=== PATIENT | female | born 1950 | race Caucasian/White ===

== ENCOUNTER 2017-04-14 14:32 | Outpatient (POV) | payer MEDICARE, SELFPAY | END 2017-04-14 16:04 | disposition home or self-care (01) | PROVIDERS: Visit Provider Podiatrist | DX: M20.11 Hallux valgus (acquired), right foot; M77.41 Metatarsalgia, right foot; I00 Rheumatic fever without heart involvement; M20.42 Other hammer toe(s) (acquired), left foot; M20.41 Other hammer toe(s) (acquired), right foot | CPT/HCPCS: 99204; 73630 ==

== ENCOUNTER → 2017-08-07 13:04 | Outpatient (POV) | payer MEDICARE, SELFPAY | PROVIDERS: Visit Provider Dermatology | DX: Z00.00 Encounter for general adult medical examination without abnormal findings (principal) ==

== ENCOUNTER → 2017-10-09 10:07 | Outpatient (POV) | payer MEDICARE, SELFPAY | PROVIDERS: Visit Provider Dermatology | DX: Z00.00 Encounter for general adult medical examination without abnormal findings (principal) ==

== ENCOUNTER 2017-10-14 09:25 | Outpatient (CLI) | payer MEDICARE, SELFPAY ==
[2017-10-14 09:43] VITALS: BP 142/76; PULSE 75; RESP 18; TEMP 36.6; O2SAT 97
[2017-10-14 10:00] VITALS: BP 139/75; PULSE 79; RESP 18; O2SAT 97
== END 2017-10-14 10:00 | disposition home or self-care (01) ==
LOC: INF 09:36
PROVIDERS: Visit Provider Internal Medicine Adolescent Medicine
DX: M81.0 Age-related osteoporosis without current pathological fracture (principal)
CPT/HCPCS: 96372; J0897

== ENCOUNTER → 2018-02-09 12:18 | Outpatient (CLI) | payer MEDICARE, SELFPAY ==
[2018-02-09 15:35] LABS: Blood Urea Nitrogen 19 mg/dL (7-18); Creatinine,Serum 0.94 mg/dL (0.55-1.02); Estimated Glomerular Filt Rate 59 ml/min (>60); GFR (African American) 71 ML/MIN (>60)
== END ==
PROVIDERS: PCP Internal Medicine Adolescent Medicine; Visit Provider Internal Medicine Adolescent Medicine
DX: R10.9 Unspecified abdominal pain (principal)
CPT/HCPCS: 36415; 82565; 84520

== ENCOUNTER → 2018-02-10 10:55 | Outpatient (CLI) | payer MEDICARE, SELFPAY ==
--- NOTE | 2018-02-10 10:59 | CT_ITS ---
CT abdomen pelvis w con CLINICAL INDICATION: Lower abdominal pain, diverticulosis ITS.REASON: ABD PAIN ORDERING PHYSICIAN: Sebastian Wallace MD PATIENT AGE: 68 years COMPARISON: 12/11/2016 TECHNIQUE: Axial images obtained with sagittal and coronal reformats. All CT scans at the facility use one or more dose reduction, viz: automated exposure control, ma/kV adjustment per patient size (including targeted exams where dose is matched to indication, i.e. head), or iterative reconstruction technique. PROCEDURE: Oral Contrast: Redicat IV Contrast: 75 mL's of Isovue-370. FINDINGS: There are fibrotic changes in the left lung base. There has been a prior cholecystectomy without ductal dilatation. The liver has an unremarkable appearance. There is a 15 mm isodense lesion involving the inferior aspect of the spleen unchanged and may represent a splenic cyst. Right adrenal gland is enlarged at 19 mm similar to the previous exam. Previously unenhanced images showed a density of less than 0 consistent with an adenoma. The pancreas has an unremarkable appearance. No renal or ureteral calculi. No hydronephrosis. There is a 4.6 cm right renal cyst unchanged. No intestinal obstruction or free air. There is a tiny umbilical hernia containing fat. The appendix has an unremarkable appearance. There is moderate long segment thickening involving the mid aspect of the sigmoid colon and the rectosigmoid area with diffuse diverticulosis noted of the sigmoid colon. There is some mild stranding of the pericolic fat in the sigmoid region consistent with mild diverticulitis. No abscess or perforation apparent. There has been a prior hysterectomy. Degenerative changes are present in the lumbar spine IMPRESSION: 1. Extensive diverticulosis of the sigmoid colon with some thickening of the sigmoid and rectosigmoid region consistent with hypertrophic changes from chronic diverticulosis 2. Minimal stranding of the fat around the sigmoid region suggesting mild diverticulitis. No evidence of abscess or perforation. 3. Other stable and nonacute findings as described above including right adrenal adenoma, splenic cyst, and right renal cyst
== END ==
PROVIDERS: PCP Internal Medicine Adolescent Medicine; Visit Provider Internal Medicine Adolescent Medicine
DX: R10.9 Unspecified abdominal pain (principal)
CPT/HCPCS: 74177; Q9967

== ENCOUNTER → 2018-03-03 14:22 | Outpatient (POV) | payer MEDICARE, SELFPAY | PROVIDERS: Visit Provider Dermatology | DX: Z00.00 Encounter for general adult medical examination without abnormal findings (principal) ==

== ENCOUNTER 2018-04-24 09:45 | Outpatient (CLI) | payer MEDICARE, SELFPAY ==
[2018-04-24 09:45] VITALS: BP 125/65; PULSE 76; RESP 20; TEMP 36.9; O2SAT 95
[2018-04-24 10:00] VITALS: BP 112/74; PULSE 68; RESP 20; TEMP 36.9; O2SAT 95
== END 2018-04-24 09:50 | disposition home or self-care (01) ==
LOC: INF 09:45
PROVIDERS: Visit Provider Internal Medicine Adolescent Medicine
DX: M81.0 Age-related osteoporosis without current pathological fracture (principal)
CPT/HCPCS: 96372; J0897

== ENCOUNTER → 2018-05-25 13:16 | Outpatient (CLI) | payer MEDICARE, SELFPAY ==
--- NOTE | 2018-05-25 13:21 | XR_ITS ---
XR chest 2V HISTORY: No history provided ORDERING PHYSICIAN: Sebastian Wallace MD PATIENT AGE: 68 years COMPARISON: None FINDINGS: The cardiomediastinal silhouette and pulmonary vascularity are within normal limits. The lungs are clear without infiltrates, suspicious nodules, or pleural effusions. No acute bony abnormalities. The calcified left hilar node. IMPRESSION: Negative chest, no acute finding
== END ==
PROVIDERS: PCP Internal Medicine Adolescent Medicine; Visit Provider Internal Medicine Adolescent Medicine
DX: J18.0 Bronchopneumonia, unspecified organism (principal)
CPT/HCPCS: 71046

== ENCOUNTER → 2018-07-23 15:07 | Outpatient (CLI) | payer MEDICARE, SELFPAY ==
[2018-07-23 18:44] LABS: Blood Urea Nitrogen 15 mg/dL (7-18); Creatinine,Serum 1.35 mg/dL (0.55-1.02); Estimated Glomerular Filt Rate 39 ml/min (>60); GFR (African American) 47 ML/MIN (>60)
== END ==
PROVIDERS: Visit Provider Internal Medicine Adolescent Medicine
DX: Z01.818 Encounter for other preprocedural examination (principal)
CPT/HCPCS: 36415; 82565; 84520

== ENCOUNTER → 2018-07-24 10:29 | Outpatient (CLI) | payer MEDICARE, SELFPAY ==
--- NOTE | 2018-07-24 10:56 | CT_ITS ---
CT abdomen pelvis w con CLINICAL INDICATION: Low abdominal pain, possible diverticulitis ITS.REASON: DIVERTICULITIS ORDERING PHYSICIAN: Sebastian Wallace MD PATIENT AGE: 68 years COMPARISON: 02/10/2018 TECHNIQUE: Axial images obtained with sagittal and coronal reformats. All CT scans at the facility use one or more dose reduction, viz: automated exposure control, ma/kV adjustment per patient size (including targeted exams where dose is matched to indication, i.e. head), or iterative reconstruction technique. PROCEDURE: Oral Contrast: Redicat IV Contrast: 75 mL's Optiray 350. FINDINGS: No acute finding in the lung bases. Postcholecystectomy changes. The liver and pancreas have an unremarkable appearance. There is an isodensity in the spleen centrally at 15 mm unchanged. There is a 19 mm right adrenal nodule not significantly changed which may be due to an adenoma. There is a 4.5 cm right renal cyst. No hydronephrosis. No ureteral calculi. No renal calculi. No intestinal obstruction or free air. There is a small umbilical hernia containing fat. Unremarkable appendix. There is diverticulosis of the descending and sigmoid colon but no convincing evidence of diverticulitis. The sigmoid colon is mildly thickened without stranding of the pericolic fat and may be due to nondistention. No abscess. No free air. Prior hysterectomy. There is degenerative disc disease at L4-5 and L5-S1 with mild anterolisthesis of L5 on S1. IMPRESSION: 1. No evidence of acute diverticulitis. 2. Descending and sigmoid diverticulosis with mild thickening of the sigmoid colon which may be due to nondistention an underlying hypertrophic changes 3. No change in the splenic cystic lesion and right adrenal nodule
--- NOTE | 2018-08-21 11:51 | P.PCN_ITS ---
[facility] Procedure Note Procedure Note:: Colonoscopy Procedure Report: Colonoscopy with cold biopsies Endoscopist: Shad Mccain II, MD Referring physician: Micky Mcghee M.D. Date of Procedure: August 21, 2018 Equipment: Olympus 180 variable stiffness pediatric colonoscope Sedation: MAC sedation Indication: Mrs. Pandya is a 68-year-old female with a history of diverticulitis in December 2016 and more recently by CAT scan on July 24, 2018. She had a colonoscopy in February 2017 and had a single diminutive descending polyp (tubular adenoma) removed. The patient recently has had pain across the lower abdomen. She does have some gassiness. She does have a history of constipation but her bowel function has significantly improved since discontinuation of the fiber bowel regimen (MiraLAX plus Metamucil daily). She has had some nausea. She reports no rectal bleeding or weight loss. She reports no bloating. She has had no mucus with her bowel movements. She reports no family history of colon cancer. Procedure: Prior to the procedure, a history and physical exam was performed, and patient's medications and allergies were reviewed. The risks, benefits and alternatives of the sedation and procedure were discussed with the patient. All questions were answered and informed consent was obtained. The patient was brought to the procedure room. Patient identification and proposed procedure were verified by the physician and the nurse. The patient was placed in a left lateral decubitus position and the scope was passed under direct vision. Throughout the procedure, the patient's blood pressure, pulse, and oxygen saturations were monitored continuously. The colonoscopy was accomplished without difficulty. The patient tolerated the procedure well. Findings: On digital rectal examination there was normal rectal tone. There were no external hemorrhoids. The colonoscope was introduced through the anal canal to the rectum and advanced to the cecum. The ileocecal valve and appendiceal orifice were identified. The scope was advanced a short distance into the ileum which appeared grossly normal. There was a single ileal 5 mm nodule that was biopsied to rule out lymphoid hyperplasia or carcinoid. The scope was then withdrawn into the colon. The cecum, ascending and transverse colon and mucosa were grossly normal. There were 2 diminutive 2-3 mm polyps in the descending colon both of which were removed via cold biopsy. There were scattered diverticuli throughout the colon but more predominantly in the descending and sigmoid colon (LEFT colon). The rectum itself was normal. Upon retroflexion within the rectum there were grade 1 internal hemorrhoids. The preparation was excellent throughout with [place] Preparation Score of 9. The cecal time was 12 minutes. Impression: 1. Diminutive descending polyps x2 2. Pandiverticulosis 3. Grade 1 internal hemorrhoids 4. Small 5 mm ileal nodule Plan: I will follow up the biopsies. I would continue the fiber bowel regimen daily. We will discuss dietary measures. I would consider treatment for visceral sensitivity. I do feel that she has some spastic diverticular disease with a diverticulitis. She does not have complicated diverticulitis.
== END ==
PROVIDERS: PCP Internal Medicine Adolescent Medicine; Visit Provider Internal Medicine Adolescent Medicine
DX: K57.32 Diverticulitis of large intestine without perforation or abscess without bleeding (principal)
CPT/HCPCS: 74177; Q9967

== ENCOUNTER → 2018-08-04 09:57 | Outpatient (POV) | payer MEDICARE, SELFPAY | PROVIDERS: Visit Provider Dermatology | DX: Z00.00 Encounter for general adult medical examination without abnormal findings (principal) ==

== ENCOUNTER 2018-08-21 09:34 | Day surgery (SDC) | payer MEDICARE, SELFPAY ==
[2018-08-18 09:04] VITALS: BMI 24.7
[2018-08-21] VITALS (7 sets, daily range): BP systolic 86–139; BP diastolic 59–86; PULSE 70–91; RESP 18; TEMP 36.3–36.5; O2SAT 94–98
--- NOTE | 2018-08-21 11:32 | P.PN_ITS ---
[facility] Anesthesia Checklist - Patient Identification Patient Identification: Arm Band - Structural Data Admitted From: Home Planned Operative Procedure/s: colonoscopy Consent for Planned Operative Procedure(s) Verified: Yes Verified Documents: Surgical Consent, History and Physical - NPO Status Verified Time NPO: 00:00 - Additional verifications Anesthesia Reactions: No - Airway Assessment C-Spine Mobility Assessed: Yes (mp1) TMJ Mobility Assessed: Yes Dentition: Good Dentition - Neurological Assessment Level of Consciousness: Awake, Alert - Anesthesia Plan Anesthesia Risk discussed: Yes Anesthesia Plan: Verified ASA Class: III Anesthesia Type: MAC [facility] History I have reviewed the patient's past medical history: Yes Medical History: Reports:: Coronary Artery Disease, Gastroesophageal Reflux Disease(GERD), Hyperlipidemia, Hypertension Denies:: Cancer, Diabetes Mellitus Type 1, Diabetes Mellitus Type 2, Internal Pacemaker, Lung Disease, MRSA, Seizures Other Surgeries: Yes: Cholecystectomy, Hysterectomy-Total, Other (breast biopsy). No: Pacemaker Amputation: No - *Social History Smoking Status: Current every day smoker Tobacco Type: cigarettes Alcohol Intake: never Family Hx:: No significant family history
--- NOTE | 2018-08-21 11:47 | HMH.PROC ---
[facility] Procedure Note Procedure Note:: Colonoscopy Procedure Report: Colonoscopy with cold biopsies Endoscopist: Sahd Mccain II, MD Referring physician: Micky Mcghee M.D. Date of Procedure: August 21, 2018 Equipment: Olympus 180 variable stiffness pediatric colonoscope Sedation: MAC sedation Indication: Mrs. Pandya is a 68-year-old female with a history of diverticulitis in December 2016 and more recently by CAT scan on July 24, 2018. She had a colonoscopy in February 2017 and had a single diminutive descending polyp (tubular adenoma) removed. The patient recently has had pain across the lower abdomen. She does have some gassiness. She does have a history of constipation but her bowel function has significantly improved since discontinuation of the fiber bowel regimen (MiraLAX plus Metamucil daily). She has had some nausea. She reports no rectal bleeding or weight loss. She reports no bloating. She has had no mucus with her bowel movements. She reports no family history of colon cancer. Procedure: Prior to the procedure, a history and physical exam was performed, and patient's medications and allergies were reviewed. The risks, benefits and alternatives of the sedation and procedure were discussed with the patient. All questions were answered and informed consent was obtained. The patient was brought to the procedure room. Patient identification and proposed procedure were verified by the physician and the nurse. The patient was placed in a left lateral decubitus position and the scope was passed under direct vision. Throughout the procedure, the patient's blood pressure, pulse, and oxygen saturations were monitored continuously. The colonoscopy was accomplished without difficulty. The patient tolerated the procedure well. Findings: On digital rectal examination there was normal rectal tone. There were no external hemorrhoids. The colonoscope was introduced through the anal canal to the rectum and advanced to the cecum. The ileocecal valve and appendiceal orifice were identified. The scope was advanced a short distance into the ileum which appeared grossly normal. There was a single ileal 5 mm nodule that was biopsied to rule out lymphoid hyperplasia or carcinoid. The scope was then withdrawn into the colon. The cecum, ascending and transverse colon and mucosa were grossly normal. There were 2 diminutive 2-3 mm polyps in the descending colon both of which were removed via cold biopsy. There were scattered diverticuli throughout the colon but more predominantly in the descending and sigmoid colon (LEFT colon). The rectum itself was normal. Upon retroflexion within the rectum there were grade 1 internal hemorrhoids. The preparation was excellent throughout with [place] Preparation Score of 9. The cecal time was 12 minutes. Impression: 1. Diminutive descending polyps x2 2. Pandiverticulosis 3. Grade 1 internal hemorrhoids 4. Small 5 mm ileal nodule Plan: I will follow up the biopsies. I would continue the fiber bowel regimen daily. We will discuss dietary measures. I would consider treatment for visceral sensitivity. I do feel that she has some spastic diverticular disease with a diverticulitis. She does not have complicated diverticulitis.
== END 2018-08-21 12:39 | disposition home or self-care (01) ==
LOC: OUTP 09:35
PROVIDERS: PCP Internal Medicine Adolescent Medicine; Visit Provider Internal Medicine Gastroenterology
PROC: 0DJD8ZZ Inspection of Lower Intestinal Tract, Via Natural or Artificial Opening Endoscopic (ICD-10-PCS; CPT 45378; principal; 2018-08-21 11:00)
DX: K57.30 Diverticulosis of large intestine without perforation or abscess without bleeding (principal); K63.5 Polyp of colon; K63.89 Other specified diseases of intestine; Z86.010 Personal history of colon polyps; Z87.19 Personal history of other diseases of the digestive system
CPT/HCPCS: 45380; 88305

== ENCOUNTER 2018-11-03 10:11 | Outpatient (CLI) | payer MEDICARE, SELFPAY ==
[2018-11-03 10:24] VITALS: BP 116/67; PULSE 76; RESP 18; TEMP 36.8; O2SAT 95
[2018-11-03 10:25] VITALS: BP 116/67; PULSE 76; RESP 18; TEMP 36.8; O2SAT 95
[2018-11-03 10:32] VITALS: BP 116/67; PULSE 76; RESP 18; TEMP 36.8; O2SAT 95
== END 2018-11-03 10:32 | disposition home or self-care (01) ==
LOC: INF 10:11
PROVIDERS: Visit Provider Internal Medicine Adolescent Medicine
DX: M81.0 Age-related osteoporosis without current pathological fracture (principal)
CPT/HCPCS: 96372; J0897

== ENCOUNTER → 2018-11-23 10:00 | Outpatient (CLI) | payer MEDICARE, SELFPAY ==
[2018-11-26 08:06] LABS: Calcium, Ionized 5.1 mg/dL (4.5-5.6); Parathyroid Hormone Intact 92 pg/mL (15-65)
== END ==
PROVIDERS: PCP Internal Medicine Adolescent Medicine; Visit Provider Internal Medicine Rheumatology
DX: D89.9 Disorder involving the immune mechanism, unspecified (principal); E55.9 Vitamin D deficiency, unspecified; M06.9 Rheumatoid arthritis, unspecified; M85.80 Other specified disorders of bone density and structure, unspecified site
CPT/HCPCS: 36415; 82330; 83970

== ENCOUNTER → 2019-02-01 09:31 | Outpatient (CLI) | payer MEDICARE, SELFPAY ==
[2019-02-01 14:09] LABS: Basophils % 0.3 % (0.1-2.0); Eosinophils # 0.1 K/mm3 (0.0-0.4); Hematocrit 45.6 % (37.0-47.0); Hemoglobin 14.2 g/dL (12.2-16.2); Lymphocytes # 1.5 K/mm3 (0.7-4.5); Lymphocytes % 20.5 % (10-50); Mean Corpuscular HGB Conc 31.1 g/dL (31.8-35.4); Mean Corpuscular Volume 96.6 fl (81-99); Mean Platelet Volume 8.8 fl (7.4-10.4); Monocytes # 0.3 K/mm3 (0.1-1.0); Monocytes % 3.8 % (1.7-9.3); Neutrophils # 5.6 K/mm3 (1.8-7.8); Neutrophils % 74.4 % (37.0-80.0); Platelet Count 303 K/mm3 (142-424); Red Blood Count 4.72 M/mm3 (4.20-5.40); Red Cell Distribution Width 15.7 % (11.5-17.5); White Blood Count 7.5 K/mm3 (4.8-10.8)
[2019-02-01 14:47] LABS: Alanine Aminotransferase 27 U/L (12-78); Albumin Level 3.5 gm/dL (3.4-5.0); Albumin/Globulin Ratio 1.1 (1.1-1.8); Alkaline Phosphatase 77 U/L (46-116); Aspartate Amino Transferase 14 U/L (15-37); Bilirubin,Direct 0.1 mg/dL (0.0-0.2); Bilirubin,Total 0.5 mg/dL (0.2-1.0); Blood Urea Nitrogen 14 mg/dL (7-18); Calcium 9.2 mg/dL (8.5-10.1); Chloride 102 mmol/L (98-107); Creatinine,Serum 0.83 mg/dL (0.55-1.02); Estimated Glomerular Filt Rate 68 ml/min (>60); GFR (African American) 82 ML/MIN (>60); Globulin 3.2 gm/dl (1.3-3.2); Glucose 101 mg/dL (74-106); Potassium 3.4 mmoL/L (3.5-5.1); Sodium 140 mmol/L (136-145); Total Protein,Serum 6.7 gm/dL (6.4-8.2)
[2019-02-01 14:59] LABS: Anion Gap 15.4 mEq/L (5-15); Carbon Dioxide 26 mmol/L (21.0-32.0)
[2019-02-01 15:16] LABS: C-Reactive Protein < 0.2 mg/dL (0.0-0.9)
[2019-02-01 17:23] LABS: Erythrocyte Sedimentation Rate 20 mm/hr (0-30)
[2019-02-02 16:15] LABS: Calcium, Ionized 5.4 mg/dL (4.5-5.6)
[2019-02-04 06:10] LABS: Parathyroid Hormone Intact 63 pg/mL (15-65)
== END ==
PROVIDERS: PCP Internal Medicine Adolescent Medicine; Visit Provider Internal Medicine Rheumatology
DX: D89.9 Disorder involving the immune mechanism, unspecified (principal); E55.9 Vitamin D deficiency, unspecified; M06.9 Rheumatoid arthritis, unspecified; M85.80 Other specified disorders of bone density and structure, unspecified site; Z79.899 Other long term (current) drug therapy
CPT/HCPCS: 36415; 80053; 82248; 82330; 83970; 85025; 85651; 86140

== ENCOUNTER → 2019-03-12 10:29 | Outpatient (CLI) | payer MEDICARE, SELFPAY ==
[2019-03-13 18:18] LABS: Calcium, Ionized 5.3 mg/dL (4.5-5.6)
[2019-03-13 20:36] LABS: Parathyroid Hormone Intact 81 pg/mL (15-65)
== END ==
PROVIDERS: PCP Internal Medicine Adolescent Medicine; Visit Provider Internal Medicine Rheumatology
DX: D89.9 Disorder involving the immune mechanism, unspecified (principal); E55.9 Vitamin D deficiency, unspecified; M85.80 Other specified disorders of bone density and structure, unspecified site
CPT/HCPCS: 36415; 82330; 83970

== ENCOUNTER 2019-05-26 09:50 | Outpatient (CLI) | payer MEDICARE, SELFPAY ==
[2019-05-26 10:09] VITALS: BP 147/85; PULSE 94; RESP 18; O2SAT 100
== END 2019-05-26 10:09 | disposition home health service (06) ==
LOC: INF 09:50
PROVIDERS: Visit Provider Internal Medicine Adolescent Medicine
DX: M81.0 Age-related osteoporosis without current pathological fracture (principal)
CPT/HCPCS: 96372; J0897

== ENCOUNTER → 2019-08-17 12:43 | Outpatient (CLI) | payer MEDICARE, SELFPAY ==
--- NOTE | 2019-08-17 12:52 | CT_ITS ---
PROCEDURE: CT ABDOMEN PELVIS WO CON CLINICAL INDICATION: CYSTITIS WITH HEMATURIA, DYSURIA Recurring UTI COMPARISON: ABDPELW CT abdomen pelvis w con from 07/24/2018 TECHNIQUE: Axial images obtained with sagittal and coronal reformats. All CT scans at the facility use one or more dose reduction, viz: automated exposure control, ma/kV adjustment per patient size (including targeted exams where dose is matched to indication, i.e. head), or iterative reconstruction technique. FINDINGS: LOWER THORAX: Chronic changes in the left lung base. Coronary artery calcifications are present. ABDOMEN & PELVIS: Prior cholecystectomy. The liver, spleen, and pancreas have an unremarkable unenhanced appearance. There is a 2 cm right adrenal nodule with low-density consistent with an adenoma. There is a 4.6 cm right renal cyst. No renal or ureteral calculi. No evidence of appendicitis. There are scattered colonic diverticula most pronounced in the sigmoid colon. No evidence of diverticulitis. There are post hysterectomy changes There is degenerative disc disease at L4-5 and L5-S1 with 6 mm anterolisthesis of L5 on S1 IMPRESSION: 1. No acute finding. 2. 4.6 cm right renal cyst. No renal or ureteral calculi. 3. Colonic diverticulosis without diverticulitis 4. Right adrenal adenoma Dictated by: Zhen Biggs MD 08/17/2019 13:46 Electronically signed by Zhen Biggs MD in [place] 08/17/2019 13:46
== END ==
PROVIDERS: PCP Internal Medicine Adolescent Medicine; Visit Provider Internal Medicine Adolescent Medicine
DX: N30.91 Cystitis, unspecified with hematuria (principal); R30.0 Dysuria
CPT/HCPCS: 74176

== ENCOUNTER 2019-11-29 09:50 | Outpatient (CLI) | payer MEDICARE, SELFPAY ==
[2019-11-29 10:07] VITALS: BP 116/68; PULSE 85; RESP 18; TEMP 36.2; O2SAT 96
== END 2019-11-29 10:34 | disposition home or self-care (01) ==
LOC: INF 09:50
PROVIDERS: Visit Provider Internal Medicine Adolescent Medicine
DX: M81.0 Age-related osteoporosis without current pathological fracture (principal)
CPT/HCPCS: 96372; J0897

== ENCOUNTER → 2019-12-06 10:21 | Outpatient (CLI) | payer MEDICARE, SELFPAY ==
[2019-12-06 15:01] LABS: Alanine Aminotransferase 11 U/L (12-78); Albumin Level 3.9 g/dl (3.5-5.0); Albumin/Globulin Ratio 1.5 (1.1-1.8); Alkaline Phosphatase 91 U/L (38-126); Anion Gap 12.6 mEq/L (5-15); Aspartate Amino Transferase 18 U/L (14-36); Bilirubin,Total 0.6 mg/dl (0.2-1.3); Blood Urea Nitrogen 23 mg/dl (7-17); Calcium 9.5 mg/dl (8.4-10.2); Carbon Dioxide 26 mmol/L (22.0-30.0); Chloride 105 mmol/L (98-107); Estimated Glomerular Filt Rate 71 ml/min (>60); GFR (African American) 86 ML/MIN (>60); Globulin 2.6 g/dL (1.3-3.2); Glucose 148 mg/dl (74-100); Potassium 3.6 mmoL/L (3.5-5.1); Sodium 140 mmol/L (136-145); Total Protein,Serum 6.5 g/dl (6.3-8.2)
[2019-12-06 15:06] LABS: C-Reactive Protein 0.6 mg/L (0-4)
[2019-12-06 15:12] LABS: Basophils % 0.2 % (0.1-2.0); Eosinophils % 0.1 % (0.1-12.0); Hematocrit 46.1 % (37.0-47.0); Hemoglobin 15.3 g/dL (12.2-16.2); Lymphocytes # 0.8 K/mm3 (0.7-4.5); Lymphocytes % 7.8 % (10-50); Mean Corpuscular HGB Conc 33.2 g/dL (31.8-35.4); Mean Corpuscular Hemoglobin 30.7 pg (27.0-31.2); Mean Corpuscular Volume 92.4 fl (81-99); Mean Platelet Volume 9.7 fl (7.4-10.4); Monocytes # 0.2 K/mm3 (0.1-1.0); Neutrophils # 9.8 K/mm3 (1.8-7.8); Platelet Count 324 K/mm3 (142-424); Red Blood Count 4.99 M/mm3 (4.20-5.40); Red Cell Distribution Width 15.3 % (11.5-17.5); White Blood Count 10.9 K/mm3 (4.8-10.8)
[2019-12-06 15:15] LABS: MANUAL DIFFERENTIAL MANUAL DIFFERENTIAL (MANUAL DIFF)
[2019-12-06 15:48] LABS: 25-OH Vitamin D, Total 33.1 ng/mL (30-100)
[2019-12-06 16:14] LABS: Lymphocytes % 11 % (10-50); Monocytes % 2 % (2-9); Neutrophils % 87 % (42-76); RBC Morphology Normal; Total Cells Counted 100
[2019-12-06 16:15] LABS: Platelet Estimate Normal
[2019-12-06 16:22] LABS: Erythrocyte Sedimentation Rate 8 mm/hr (0-30)
== END ==
PROVIDERS: PCP Internal Medicine Adolescent Medicine; Visit Provider Nurse Practitioner Women's Health
DX: D89.9 Disorder involving the immune mechanism, unspecified (principal); M06.9 Rheumatoid arthritis, unspecified; E55.9 Vitamin D deficiency, unspecified; M85.80 Other specified disorders of bone density and structure, unspecified site; Z79.899 Other long term (current) drug therapy
CPT/HCPCS: 36415; 80053; 82306; 85007; 85025; 85651; 86140

== ENCOUNTER 2020-06-07 10:27 | Outpatient (CLI) | payer MEDICARE, SELFPAY ==
[2020-06-07 10:34] VITALS: BP 150/85; PULSE 84; RESP 18; TEMP 36.6; O2SAT 98
== END 2020-06-07 10:50 | disposition home or self-care (01) ==
LOC: INF 10:27
PROVIDERS: Visit Provider Internal Medicine Adolescent Medicine
DX: M81.0 Age-related osteoporosis without current pathological fracture (principal)
CPT/HCPCS: 96372; J0897

== ENCOUNTER → 2020-08-01 09:28 | Outpatient (POV) | payer MEDICARE, SELFPAY | PROVIDERS: Visit Provider Dermatology | DX: Z00.00 Encounter for general adult medical examination without abnormal findings (principal) ==

== ENCOUNTER → 2020-09-05 08:29 | Outpatient (POV) | payer MEDICARE, SELFPAY | PROVIDERS: Visit Provider Dermatology | DX: Z00.00 Encounter for general adult medical examination without abnormal findings (principal) ==

== ENCOUNTER → 2021-01-23 08:16 | Outpatient (CLI) | payer MEDICARE, SELFPAY | PROVIDERS: Visit Provider Internal Medicine Adolescent Medicine | DX: R30.0 Dysuria (principal) | CPT/HCPCS: 87086; 87088; 87186 ==

== ENCOUNTER → 2021-02-08 08:18 | Outpatient (CLI) | payer MEDICARE, SELFPAY ==
[2021-02-08 08:46] LABS: Blood Urea Nitrogen 13 mg/dl (7-17); Estimated Glomerular Filt Rate 82 ml/min (>60); GFR (African American) 99 ML/MIN (>60)
--- NOTE | 2021-02-08 10:18 | CT_ITS ---
PROCEDURE INFORMATION: Exam: CT Abdomen And Pelvis Without And With Contrast Exam date and time: 02/08/2021 10:18 AM Age: 71 years old Clinical indication: Other: Diverticulitis; Prior surgery; Surgery date: 6+ months; Surgery type: Gb, hysterectomy; TECHNIQUE: Imaging protocol: Computed tomography of the abdomen and pelvis without and with contrast. Radiation optimization: All CT scans at this facility use at least one of these dose optimization techniques: automated exposure control; mA and/or kV adjustment per patient size (includes targeted exams where dose is matched to clinical indication); or iterative reconstruction. Contrast material: ISOVUE; Contrast volume: 75 ml; Contrast route: INTRAVENOUS (IV); COMPARISON: CT ABDOMEN PELVIS WO CON 08/17/2019 1:07 PM FINDINGS: Lungs: Bibasilar atelectasis Liver: Normal. No mass. Gallbladder and bile ducts: Cholecystectomy Pancreas: Normal. No ductal dilation. Spleen: 16 mm simple cyst in the spleen . No follow-up imaging recommended . Adrenal glands: Right adrenal adenoma measures 2 cm and -12 Hounsfield units. . No follow-up imaging recommended . Kidneys and ureters: 4.5 cm simple cyst right kidney. . No follow-up imaging recommended . Stomach and bowel: Diverticulosis and Bowel wall thickening along the rectosigmoid colon. Mild pericolonic inflammatory changes. No evidence of perforation or abscess formation or bleeding. Findings consistent with acute diverticulitis. Appendix: Normal appendix Intraperitoneal space: Unremarkable. No free air. No significant fluid collection. Vasculature: Unremarkable. No abdominal aortic aneurysm. Lymph nodes: Unremarkable. No enlarged lymph nodes. Urinary bladder: Unremarkable as visualized. Reproductive: Surgical resection of the uterus Bones/joints: Anterolisthesis of L5 with respect S1 No acute fracture. Soft tissues: Unremarkable. IMPRESSION: 1. Diverticulosis and Bowel wall thickening along the rectosigmoid colon. Mild pericolonic inflammatory changes. No evidence of perforation or abscess formation or bleeding. Findings consistent with acute diverticulitis. 2. Right adrenal adenoma measures 2 cm and -12 Hounsfield units. . No follow-up imaging recommended . COMMENTS: 1. Consistent with the [employer]'s Incidental Findings Committee white paper (J Am Wil Radiol 2017): For any incidental adrenal lesion greater than 1 cm but less than 4 cm classified in this report as benign, likely benign, or containing fat (including classification as an adenoma or myelolipoma), no follow-up imaging is recommended per consensus recommendations based on imaging criteria. Further lab evaluation could be pursued if warranted based on clinical findings. 2. Consistent with the [employer]'s Incidental Findings Committee white paper (J Am Wil Radiol 2018): Any incidental renal lesion less than 1 cm or classified as too small to characterize, or any incidental cystic renal lesion characterized as simple-appearing, is likely benign. No follow-up imaging is recommended for these lesions per consensus recommendations based on imaging criteria.
== END ==
PROVIDERS: Visit Provider Internal Medicine Adolescent Medicine
DX: R10.9 Unspecified abdominal pain (principal); K57.92 Diverticulitis of intestine, part unspecified, without perforation or abscess without bleeding
CPT/HCPCS: 36415; 74178; 82565; 84520; Q9967

== ENCOUNTER → 2021-04-17 18:55 | Outpatient (CLI) | payer MEDICARE, SELFPAY | PROVIDERS: Visit Provider Internal Medicine Adolescent Medicine | DX: R30.0 Dysuria (principal); B96.1 Klebsiella pneumoniae [K. pneumoniae] as the cause of diseases classified elsewhere | CPT/HCPCS: 87086; 87088; 87186 ==

== ENCOUNTER → 2021-04-26 14:48 | Outpatient (CLI) | payer MEDICARE, SELFPAY | PROVIDERS: Visit Provider Nurse Practitioner | DX: Z20.822 Contact with and (suspected) exposure to COVID-19 (principal) | CPT/HCPCS: C9803; U0003; U0005 ==

== ENCOUNTER → 2021-05-07 11:57 | Outpatient (CLI) | payer MEDICARE, SELFPAY | PROVIDERS: Visit Provider Internal Medicine Adolescent Medicine | DX: R30.0 Dysuria (principal); B96.20 Unspecified Escherichia coli [E. coli] as the cause of diseases classified elsewhere | CPT/HCPCS: 87086; 87088; 87186 ==

== ENCOUNTER → 2021-06-05 10:09 | Outpatient (CLI) | payer MEDICARE, SELFPAY ==
[2021-06-05 14:02] LABS: Basophils % 0.6 % (0.1-2.0); Eosinophils # 0.1 K/mm3 (0.0-0.4); Eosinophils % 1.1 % (0.1-12.0); Hematocrit 48.5 % (37.0-47.0); Lymphocytes # 1.5 K/mm3 (0.7-4.5); Lymphocytes % 24.6 % (10-50); Mean Corpuscular Hemoglobin 31.8 pg (27.0-31.2); Mean Corpuscular Volume 96.6 fl (81-99); Mean Platelet Volume 8.9 fl (7.4-10.4); Monocytes # 0.4 K/mm3 (0.1-1.0); Monocytes % 5.7 % (1.7-9.3); Neutrophils # 4.2 K/mm3 (1.8-7.8); Platelet Count 285 K/mm3 (142-424); Red Blood Count 5.02 M/mm3 (4.20-5.40); Red Cell Distribution Width 14.9 % (11.5-17.5); White Blood Count 6.2 K/mm3 (4.8-10.8)
[2021-06-05 14:03] LABS: Alanine Aminotransferase 10 U/L (12-78); Albumin Level 4.2 g/dl (3.5-5.0); Alkaline Phosphatase 78 U/L (38-126); Aspartate Amino Transferase 21 U/L (14-36); Bilirubin,Direct 0.3 mg/dl (0.0-0.4); Bilirubin,Indirect 0.5 mg/dL (0.0-0.9); Bilirubin,Total 0.8 mg/dl (0.2-1.3); Bilirubin,Unconjugated 0.5 mg/dL (0.0-1.1); Estimated Glomerular Filt Rate 61 ml/min (>60); GFR (African American) 74 ML/MIN (>60); Total Protein,Serum 6.7 g/dl (6.3-8.2)
[2021-06-05 14:10] LABS: C-Reactive Protein 1.6 mg/L (0-4)
[2021-06-05 18:36] LABS: Erythrocyte Sedimentation Rate 21 mm/hr (0-30)
== END ==
PROVIDERS: Visit Provider Internal Medicine Rheumatology
DX: D89.9 Disorder involving the immune mechanism, unspecified (principal); M06.9 Rheumatoid arthritis, unspecified
CPT/HCPCS: 36415; 80076; 82565; 85025; 85651; 86140

== ENCOUNTER → 2021-06-16 12:26 | Outpatient (CLI) | payer MEDICARE, SELFPAY | PROVIDERS: PCP Nurse Practitioner Family; Visit Provider Nurse Practitioner Family | DX: R30.0 Dysuria (principal); B95.2 Enterococcus as the cause of diseases classified elsewhere | CPT/HCPCS: 87086; 87088; 87186 ==

== ENCOUNTER 2021-08-01 08:43 | Outpatient (CLI) | payer MEDICARE, SELFPAY ==
[2021-08-01 09:01] VITALS: BP 152/77; PULSE 82; RESP 20; TEMP 36.2; O2SAT 97
== END 2021-08-01 09:05 | disposition home or self-care (01) ==
LOC: INF 08:44
PROVIDERS: PCP Internal Medicine Adolescent Medicine; Visit Provider Internal Medicine Adolescent Medicine
DX: M81.0 Age-related osteoporosis without current pathological fracture (principal)
CPT/HCPCS: 96372; J0897

== ENCOUNTER → 2021-11-30 06:16 | Outpatient (CLI) | payer MEDICARE, SELFPAY | PROVIDERS: PCP Internal Medicine Adolescent Medicine; Visit Provider Internal Medicine Adolescent Medicine | DX: N39.0 Urinary tract infection, site not specified (principal) | CPT/HCPCS: 87086 ==

== ENCOUNTER → 2022-01-25 06:23 | Outpatient (CLI) | payer MEDICARE, SELFPAY | PROVIDERS: PCP Family Medicine; Visit Provider Family Medicine | DX: R30.0 Dysuria (principal) | CPT/HCPCS: 87086 ==

== ENCOUNTER → 2022-05-03 09:20 | Outpatient (CLI) | payer MEDICARE, SELFPAY | PROVIDERS: PCP Nurse Practitioner Family; Visit Provider Nurse Practitioner Family | DX: R30.0 Dysuria (principal); B96.89 Other specified bacterial agents as the cause of diseases classified elsewhere | CPT/HCPCS: 87086; 87088; 87186 ==

== ENCOUNTER → 2022-05-13 06:38 | Outpatient (CLI) | payer MEDICARE, SELFPAY | PROVIDERS: PCP Family Medicine; Visit Provider Family Medicine | DX: R30.0 Dysuria (principal) | CPT/HCPCS: 87086 ==

== ENCOUNTER 2022-11-24 10:54 | Observation (INO) | payer MEDICARE, SELFPAY ==
[2022-11-24] VITALS (7 sets, daily range): BP systolic 114–158; BP diastolic 56–75; PULSE 61–86; RESP 14–20; TEMP 36.6–36.8; O2SAT 91–98; BMI 24.0
[2022-11-24 11:07] LABS: Appearance,Urine CLEAR (Clear); Bilirubin,Urine Negative (Negative); Blood, Urine 1+ (Negative); Color,Urine YELLOW (Yellow); Glucose,Urine (UA) Negative (Negative); Ketones,Urine Negative (Negative); Leukocyte Esterase,Urine Negative (Negative); Microscopic, Urine URINE MICROSCOPIC (MICROSCOPIC); Nitrate,Urine Negative (Negative); Protein,Urine Negative (Negative); Urobilinogen,Urine 0.2 EU/dl (0.2)
[2022-11-24 11:29] LABS: Bacteria,Urine Trace /lpf; RBC,Urine Occasional #/hpf (0-3); Squamous Epithelial Cell,Urine Occasional #/hpf (0-5)
[2022-11-24 11:30] LABS: Basophils % 0.2 % (0.1-2.0); Eosinophils # 0.1 K/mm3 (0.0-0.4); Eosinophils % 1.2 % (0.1-12.0); Hemoglobin 14.2 g/dL (12.2-16.2); Lymphocytes # 1.2 K/mm3 (0.7-4.5); Lymphocytes % 12.9 % (10-50); Mean Corpuscular HGB Conc 32.2 g/dL (31.8-35.4); Mean Corpuscular Hemoglobin 29.4 pg (27.0-31.2); Mean Corpuscular Volume 91.2 fl (81-99); Mean Platelet Volume 8.3 fl (7.4-10.4); Monocytes # 0.4 K/mm3 (0.1-1.0); Monocytes % 4.2 % (1.7-9.3); Neutrophils # 7.3 K/mm3 (1.8-7.8); Neutrophils % 81.4 % (37.0-80.0); Platelet Count 253 K/mm3 (142-424); Red Blood Count 4.82 M/mm3 (4.20-5.40); Red Cell Distribution Width 15.2 % (11.5-17.5)
--- NOTE | 2022-11-24 11:32 | CT_ITS ---
PROCEDURE INFORMATION: Exam: CT Abdomen And Pelvis With Contrast Exam date and time: 11/24/2022 12:03 PM Age: 72 years old Clinical indication: Abdominal pain; Generalized; Additional info: Diverticulosis HX, guarding abdomen TECHNIQUE: Imaging protocol: Computed tomography of the abdomen and pelvis with contrast. Radiation optimization: All CT scans at this facility use at least one of these dose optimization techniques: automated exposure control; mA and/or kV adjustment per patient size (includes targeted exams where dose is matched to clinical indication); or iterative reconstruction. Contrast material: ISOVUE; Contrast volume: 75 ml; Contrast route: IV; REPORTING DATA: Count of CT and Cardiac NM exams in prior 12 months: This patient has received 0 known CTs and 0 known cardiac nuclear medicine studies in the 12 months prior to the current study. COMPARISON: CT ABDOMEN PELVIS WO/W CON 02/08/2021 11:03 AM FINDINGS: Lungs: Bibasilar subsegmental atelectasis noted. Liver: No focal hepatic lesions. Gallbladder and bile ducts: There has been a cholecystectomy. Pancreas: No peripancreatic fluid stranding. No main pancreatic ductal dilation. Spleen: No splenomegaly. 1.3 cm splenic cyst. Adrenal glands: Unchanged right 1.8 cm adrenal adenoma. Kidneys and ureters: There are variably-sized right renal cysts. Nephrograms are symmetric. No nephrolithiasis or hydroureteronephrosis on either side. No solid lesions Stomach and bowel: There is wall thickening and mesenteric inflammatory changes involving a short segment of sigmoid colon. Background of diffuse diverticulosis. There is a peripherally enhancing fluid filled structure along the anti mesenteric wall of the sigmoid colon measuring 1.7 x 1.2 cm. Findings can be either a very inflamed diverticulum versus an intramural abscess. Appendix: A normal appendix is identified. Intraperitoneal space: There is no evidence of free intraperitoneal or pelvic fluid. Vasculature: The aorta demonstrates moderate atherosclerotic calcification. Lymph nodes: No evidence of retroperitoneal or mesenteric lymphadenopathy. Urinary bladder: Urinary bladder is unremarkable. Reproductive: Status post hysterectomy. Bones/joints: Anterolisthesis of L5 over S1 attributed to a chronic bilateral pars defects. No acute osseous abnormality. Multilevel degenerative changes of the included spine. Soft tissues: Unremarkable. IMPRESSION: Acute sigmoid diverticulitis. There is a peripherally enhancing fluid filled structure along the anti mesenteric wall of the sigmoid colon measuring 1.7 x 1.2 cm. Findings can be either a very inflamed diverticulum versus an intramural abscess. No extraluminal air COMMENTS: Consistent with the [employer]'s Incidental Findings Committee white paper (J Am Wil Radiol 2018): Any incidental renal lesion less than 1 cm or classified as too small to characterize, or any incidental cystic renal lesion characterized as simple-appearing, is likely benign. No follow-up imaging is recommended for these lesions per consensus recommendations based on imaging criteria.
[2022-11-24 11:35] LABS: Chloride 99 mmol/L (98-107)
[2022-11-24 11:36] LABS: Potassium 3.5 mmoL/L (3.5-5.1); Sodium 139 mmol/L (136-145)
[2022-11-24 11:38] LABS: Alanine Aminotransferase 14 U/L (12-78); Albumin/Globulin Ratio 1.2 (1.1-1.8); Alkaline Phosphatase 111 U/L (38-126); Anion Gap 14.5 mEq/L (5-15); Aspartate Amino Transferase 18 U/L (14-36); Bilirubin,Total 0.8 mg/dl (0.2-1.3); Blood Urea Nitrogen 15 mg/dl (7-17); Calcium 11.4 mg/dl (8.4-10.2); Carbon Dioxide 29 mmol/L (22.0-30.0); Creatinine Clearance Estimated 48 mL/min (50-200); Estimated Glomerular Filt Rate 54 ml/min (>60); GFR (African American) 66 ML/MIN (>60); Globulin 3.3 g/dL (1.3-3.2); Glucose 118 mg/dl (74-100); Lipase 75 U/L (23-300); Total Protein,Serum 7.3 g/dl (6.3-8.2)
[2022-11-24 11:39] LABS: Lactic Acid 0.8 mmol/L (0.7-2.1)
--- NOTE | 2022-11-24 12:07 | HMH.EDGENADL ---
Discharge Plan Disposition Patient Disposition: Admitted Condition: Fair Prescriptions Prescriptions: No Action psyllium husk [Metamucil] 0.4 gram capsule 0.4 gm PO DAILY estradiol 10 mcg tablet 10 mcg vaginal DAILY Azo Cranberry 250 mg tablet,chewable 500 mg PO DAILY amoxicillin-pot clavulanate 875-125 mg tablet 1 tab PO BID 10 Days Qty: 20 0RF ondansetron 4 mg tablet,disintegrating 4 mg PO Q8H PRN (Reason: nausea and vomiting) Qty: 20 0RF methenamine hippurate 1 gram tablet 1 g PO BID alprazolam [Xanax] 0.25 mg tablet See Rx Instructions PO .COMPLEX PRN (Reason: anxiety and sleep) Qty: 150 1RF Rx Instructions: one tab every 8 hours as needed for anxiety and 2 tabs at bedtime as needed for sleep. losartan-hydrochlorothiazide 100-25 mg tablet See Rx Instructions .ROUTE .COMPLEX Qty: 90 0RF Dose Instruction: TAKE 1 TABLET ORALLY DAILY FOR HYPERTENSION FOR 90 DAYS Rx Instructions: TAKE 1 TABLET ORALLY DAILY FOR HYPERTENSION FOR 90 DAYS rosuvastatin 20 mg tablet 20 mg PO DAILY 30 Days Qty: 30 2RF esomeprazole magnesium 40 mg capsule,delayed release(DR/EC) 40 mg PO BID 30 Days Qty: 60 2RF methotrexate sodium 2.5 MG tablet 7.5 mg PO WEEKLY etanercept 50 MG/ML pen injector 50 mg SQ WEEKLY fluticasone propionate 120 SPR/BOT bottle 2 spr NS DAILY calcium carbonate 600 MG tablet 600 mg PO DAILY aspirin 81 MG tablet,delayed release (DR/EC) 81 mg PO DAILY folic acid 1 MG tablet 1 mg PO DAILY montelukast 10 MG tablet 10 mg PO PM cholecalciferol (vitamin D3) 1,000 UNIT tablet,chewable 50,000 unit PO WEEKLY cetirizine 10 MG tablet 10 mg PO DAILY PRN (Reason: allergies) Referrals Follow up/Referrals: Teo Goldman MD [Primary Care Provider] - See instructions Clinical Impressions Clinical Impression: Acute abdomen Diverticulitis of intestine with abscess Qualifiers: Diverticulitis site: large intestine Diverticulitis bleeding: without bleeding Qualified Code(s): K57.20 - Diverticulitis of large intestine with perforation and abscess without bleeding Discharge ED Provider: Damien Hutn General Adult HPI General Chief complaint: PAIN Stated complaint: Phys ref, Rectum pain, abd pain Time Seen by Provider: 11/24/22 11:00 Mode of Arrival: Ambulatory Source of Information: Patient Limitations: No Limitations Description of Symptoms (Recalled from ER Triage Doc. by RN): 72 yo F presents to ED with c/o rectal pain. pt reports that she went to her PCP on friday and was diagnosed with diverticulitis. pt does have hx of diverticulosis. pt prescribed amox and zofran. pt reports taking medication as prescribed. pt states i feel like i am having spasms in my rectum. pain intermittent and nothing makes pain worse or better. no BM since . History of Present Illness HPI narrative: This is a 72-year-old female with history of diverticulosis, rheumatoid arthritis presenting with abdominal and rectal pain. Patient states that on she started having rectal pain and abdominal pain. It was initially a dull cramp, has progressed to an intermittent, stabbing, lower abdominal/pelvic pain. Associated with constipation. Patient has been passing flatus. Went to her family doctor who diagnosed her with probable diverticulitis, sent her home with amoxicillin and Zofran. Since that time, patient has had progressively worsening intermittent stabbing pains. They do not radiate. No fevers, chills, nausea, vomiting, but has had associated abdominal pain that is made worse with changes in position, walking, so she has been largely resting. Related Data Home Medications Medication Instructions Recorded Confirmed aspirin 81 mg tablet,delayed 81 mg PO DAILY Blood thinner 10/14/17 11/22/22 release calcium carbonate 600 mg calcium 600 mg PO DAILY Diet supplement 10/14/17 11/22/22 (1,500 mg)
--- NOTE | 2022-11-24 13:03 | PC.NURSE ---
Dr Hunt speaking to surgeon telecommunications linesworker
--- NOTE | 2022-11-24 13:15 | PC.NURSE ---
Dr Hunt speaking with hospitalist
--- NOTE | 2022-11-24 13:18 | PC.NURSE ---
called house for bed assignment
--- NOTE | 2022-11-24 14:01 | PC.NURSE ---
arrived to floor from ED by w/c
[2022-11-24 14:30] LABS: C-Reactive Protein 112.3 mg/L (0-4)
[2022-11-24 14:43] LABS: Erythrocyte Sedimentation Rate 3 mm/hr (0-30)
--- NOTE | 2022-11-24 16:16 | EXP.HP ---
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 Per patient she was at her primary care's office for abdominal pain on 11/22 and was diagnosed with possible acute diverticulitis given her prior history of diverticulitis and was treated with Augmentin and sent home. Since then patient says she has had worsening lower quadrant abdominal pain especially in the left and some rectal pain and spasm. No nausea or vomiting. No diarrhea. No fevers. Because of her worsening symptoms patient decided to come to the ER Work-up in the ER revealed abdominal tenderness in the lower quadrants, she remains afebrile and vitals are stable. Her blood counts are normal Her C-reactive protein is elevated 212.[address] abdomen pelvis on 11/24: Acute sigmoid diverticulitis, peripherally enhancing fluid-filled structure along the mesenteric wall of the sigmoid colon measuring 1.7 x 1.2 cm. Given complicated diverticulitis, ER physician discussed with surgeon surgeon on-call suggested nonoperative management for now with IV antibiotics. Admitted for serial abdominal exams and IV antibiotics Review of system: All other systems reviewed and negative except for those mentioned above Past medical history: Reviewed Medication: Reviewed and reconciled Past surgical history: Reviewed Social history: Active 1.5 pack a day smoker for the last 20 years. Social use of alcohol. Denies any illicit drug use Family history: Reviewed [facility] Disclaimer: The information contained in this section may have been updated after the patient was seen, as this information can be updated by other users. Medical History (Updated 11/24/22 @ 16:24 by Marcell Sher MD) Allergies History of gastroesophageal reflux (GERD) Hyperlipidemia Hypertension Rheumatoid arthritis Urinary tract infection Surgical History History of colonoscopy Social History (Updated 11/24/22 @ 14:35 by Nicki Lizarraga RN) Smoking Status: Current every day smoker tobacco type: cigarettes packs per day: 1 alcohol intake: current substance use type: denies use current occupational status: retired Travel in the last 8 weeks: None household members: spouse housing: house caffeine: Yes Review of Systems Review of Systems Review of systems:: pertinent systems reviewed and negative unless documented below Meds Home Medications and Allergies Home Medications Medication Instructions Recorded Confirmed Type aspirin 81 mg tablet,delayed 81 mg PO DAILY Blood thinner 10/14/17 11/24/22 History release calcium carbonate 600 mg calcium 600 mg PO DAILY Diet supplement 10/14/17 11/24/22 History (1,500 mg) tablet cholecalciferol (vitamin D3) 25 50,000 unit PO WEEKLY Diet 10/14/17 11/24/22 History mcg (1,000 unit) chewable tablet supplement etanercept 50 mg/mL (1 mL) 50 mg SQ WEEKLY Arthritis 10/14/17 11/24/22 History subcutaneous pen injector fluticasone propionate 50 2 spr intranasal DAILY nasal 10/14/17 11/24/22 History mcg/actuation nasal allergies spray,suspension folic acid 1 mg tablet 1 mg PO DAILY Diet supplement 10/14/17 11/24/22 History montelukast 10 mg tablet 10 mg PO PM Breathing problems 10/14/17 11/24/22 History methotrexate sodium 2.5 mg tablet 7.5 mg PO WEEKLY Arthritis 11/29/19 11/24/22 History cetirizine 10 mg tablet 10 mg PO DAILY PRN allergies 08/01/21 11/24/22 History psyllium husk 0.4 gram capsule 0.4 gm PO DAILY . 11/29/21 11/24/22 History (Metamucil) cranberry fruit concentrate 250 mg 500 mg PO DAILY . 05/03/22 11/24/22 History chewable tablet (Azo Cranberry)
[2022-11-25 03:51] VITALS: BP 104/49; PULSE 64; RESP 16; TEMP 36.7; O2SAT 93; BMI 25.9
--- NOTE | 2022-11-25 04:13 | PC.NURSE ---
NO ACUTE CHANGES THIS SHIFT. PT HAS RESTED WELL. NO C/O ABDOMINAL PAIN. AMBULATING IN ROOM TOLERATED. VSS.
[2022-11-25 07:04] LABS: Basophils % 0.3 % (0.1-2.0); Eosinophils # 0.1 K/mm3 (0.0-0.4); Eosinophils % 1.8 % (0.1-12.0); Lymphocytes # 1.4 K/mm3 (0.7-4.5); Lymphocytes % 22.9 % (10-50); Mean Corpuscular HGB Conc 32.1 g/dL (31.8-35.4); Mean Corpuscular Hemoglobin 29.4 pg (27.0-31.2); Mean Corpuscular Volume 91.6 fl (81-99); Mean Platelet Volume 8.9 fl (7.4-10.4); Monocytes # 0.4 K/mm3 (0.1-1.0); Monocytes % 6.9 % (1.7-9.3); Neutrophils # 4.3 K/mm3 (1.8-7.8); Platelet Count 224 K/mm3 (142-424); Red Blood Count 4.15 M/mm3 (4.20-5.40); Red Cell Distribution Width 15.3 % (11.5-17.5); White Blood Count 6.3 K/mm3 (4.8-10.8)
[2022-11-25 07:13] LABS: Anion Gap 5.5 mEq/L (5-15); Blood Urea Nitrogen 12 mg/dl (7-17); Calcium 10.8 mg/dl (8.4-10.2); Carbon Dioxide 33 mmol/L (22.0-30.0); Chloride 105 mmol/L (98-107); Creatinine Clearance Estimated 52 mL/min (50-200); Estimated Glomerular Filt Rate 61 ml/min (>60); GFR (African American) 74 ML/MIN (>60); Glucose 99 mg/dl (74-100); Potassium 3.5 mmoL/L (3.5-5.1); Sodium 140 mmol/L (136-145)
[2022-11-25 07:17] LABS: Hemoglobin 12.2 g/dL (12.2-16.2)
--- NOTE | 2022-11-25 07:42 | HMH.PHAINT1 ---
Pharmacy Intervention Comments: Patient's home medications reviewed and verified with external pharmacy and patient. -Chalino Arauz, Pharm Student
[2022-11-25 08:00] VITALS: BP 121/68; PULSE 69; RESP 18; TEMP 36.6; O2SAT 94
--- NOTE | 2022-11-25 08:41 | PC.NURSE ---
COURTESY TECH NOTE; ROUNDED ON PT 0740, PT DENIED NEED FOR DRINK, ASSISTANCE WITH RESTROOM, AND NEED TO REPOSITION IN BED. CALL LIGHT WITHIN REACH, NO FURTHER REQUESTS AT THIS TIME DANIELLA THORNTON
--- NOTE | 2022-11-25 08:50 | EXP.SURG.CON ---
History of Present Illness *Admission Date: 11/24/22 *Reason for visit:: Diverticulitis *History of present illness: This is a 72-year-old female with history of intermittent/recurrent diverticulitis who presented to the emergency department with increasing abdominal pain after beginning outpatient antibiotics for suspected early diverticulitis on November 22. Currently, she states that she feels much better after IV antibiotics administered. Forwarded from admission H&P: 72-year-old female with history of rheumatoid arthritis on Enbrel and methotrexate, immunocompromise due to use of TNF inhibitors, active smoker, presented to ER on 11/24/2022 with complaints of worsening abdominal pain and rectal pain. Per patient she was at her primary care's office for abdominal pain on 11/22 and was diagnosed with possible acute diverticulitis given her prior history of diverticulitis and was treated with Augmentin and sent home. Since then patient says she has had worsening lower quadrant abdominal pain especially in the left and some rectal pain and spasm. No nausea or vomiting. No diarrhea. No fevers. Because of her worsening symptoms patient decided to come to the ER Work-up in the ER revealed abdominal tenderness in the lower quadrants, she remains afebrile and vitals are stable. Her blood counts are normal Her C-reactive protein is elevated 212.[address] abdomen pelvis on 11/24: Acute sigmoid diverticulitis, peripherally enhancing fluid-filled structure along the mesenteric wall of the sigmoid colon measuring 1.7 x 1.2 cm. PFSH PFSH Disclaimer: The information contained in this section may have been updated after the patient was seen, as this information can be updated by other users. Medical History (Updated 11/24/22 @ 16:24 by Marcell Sher MD) Allergies History of gastroesophageal reflux (GERD) Hyperlipidemia Hypertension Rheumatoid arthritis Urinary tract infection Surgical History History of colonoscopy Social History (Updated 11/24/22 @ 14:35 by Nicki Lizarraga RN) Smoking Status: Current every day smoker tobacco type: cigarettes packs per day: 1 alcohol intake: current substance use type: denies use current occupational status: retired Travel in the last 8 weeks: None household members: spouse housing: house caffeine: Yes Meds Home Medications and Allergies Home Medications Medication Instructions Recorded Confirmed Type aspirin 81 mg tablet,delayed 81 mg PO DAILY Heart Health 10/14/17 11/24/22 History release calcium carbonate 600 mg calcium 600 mg PO DAILY Diet supplement 10/14/17 11/24/22 History (1,500 mg) tablet cholecalciferol (vitamin D3) 25 50,000 unit PO WEEKLY Diet 10/14/17 11/24/22 History mcg (1,000 unit) chewable tablet supplement etanercept 50 mg/mL (1 mL) 50 mg SQ WEEKLY Arthritis 10/14/17 11/24/22 History subcutaneous pen injector fluticasone propionate 50 2 spr intranasal DAILY Allergies 10/14/17 11/24/22 History mcg/actuation nasal spray,suspension folic acid 1 mg tablet 1 mg PO DAILY Diet supplement 10/14/17 11/24/22 History montelukast 10 mg tablet 10 mg PO HS Breathing problems 10/14/17 11/25/22 History methotrexate sodium 2.5 mg tablet 7.5 mg PO WEEKLY Arthritis 11/29/19 11/24/22 History cetirizine 10 mg tablet 10 mg PO DAILY PRN allergies 08/01/21 11/24/22 History psyllium husk 0.4 gram capsule 0.4 gm PO DAILY Fiber 11/29/21 11/24/22 History (Metamucil) cranberry fruit concentrate 250 mg 500 mg PO DAILY Supplement 05/03/22 11/24/22 History chewable tablet (Azo Cranberry) estradiol 10 mcg vaginal tablet 10 mcg vaginal DAILY Hormones 05/03/22 11/24/22 History methenamine hippurate 1 gram tablet 1 g PO BID UTI 07/23/22 11/24/22 History esomeprazole magnesium 40 mg 40 m
[2022-11-25 15:37] VITALS: BP 127/69; PULSE 68; RESP 18; TEMP 37; O2SAT 99
--- NOTE | 2022-11-25 16:19 | PC.NURSE ---
A&OX4. TOLERATING RA WELL. PT IS UP INDEPENDENTLY IN ROOM. IS IN GOOD SPIRITS TODAY. DAUGHTER HAS BEEN VISITING AT BEDSIDE. PT HAS HAD NO C/O PAIN, NA/VO. PT HAS BEEN IN BED RESTING MAJORITY OF SHIFT. PT HAS HAD 2 LIQUID BM. WILL GET SAMPLE OF NEXT BM. NO OTHER NEEDS OR C/O NOTED AT THIS TIME. TOLERATING FULL LIQUID DIET WELL. VSS.
--- NOTE | 2022-11-25 16:40 | PC.NURSE ---
PT USING I.S VERY WELL T/O SHIFT.
--- NOTE | 2022-11-25 16:42 | EXP.ACUTE.PN ---
Subjective *Date: 11/25/22 *Time: 16:42 Interval history: Patient's pain is feeling better today. Surgery saw her this morning. Okay to advance diet. No nausea or vomiting. Has had a bowel movement today. Stable on room air. Afebrile. Medical Exam Vital signs and Labs for Last 24 Hours: Vital Signs Temp Pulse Resp BP Pulse Ox O2 Del Method 11/25/22 16:32 Room Air 11/25/22 15:37 98.6 F 68 18 127/69 99 Room Air 11/25/22 15:00 Room Air 11/25/22 12:32 Room Air 11/25/22 11:00 Room Air 11/25/22 09:00 Room Air 11/25/22 08:00 Room Air 11/25/22 08:00 97.9 F 69 18 121/68 94 L 11/25/22 06:39 Room Air 11/25/22 05:00 Room Air 11/25/22 03:51 98.1 F 64 16 104/49 L 93 L Room Air 11/25/22 03:00 Room Air 11/25/22 01:00 Room Air 11/24/22 23:09 Room Air 11/24/22 21:00 Room Air 11/24/22 20:00 Room Air 11/24/22 19:47 98.2 F 66 16 114/56 L 91 L 11/24/22 18:57 Room Air 11/24/22 17:01 Room Air Intake and Output 11/25/22 11/25/22 11/25/22 07:59 15:59 23:59 Intake Total 1987 Output Total 0 / 0 Balance 1987 Intake: Intake, Oral Amount 1440 / 1440 Intake, Total IV Amount 548 / 548 Lactated Ringers 1000ML 1,000 548 / 548 ml @ 50 mls/hr IV .Q20H [facility] Rx# :[id number] Output: Output, Urine Amount 0 / 0 Other: Number of Unmeasured Voids 1 Weight 66.361 kg Patient Weight 11/25/22 23:59 Weight 66.361 kg Laboratory Results - last 24 hr 11/25/22 06:30: WBC 6.3 D, RBC 4.15 L, Hgb 12.2 D, Hct 38.0, MCV 91.6, MCH 29.4, MCHC 32.1, RDW 15.3, Plt Count 224, MPV 8.9, Neut % (Auto) 68.0, Lymph % (Auto) 22.9, [place] % (Auto) 6.9, Eos % (Auto) 1.8, Baso % (Auto) 0.3, Neut # (Auto) 4.3, Lymph # (Auto) 1.4, [place] # (Auto) 0.4, Eos # (Auto) 0.1, Baso # (Auto) 0.0, Sodium 140, Potassium 3.5, Chloride 105, Carbon Dioxide 33 H, Anion Gap 5.5, BUN 12, Creatinine 0.90, Estimated Creat Clear 52, Estimated GFR 61, Est GFR ( Amer) 74, Glucose 99, Calcium 10.8 H I & O for Labs for Last 24 Hours: Intake & Output 11/22/22 11/23/22 11/24/22 11/25/22 23:59 23:59 23:59 23:59 Intake Total 240 / 240 1987 Output Total 900 / 900 0 / 0 Balance -660 / -660 1987 Weight 63.701 kg 66.361 kg Constitutional: Present no acute distress Head: Present atraumatic and normocephalic Neck: Present normal inspection Respiratory: Present normal respiratory effort; Absent rhonchi, wheezes or crackles Cardiac: Present Reg Rate and Rhythm GI: Present soft, tenderness (focal left lower quadrant) and normal bowel sounds; Absent distention Extremities: Present normal inspection and full ROM Skin: Present intact; Absent erythema Neuro: Present Grossly Intact, alert, awake, oriented x 3 and moves all extremities Assessment and Plan *Assessment and plan (1) Diverticulitis of intestine with abscess: Status: Acute Qualifiers: Diverticulitis bleeding: without bleeding Diverticulitis site: large intestine Qualified Code(s): K57.20 - Diverticulitis of large intestine with perforation and abscess without bleeding Category: Medical Code(s): K57.80 - Diverticulitis of intestine, part unspecified, with perforation and abscess without bleeding (2) Rheumatoid arthritis: Status: Acute Qualifiers: Rheumatoid arthritis location: multiple sites Rheumatoid factor presence: with rheumatoid factor Qualified Code(s): M05.79 - Rheumatoid arthritis with rheumatoid factor of multiple sites without organ or systems involvement Category: Medical Code(s): M06.9 - Rheumatoid arthritis, unspecified (3) Immunocompromised state due to drug therapy: Status: Acute Category: Medical Code(s): D84.821 - Immunodeficiency due to drugs; Z79.899 - Other longterm (current) drug therapy (4) Hypertension:
[2022-11-25 20:00] VITALS: BP 128/87; PULSE 62; RESP 18; TEMP 36.6; O2SAT 96
[2022-11-26 04:00] VITALS: BP 131/59; PULSE 64; RESP 18; TEMP 36.5; O2SAT 91; BMI 25.6
[2022-11-26 06:52] LABS: Basophils % 0.3 % (0.1-2.0); Eosinophils # 0.1 K/mm3 (0.0-0.4); Hematocrit 37.4 % (37.0-47.0); Hemoglobin 11.9 g/dL (12.2-16.2); Lymphocytes # 1.3 K/mm3 (0.7-4.5); Lymphocytes % 27.4 % (10-50); Mean Corpuscular HGB Conc 31.8 g/dL (31.8-35.4); Mean Corpuscular Hemoglobin 28.8 pg (27.0-31.2); Mean Corpuscular Volume 90.6 fl (81-99); Mean Platelet Volume 8.9 fl (7.4-10.4); Monocytes # 0.3 K/mm3 (0.1-1.0); Neutrophils % 63.4 % (37.0-80.0); Platelet Count 229 K/mm3 (142-424); Red Blood Count 4.13 M/mm3 (4.20-5.40); White Blood Count 4.7 K/mm3 (4.8-10.8)
[2022-11-26 07:04] LABS: Alanine Aminotransferase 10 U/L (12-78); Albumin Level 3.1 g/dl (3.5-5.0); Albumin/Globulin Ratio 1.1 (1.1-1.8); Alkaline Phosphatase 82 U/L (38-126); Anion Gap 5.1 mEq/L (5-15); Aspartate Amino Transferase 17 U/L (14-36); Bilirubin,Total 0.4 mg/dl (0.2-1.3); Blood Urea Nitrogen 9 mg/dl (7-17); Calcium 10.3 mg/dl (8.4-10.2); Carbon Dioxide 31 mmol/L (22.0-30.0); Chloride 107 mmol/L (98-107); Creatinine Clearance Estimated 51 mL/min (50-200); Estimated Glomerular Filt Rate 70 ml/min (>60); GFR (African American) 85 ML/MIN (>60); Globulin 2.7 g/dL (1.3-3.2); Glucose 106 mg/dl (74-100); Magnesium 1.4 mg/dl (1.6-2.3); Potassium 3.1 mmoL/L (3.5-5.1); Sodium 140 mmol/L (136-145); Total Protein,Serum 5.8 g/dl (6.3-8.2)
--- NOTE | 2022-11-26 07:08 | P.PN_ITS ---
Subjective Patient reports: no new complaints and feels better Narrative: The patient is hopeful that she will be discharged today. Exam Data for Last 24 hours Vital signs and Labs for Last 24 Hours: Temp Pulse Resp BP Pulse Ox O2 Del Method 97.7 F 64 18 131/59 L 91 L Room Air 11/26/22 04:00 11/26/22 04:00 11/26/22 04:00 11/26/22 04:00 11/26/22 04:00 11/26/22 06:56 Laboratory Results - last 24 hr 11/25/22 06:30: WBC 6.3 D, RBC 4.15 L, Hgb 12.2 D, Hct 38.0, MCV 91.6, MCH 29.4, MCHC 32.1, RDW 15.3, Plt Count 224, MPV 8.9, Neut % (Auto) 68.0, Lymph % (Auto) 22.9, [place] % (Auto) 6.9, Eos % (Auto) 1.8, Baso % (Auto) 0.3, Neut # (Auto) 4.3, Lymph # (Auto) 1.4, [place] # (Auto) 0.4, Eos # (Auto) 0.1, Baso # (Auto) 0.0, Sodium 140, Potassium 3.5, Chloride 105, Carbon Dioxide 33 H, Anion Gap 5.5, BUN 12, Creatinine 0.90, Estimated Creat Clear 52, Estimated GFR 61, Est GFR ( Amer) 74, Glucose 99, Calcium 10.8 H 11/26/22 06:15: WBC 4.7 L D, RBC 4.13 L, Hgb 11.9 L, Hct 37.4, MCV 90.6, MCH 28.8, MCHC 31.8, RDW 15.0, Plt Count 229, MPV 8.9, Neut % (Auto) 63.4, Lymph % (Auto) 27.4, [place] % (Auto) 7.0, Eos % (Auto) 2.0, Baso % (Auto) 0.3, Neut # (Auto) 3.0, Lymph # (Auto) 1.3, [place] # (Auto) 0.3, Eos # (Auto) 0.1, Baso # (Auto) 0.0 I & O for Last 24 hours: Intake & Output 11/23/22 11/24/22 11/25/22 11/26/22 11:59 11:59 11:59 11:59 Intake Total 1508 / 1508 960 / 960 Output Total 900 / 900 0 / 0 Balance 608 / 608 960 / 960 Weight 136 lb 146 lb 4.8 oz 144 lb 8 oz Constitutional Constitutional: no acute distress *Routine Respiratory Exam Respiratory: Absent respiratory distress *Routine Cardiovascular Exam Cardiovascular: Absent tachycardia *Routine Abdominal Exam Comments: Improvement with regard to tenderness Progress Note: A&P Assessment and plan (1) Diverticulitis of intestine with abscess: Status: Acute Assessment and plan: Continue antibiotics. Continuing IV antibiotics versus conversion to PO remains poorly-defined in terms of consistent evidence. As there is no true advantage of IV Flagyl versus PO Flagyl it may be most beneficial to convert to Augmentin in lieu of Unasyn. Discharge timing as determined by primary service with close outpatient follow- up
[2022-11-26 07:10] LABS: C-Reactive Protein 26.9 mg/L (0-4)
[2022-11-26 07:30] VITALS: BP 156/56; PULSE 73; RESP 17; TEMP 36.8; O2SAT 94
[2022-11-26 08:00] VITALS: O2SAT 98
--- NOTE | 2022-11-26 12:48 | EXP.DC.SUM ---
General Admission date:: 11/24/22 Discharge date: 11/26/22 HPI HPI HPI: 72-year-old female with history of rheumatoid arthritis on Enbrel and methotrexate, immunocompromise due to use of TNF inhibitors, active smoker, presented to ER on 11/24/2022 with complaints of worsening abdominal pain and rectal pain. Per patient she was at her primary care's office for abdominal pain on 11/22 and was diagnosed with possible acute diverticulitis given her prior history of diverticulitis and was treated with Augmentin and sent home. Since then patient says she has had worsening lower quadrant abdominal pain especially in the left and some rectal pain and spasm. No nausea or vomiting. No diarrhea. No fevers. Because of her worsening symptoms patient decided to come to the ER Work-up in the ER revealed abdominal tenderness in the lower quadrants, she remains afebrile and vitals are stable. Her blood counts are normal Her C-reactive protein is elevated 212.[address] abdomen pelvis on 11/24: Acute sigmoid diverticulitis, peripherally enhancing fluid-filled structure along the mesenteric wall of the sigmoid colon measuring 1.7 x 1.2 cm. Hospital Course Hospital Course Hospital Course: 72-year-old female with history of rheumatoid arthritis on biologic treatment with Enbrel and methotrexate, history of acute diverticulitis, active smoker presenting with complicated acute sigmoid diverticulitis with abscess admitted for further management. Pain has improved. Tolerating advancement to regular diet. Having bowel movements. Overall doing well. Transition to oral antibiotics to complete course. Stable for discharge home. Problems addressed as follows: CT abdomen pelvis on 11/24: Acute sigmoid diverticulitis, peripherally enhancing fluid-filled structure along the mesenteric wall of the sigmoid colon measuring 1.7 x 1.2 cm. Patient was initially started on IV antibiotics and surgery consult was placed. Serial exams showed improvement in pain. Clinically improved with decrease in CRP from 1 12-26 on day of discharge. Transition to oral antibiotics with Flagyl and Augmentin to complete a 10-day course. Plan for follow-up with surgery in the outpatient setting and her PCP in 1 week. Condition likely complicated by her immunocompromise state. Recommend she hold Enbrel and methotrexate until she finishes her antibiotics. Resume all other home medications at discharge. Spent 30 minutes in discharge counseling and direct care with patient. Exam Data for Last 24 hours Vital signs and Labs for Last 24 Hours: Temp Pulse Resp BP Pulse Ox O2 Del Method 98.2 F 73 17 156/56 H 98 Room Air 11/26/22 07:30 11/26/22 07:30 11/26/22 07:30 11/26/22 07:30 11/26/22 08:00 11/26/22 12:45 Laboratory Results - last 24 hr 11/26/22 06:15: WBC 4.7 L D, RBC 4.13 L, Hgb 11.9 L, Hct 37.4, MCV 90.6, MCH 28.8, MCHC 31.8, RDW 15.0, Plt Count 229, MPV 8.9, Neut % (Auto) 63.4, Lymph % (Auto) 27.4, [place] % (Auto) 7.0, Eos % (Auto) 2.0, Baso % (Auto) 0.3, Neut # (Auto) 3.0, Lymph # (Auto) 1.3, [place] # (Auto) 0.3, Eos # (Auto) 0.1, Baso # (Auto) 0.0, Sodium 140, Potassium 3.1 L, Chloride 107, Carbon Dioxide 31 H, Anion Gap 5.1, BUN 9, Creatinine 0.80, Estimated Creat Clear 51, Estimated GFR 70, Est GFR ( Amer) 85, Glucose 106 H, Calcium 10.3 H, Magnesium 1.4 L, Total Bilirubin 0.4, AST 17, ALT 10 L D, Alkaline Phosphatase 82, C-Reactive Protein 26.9 H D, Total Protein 5.8 L, Albumin 3.1 L, Globulin 2.7, Albumin/Globulin Ratio 1.1 I & O for Last 24 hours: Intake & Output 11/23/22 11/24/22 11/25/22 11/26/22 23:59 23:59 23:59 23:59 Intake Total 240 / 240 2228 / 2228 600 / 600 Output Total 900 / 900 0 / 0 0 / 0 Balance -660 / -660 8 / 2228 600 / 600 Weight 63.701 kg 66.361 kg 65.544 kg Constitutional Constitutional: no acute distress *Routine HEENT Exam Head: Present normocephalic Eye: Present EOMI and PERRL ENT: Present mucous membranes moist *Routine
--- NOTE | 2022-11-26 13:20 | HMH.PHAINT1 ---
Pharmacy Intervention Comments: Discharge medications were reviewed with patient -Amox/clav (told to watch for N/D) -metronidazole (told to not ingest any alcohol) -Potassium Tab (told to watch for nausea) -D/C Etanercept Isreal Braden, PharmD student
--- NOTE | 2022-11-28 14:53 | CARE MANAGER ---
Contacted patient related to hospital discharge. She states she is doing better, but is having some nausea. She is going to try to take her Zofran and see if it helps. He is aware of follow up appointments and medication changes. Denies questions or concerns. MARIAM Stephenson
== END 2022-11-26 13:39 | disposition home or self-care (01) ==
LOC: ER 13:17 → 2ND 13:52
PROVIDERS: Internal Medicine Adolescent Medicine; Admitting Provider Internal Medicine; Emergency Provider Emergency Medicine; PCP Family Medicine; Visit Provider Internal Medicine
DX: K57.20 Diverticulitis of large intestine with perforation and abscess without bleeding (principal); M06.9 Rheumatoid arthritis, unspecified; D84.821 Immunodeficiency due to drugs; Z79.899 Other long term (current) drug therapy; I10 Essential (primary) hypertension; M05.79 Rheumatoid arthritis with rheumatoid factor of multiple sites without organ or systems involvement
CPT/HCPCS: G0378; 36415; 74177; 80048; 80053; 81001; 83605; 83690; 83735; 85025; 85651; 86140; 87040; 99285; J3475; Q9967

== ENCOUNTER → 2022-12-11 23:17 | Outpatient (CLI) | payer MEDICARE, SELFPAY ==
[2022-12-11 17:05] LABS: Basophils % 0.3 % (0.1-2.0); Eosinophils # 0.1 K/mm3 (0.0-0.4); Eosinophils % 1.3 % (0.1-12.0); Hematocrit 46.7 % (37.0-47.0); Hemoglobin 14.7 g/dL (12.2-16.2); Lymphocytes # 1.7 K/mm3 (0.7-4.5); Lymphocytes % 21.5 % (10-50); Mean Corpuscular HGB Conc 31.6 g/dL (31.8-35.4); Mean Corpuscular Hemoglobin 29.3 pg (27.0-31.2); Mean Corpuscular Volume 92.8 fl (81-99); Mean Platelet Volume 10.3 fl (7.4-10.4); Monocytes # 0.4 K/mm3 (0.1-1.0); Monocytes % 5.4 % (1.7-9.3); Neutrophils # 5.8 K/mm3 (1.8-7.8); Neutrophils % 71.4 % (37.0-80.0); Platelet Count 345 K/mm3 (142-424); Red Blood Count 5.03 M/mm3 (4.20-5.40); Reticulocyte % (Auto) 1.2 % (0.9-3.2); White Blood Count 8.1 K/mm3 (4.8-10.8)
[2022-12-11 17:43] LABS: Anion Gap 13.8 mEq/L (5-15); Blood Urea Nitrogen 21 mg/dl (7-17); Calcium 10.9 mg/dl (8.4-10.2); Carbon Dioxide 29 mmol/L (22.0-30.0); Chloride 102 mmol/L (98-107); Estimated Glomerular Filt Rate 61 ml/min (>60); GFR (African American) 74 ML/MIN (>60); Glucose 121 mg/dl (74-100); Iron 131 ug/dL (37-170); Potassium 3.8 mmoL/L (3.5-5.1); Sodium 141 mmol/L (136-145)
[2022-12-11 17:59] LABS: Total Iron Binding Capacity 279 ug/dL (265-497)
[2022-12-11 18:01] LABS: 25-OH Vitamin D, Total 21.1 ng/mL (30-100)
[2022-12-11 18:14] LABS: Thyroid Stimulating Hormone 0.87 uIU/mL (0.465-4.68)
[2022-12-11 18:33] LABS: Vitamin B12 279 pg/mL (239-931)
[2022-12-12 16:21] LABS: Hemoglobin A1C 6.4 % (4.0-6.0)
== END ==
PROVIDERS: PCP Family Medicine; Visit Provider Family Medicine
DX: R53.83 Other fatigue (principal); K57.80 Diverticulitis of intestine, part unspecified, with perforation and abscess without bleeding; E55.9 Vitamin D deficiency, unspecified; I10 Essential (primary) hypertension; E53.8 Deficiency of other specified B group vitamins; R73.09 Other abnormal glucose; D84.821 Immunodeficiency due to drugs
CPT/HCPCS: 80048; 82306; 82607; 83036; 83540; 83550; 84443; 85025; 85044

== ENCOUNTER 2022-12-20 22:06 | Emergency (ER) | payer MEDICARE, SELFPAY ==
[2022-12-20 22:07] VITALS: BP 137/72; PULSE 100; RESP 18; TEMP 36.8; O2SAT 95; BMI 24.3
--- NOTE | 2022-12-20 22:26 | CT_ITS ---
PROCEDURE INFORMATION: Exam: CT Abdomen And Pelvis With Contrast Exam date and time: 12/20/2022 11:32 PM Age: 72 years old Clinical indication: Abdominal pain TECHNIQUE: Imaging protocol: Computed tomography of the abdomen and pelvis with contrast. Radiation optimization: All CT scans at this facility use at least one of these dose optimization techniques: automated exposure control; mA and/or kV adjustment per patient size (includes targeted exams where dose is matched to clinical indication); or iterative reconstruction. Contrast material: ISOVUE; Contrast volume: 75 ml; Contrast route: IV; REPORTING DATA: Count of CT and Cardiac NM exams in prior 12 months: This patient has received [address] and 0 known cardiac nuclear medicine studies in the 12 months prior to the current study. COMPARISON: CT ABDOMEN PELVIS W CON 11/24/2022 12:03 PM FINDINGS: Lungs: Lung bases are clear. Liver: Normal. No mass. Gallbladder and bile ducts: Gallbladder has been removed. No evident bile duct dilatation allowing for prior cholecystectomy. Pancreas: Mild dilatation of the main pancreatic duct in the pancreatic head measuring 5 mm stable compared to 11/24/2022 but has developed in the interval since prior CT of 02/08/2021. Pancreas otherwise unremarkable. Spleen: Stable 16 mm splenic cyst. Spleen otherwise unremarkable. Adrenal glands: Stable 2.2 cm right adrenal nodule and stable 8 mm left adrenal nodule compatible with adenomas. Kidneys and ureters: Stable benign-appearing right renal cysts largest measuring 4.6 cm. No follow-up of these lesions advised. Scarring of the anterior superior left kidney redemonstrated. Kidneys and ureters otherwise unremarkable with no obstructing stones or uropathy. Stomach and bowel: Multiple diverticula noted throughout the colon most pronounced in the sigmoid colon. Interval development of mild Khadra sigmoidal inflammatory change adjacent to the right side of the distal sigmoid associated with a diverticulum suggesting mild diverticulitis. This is centered on axial image 71 of series 3. The prior noted inflamed diverticulum versus intramural abscess has improved and is now filled with air compatible with a non inflamed diverticulum. GI tract structures otherwise unremarkable with no evident wall thickening allowing for incomplete distention. Appendix: Appendix is normal. No evidence of appendicitis. Intraperitoneal space: Unremarkable. No free air. No significant fluid collection. Vasculature: Atherosclerotic changes of the aorta and iliacs noted. No evidence of aneurysm. Lymph nodes: Unremarkable. No enlarged lymph nodes. Urinary bladder: Unremarkable as visualized. Reproductive: Status post hysterectomy. Bones/joints: Unremarkable. No acute fracture. Soft tissues: Small fat containing umbilical hernia redemonstrated. IMPRESSION: 1. Evidence for new area of mild diverticulitis involving the distal right side of the sigmoid. No evident abscess. 2. Interval improvement in the previously noted more proximal potential sigmoid diverticulitis versus abscess. 3. Mild dilatation of the distal pancreatic duct in the pancreatic head similar to most recent CT but is a new finding compared to 02/08/2021. This is of uncertain significance and may be a slowly progressing age-related dilatation of the duct although developing pathologic pancreatic duct dilatation of uncertain cause can not be totally excluded. Finding can be correlated clinically. Consider follow-up imaging with CT or MR of the pancreas in 3-6 months.. 4. Additional nonemergent findings as above.
[2022-12-20 22:36] LABS: Microscopic, Urine URINE MICROSCOPIC (MICROSCOPIC)
--- NOTE | 2022-12-20 22:44 | HMH.EDGENADL ---
Discharge Plan Disposition Chief Complaint: Abdominal Pain Prescriptions Prescriptions: No Action psyllium husk [Metamucil] 0.4 gram capsule 0.4 gm PO DAILY estradiol 10 mcg tablet 10 mcg vaginal DAILY Azo Cranberry 250 mg tablet,chewable 500 mg PO DAILY methenamine hippurate 1 gram tablet 1 g PO BID ondansetron 4 mg tablet,disintegrating 4 mg PO Q8H PRN (Reason: nausea and vomiting) Qty: 20 2RF rosuvastatin 20 mg tablet 20 mg PO DAILY 30 Days Qty: 30 2RF esomeprazole magnesium 40 mg capsule,delayed release(DR/EC) 40 mg PO BID 30 Days Qty: 60 2RF metformin 500 mg tablet extended release 24 hr 500 mg PO DAILY Qty: 30 3RF methotrexate sodium 2.5 MG tablet 7.5 mg PO WEEKLY Hold Instructions: Pending completion of antibiotics for diverticulitis losartan-hydrochlorothiazide 100-25 mg tablet 1 tab PO DAILY alprazolam 0.5 mg Tablet 0.5 mg PO HS PRN (Reason: Sleep) alprazolam [Xanax] 0.25 mg tablet 0.25 mg PO Q8H PRN (Reason: Anxiety) potassium chloride 20 mEq Tablet,Er Particles/Crystals 20 meq PO DAILY 10 Days Qty: 10 0RF etanercept 50 MG/ML pen injector 50 mg SQ WEEKLY Hold Instructions: until completes antibiotics for diverticulitis fluticasone propionate 120 SPR/BOT bottle 2 spr NS DAILY calcium carbonate 600 MG tablet 600 mg PO DAILY aspirin 81 MG tablet,delayed release (DR/EC) 81 mg PO DAILY folic acid 1 MG tablet 1 mg PO DAILY Rx Instructions: Take folic acid every day that methotrexate is not taken montelukast 10 MG tablet 10 mg PO HS cholecalciferol (vitamin D3) 1,000 UNIT tablet,chewable 50,000 unit PO WEEKLY cetirizine 10 MG tablet 10 mg PO DAILY PRN (Reason: allergies) Referrals Follow up/Referrals: Teo Goldman MD [Primary Care Provider] - See instructions Instructions Patient Instructions: DI for Acute Abdominal Pain Discharge ED Provider: Dov Jimenez General Adult HPI General Chief complaint: Abdominal Pain Stated complaint: abd pain Time Seen by Provider: 12/20/22 22:24 Mode of Arrival: Ambulatory Source of Information: Patient Limitations: No Limitations Description of Symptoms (Recalled from ER Triage Doc. by RN): Pt stated that she went to see GI from of divertic admission about 3 weeks agao. About 3 days ago she started with abdominal pelvic pain. She stated that it has gotten worse. She stated that its a constant ache, and has random sharp pain that radiates from pelvic to umbilicus. Rate pain a 7/10. History of Present Illness HPI narrative: Patient is a 72-year-old female with past medical history of recent diverticulitis with abscess formation status post antibiotics without surgical intervention who presents emergency department for evaluation of abdominal pain. Patient states she has had lower abdominal pain since her diagnosis of diverticulitis that largely resolved with her antibiotics and she has tolerated p.o. intake and continues to have normal stooling and urine output. However today she had an acute worsening of her low abdominal pain that is in the bilateral lower quadrants and suprapubic region. Moderate to severe in intensity and refractory to Tylenol. There is associated nausea without vomiting. No dysuria. No other acute complaints at this time. In terms of abdominal surgeries she has had previous cholecystectomy and total hysterectomy. Pain is not worsened with p.o. intake Related Data Home Medications Medication Instructions Recorded Confirmed aspirin 81 mg tablet,delayed [address] [facility] 10/14/17 12/19/22 release calcium carbonate 600 mg calcium 600 mg PO DAILY Diet supplement 10/14/17 12/19/22 (1,500 mg) tablet cholecalciferol (vitamin D3) 25 50,000 unit PO WEEKLY vitamin D 10/14/17 12/19/22 mcg (1,000 unit) chewable tablet supplement etanercept 50 mg/mL (1 mL) 50 mg SQ WEEKLY Arthritis 0
[2022-12-20 22:48] LABS: Appearance,Urine CLEAR (Clear); Bilirubin,Urine Negative (Negative); Blood, Urine TRACE-I (Negative); Color,Urine YELLOW (Yellow); Glucose,Urine (UA) Negative (Negative); Ketones,Urine Negative (Negative); Leukocyte Esterase,Urine Negative (Negative); Nitrate,Urine Negative (Negative); PH,Urine 6.5 (5.0-8.5); Protein,Urine Negative (Negative); Urobilinogen,Urine 0.2 EU/dl (0.2)
[2022-12-20 22:50] LABS: Chloride 101 mmol/L (98-107)
[2022-12-20 22:51] LABS: Basophils % 0.2 % (0.1-2.0); Eosinophils # 0.1 K/mm3 (0.0-0.4); Hematocrit 42.4 % (37.0-47.0); Hemoglobin 14.1 g/dL (12.2-16.2); Lymphocytes # 1.5 K/mm3 (0.7-4.5); Lymphocytes % 13.3 % (10-50); Mean Corpuscular HGB Conc 33.1 g/dL (31.8-35.4); Mean Corpuscular Hemoglobin 30.1 pg (27.0-31.2); Mean Corpuscular Volume 90.9 fl (81-99); Mean Platelet Volume 8.1 fl (7.4-10.4); Monocytes # 0.7 K/mm3 (0.1-1.0); Neutrophils # 9.2 K/mm3 (1.8-7.8); Neutrophils % 79.5 % (37.0-80.0); Platelet Count 257 K/mm3 (142-424); Potassium 3.8 mmoL/L (3.5-5.1); Red Blood Count 4.67 M/mm3 (4.20-5.40); Red Cell Distribution Width 14.9 % (11.5-17.5); Sodium 137 mmol/L (136-145); White Blood Count 11.6 K/mm3 (4.8-10.8)
[2022-12-20 22:53] LABS: Alanine Aminotransferase 14 U/L (12-78); Alkaline Phosphatase 139 U/L (38-126); Anion Gap 11.8 mEq/L (5-15); Aspartate Amino Transferase 19 U/L (14-36); Bilirubin,Total 0.7 mg/dl (0.2-1.3); Blood Urea Nitrogen 25 mg/dl (7-17); Calcium 11.6 mg/dl (8.4-10.2); Carbon Dioxide 28 mmol/L (22.0-30.0); Creatinine Clearance Estimated 48 mL/min (50-200); Estimated Glomerular Filt Rate 54 ml/min (>60); GFR (African American) 66 ML/MIN (>60); Glucose 111 mg/dl (74-100); Lipase 119 U/L (23-300)
[2022-12-20 22:54] LABS: Albumin Level 3.8 g/dl (3.5-5.0); Albumin/Globulin Ratio 1.1 (1.1-1.8); Globulin 3.4 g/dL (1.3-3.2); Total Protein,Serum 7.2 g/dl (6.3-8.2)
[2022-12-20 23:00] VITALS: BP 128/62; PULSE 79; O2SAT 93
[2022-12-20 23:04] LABS: Bacteria,Urine Trace /lpf
--- NOTE | 2022-12-20 23:08 | PC.NURSE ---
Rounded on pt. No needs voiced at this time. Call light within reach.
[2022-12-20 23:15] LABS: C-Reactive Protein 22.5 mg/L (0-4)
--- NOTE | 2022-12-20 23:26 | PC.NURSE ---
Pt gone to RAD via wheelchair
[2022-12-21] VITALS: BP 117/51; PULSE 77; O2SAT 96
[2022-12-21 01:57] VITALS: BP 121/73; PULSE 79; RESP 18; TEMP 36.8; O2SAT 96
== END 2022-12-21 01:57 | disposition home or self-care (01) ==
PROVIDERS: Emergency Medicine; Emergency Provider Emergency Medicine; PCP Family Medicine
DX: R10.33 Periumbilical pain (principal); R10.2 Pelvic and perineal pain; I10 Essential (primary) hypertension; E78.5 Hyperlipidemia, unspecified; M06.9 Rheumatoid arthritis, unspecified; F17.210 Nicotine dependence, cigarettes, uncomplicated
CPT/HCPCS: 74177; 80053; 81001; 83690; 85025; 86140; 96374; 96375; 99285; J0131; Q9967

== ENCOUNTER 2023-01-05 12:02 | Emergency (ER) | payer MEDICARE, SELFPAY ==
[2023-01-05] VITALS (7 sets, daily range): BP systolic 128–151; BP diastolic 62–74; PULSE 63–81; RESP 16–19; TEMP 36.7–36.8; O2SAT 90–97; BMI 24.4
--- NOTE | 2023-01-05 12:51 | CT_ITS ---
PROCEDURE INFORMATION: Exam: CT Abdomen And Pelvis With Contrast Exam date and time: 01/05/2023 1:38 PM Age: 72 years old Clinical indication: Abdominal pain; Additional info: Abd pain, recent diverticulitis TECHNIQUE: Imaging protocol: Computed tomography of the abdomen and pelvis with contrast. Radiation optimization: All CT scans at this facility use at least one of these dose optimization techniques: automated exposure control; mA and/or kV adjustment per patient size (includes targeted exams where dose is matched to clinical indication); or iterative reconstruction. Contrast material: ISOVUE; Contrast volume: 75 ml; Contrast route: IV; REPORTING DATA: Count of CT and Cardiac NM exams in prior 12 months: This patient has received 2 known CTs and 0 known cardiac nuclear medicine studies in the 12 months prior to the current study. COMPARISON: CT ABDOMEN PELVIS W CON 12/20/2022 11:32 PM FINDINGS: Liver: Normal. No mass. Gallbladder and bile ducts: Previous cholecystectomy. Pancreas: Stable mild dilatation of the pancreatic duct measuring 4 mm. Spleen: Stable cystic lesion in the inferior spleen. Adrenal glands: Stable right adrenal nodule measures 2.2 x 2.1 cm. Stable left adrenal nodule measuring 0.8 cm. Kidneys and ureters: Stable cortical renal cysts right kidney. No hydronephrosis. Stomach and bowel: Colonic diverticulosis without CT evidence of diverticulitis. Resolution of previous inflammatory changes along the distal sigmoid. Appendix: No evidence of appendicitis. Intraperitoneal space: Unremarkable. No free air. No significant fluid collection. Vasculature: Unremarkable. No abdominal aortic aneurysm. Lymph nodes: Unremarkable. No enlarged lymph nodes. Urinary bladder: Unremarkable as visualized. Reproductive: Unremarkable as visualized. Bones/joints: Unremarkable. No acute fracture. Soft tissues: Small fat containing umbilical hernia. IMPRESSION: Colonic diverticulosis without CT evidence of diverticulitis. Resolution of previous inflammatory changes along the distal sigmoid.
--- NOTE | 2023-01-05 12:52 | HMH.EDGENADL ---
Discharge Plan Disposition Patient Disposition: Home, Self-Care Condition: Good Prescriptions Prescriptions: No Action psyllium husk [Metamucil] 0.4 gram capsule 0.4 gm PO DAILY estradiol 10 mcg tablet 10 mcg vaginal DAILY Azo Cranberry 250 mg tablet,chewable 500 mg PO DAILY ondansetron 4 mg tablet,disintegrating 4 mg PO Q8H PRN (Reason: nausea and vomiting) Qty: 20 2RF cholecalciferol (vitamin D3) [Vitamin D3] 125 mcg (5,000 unit) tablet 125 mcg PO DAILY methenamine hippurate 1 gram tablet 1 g PO BID Qty: 60 3RF rosuvastatin 20 mg tablet 20 mg PO DAILY 30 Days Qty: 30 2RF esomeprazole magnesium 40 mg capsule,delayed release(DR/EC) 40 mg PO BID 30 Days Qty: 60 2RF metformin 500 mg tablet extended release 24 hr 500 mg PO DAILY Qty: 30 3RF methotrexate sodium 2.5 MG tablet 7.5 mg PO WEEKLY Hold Instructions: Pending completion of antibiotics for diverticulitis losartan-hydrochlorothiazide 100-25 mg tablet 1 tab PO DAILY alprazolam 0.5 mg Tablet 0.5 mg PO HS PRN (Reason: Sleep) alprazolam [Xanax] 0.25 mg tablet 0.25 mg PO Q8H PRN (Reason: Anxiety) amoxicillin-pot clavulanate 875-125 mg tablet 1 tab PO BID Qty: 28 0RF etanercept 50 MG/ML pen injector 50 mg SQ WEEKLY Hold Instructions: until completes antibiotics for diverticulitis fluticasone propionate 120 SPR/BOT bottle 2 spr NS DAILY calcium carbonate 600 MG tablet 600 mg PO DAILY aspirin 81 MG tablet,delayed release (DR/EC) 81 mg PO DAILY folic acid 1 MG tablet 1 mg PO DAILY Rx Instructions: Take folic acid every day that methotrexate is not taken montelukast 10 MG tablet 10 mg PO HS cetirizine 10 MG tablet 10 mg PO DAILY PRN (Reason: allergies) Referrals Follow up/Referrals: Teo Goldman MD [Primary Care Provider] - See instructions Activity Restrictions/Add. Instructions Additional Instructions/Restrictions: You were evaluated in the emergency department today for abdominal pain. We did not identify any findings of diverticulitis or other abnormalities in the abdomen. Continue taking all home medications as prescribed. Make an appointment with your primary care physician for 2 days from now for reevaluation. Return to the emergency department with new or worsening symptoms. Clinical Impressions Clinical Impression: Abdominal pain Qualifiers: Abdominal location: lower abdomen, unspecified Qualified Code(s): R10.30 - Lower abdominal pain, unspecified Instructions Patient Instructions: DI for Acute Abdominal Pain Discharge ED Provider: Clint Gardner Adult HPI General Chief complaint: Abdominal Pain Stated complaint: upset stomach, abd pain Time Seen by Provider: 01/05/23 12:38 Mode of Arrival: Ambulatory Source of Information: Patient Limitations: No Limitations Description of Symptoms (Recalled from ER Triage Doc. by RN): 72 yo F presents to ED with c/o lower abdominal pain, nausea, back pain. pt reports that hse does have hx of diverticulitis and pts feels that it is acting up again. pt reports symptoms began last night. pain has been intermittent since november. History of Present Illness HPI narrative: This 72-year-old female presents to the emergency department with lower abdominal pain, nausea, back pain. She does states she recently had diverticulitis and just completed Augmentin yesterday. She states she has had intermittent diverticulitis flares since November when she was admitted with diverticulitis and abscess. Patient states she is not having any diarrhea, no bloody bowel movements, no black bowel movements. She is nauseous but has not had any vomiting. She has not had any true fevers at home. No other associated symptoms Related Data Home Medications Medication Instructions Recorded Confirmed aspirin 81 mg tablet,delayed 81 mg PO DAILY [facility] 10/14/17 12/24/22 release ca
[2023-01-05 13:09] LABS: Basophils % 0.3 % (0.1-2.0); Eosinophils # 0.1 K/mm3 (0.0-0.4); Eosinophils % 0.9 % (0.1-12.0); Hematocrit 41.3 % (37.0-47.0); Hemoglobin 13.6 g/dL (12.2-16.2); Lymphocytes # 1.4 K/mm3 (0.7-4.5); Lymphocytes % 18.9 % (10-50); Mean Corpuscular HGB Conc 32.8 g/dL (31.8-35.4); Mean Corpuscular Hemoglobin 30.1 pg (27.0-31.2); Mean Corpuscular Volume 91.7 fl (81-99); Mean Platelet Volume 8.4 fl (7.4-10.4); Monocytes # 0.3 K/mm3 (0.1-1.0); Monocytes % 4.2 % (1.7-9.3); Neutrophils # 5.5 K/mm3 (1.8-7.8); Neutrophils % 75.6 % (37.0-80.0); Platelet Count 330 K/mm3 (142-424); Red Cell Distribution Width 14.1 % (11.5-17.5); White Blood Count 7.2 K/mm3 (4.8-10.8)
[2023-01-05 13:23] LABS: Alanine Aminotransferase 13 U/L (12-78); Albumin/Globulin Ratio 1.2 (1.1-1.8); Alkaline Phosphatase 129 U/L (38-126); Anion Gap 13.5 mEq/L (5-15); Aspartate Amino Transferase 21 U/L (14-36); Bilirubin,Total 0.3 mg/dl (0.2-1.3); Blood Urea Nitrogen 21 mg/dl (7-17); Calcium 10.8 mg/dl (8.4-10.2); Carbon Dioxide 29 mmol/L (22.0-30.0); Chloride 102 mmol/L (98-107); Creatinine Clearance Estimated 49 mL/min (50-200); Estimated Glomerular Filt Rate 54 ml/min (>60); GFR (African American) 66 ML/MIN (>60); Globulin 3.3 g/dL (1.3-3.2); Glucose 109 mg/dl (74-100); Lipase 138 U/L (23-300); Potassium 3.5 mmoL/L (3.5-5.1); Sodium 141 mmol/L (136-145); Total Protein,Serum 7.3 g/dl (6.3-8.2)
[2023-01-05 13:53] LABS: Appearance,Urine Clear (Clear); Color,Urine Yellow (Yellow); Microscopic, Urine URINE MICROSCOPIC (MICROSCOPIC); Protein,Urine Negative (Negative)
[2023-01-05 13:54] LABS: Bilirubin,Urine Negative (Negative); Blood, Urine Trace (Negative); Glucose,Urine (UA) Negative (Negative); Ketones,Urine Negative (Negative); Leukocyte Esterase,Urine Negative (Negative); Nitrate,Urine Negative (Negative); Urobilinogen,Urine 0.2 EU/dl (0.2)
--- NOTE | 2023-01-05 14:06 | PC.NURSE ---
rounded on pt she was given a few ice chips, visitor at bs
[2023-01-05 14:29] LABS: RBC,Urine Occasional #/hpf (0-3)
[2023-01-05 14:30] LABS: Bacteria,Urine Trace /lpf
[2023-01-05 15:02] LABS: Lactic Acid 1.3 mmol/L (0.7-2.1)
--- NOTE | 2023-01-05 15:46 | PC.NURSE ---
rounded on pt no needs,call light at bs
== END 2023-01-05 15:57 | disposition home or self-care (01) ==
PROVIDERS: Emergency Provider Emergency Medicine; PCP Family Medicine
DX: R10.30 Lower abdominal pain, unspecified (principal); R11.0 Nausea; M06.9 Rheumatoid arthritis, unspecified; E78.5 Hyperlipidemia, unspecified; I10 Essential (primary) hypertension; F17.210 Nicotine dependence, cigarettes, uncomplicated
CPT/HCPCS: 36415; 74177; 80053; 81001; 83605; 83690; 85025; 96374; 96375; 99285; J2405; Q9967

== ENCOUNTER → 2023-02-28 11:04 | Outpatient (CLI) | payer MEDICARE, SELFPAY ==
[2023-03-03 20:09] LABS: Calprotectin, Fecal 211 ug/g (0-120)
[2023-03-05 13:09] LABS: Pancreatic Elastase, Fecal 259 (>200)
== END ==
PROVIDERS: PCP Family Medicine; Visit Provider Nurse Practitioner
DX: R10.10 Upper abdominal pain, unspecified (principal); R10.9 Unspecified abdominal pain; R19.5 Other fecal abnormalities
CPT/HCPCS: 82656; 83993; 87205

== ENCOUNTER 2023-05-22 08:37 | Day surgery (SDC) | payer MEDICARE, SELFPAY ==
[2023-05-22] VITALS (9 sets, daily range): BP systolic 78–122; BP diastolic 48–71; PULSE 71–97; RESP 15–17; TEMP 36.4–36.8; O2SAT 94–99
[2023-05-22 09:18] LABS: POC Glucose,Bedside 120 (70-110)
--- NOTE | 2023-05-22 09:22 | EXP.ANES.CKL ---
[facility] Disclaimer: The information contained in this section may have been updated after the patient was seen, as this information can be updated by other users. Medical History Allergies History of gastroesophageal reflux (GERD) Hyperlipidemia Hypertension Rheumatoid arthritis Urinary tract infection Surgical History History of colonoscopy Social History Smoking Status: Current every day smoker tobacco type: cigarettes packs per day: 1 alcohol intake: current substance use type: denies use current occupational status: retired Travel in the last 8 weeks: None household members: spouse housing: house caffeine: Yes [facility] Anesthesia Checklist Patient Identification Patient Identification: Arm Band, Family (Daughter) and Verbal (Name & ) Structural Data Admitted From: Home Planned Operative Procedure/s: EGD/Colonoscopy Consent for Planned Operative Procedure(s) Verified: Yes Verified Documents: Surgical Consent and History and Physical NPO Status Verified Time NPO: 04:00 Chart Verification Results Verified: CBC, BMP and Chest Xray Additional verifications Fingerstick Blood Glucose: 120 Patient : No Anesthesia Reactions: No Cardiovascular Assessment Heart Sounds: S1 & S2 Pulse Rhythm: Irregular Peripheral Edema: No Airway Assessment Mallampati Score:: Class II C-Spine Mobility Assessed: Yes (FROM) TMJ Mobility Assessed: Yes Dentition: Good Dentition (Nothing loose per pt.) Neurological Assessment Level of Consciousness: Awake, Alert, Appropriate and Follows Commands Anesthesia Plan Anesthesia Risk discussed: Yes Anesthesia Plan: Verified ASA Class: III Anesthesia Type: MAC
--- NOTE | 2023-05-22 09:55 | HMH.SCOPE ---
Procedure: Date: 05/22/23 Patient Date of :: 1950 Procedure Performed:: EGD & biopseis and dilation Indications:: Nausea, pain, dysphagia Performing Provider:: Claribel Alanis MD Referring Provider:: Ora Alanis APRN Sedation:: Propofol Procedure:: The gastroscope was gently passed through the incisoral orifice into the oral cavity and under direct visualization the esophagus was intubated. The endoscope was passed down the esophagus, through the stomach, and into the duodenum. Color, texture, mucosa, and anatomy of the esophagus, stomach, and duodenum were carefully examined with the scope. Findings:: Oropharynx: normal Esophagus: normal, dilated with 56F bougie dilator EG Junction: intact at 40 cm Cardia: normal Fundus: normal Body: normal Antrum: patchy gastritis, biopsied Duodenal bulb: normal Duodenum (second and third portion): normal Impression: Patchy antral gastritis, random biopsies obtained Dysphagia treated with bougie dilation Specimens:: Gastric Recommendations:: Avoid NSAIDs and ASA products Repeat EGD and dilation in about THREE years or so, sooner if clinically indicated Complications:: None Estimated blood obtained (mL): 0 Colonoscopy Component Colonoscopy Component Was a colonoscopy performed during today's procedure?: No
--- NOTE | 2023-05-22 10:00 | HMH.SCOPE ---
Procedure: Date: 05/22/23 Patient Date of :: 1950 Procedure Performed:: Screening colonoscopy Indications:: History of polyps, abdominal pain Performing Provider:: Claribel Alanis MD Referring Provider:: Ora Alanis APRN Sedation:: Propofol Procedure:: After placing the patient in the left lateral decubitus position, the colonoscopy was gently inserted into the rectum and under direct visualization advanced to the cecum which was identified by transillumination in the right lower quadrant, identification of the ileocecal valve, appendiceal orifice, and cecal strap. Color, texture, mucosa, and anatomy of the colon were carefully examined with the scope. 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
--- NOTE | 2023-05-22 10:08 | P.PNANES_ITS ---
[facility] Anesthesia Record Part I Anesthesia Record I Intake, IV Amount: 300 Hydration: Adequate Estimated blood loss (mL): 1 Urine output (mL): 0 Blood Products used (#): none Blood Pressure: 94/58 SaO2: 94 Pulse Rate: 81 Airway Patency: Patent Respiratory Rate: 16 Temperature: 97.6 F Patient is:: Drowsy, Nasal O2 (4L/min NC) and Stable Stable to PACU at:: 10:01
== END 2023-05-22 11:00 | disposition home or self-care (01) ==
PROVIDERS: PCP Family Medicine; Visit Provider Internal Medicine Gastroenterology
PROC: 0DJ08ZZ Inspection of Upper Intestinal Tract, Via Natural or Artificial Opening Endoscopic (ICD-10-PCS; CPT 43235; principal; 2023-05-22 10:00)
DX: R13.10 Dysphagia, unspecified (principal); R11.0 Nausea; R10.9 Unspecified abdominal pain; Z86.010 Personal history of colon polyps; K57.30 Diverticulosis of large intestine without perforation or abscess without bleeding; K29.70 Gastritis, unspecified, without bleeding; K31.89 Other diseases of stomach and duodenum
CPT/HCPCS: 43239; 43248; 45378; 82962; 88305

== ENCOUNTER 2023-05-29 10:09 | Outpatient (CLI) | payer MEDICARE, SELFPAY ==
--- NOTE | 2023-05-29 10:16 | XR_ITS ---
FINAL REPORT TECHNIQUE: Mandible 4 views CLINICAL HISTORY: pain at left angle of mandible COMPARISON: None FINDINGS: MANDIBLE: Multiple views of the mandible failed to reveal any evidence of acute fracture or dislocation. No bony erosions or lytic areas are visualized. IMPRESSION: No acute bony abnormality identified. Reviewed, Interpreted and Dictated by Taz Patrick MD Transcribed by Zuleika De La Torre Authenticated and [facility]
--- NOTE | 2023-05-29 10:16 | XR_ITS ---
FINAL REPORT CLINICAL HISTORY: low back pain COMPARISON: None FINDINGS: AP and frog leg views of the left hip were obtained. There is no prior exam for comparison. There is no acute fracture or dislocation. Joint space is preserved. Soft tissues are within normal limits. IMPRESSION: No acute osseous abnormality of the left hip. Reviewed, Interpreted and Dictated by Taz Patrick MD Transcribed by Zuleika De La Torre Authenticated and [facility]
--- NOTE | 2023-05-29 10:16 | XR_ITS ---
FINAL REPORT TECHNIQUE: Clavicle 2 views CLINICAL HISTORY: pain and swelling at left sternoclavicular joint COMPARISON: None FINDINGS: LEFT CLAVICLE: 2 views of the left clavicle failed to reveal any evidence of fracture or dislocation. The acromioclavicular and sternoclavicular joints appear unremarkable. IMPRESSION: Unremarkable left clavicle. Reviewed, Interpreted and Dictated by Taz Patrick MD Transcribed by Zuleika De La Torre Authenticated and [facility]
== END 2023-05-29 23:59 ==
LOC: RAD 10:10
PROVIDERS: PCP Family Medicine; Visit Provider Family Medicine
DX: M89.8X1 Other specified disorders of bone, shoulder; R68.84 Jaw pain; M25.552 Pain in left hip
CPT/HCPCS: 70110; 73000; 73502

== ENCOUNTER 2023-09-21 12:37 | Emergency (ER) | payer MEDICARE, SELFPAY ==
[2023-09-21 13:05] VITALS: BP 130/68; PULSE 82; RESP 20; TEMP 36.7; O2SAT 97; BMI 24.4
--- NOTE | 2023-09-21 13:12 | EXP.UTC ---
Discharge Plan Disposition Patient Disposition: Home, Self-Care Condition: Good Prescriptions Prescriptions: New azithromycin [Zithromax] 250 mg tablet 250 mg PO UD DOSE PK Qty: 6 0RF Rx Instructions: Take two (2) tablets today, then one (1) tablet days #2 thru #5 benzonatate 100 mg capsule 100 mg PO TIDP PRN (Reason: Cough) Qty: 30 0RF methylprednisolone 4 mg Tablets,Dose Pack 4 mg PO DIRECTED 6 Days Qty: 21 0RF Rx Instructions: Take 1 pack as directed for 6 days No Action cholecalciferol (vitamin D3) [Vitamin D3] 125 mcg (5,000 unit) tablet 125 mcg PO DAILY Prolia 60 mg/mL syringe 60 mg SQ [id number] esomeprazole magnesium 40 mg capsule,delayed release(DR/EC) 40 mg PO BID 30 Days Qty: 60 2RF fluticasone propionate 50 mcg/actuation spray,suspension 2 spray NS DAILY 30 Days Qty: 16 2RF etanercept 50 MG/ML pen injector 50 mg SQ WEEKLY Hold Instructions: until completes antibiotics for diverticulitis calcium carbonate 600 MG tablet 600 mg PO DAILY aspirin 81 MG tablet,delayed release (DR/EC) 81 mg PO DAILY folic acid 1 MG tablet 1 mg PO DAILY Rx Instructions: Take folic acid every day that methotrexate is not taken cetirizine 10 MG tablet 10 mg PO DAILY PRN (Reason: allergies) losartan-hydrochlorothiazide 100-25 mg tablet 1 tab PO DAILY methenamine hippurate 1 gram tablet 1 g PO DAILY methotrexate sodium 2.5 mg tablet 2.5 mg PO DAILY esomeprazole magnesium 40 mg capsule,delayed release(DR/EC) 40 mg PO DAILY metformin 500 mg tablet extended release 24 hr 500 mg PO DAILY rosuvastatin 20 mg tablet 20 mg PO DAILY Enbrel SureClick 50 mg/mL (1 mL) pen injector 50 mg SQ . Referrals Follow up/Referrals: Teo Goldman MD [Primary Care Provider] - See instructions Activity Restrictions/Add. Instructions Additional Instructions/Restrictions: Drink plenty of fluids. Take tylenol or ibuprofen for pain or fever. Take the medications as directed. Follow up with your regular doctor. GO TO THE ER FOR ANY WORSENING SYMPTOMS Clinical Impressions Clinical Impression: Sinusitis, Bronchitis Instructions Patient Instructions: DI for Sinusitis, Sinusitis Discharge ED Provider: Sebastian Fatima [facility] [place] General Stated complaint: soa cough nausea headache congestion Time Seen by Provider: 09/21/23 13:12 History of Present Illness Provider Complaint: She states that for the past 4 days she has had sinus congestion and chest congestion. Related Data Home Medications Medication Instructions Recorded Confirmed aspirin 81 mg tablet,delayed 81 mg PO DAILY Heart Health 10/14/17 05/28/23 release calcium carbonate 600 mg PO DAILY Diet supplement 10/14/17 05/28/23 etanercept 50 mg/mL (1 mL) 50 mg SQ WEEKLY Arthritis 10/14/17 05/28/23 subcutaneous pen injector folic acid 1 mg tablet 1 mg PO DAILY Supplement 10/14/17 05/28/23 cetirizine 10 mg tablet 10 mg PO DAILY PRN allergies 08/01/21 05/28/23 cholecalciferol (vitamin D3) 125 125 mcg PO DAILY 12/24/22 05/28/23 mcg (5,000 unit) tablet (Vitamin D3) denosumab 60 mg/mL subcutaneous 60 mg SQ [id number] osteoporosis 05/28/23 05/28/23 syringe (Prolia) esomeprazole magnesium 40 mg 40 mg PO DAILY 09/21/23 09/21/23 capsule,delayed release etanercept 50 mg/mL (1 mL) 50 mg SQ . 09/21/23 09/21/23 subcutaneous pen injector (Enbrel SureClick) losartan 100 1 tab PO DAILY 09/21/23 09/21/23 mg-hydrochlorothiazide 25 mg tablet metformin 500 mg tablet,extended 500 mg PO DAILY 09/21/23 09/21/23 release 24 hr methenamine hippurate 1 gram tablet 1 g PO DAILY 09/21/23 09/21/23 methotrexate sodium 2.5 mg tablet 2.5 mg PO DAILY 09/21/23 09/21/23 rosuvastatin 20 mg tablet 20 mg PO DAILY 09/21/23 09/21/23 Previous Rx's Medication Instructions Recorded esomeprazole magnesium 40 mg 40 mg PO BID acid reflux 30 days 04/30/23 capsule,delayed release #60 caps fluticasone propionate 50 2 spray intranasal DAILY Allergies 05/26/23 mcg/actuation nasal 30 days #16 grams spray,suspension azithromycin 250 mg tablet 250 mg PO UD DOSE PK #6 tabs 09/21/23 (Zithromax) benzonatate 100 mg capsule 100 mg PO TIDP PRN Cough #30 caps 09/21/23 methylprednisolone 4 mg tablets in 4 mg PO DIRECTED 6 days #21 tabs 09/21/23 a dose pack Allergies Allergy/AdvReac Type Severity Reaction Status Date / Time lisinopril [LISINOPRIL] Allergy Severe S-ANAPHYLAX Verified 05/28/23 14:39 IS ciprofloxacin [From Cipro] AdvReac Intermediate Joint Verified 05/28/23 14:39 Pain/muscle aches PFSH COUNTS INCLUDE 234 BEDS AT THE [facility] Disclaimer: The information contained in this section may have been updated after the patient was seen, as this information can be updated by other users. Medical History (Updated 09/21/23 @ 13:38 by Sebastian Fatima APRN) Anxiety Kidney stone Hyperlipidemia Allergies Urinary tract infection History of gastroesophageal reflux (GERD) Rheumatoid arthritis Hypertension Surgical History (Updated 09/21/23 @ 13:25 by Deepti Slater RN) History of hysterectomy History of cholecystectomy History of colonoscopy Social History Smoking Status: Current every day smoker tobacco type: cigarettes packs per day: 1 alcohol intake: current alcohol intake frequency: holidays/special occasions only substance use type: denies use current occupational status: retired Travel in the last 8 weeks: None household members: spouse housing: house caffeine: Yes ROS Obtained: Yes All systems reviewed & no additional complaints except as documented Constitutional Constitutional: Reports poor appetite Eyes Eyes: Reports system reviewed and no additional complaints, except as documented ENT Ears, Nose, Mouth, and Throat: Reports as per HPI Cardiovascular Cardiovascular: Reports system reviewed and no additional complaints, except as documented and Denies chest pain Respiratory Respiratory: Denies shortness of breath, Reports chest congestion, Reports cough, Denies stridor and Denies wheezing Gastrointestinal Gastrointestingal: Reports system reviewed and no additional complaints, except as documented; Denies abdominal pain, diarrhea or vomiting Musculoskeletal Musculoskeletal: Reports system reviewed and no additional complaints, except as documented and Denies arthralgias Integumentary/Breasts Skin/Breast: Reports system reviewed and no additional complaints, except as documented and Denies rash Neurologic Neurologic: Denies paresthesias Allergic/Immunologic Allergic/Immunologic: Denies wheezing Physical Exam General General appearance: alert and in no apparent distress Eye Eye exam: Present normal appearance, PERRL and EOMI ENT ENT exam: Present mucous membranes moist and normal external ear exam Expanded ENT Exam External ear exam: Present normal external inspection TM/Canal exam: Bilateral TM: erythema and bulging Nose exam: Absent sinus tenderness Nasal speculum exam: Bilateral: normal Mouth exam: Present normal external inspection; Absent drooling Teeth exam: Present normal inspection Throat exam: Present tonsillar erythema and tonsillomegaly Neck Neck exam: Present normal inspection, full ROM and trachea midline; Absent tenderness, lymphadenopathy or thyromegaly Chest Chest inspection: Present normal inspection and symmetric chest wall rise; Absent tenderness or rash Respiratory Respiratory exam: Present normal lung sounds bilaterally; Absent respiratory distress, wheezes, stridor or accessory muscle use Cardiovascular Cardiovascular exam: Present regular rate, normal rhythm and normal heart sounds Abdominal Exam Abdominal exam: Present soft; Absent distention, tenderness, guarding, rebound or rigidity Extremities Exam Extremities exam: Present normal inspection, full ROM and normal capillary refill; Absent tenderness or calf tenderness Back Exam Back exam: Present normal inspection and full ROM; Absent tenderness Neurological Exam Neurological exam: Present alert and oriented X3 Psychiatric Psychiatric exam: Present normal affect and normal mood Skin Skin exam: Present warm, dry, intact and normal color Lymphatic Lymphatic Findings: no adenopathy Medical Decision Making Medical Records Medical records reviewed: No I reviewed the patient's medical records. Guevara Inquiry Pt receiving controlled substance: No Lab Data Lab results reviewed: Yes I reviewed the patient's lab results.
[2023-09-21 13:44] VITALS: BP 130/68; PULSE 82; RESP 20; TEMP 36.7; O2SAT 97
== END 2023-09-21 13:47 | disposition home or self-care (01) ==
PROVIDERS: Emergency Provider Nurse Practitioner Family; PCP Family Medicine
DX: J20.9 Acute bronchitis, unspecified (principal); J01.90 Acute sinusitis, unspecified; R09.81 Nasal congestion
CPT/HCPCS: 99204; 99212; G0463

== ENCOUNTER 2023-10-17 18:00 | Outpatient (CLI) | payer MEDICARE, SELFPAY ==
[2023-10-17 16:49] LABS: Basophils % 0.5 % (0.1-2.0); Eosinophils # 0.1 K/mm3 (0.0-0.4); Eosinophils % 0.8 % (0.1-12.0); Hematocrit 47.5 % (37.0-47.0); Hemoglobin 15.3 g/dL (12.2-16.2); Lymphocytes # 1.1 K/mm3 (0.7-4.5); Lymphocytes % 16.4 % (10-50); Mean Corpuscular HGB Conc 32.2 g/dL (31.8-35.4); Mean Corpuscular Hemoglobin 30.8 pg (27.0-31.2); Mean Corpuscular Volume 95.5 fl (81-99); Mean Platelet Volume 9.5 fl (7.4-10.4); Monocytes # 0.3 K/mm3 (0.1-1.0); Monocytes % 3.7 % (1.7-9.3); Neutrophils # 5.3 K/mm3 (1.8-7.8); Neutrophils % 78.6 % (37.0-80.0); Platelet Count 247 K/mm3 (142-424); Red Blood Count 4.98 M/mm3 (4.20-5.40); Red Cell Distribution Width 15.9 % (11.5-17.5); White Blood Count 6.8 K/mm3 (4.8-10.8)
[2023-10-17 16:51] LABS: Chloride 104 mmol/L (98-107); Potassium 3.9 mmoL/L (3.5-5.1); Sodium 139 mmol/L (136-145)
[2023-10-17 16:54] LABS: Alanine Aminotransferase 14 U/L (12-78); Albumin/Globulin Ratio 1.4 (1.1-1.8); Alkaline Phosphatase 102 U/L (38-126); Anion Gap 10.9 mEq/L (5-15); Aspartate Amino Transferase 21 U/L (14-36); Bilirubin,Total 0.6 mg/dl (0.2-1.3); Blood Urea Nitrogen 18 mg/dl (7-17); Calcium 10.6 mg/dl (8.4-10.2); Carbon Dioxide 28 mmol/L (22.0-30.0); Cholesterol 241 mg/dl (140-200); Estimated Glomerular Filt Rate 61 ml/min (>60); GFR (African American) 74 ML/MIN (>60); Globulin 2.9 g/dL (1.3-3.2); Glucose 117 mg/dl (74-100); Iron 71 ug/dL (37-170); Total Protein,Serum 6.9 g/dl (6.3-8.2); Triglycerides 222 mg/dl (30-150); VLDL Cholesterol 44 mg/dL (0-40)
[2023-10-17 16:55] LABS: Chol/HDL Ratio 4.2 (1-3.5); HDL Cholesterol 57 mg/dl (40-60)
[2023-10-17 17:05] LABS: Direct LDL Cholesterol 136.17 mg/dL (100-129); Total Iron Binding Capacity 284 ug/dL (265-497)
[2023-10-17 17:12] LABS: 25-OH Vitamin D, Total 30.4 ng/mL (30-100)
[2023-10-17 17:25] LABS: Thyroid Stimulating Hormone 0.63 uIU/mL (0.465-4.68)
[2023-10-17 17:41] LABS: Hemoglobin A1C 6.5 % (4.0-6.0)
== END 2023-10-17 23:59 | disposition home or self-care (01) ==
LOC: LAB.DROPOF 10-18 08:32
PROVIDERS: PCP Nurse Practitioner Family; Visit Provider Nurse Practitioner Family
DX: R73.03 Prediabetes (principal); I10 Essential (primary) hypertension; E78.5 Hyperlipidemia, unspecified; E55.9 Vitamin D deficiency, unspecified; M06.9 Rheumatoid arthritis, unspecified; D50.9 Iron deficiency anemia, unspecified; D53.9 Nutritional anemia, unspecified; Z68.24 Body mass index [BMI] 24.0-24.9, adult; Z79.84 Long term (current) use of oral hypoglycemic drugs; F17.210 Nicotine dependence, cigarettes, uncomplicated
CPT/HCPCS: 80050; 80053; 80061; 82306; 83036; 83540; 83550; 84443; 85025

== ENCOUNTER 2023-11-14 16:33 | Emergency (ER) | payer MEDICARE, SELFPAY ==
[2023-11-14 17:05] VITALS: BP 131/49; PULSE 76; RESP 20; TEMP 36.7; O2SAT 97; BMI 24.7
--- NOTE | 2023-11-14 17:16 | EXP.UTC ---
Discharge Plan Disposition Patient Disposition: Home, Self-Care Condition: Good Prescriptions Prescriptions: New phenazopyridine [Pyridium] 200 mg tablet 200 mg PO Q8H 2 Days Qty: 6 0RF ondansetron 4 mg Tablet,Disintegrating 4 mg PO Q8H PRN (Reason: Nausea) Qty: 10 0RF nitrofurantoin monohyd/m-cryst [Macrobid] 100 mg Capsule 100 mg PO BID Qty: 10 0RF Rx Instructions: must administer with a meal/food No Action cholecalciferol (vitamin D3) [Vitamin D3] 125 mcg (5,000 unit) tablet 125 mcg PO DAILY albuterol sulfate 90 mcg/actuation HFA aerosol inhaler 1 inh inhalation Q4-6H Qty: 6.7 2RF amoxicillin-pot clavulanate 875-125 mg tablet 1 tab PO BID 10 Days Qty: 20 0RF Prolia 60 mg/mL syringe 60 mg SQ [id number] Qty: 1 1RF ondansetron 4 mg tablet,disintegrating 4 mg PO Q8H PRN (Reason: nausea and vomiting) Qty: 20 0RF fluticasone propionate 50 mcg/actuation spray,suspension 2 spray NS DAILY 30 Days Qty: 16 2RF rosuvastatin 40 mg tablet 40 mg PO DAILY Qty: 90 2RF folic acid 1 mg tablet 1 mg PO DAILY 90 Days Qty: 90 0RF Rx Instructions: Take folic acid every day that methotrexate is not taken methenamine hippurate 1 gram tablet 1 g PO DAILY Qty: 90 0RF calcium carbonate 600 MG tablet 600 mg PO DAILY aspirin 81 MG tablet,delayed release (DR/EC) 81 mg PO DAILY cetirizine 10 MG tablet 10 mg PO DAILY PRN (Reason: allergies) losartan-hydrochlorothiazide 100-25 mg tablet 1 tab PO DAILY methotrexate sodium 2.5 mg tablet 2.5 mg PO DAILY esomeprazole magnesium 40 mg capsule,delayed release(DR/EC) 40 mg PO DAILY Enbrel SureClick 50 mg/mL (1 mL) pen injector 50 mg SQ . Referrals Follow up/Referrals: Teo Goldman MD [Primary Care Provider] - See instructions Activity Restrictions/Add. Instructions Additional Instructions/Restrictions: Drink plenty of fluids. Take tylenol or ibuprofen for pain or fever. Take the medications as directed. Follow up with your regular doctor. GO TO THE ER FOR ANY WORSENING SYMPTOMS The pyridium will make your urine turn orange, this is an expected side effect. It will stain your clothes if it comes into contact with them. We will culture the urine. That will tell what bacteria is causing your infection and which antibiotics will treat it best. Sometimes the first antibiotic we prescribe turns out to not work against different bacteria. So, make sure you follow up within 3 days if you are not getting better. Clinical Impressions Clinical Impression: UTI (urinary tract infection) Instructions Patient Instructions: Urinary Tract Infection, Urine Culture, DI for Urinary Tract Infection (UTI), Phenazopyridine Discharge ED Provider: Sebastian Fatima [facility] General Stated complaint: poss UTI Mode of Arrival: Ambulatory Source of Information: Patient Limitations: No Limitations Time Seen by Provider: 11/14/23 17:16 Description of Symptoms (Recalled from Triage Doc. by RN): PATIENT C/O NAUSEA, PELVIC PAIN AND IRRITATION TO GENITAL AREA SINCE YESTERDAY HEENT Symptoms (Recalled from RN notes): No Resp Symptoms (Recalled from RN notes): No Skin Symptoms (Recalled from RN notes): No MS Symptoms (Recalled from RN notes): No Functional Status (Recalled from RN notes): WNL History of Present Illness Provider Complaint: She c/o dysuria and urinary frequency for the past 2 days. Related Data Home Medications Medication Instructions Recorded Confirmed aspirin 81 mg tablet,delayed 81 mg PO DAILY Heart Health 10/14/17 10/28/23 release calcium carbonate 600 mg PO DAILY Diet supplement 10/14/17 10/28/23 cetirizine 10 mg tablet 10 mg PO DAILY PRN allergies 08/01/21 10/28/23 cholecalciferol (vitamin D3) 125 125 mcg PO DAILY 12/24/22 10/28/23 mcg (5,000 unit) tablet (Vitamin D3) esomeprazole magnesium 40 mg 40 mg PO DAILY 09/21/23 10/28/23 capsule,delayed release etanercept 50 mg/mL (1 mL) 50 mg SQ . 09/21/23 10/28/23 subcutaneous pen injector (Enbrel SureClick) losartan 100 1 tab PO DAILY 09/21/23 10/28/23 mg-hydrochlorothiazide 25 mg tablet methotrexate sodium 2.5 mg tablet 2.5 mg PO DAILY 09/21/23 10/28/23 Previous Rx's Medication Instructions Recorded fluticasone propionate 50 2 spray intranasal DAILY Allergies 05/26/23 mcg/actuation nasal 30 days #16 grams spray,suspension albuterol sulfate 90 mcg/actuation 1 inh inhalation Q4-6H #6.7 grams 09/30/23 aerosol inhaler amoxicillin 875 mg-potassium 1 tab PO BID 10 days #20 tabs 10/17/23 clavulanate 125 mg tablet denosumab 60 mg/mL subcutaneous 60 mg SQ [id number] osteoporosis #1 10/17/23 syringe (Prolia) mL ondansetron 4 mg disintegrating 4 mg PO Q8H PRN nausea and 10/17/23 tablet vomiting #20 tabs rosuvastatin 40 mg tablet 40 mg PO DAILY #90 tabs 10/21/23 folic acid 1 mg tablet 1 mg PO DAILY Supplement 90 days 11/12/23 #90 tabs methenamine hippurate 1 gram tablet 1 g PO DAILY #90 tabs 11/13/23 nitrofurantoin 100 mg PO BID #10 caps 11/14/23 monohydrate/macrocrystals 100 mg capsule (Macrobid) ondansetron 4 mg disintegrating 4 mg PO Q8H PRN Nausea #10 tabs 11/14/23 tablet phenazopyridine 200 mg tablet 200 mg PO Q8H 2 days #6 tabs 11/14/23 (Pyridium) Allergies Allergy/AdvReac Type Severity Reaction Status Date / Time lisinopril [LISINOPRIL] Allergy Severe S-ANAPHYLAX Verified 10/28/23 09:52 IS ciprofloxacin [From Cipro] AdvReac Intermediate Joint Verified 10/28/23 09:52 Pain/muscle aches Worker's Comp Is this a Worker's Comp case?: No [facility] Disclaimer: The information contained in this section may have been updated after the patient was seen, as this information can be updated by other users. Medical History (Updated 11/14/23 @ 17:42 by Sebastian Fatima APRN) Anxiety Kidney stone Hyperlipidemia Allergies Urinary tract infection History of gastroesophageal reflux (GERD) Rheumatoid arthritis Hypertension Surgical History History of hysterectomy History of cholecystectomy History of colonoscopy Social History Smoking Status: Current every day smoker tobacco type: cigarettes packs per day: 1 alcohol intake: current alcohol intake frequency: holidays/special occasions only substance use type: denies use current occupational status: retired Travel in the last 8 weeks: None household members: spouse housing: house caffeine: Yes ROS Obtained: Yes All systems reviewed & no additional complaints except as documented Constitutional Constitutional: Reports system reviewed and no additional complaints, except as documented, Denies chills and Denies fever(s) Eyes Eyes: Denies eye discharge ENT Ears, Nose, Mouth, and Throat: Denies dysphagia, Denies sore throat and Denies throat swelling Cardiovascular Cardiovascular: Denies chest pain and Denies dyspnea Respiratory Respiratory: Denies chest congestion, Denies cough and Denies dyspnea Gastrointestinal Gastrointestingal: Denies abdominal pain, constipation, diarrhea, dysphagia, nausea or vomiting Genitourinary Female Genitourinary: Reports as per HPI, Reports dysuria, Reports urinary frequency, Denies urinary incontinence, Reports urinary hesitancy and Reports urinary urgency Musculoskeletal Musculoskeletal: Denies arthralgias and Reports back pain Integumentary/Breasts Skin/Breast: Denies rash Neurologic Neurologic: Denies paresthesias Allergic/Immunologic Allergic/Immunologic: Denies throat swelling Physical Exam General General appearance: alert and in no apparent distress Head Head exam: atraumatic and normocephalic Eye Eye exam: Present normal appearance, PERRL and EOMI ENT ENT exam: Present normal exam, mucous membranes moist, TM's normal bilaterally and normal external ear exam Neck Neck exam: Present normal inspection, full ROM and trachea midline; Absent tenderness, meningismus or lymphadenopathy Chest Chest inspection: Present normal inspection and symmetric chest wall rise; Absent tenderness Respiratory Respiratory exam: Present normal lung sounds bilaterally; Absent respiratory distress, wheezes or stridor Cardiovascular Cardiovascular exam: Present regular rate, normal rhythm and normal heart sounds Abdominal Exam Abdominal exam: Present soft and normal bowel sounds; Absent distention, tenderness, guarding, rebound, rigidity, incision, psoas sign, obturator sign, heel tap sign, Byrd's sign, Rovsing's sign or tenderness at McBurney's Point Extremities Exam Extremities exam: Present normal inspection, full ROM and normal capillary refill; Absent tenderness, edema, joint swelling, calf tenderness or cyanosis Back Exam Back exam: Present normal inspection and full ROM; Absent tenderness, CVA tenderness (R) or CVA tenderness (L) Neurological Exam Neurological exam: Present alert, oriented X3 and normal gait Psychiatric Psychiatric exam: Present normal affect and normal mood Skin Skin exam: Present warm, dry, intact and normal color Lymphatic Lymphatic Findings: no adenopathy Medical Decision Making Medical Records Medical records reviewed: No I reviewed the patient's medical records. Guevara Inquiry Pt receiving controlled substance: No Vital Signs: 11/14/23 17:05 Temperature 98.1 F Temperature Source Oral Pulse Rate [Left Brachial] 76 Respiratory Rate 20 Blood Pressure [Left Arm] 131/49 L Blood Pressure Mean [Left Arm] 76 Blood Pressure Source [Left Arm] Automatic Cuff Blood Pressure Position [Left Arm] Sitting 02 Sat by Pulse Oximetry 97 Oxygen Delivery Method Room Air Lab Data Lab results reviewed: Yes I reviewed the patient's lab results.
[2023-11-14 17:18] LABS: Apearance,Urine Cloudy (Clear); Color,Urine Yellow (Yellow); PH,Urine 5.5 (5.0-8.5)
[2023-11-14 17:19] LABS: Bilirubin,Urine Negative (Negative); Blood, Urine 1+ (Negative); Glucose,Urine (UA) Negative (Negative); Ketones,Urine Negative (Negative); Protein,Urine Negative (Negative); UTC Leukocyte Esterase,Urine 1+ (Negative); UTC Nitrate,Urine Positive (Negative); Urobilinogen,Urine 0.2 EU/dl (0.2)
[2023-11-14 17:44] VITALS: BP 131/65; PULSE 76; RESP 20; TEMP 36.7; O2SAT 97
== END 2023-11-14 17:48 | disposition home or self-care (01) ==
PROVIDERS: Emergency Provider Nurse Practitioner Family; PCP Family Medicine
DX: N39.0 Urinary tract infection, site not specified (principal); B96.29 Other Escherichia coli [E. coli] as the cause of diseases classified elsewhere; R10.2 Pelvic and perineal pain; R35.0 Frequency of micturition; R30.0 Dysuria; R11.0 Nausea
CPT/HCPCS: 81003; 87086; 87088; 87186; 99212; 99214; G0463

== ENCOUNTER 2023-11-23 13:28 | Emergency (ER) | payer MEDICARE, SELFPAY ==
[2023-11-23 13:29] VITALS: BP 176/91; PULSE 90; RESP 16; TEMP 36.7; O2SAT 96; BMI 24.7
--- NOTE | 2023-11-23 13:46 | CT_ITS ---
PROCEDURE INFORMATION: Exam: CT Abdomen And Pelvis With Contrast Exam date and time: 11/23/2023 2:29 PM Age: 73 years old Clinical indication: Abdominal pain; Localized; Lower; Additional info: Lower abdominal pain, tenesmus TECHNIQUE: Imaging protocol: Computed tomography of the abdomen and pelvis with contrast. Radiation optimization: All CT scans at this facility use at least one of these dose optimization techniques: automated exposure control; mA and/or kV adjustment per patient size (includes targeted exams where dose is matched to clinical indication); or iterative reconstruction. Contrast material: ISOVUE; Contrast volume: 75 ml; Contrast route: IV; COMPARISON: CT ABDOMEN PELVIS W CON 01/05/2023 1:38 PM FINDINGS: Lungs: Basilar lung sequela of granulomatous disease. Small focus of emphysematous change within the right lower lobe. Scattered parenchymal scarring/atelectasis of the lung bases. Heart: Base of heart is unremarkable as visualized. Coronary arteries: Heavy coronary calcified atherosclerotic disease. Liver: Normal. No mass. Gallbladder and biliary ducts: Status post cholecystectomy. Pancreas: Normal. No ductal dilation. Spleen: Stable hypodensity within the spleen. Splenic granulomas. Adrenal glands: Stable right adrenal gland nodule. 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 Stomach and bowel: Severe diverticulosis without evidence of diverticulitis. Distal descending colon and sigmoid colon as well as the rectum are collapsed. Appendix: No evidence of appendicitis. Intraperitoneal space: Unremarkable. No free air. No significant fluid collection. Vasculature: Severe scattered calcified atherosclerotic disease. 50-75% narrowing of the proximal superior mesenteric artery (series 3, image 36). Lymph nodes: Unremarkable. No enlarged lymph nodes. Urinary bladder: Unremarkable as visualized. Reproductive: Status post hysterectomy. Bones/joints: Scattered degenerative change of the visualized osseous structures. Diffuse demineralization of the bones. Grade 1 anterolisthesis of L5 on S1. Soft tissues: Unremarkable. Other findings: Good distal reconstitution is noted. IMPRESSION: 1. No acute findings. 2. Additional nonacute findings as above. COMMENTS: Consistent with the [employer]'s Incidental Findings Committee white paper (J Am Wil Radiol 2018): Any incidental renal lesion less than 1 cm or classified as too small to characterize, or any incidental cystic renal lesion characterized as simple-appearing, is likely benign. No follow-up imaging is recommended for these lesions per consensus recommendations based on imaging criteria.
--- NOTE | 2023-11-23 13:49 | ED_ITS ---
Discharge Plan Disposition Patient Disposition: Home, Self-Care Prescriptions Prescriptions: New cefdinir 300 mg capsule 300 mg PO BID 5 Days Qty: 10 0RF ondansetron 4 mg tablet,disintegrating 4 mg PO Q8H PRN (Reason: nausea and vomiting) 4 Days Qty: 12 0RF No Action cholecalciferol (vitamin D3) [Vitamin D3] 125 mcg (5,000 unit) tablet 125 mcg PO DAILY albuterol sulfate 90 mcg/actuation HFA aerosol inhaler 1 inh inhalation Q4-6H Qty: 6.7 2RF amoxicillin-pot clavulanate 875-125 mg tablet 1 tab PO BID 10 Days Qty: 20 0RF Prolia 60 mg/mL syringe 60 mg SQ [id number] Qty: 1 1RF ondansetron 4 mg tablet,disintegrating 4 mg PO Q8H PRN (Reason: nausea and vomiting) Qty: 20 0RF fluticasone propionate 50 mcg/actuation spray,suspension 2 spray NS DAILY 30 Days Qty: 16 2RF rosuvastatin 40 mg tablet 40 mg PO DAILY Qty: 90 2RF folic acid 1 mg tablet 1 mg PO DAILY 90 Days Qty: 90 0RF Rx Instructions: Take folic acid every day that methotrexate is not taken methenamine hippurate 1 gram tablet 1 g PO DAILY Qty: 90 0RF phenazopyridine [Pyridium] 200 mg tablet 200 mg PO Q8H 2 Days Qty: 6 0RF ondansetron 4 mg Tablet,Disintegrating 4 mg PO Q8H PRN (Reason: Nausea) Qty: 10 0RF nitrofurantoin monohyd/m-cryst [Macrobid] 100 mg Capsule 100 mg PO BID Qty: 10 0RF Rx Instructions: must administer with a meal/food calcium carbonate 600 MG tablet 600 mg PO DAILY aspirin 81 MG tablet,delayed release (DR/EC) 81 mg PO DAILY cetirizine 10 MG tablet 10 mg PO DAILY PRN (Reason: allergies) losartan-hydrochlorothiazide 100-25 mg tablet 1 tab PO DAILY methotrexate sodium 2.5 mg tablet 2.5 mg PO DAILY esomeprazole magnesium 40 mg capsule,delayed release(DR/EC) 40 mg PO DAILY Enbrel SureClick 50 mg/mL (1 mL) pen injector 50 mg SQ . Referrals Follow up/Referrals: Teo Goldman MD [Primary Care Provider] - See instructions Activity Restrictions/Add. Instructions Additional Instructions/Restrictions: At this time it was felt you are safe to be discharged home. If new or worsening symptoms please do not hesitate to return the emergency department. Please take 1000 mg of Tylenol and 600 mg of ibuprofen every 6 hours as needed for pain. Please take antibiotics as prescribed. Clinical Impressions Clinical Impression: Abdominal pain, lower, Cyst of right kidney, Acute UTI Instructions Patient Instructions: DI for Acute Abdominal Pain Discharge ED Provider: Alissa Leone General Adult HPI <Alissa Leone DO - Last Filed: 11/23/23 15:23> General Chief complaint: Abdominal Pain Stated complaint: nauesa Time Seen by Provider: 11/23/23 13:42 History of Present Illness HPI narrative: This patient is a 73-year-old female with a history of diverticulitis, hypertension, hyperlipidemia, and rheumatoid arthritis presenting to the emergency department for evaluation with concern for lower abdominal pain and tenesmus. She thinks that it feels like her diverticulitis is recurring. Patient reports that Friday, she had a twinge of abdominal pain, however she was on treatment for UTI at that time and thought maybe it was related to that. She was evaluated here 11/14/2023 on medical record and was diagnosed with UTI. She was prescribed Macrobid, which she has since completed. She has been doing okay up until last night, with significant lower abdominal pain that is throbbing in nature woke her up from sleep. She notes this continued today. She had 2 bowel movements earlier today with no improvement in her pain. She states she is having spasms and pressure in her rectum like she needs to go to the bathroom, but bowel movements do not alleviate the symptoms. She denies any looser stools, bloody stools, or melena. She notes nausea but denies any vomiting. She also notes headache on review of systems. No fever or urinary symptoms noted. Related Data Home Medications Medication Instructions Recorded Confirmed aspirin 81 mg tablet,delayed 81 mg PO DAILY Heart Health 10/14/17 10/28/23 release calcium carbonate 600 mg PO DAILY Diet supplement 10/14/17 10/28/23 cetirizine 10 mg tablet 10 mg PO DAILY PRN allergies 08/01/21 10/28/23 cholecalciferol (vitamin D3) 125 125 mcg PO DAILY 12/24/22 10/28/23 mcg (5,000 unit) tablet (Vitamin D3) esomeprazole magnesium 40 mg 40 mg PO DAILY 09/21/23 10/28/23 capsule,delayed release etanercept 50 mg/mL (1 mL) 50 mg SQ . 09/21/23 10/28/23 subcutaneous pen injector (Enbrel SureClick) losartan 100 1 tab PO DAILY 09/21/23 10/28/23 mg-hydrochlorothiazide 25 mg tablet methotrexate sodium 2.5 mg tablet 2.5 mg PO DAILY 09/21/23 10/28/23 Previous Rx's Medication Instructions Recorded fluticasone propionate 50 2 spray intranasal DAILY Allergies 05/26/23 mcg/actuation nasal 30 days #16 grams spray,suspension albuterol sulfate 90 mcg/actuation 1 inh inhalation Q4-6H #6.7 grams 09/30/23 aerosol inhaler amoxicillin 875 mg-potassium 1 tab PO BID 10 days #20 tabs 10/17/23 clavulanate 125 mg tablet denosumab 60 mg/mL subcutaneous 60 mg SQ [id number] osteoporosis #1 10/17/23 syringe (Prolia) mL ondansetron 4 mg disintegrating 4 mg PO Q8H PRN nausea and 10/17/23 tablet vomiting #20 tabs rosuvastatin 40 mg tablet 40 mg PO DAILY #90 tabs 10/21/23 folic acid 1 mg tablet 1 mg PO DAILY Supplement 90 days 11/12/23 #90 tabs methenamine hippurate 1 gram tablet 1 g PO DAILY #90 tabs 11/13/23 nitrofurantoin 100 mg PO BID #10 caps 11/14/23 monohydrate/macrocrystals 100 mg capsule (Macrobid) ondansetron 4 mg disintegrating 4 mg PO Q8H PRN Nausea #10 tabs 11/14/23 tablet phenazopyridine 200 mg tablet 200 mg PO Q8H 2 days #6 tabs 11/14/23 (Pyridium) cefdinir 300 mg capsule 300 mg PO BID 5 days #10 caps 11/23/23 ondansetron 4 mg disintegrating 4 mg PO Q8H PRN nausea and 11/23/23 tablet vomiting 4 days #12 tabs Allergies Allergy/AdvReac Type Severity Reaction Status Date / Time lisinopril [LISINOPRIL] Allergy Severe S-ANAPHYLAX Verified 10/28/23 09:52 IS ciprofloxacin [From Cipro] AdvReac Intermediate Joint Verified 10/28/23 09:52 Pain/muscle aches PFSH <Alissa Leone DO - Last Filed: 11/23/23 15:23> [facility] Disclaimer: The information contained in this section may have been updated after the patient was seen, as this information can be updated by other users. Medical History Anxiety Kidney stone Hyperlipidemia Allergies Urinary tract infection History of gastroesophageal reflux (GERD) Rheumatoid arthritis Hypertension Surgical History History of hysterectomy History of cholecystectomy History of colonoscopy Social History Smoking Status: Current every day smoker tobacco type: cigarettes packs per day: 1 alcohol intake: current alcohol intake frequency: holidays/special occasions only substance use type: denies use current occupational status: retired Travel in the last 8 weeks: None household members: spouse housing: house caffeine: Yes <Alissa Leone DO - Last Filed: 11/23/23 15:23> ROS Obtained: Yes All systems reviewed & no additional complaints except as documented Physical Exam <Alissa Leone DO - Last Filed: 11/23/23 15:23> General General appearance: alert and in no apparent distress Head Head exam: atraumatic and normocephalic Eye Eye exam: Present normal appearance, PERRL and EOMI ENT ENT exam: Present normal exam, normal oropharynx, mucous membranes moist and normal external ear exam Neck Neck exam: Present normal inspection, full ROM and trachea midline; Absent tenderness Chest Chest inspection: Present normal inspection and symmetric chest wall rise; Absent tenderness Respiratory Respiratory exam: Present normal lung sounds bilaterally; Absent respiratory distress, wheezes, stridor or accessory muscle use Cardiovascular Cardiovascular exam: Present regular rate and normal rhythm Abdominal Exam Abdominal exam: Present soft and tenderness (Lower abdomen); Absent distention, guarding, rebound or rigidity Extremities Exam Extremities exam: Present normal inspection, full ROM and normal capillary refill; Absent tenderness or edema Back Exam Back exam: Present normal inspection and full ROM; Absent tenderness Neurological Exam Neurological exam: Present alert, oriented X3, CN II-XII intact and normal gait; Absent motor sensory deficit Psychiatric Psychiatric exam: Present normal affect and normal mood Skin Skin exam: Present warm and dry Medical Decision Making <Alissa Leone DO - Last Filed: 11/23/23 15:23> Medical Records Medical records reviewed: Yes I reviewed the patient's medical records. Guevara Inquiry Pt receiving controlled substance: No Vital Signs: 11/23/23 13:29 11/23/23 13:52 11/23/23 14:00 Temperature 98.1 F Temperature Source Oral Pulse Rate 80 86 Pulse Rate [Left Radial] 90 Respiratory Rate 16 Blood Pressure 132/71 142/68 H Blood Pressure [Right Arm] 176/91 H Blood Pressure Mean [Right Arm] 119 02 Sat by Pulse Oximetry 96 97 97 Oxygen Delivery Method Room Air Room Air Room Air 11/23/23 15:00 Temperature Temperature Source Pulse Rate 67 Pulse Rate [Left Radial] Respiratory Rate Blood Pressure 139/76 Blood Pressure [Right Arm] Blood Pressure Mean [Right Arm] 02 Sat by Pulse Oximetry 96 Oxygen Delivery Method Room Air Lab Data Lab results reviewed: Yes I reviewed the patient's lab results. Lab Results 11/23/23 13:40: C-Reactive Protein 2.3, Lipase 137 11/23/23 13:43: WBC 9.2, RBC 5.19, Hgb 15.8, Hct 48.0 H, MCV 92.4, MCH 30.5, MCHC 33.0, RDW 15.4, Plt Count 215, MPV 8.2, Neut % (Auto) 76.7, Lymph % (Auto) 17.2, [place] % (Auto) 4.3, Eos % (Auto) 1.3, Baso % (Auto) 0.5, Neut # (Auto) 7.0, Lymph # (Auto) 1.6, [place] # (Auto) 0.4, Eos # (Auto) 0.1, Baso # (Auto) 0.1, Sodium 142, Potassium 3.5, Chloride 107, Carbon Dioxide 27, Anion Gap 11.5, BUN 21 H, Creatinine 1.00, Estimated Creat Clear 49, Estimated GFR 54 L, Est GFR ( Amer) 65, Glucose 111 H, Lactate 1.2, Calcium 10.0, Total Bilirubin 1.0, AST 25, ALT 17, Alkaline Phosphatase 112, Total Protein 7.4, Albumin 4.2, Globulin 3.2, Albumin/Globulin Ratio 1.3, Urine Color Yellow, Urine Appearance Clear, Urine pH 7.0, Ur Specific [place] 1.010, Urine Protein Negative, Urine Glucose (UA) Negative, Urine Ketones Negative, Urine Blood Trace-i, Urine Nitrate Positive, Urine Bilirubin Negative, Urine Urobilinogen 0.2, Ur Leukocyte Esterase Trace, Urine RBC Occasional, Urine WBC Occasional, Ur Squamous Epith Cells Occasional 11/23/23 13:43 11/23/23 13:43 Orders (Tests/Meds): ED MEDICATIONS Discontinued Medications Generic Name Dose Route Start Last Admin Trade Name Freq PRN Reason Stop Dose Admin Acetaminophen 1,000 mg 11/23/23 13:46 11/23/23 14:04 Acetaminophen 1,000mg/100ml Vial IV 11/23/23 13:47 1,000 mg ONCE ONE Administration Lactated Ringer's 1,000 mls @ 999 mls/hr 11/23/23 13:46 11/23/23 14:04 Lactated Ringer's 1000 Ml Bag IV 11/23/23 14:46 999 mls/hr .Q1H1M ONE Administration Iopamidol 75 ml 11/23/23 14:30 11/23/23 14:31 Iopamidol-370 (76%);100ml Bottle IV 11/23/23 14:31 75 ml ONCE ONE Administration Ketorolac Tromethamine 15 mg 11/23/23 13:46 11/23/23 14:04 Ketorolac 30mg/Ml Vial IV 11/23/23 13:47 15 mg ONCE ONE Administration Ondansetron HCl 4 mg 11/23/23 13:46 11/23/23 14:04 Ondansetron 4mg/2ml Vial IV 11/23/23 13:47 4 mg ONCE ONE Administration Sodium Chloride 10 ml 11/23/23 14:30 11/23/23 14:31 Sodium Chloride 0.9% 10ml Syr (Rad Only) IV 11/23/23 14:31 10 ml ONCE ONE Administration ORDERS Category Date Time Status CT abdomen pelvis w con Stat Cat Scan 11/23/23 13:46 Completed CRP [C-Reactive Protein] Stat Lab 11/23/23 13:40 Completed Complete Blood Count Auto Diff Stat Lab 11/23/23 13:43 Completed Comprehensive Metabolic Panel Stat Lab 11/23/23 13:43 Completed Lactic Acid Stat Lab 11/23/23 13:43 Completed Lipase Stat Lab 11/23/23 13:40 Completed UA [Urinalysis and Microscopic] Stat Lab 11/23/23 13:43 Completed Medical Decision Narrative: In summary, this patient is a 73-year-old female presenting to the Emergency Department for evaluation of lower abdominal pain and tenesmus. Differential diagnoses considered include but are not limited to diverticulitis, colitis, bowel obstruction, constipation, hemorrhoids, cystitis, pyelonephritis. Ruling out the most morbid conditions drove assessment. It should be noted patient's history includes hypertension, hyperlipidemia, and rheumatoid arthritis which may or may not be at goal therapy. This complicates all aspects of care by increasing patient's risk for morbidity. I reviewed patient's past medical records and noted previous admission for diverticulitis approximately a year ago as well as diagnosis of UTI 11/13. On exam, the patient is sitting upright in no acute distress. She has lower abdominal tenderness but no rebound or guarding. Vitals are reassuring cardiac telemetry. Workup included DVT, CMP, lactic acid, urinalysis, and CT abdomen and pelvis with IV contrast. She was given a bolus of IV fluids as well as IV Toradol, acetaminophen, and Zofran for symptomatic improvement. On lab evaluation, patient has no significant leukocytosis. Urine demonstrates positive nitrates and trace leukocyte esterase. Could be urinary tract infection. Urine culture ordered and is pending. Patient care signed out to the oncoming provider, Dr. Jimenez, pending CT scan. <Dov Jimenez MD - Last Filed: 11/23/23 16:46> Vital Signs: 11/23/23 13:29 11/23/23 13:52 11/23/23 14:00 Temperature 98.1 F Temperature Source Oral Pulse Rate 80 86 Pulse Rate [Left Radial] 90 Respiratory Rate 16 Blood Pressure 132/71 142/68 H Blood Pressure [Right Arm] 176/91 H Blood Pressure Mean [Right Arm] 119 02 Sat by Pulse Oximetry 96 97 97 Oxygen Delivery Method Room Air Room Air Room Air 11/23/23 15:00 Temperature Temperature Source Pulse Rate 67 Pulse Rate [Left Radial] Respiratory Rate Blood Pressure 139/76 Blood Pressure [Right Arm] Blood Pressure Mean [Right Arm] 02 Sat by Pulse Oximetry 96 Oxygen Delivery Method Room Air Lab Data Lab Results 11/23/23 13:40: C-Reactive Protein 2.3, Lipase 137 11/23/23 13:43: WBC 9.2, RBC 5.19, Hgb 15.8, Hct 48.0 H, MCV 92.4, MCH 30.5, MCHC 33.0, RDW 15.4, Plt Count 215, MPV 8.2, Neut % (Auto) 76.7, Lymph % (Auto) 17.2, [place] % (Auto) 4.3, Eos % (Auto) 1.3, Baso % (Auto) 0.5, Neut # (Auto) 7.0, Lymph # (Auto) 1.6, [place] # (Auto) 0.4, Eos # (Auto) 0.1, Baso # (Auto) 0.1, Sodium 142, Potassium 3.5, Chloride 107, Carbon Dioxide 27, Anion Gap 11.5, BUN 21 H, Creatinine 1.00, Estimated Creat Clear 49, Estimated GFR 54 L, Est GFR ( Amer) 65, Glucose 111 H, Lactate 1.2, Calcium 10.0, Total Bilirubin 1.0, AST 25, ALT 17, Alkaline Phosphatase 112, Total Protein 7.4, Albumin 4.2, Globulin 3.2, Albumin/Globulin Ratio 1.3, Urine Color Yellow, Urine Appearance Clear, Urine pH 7.0, Ur Specific [place] 1.010, Urine Protein Negative, Urine Glucose (UA) Negative, Urine Ketones Negative, Urine Blood Trace-i, Urine Nitrate Positive, Urine Bilirubin Negative, Urine Urobilinogen 0.2, Ur Leukocyte Esterase Trace, Urine RBC Occasional, Urine WBC Occasional, Ur Squamous Epith Cells Occasional Orders (Tests/Meds): ED MEDICATIONS Discontinued Medications Generic Name Dose Route Start Last Admin Trade Name Freq PRN Reason Stop Dose Admin Acetaminophen 1,000 mg 11/23/23 13:46 11/23/23 14:04 Acetaminophen 1,000mg/100ml Vial IV 11/23/23 13:47 1,000 mg ONCE ONE Administration Lactated Ringer's 1,000 mls @ 999 mls/hr 11/23/23 13:46 11/23/23 14:04 Lactated Ringer's 1000 Ml Bag IV 11/23/23 14:46 999 mls/hr .Q1H1M ONE Administration Iopamidol 75 ml 11/23/23 14:30 11/23/23 14:31 Iopamidol-370 (76%);100ml Bottle IV 11/23/23 14:31 75 ml ONCE ONE Administration Ketorolac Tromethamine 15 mg 11/23/23 13:46 11/23/23 14:04 Ketorolac 30mg/Ml Vial IV 11/23/23 13:47 15 mg ONCE ONE Administration Ondansetron HCl 4 mg 11/23/23 13:46 11/23/23 14:04 Ondansetron 4mg/2ml Vial IV 11/23/23 13:47 4 mg ONCE ONE Administration Sodium Chloride 10 ml 11/23/23 14:30 11/23/23 14:31 Sodium Chloride 0.9% 10ml Syr (Rad Only) IV 11/23/23 14:31 10 ml ONCE ONE Administration ORDERS Category Date Time Status CT abdomen pelvis w con Stat Cat Scan 11/23/23 13:46 Completed CRP [C-Reactive Protein] Stat Lab 11/23/23 13:40 Completed Complete Blood Count Auto Diff Stat Lab 11/23/23 13:43 Completed Comprehensive Metabolic Panel Stat Lab 11/23/23 13:43 Completed Lactic Acid Stat Lab 11/23/23 13:43 Completed Lipase Stat Lab 11/23/23 13:40 Completed UA [Urinalysis and Microscopic] Stat Lab 11/23/23 13:43 Completed Medical Decision Narrative: In summary, this patient is a 73-year-old female presenting to the Emergency Department for evaluation of lower abdominal pain and tenesmus. Differential diagnoses considered include but are not limited to diverticulitis, colitis, bowel obstruction, constipation, hemorrhoids, cystitis, pyelonephritis. Ruling out the most morbid conditions drove assessment. It should be noted patient's history includes hypertension, hyperlipidemia, and rheumatoid arthritis which may or may not be at goal therapy. This complicates all aspects of care by increasing patient's risk for morbidity. I reviewed patient's past medical records and noted previous admission for diverticulitis approximately a year ago as well as diagnosis of UTI 11/13. On exam, the patient is sitting upright in no acute distress. She has lower abdominal tenderness but no rebound or guarding. Vitals are reassuring cardiac telemetry. Workup included DVT, CMP, lactic acid, urinalysis, and CT abdomen and pelvis with IV contrast. She was given a bolus of IV fluids as well as IV Toradol, acetaminophen, and Zofran for symptomatic improvement. On lab evaluation, patient has no significant leukocytosis. Urine demonstrates positive nitrates and trace leukocyte esterase. Could be urinary tract infection. Urine culture ordered and is pending. Patient care signed out to the oncoming provider, Dr. Jimenez, pending CT scan. Dov Jimenez: Upon assumption of care patient was hemodynamically stable. Hematologic labs reviewed by me and are nonactionable. This is, no PAMELA or critical electrolyte abnormality, no elevated anion gap. Urinalysis has positive nitrates with occasional WBCs. CT abdomen pelvis shows no acute findings, atherosclerotic disease along the proximal SMA, severe diverticulosis without evidence of diverticulitis. Urinalysis has nitrate positive, no reports of taking Azo although she was discharged with phenazopyridine last week, there is trace leuk esterase and occasional WBCs. Given this constellation of findings with symptomatic dysuria I will give the patient another course of antibiotics as I suspect that she has persistent UTI with bladder spasm. Patient tolerated p.o. at bedside was well-appearing upon subsequent evaluation is appropriate for discharge at this time. Critical Care <Alissa Leone, DO - Last Filed: 11/23/23 15:23> Critical Care Time Critical Care Time: No
[2023-11-23 13:51] LABS: Microscopic, Urine URINE MICROSCOPIC (MICROSCOPIC)
[2023-11-23 13:52] VITALS: BP 132/71; PULSE 80; O2SAT 97
[2023-11-23 13:57] LABS: Chloride 107 mmol/L (98-107); Potassium 3.5 mmoL/L (3.5-5.1); Sodium 142 mmol/L (136-145)
[2023-11-23 13:58] LABS: Appearance,Urine CLEAR (Clear); Bilirubin,Urine Negative (Negative); Blood, Urine TRACE-I (Negative); Color,Urine YELLOW (Yellow); Glucose,Urine (UA) Negative (Negative); Ketones,Urine Negative (Negative); Leukocyte Esterase,Urine TRACE (Negative); Nitrate,Urine POSITIVE (Negative); Protein,Urine Negative (Negative); Urobilinogen,Urine 0.2 EU/dl (0.2)
[2023-11-23 14:00] VITALS: BP 142/68; PULSE 86; O2SAT 97
[2023-11-23 14:00] LABS: Alanine Aminotransferase 17 U/L (12-78); Albumin Level 4.2 g/dl (3.5-5.0); Albumin/Globulin Ratio 1.3 (1.1-1.8); Alkaline Phosphatase 112 U/L (38-126); Anion Gap 11.5 mEq/L (5-15); Aspartate Amino Transferase 25 U/L (14-36); Basophils # 0.1 K/mm3 (0-0.2); Basophils % 0.5 % (0.1-2.0); Blood Urea Nitrogen 21 mg/dl (7-17); Carbon Dioxide 27 mmol/L (22.0-30.0); Creatinine Clearance Estimated 49 mL/min (50-200); Eosinophils # 0.1 K/mm3 (0.0-0.4); Eosinophils % 1.3 % (0.1-12.0); Estimated Glomerular Filt Rate 54 ml/min (>60); GFR (African American) 65 ML/MIN (>60); Globulin 3.2 g/dL (1.3-3.2); Glucose 111 mg/dl (74-100); Hemoglobin 15.8 g/dL (12.2-16.2); Lactic Acid 1.2 mmol/L (0.7-2.1); Lymphocytes # 1.6 K/mm3 (0.7-4.5); Lymphocytes % 17.2 % (10-50); Mean Corpuscular Hemoglobin 30.5 pg (27.0-31.2); Mean Corpuscular Volume 92.4 fl (81-99); Mean Platelet Volume 8.2 fl (7.4-10.4); Monocytes # 0.4 K/mm3 (0.1-1.0); Monocytes % 4.3 % (1.7-9.3); Neutrophils % 76.7 % (37.0-80.0); Platelet Count 215 K/mm3 (142-424); Red Blood Count 5.19 M/mm3 (4.20-5.40); Red Cell Distribution Width 15.4 % (11.5-17.5); Total Protein,Serum 7.4 g/dl (6.3-8.2); White Blood Count 9.2 K/mm3 (4.8-10.8)
[2023-11-23] MEDS: LACTATED RINGERS 1000ML 1,000 ML 999 ML IV (14:04)
[2023-11-23] MEDS: ACETAMINOPHEN 1,000MG/100ML VIAL 1000 MG IV (14:04)
[2023-11-23] MEDS: KETOROLAC 30MG/ML VIAL 15 MG IV (14:04)
[2023-11-23] MEDS: ONDANSETRON 4MG/2ML VIAL 4 MG IV (14:04)
[2023-11-23 14:19] LABS: RBC,Urine Occasional #/hpf (0-3); WBC,Urine Occasional #/hpf (0-3)
[2023-11-23 14:20] LABS: Squamous Epithelial Cell,Urine Occasional #/hpf (0-5)
[2023-11-23] MEDS: SODIUM CHLORIDE 0.9% 10ML SYR (RAD ONLY) 10 ML IV (14:31)
[2023-11-23] MEDS: IOPAMIDOL-370 (76%);100ML BOTTLE 75 ML IV (14:31)
[2023-11-23 14:55] LABS: C-Reactive Protein 2.3 mg/L (0-4)
[2023-11-23 15:00] VITALS: BP 139/76; PULSE 67; O2SAT 96
[2023-11-23 15:32] LABS: Lipase 137 U/L (23-300)
--- NOTE | 2023-11-23 16:20 | PC.NURSE ---
rounded on pt no needs at this time,let them know we were waiting for ct scan to be read
--- NOTE | 2023-11-23 16:34 | PC.NURSE ---
updated pt scan were back and soon as dr em had a minuted to look at them he would be in to talk with them
--- NOTE | 2023-11-23 16:38 | PC.NURSE ---
at bs speaking with pt
[2023-11-23 16:51] VITALS: BP 140/82; PULSE 78; RESP 16; TEMP 36.7; O2SAT 94
== END 2023-11-23 16:53 | disposition home or self-care (01) ==
PROVIDERS: Emergency Medicine; Emergency Provider Emergency Medicine; PCP Family Medicine
DX: R10.30 Lower abdominal pain, unspecified (principal); R25.2 Cramp and spasm; N39.0 Urinary tract infection, site not specified; N28.1 Cyst of kidney, acquired; K57.90 Diverticulosis of intestine, part unspecified, without perforation or abscess without bleeding; K55.9 Vascular disorder of intestine, unspecified; M06.9 Rheumatoid arthritis, unspecified; I10 Essential (primary) hypertension; E78.5 Hyperlipidemia, unspecified; F17.210 Nicotine dependence, cigarettes, uncomplicated; K21.9 Gastro-esophageal reflux disease without esophagitis
CPT/HCPCS: 74177; 80053; 81001; 83605; 83690; 85025; 86140; 96361; 96374; 96375; 99284; J0131; J1885; J2405; J7120; Q9967

== ENCOUNTER 2024-01-13 10:18 | Outpatient (POV) | payer MEDICARE, SELFPAY | END 2024-01-13 23:59 | disposition home or self-care (01) | LOC: SC 10:19 | PROVIDERS: PCP Family Medicine; Visit Provider Dermatology | DX: Z00.00 Encounter for general adult medical examination without abnormal findings (principal) ==

== ENCOUNTER 2024-01-27 11:48 | Outpatient (CLI) | payer MEDICARE, SELFPAY ==
[2024-01-29 13:26] LABS: Pancreatic Elastase, Fecal >800 (>200)
== END 2024-01-27 23:59 | disposition home or self-care (01) ==
LOC: LAB 11:50
PROVIDERS: PCP Family Medicine; Visit Provider Internal Medicine Gastroenterology
DX: K86.81 Exocrine pancreatic insufficiency (principal); R14.0 Abdominal distension (gaseous)
CPT/HCPCS: 82656

== ENCOUNTER 2024-02-12 07:18 | Day surgery (SDC) | payer MEDICARE, SELFPAY ==
[2024-02-09 13:53] VITALS: BMI 24.7
[2024-02-12] MEDS: LACTATED RINGERS 1000ML 1,000 ML 25 ML IV (07:29)
[2024-02-12 07:31] VITALS: BP 129/70; PULSE 86; RESP 18; TEMP 36.6; O2SAT 97
--- NOTE | 2024-02-12 07:44 | P.PNANES_ITS ---
[facility] Disclaimer: The information contained in this section may have been updated after the patient was seen, as this information can be updated by other users. Medical History Functional dyspepsia Bloating Anxiety Kidney stone Hyperlipidemia Allergies Urinary tract infection History of gastroesophageal reflux (GERD) Rheumatoid arthritis Hypertension Surgical History History of ERCP History of hysterectomy History of cholecystectomy History of colonoscopy Family History Other Family history of diabetes mellitus Social History Smoking Status: Current every day smoker tobacco type: cigarettes packs per day: 1 alcohol intake: never substance use type: denies use current occupational status: retired Travel in the last 8 weeks: None household members: spouse housing: house caffeine: Yes [facility] Anesthesia Checklist Patient Identification Patient Identification: Arm Band and Verbal (Name & ) Structural Data Admitted From: Home Planned Operative Procedure/s: EGD Consent for Planned Operative Procedure(s) Verified: Yes Verified Documents: Surgical Consent and History and Physical NPO Status Verified Time NPO: 00:00 Additional verifications Anesthesia Reactions: No Airway Assessment Mallampati Score:: Class II C-Spine Mobility Assessed: Yes TMJ Mobility Assessed: Yes Dentition: Good Dentition Neurological Assessment Level of Consciousness: Awake Hx Seizures: No Numbness or tingling in extremities: No Anesthesia Plan Anesthesia Risk discussed: Yes Anesthesia Plan: Verified ASA Class: II Anesthesia Type: MAC
[2024-02-12 08:22] VITALS: O2SAT 95
--- NOTE | 2024-02-12 08:27 | HMH.PROCNOTE ---
[facility] Procedure Note Date: 02/12/24 Time: 08:27 Procedure Note:: Upper Endoscopy Procedure Report: Esophagogastroduodenoscopy with cold biopsies and TTS balloon dilation Endoscopost: Shad Mccain II, MD Referring Physician: Teo Goldman MD Date of Procedure: February 12, 2024 Equipment: Olympus GIF 190 standard upper endoscope Sedation: MAC sedation Indications: Mrs. Pandya is a 74-year-old female with dyspepsia and epigastric abdominal pain. This was occurring daily as a dull ache but would become more intense. She did have pancreatitis 15 to 20 years ago and had an ERCP with az. More recently in May 2023 she had an upper endoscopy (Dr. Claribel Alanis MD) showing some antral gastritis and biopsies were negative for H. pylori. She has had some dysphagia and had esophageal dilation with Dr. Claribel Alanis MD. She had a colonoscopy in May 2023 which was normal except for diverticulosis. Her imaging/abdominal and pelvic CAT scan in November 2023 showed normal-appearing pancreas and liver with no acute findings. She is postcholecystectomy. 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 She has had some nausea, early satiety and bloating. She also had some loose stools. The patient has improved since starting buspirone and Iberogast. Procedure: Prior to the procedure, a history and physical exam was performed, and patient's medications and allergies were reviewed. The risks, benefits and alternatives of the sedation and procedure were discussed with the patient. All questions were answered and informed consent was obtained. The patient was brought to the procedure room. Patient identification and proposed procedure were verified by the physician and the nurse. The patient was placed in a left lateral decubitus position and the scope was passed under direct vision. Throughout the procedure, the patient's blood pressure, pulse, and oxygen saturations were monitored continuously. The upper GI endoscopy was accomplished without difficulty. The patient tolerated the procedure well. Findings: The scope was passed directly into the upper esophagus and advanced to the third portion of the duodenum. The post bulbar duodenum and duodenal bulb were normal with normal mucosa and conniventes. The scope was withdrawn through a normal duodenal bulb and pylorus into the stomach. There was moderate linear erythema of the antrum with evidence of moderate reactive gastropathy of the antrum. The remainder of the antrum, body and fundus of the stomach were grossly normal. Upon retroflexion there was a very small sliding 1 to 2 cm hiatal hernia. 2 biopsies were taken in the antrum and along the lesser curvature for histology to rule out gastritis and/or H pylori. The scope was then withdrawn into the esophagus. There was no evidence of reflux esophagitis or García's. There were strong tertiary contractions and evidence of moderate esophageal dysmotility. The entire esophagus was dilated to 60 Salvadorean/20 mm with a TTS hydrostatic balloon. There was some resistance at the cricopharyngeus/cricopharyngeal spasm. The remainder of the esophageal mucosa was normal. Impression: 1. Cricopharyngeal spasm status post dilation to 20 mm 2. Nonerosive GERD with moderate esophageal dysmotility and very small sliding hiatal hernia 3. Moderate linear reactive gastropathy of antrum Plan: I will discuss the findings with the patient and family. She has significantly improved with the Iberogast and buspirone. I would like for her to continue the fiber bowel regimen (MiraLAX plus Metamucil) and reduce Nexium to once daily. I will complete testing for enzyme deficiency. Her recent pancreatic elastase was greater than 800 and it formerly had been 259. She also had a former fecal calprotectin 211. I will follow-up the biopsies.
[2024-02-12 08:37] VITALS: BP 112/66; PULSE 72; RESP 18; TEMP 36.6; O2SAT 98
[2024-02-12 08:47] VITALS: BP 112/64; PULSE 76; RESP 18; O2SAT 96
[2024-02-12 08:57] VITALS: BP 137/75; PULSE 64; RESP 18; O2SAT 96
[2024-02-12 09:07] VITALS: BP 127/71; PULSE 64; RESP 18; O2SAT 98
== END 2024-02-12 09:07 | disposition home or self-care (01) ==
PROVIDERS: PCP Family Medicine; Visit Provider Internal Medicine Gastroenterology
PROC: 0DJ08ZZ Inspection of Upper Intestinal Tract, Via Natural or Artificial Opening Endoscopic (ICD-10-PCS; CPT 43235; principal; 2024-02-12 08:30)
DX: K21.9 Gastro-esophageal reflux disease without esophagitis (principal); K44.9 Diaphragmatic hernia without obstruction or gangrene; K31.9 Disease of stomach and duodenum, unspecified
CPT/HCPCS: 43239; 43249; 88305; C1726; J7120

== ENCOUNTER 2024-03-02 09:18 | Outpatient (CLI) | payer MEDICARE, SELFPAY ==
[2024-03-02 12:46] LABS: Intact Parathyroid Hormone 71.8 pg/mL (7.5-53.5)
[2024-03-04 13:38] LABS: Calcium, Ionized 5.2 mg/dL (4.5-5.6)
== END 2024-03-02 23:59 | disposition home or self-care (01) ==
LOC: LAB 09:19
PROVIDERS: PCP Family Medicine; Visit Provider Family Medicine
DX: E83.52 Hypercalcemia (principal)
CPT/HCPCS: 36415; 82330; 83970

== ENCOUNTER 2024-03-23 07:58 | Outpatient (CLI) | payer MEDICARE, SELFPAY ==
--- NOTE | 2024-03-23 07:59 | NM_ITS ---
FINAL REPORT CLINICAL HISTORY: elevated PTH level; r/o parathyroid adenoma 8:10AM 21.6 MCI TC SESTAMIBI FINDINGS: PARATHYROID SCAN The patient received a dose of 21.6 millicuries of technetium 99m sestamibi. Images over the neck were obtained initially and after a two-hour delay. There is retained contrast in the thyroid and submandibular glands. There is no evidence of adenoma on delayed imaging. IMPRESSION: No evidence of a parathyroid adenoma. Reviewed, Interpreted and Dictated by Taz Patrick MD Transcribed by Dixie Murray Authenticated and [facility]
[2024-03-23] MEDS: SODIUM CHLORIDE 0.9% 10ML SYR (RAD ONLY) 10 ML IV (09:06)
[2024-03-23] MEDS: ISO TC99M (SESTAMIBI);1 DOSE VIAL IV (09:06)
== END 2024-03-23 23:59 | disposition home or self-care (01) ==
LOC: RAD 07:59
PROVIDERS: PCP Family Medicine; Visit Provider Nurse Practitioner
DX: R79.89 Other specified abnormal findings of blood chemistry (principal); R53.83 Other fatigue
CPT/HCPCS: 78071; A9500

== ENCOUNTER 2024-06-17 10:10 | Emergency (ER) | payer MEDICARE, SELFPAY ==
[2024-06-17] VITALS (8 sets, daily range): BP systolic 136–159; BP diastolic 71–79; PULSE 65–79; RESP 13–23; TEMP 36.8–36.9; O2SAT 93–98; BMI 24.7
--- NOTE | 2024-06-17 10:31 | ECG_ITS ---
APPROVED REPORT Exam: Resting ECG HR:70 bpm ECG Measurements Heart Rate 70 AXES WY 145 P 47 QRSd 94 QRS 37 QT 379 T 51 QTc 400 Conclusion SINUS RHYTHM NORMAL ECG Electronically signed by : JONG WATKINS, 06/18/2024 05:59:05
[2024-06-17 10:41] LABS: Basophils % 0.3 % (0.1-2.0); Eosinophils % 0.3 % (0.1-12.0); Hematocrit 47.1 % (37.0-47.0); Hemoglobin 15.9 g/dL (12.2-16.2); Lymphocytes # 1.3 K/mm3 (0.7-4.5); Lymphocytes % 17.4 % (10-50); Mean Corpuscular HGB Conc 33.8 g/dL (31.8-35.4); Mean Corpuscular Hemoglobin 30.6 pg (27.0-31.2); Mean Corpuscular Volume 90.8 fl (81-99); Monocytes # 0.3 K/mm3 (0.1-1.0); Monocytes % 4.3 % (1.7-9.3); Neutrophils % 77.3 % (37.0-80.0); Platelet Count 253 K/mm3 (142-424); Red Blood Count 5.19 M/mm3 (4.20-5.40); Red Cell Distribution Width 14.3 % (11.5-17.5); White Blood Count 7.7 K/mm3 (4.8-10.8)
[2024-06-17] MEDS: ASPIRIN 81MG CHEWABLE TABLET 324 MG PO (10:43)
[2024-06-17] MEDS: BELLADONNA ALKALOIDS 60 ML ML PO (10:48)
[2024-06-17] MEDS: ONDANSETRON 4MG/2ML VIAL 4 MG IV (10:48)
[2024-06-17 10:50] LABS: Albumin Level 4.6 g/dl (3.5-5.0); Chloride 103 mmol/L (98-107); Potassium 3.6 mmoL/L (3.5-5.1); Sodium 141 mmol/L (136-145)
[2024-06-17 10:53] LABS: Alanine Aminotransferase 21 U/L (12-78); Albumin/Globulin Ratio 1.5 (1.1-1.8); Alkaline Phosphatase 74 U/L (38-126); Anion Gap 12.6 mEq/L (5-15); Aspartate Amino Transferase 27 U/L (14-36); Bilirubin,Total 0.9 mg/dl (0.2-1.3); Blood Urea Nitrogen 19 mg/dl (7-17); Calcium 10.5 mg/dl (8.4-10.2); Carbon Dioxide 29 mmol/L (22.0-30.0); Creatinine Clearance Estimated 48 mL/min (50-200); Estimated Glomerular Filt Rate 61 ml/min (>60); GFR (African American) 74 ML/MIN (>60); Glucose 123 mg/dl (74-100); Total Protein,Serum 7.6 g/dl (6.3-8.2)
--- NOTE | 2024-06-17 11:03 | PC.NURSE ---
DR WILL AT BEDSIDE
--- NOTE | 2024-06-17 11:06 | CT_ITS ---
FINAL REPORT TECHNIQUE: Thin section axial CT with contrast with multiplanar reconstruction This study was performed with techniques to keep radiation doses as low as reasonably achievable, (ALARA). Individualized dose reduction techniques using automated exposure control or adjustment of mA and/or kV according to the patient''s size were employed. CLINICAL HISTORY: severe epigastric chest/abd pain, h/o mes ischemia COMPARISON: None FINDINGS: CTA CHEST: Pulmonary vessels enhance in normal fashion without evidence of embolism. Thoracic aorta shows no dissection or aneurysm. No pulmonary mass or infiltrate is present. Mild scarring or atelectasis is present in the lower lung avila. There is no significant pleural effusion. There is no significant pericardial effusion. No mediastinal or hilar adenopathy is present. IMPRESSION: No evidence of pulmonary emboli, aortic dissection, or thoracic aortic aneurysm. Mild scarring or atelectasis in the lower lobes. Reviewed, Interpreted and Dictated by Humble Dee MD Transcribed by Zuleika De La Torre Authenticated and [facility]
--- NOTE | 2024-06-17 11:06 | CT_ITS ---
FINAL REPORT TECHNIQUE: Pre-and postcontrast images of the abdomen and pelvis were performed by computed tomography. Extensive 3-D reconstruction images were performed. A CTA was performed. This study was performed with techniques to keep radiation doses as low as reasonably achievable (ALARA). Individualized dose reduction techniques using automated exposure control or adjustment of mA and/or kV according to the patient's size were employed. 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 There is a cyst in the inferior aspect of the spleen, also stable. The liver, pancreas, and kidneys are unremarkable. The gallbladder has been surgically resected. No CT findings of acute mesenteric ischemia. There is no bowel obstruction or bowel wall thickening. In the pelvis, there is moderate sigmoid diverticulosis without acute inflammatory change. The uterus has been surgically resected. The appendix is normal in appearance. CTA: The abdominal aorta is proper caliber. There is moderate calcified plaque in the infrarenal aorta. There are mild proximal stenoses in the celiac and superior mesenteric arteries. There is a stenosis in the mid superior mesenteric artery measuring up to 50% stenosis. The MATT is widely patent. There is mild approximately 40% renal artery stenosis bilaterally. The iliac vessels failed to reveal any evidence of significant stenosis. 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 Reviewed, Interpreted and Dictated by Humble Dee MD Transcribed by Zuleika De La Torre Authenticated and [facility]
--- NOTE | 2024-06-17 11:07 | PC.NURSE ---
ROUNDED ON THE PT. THE PT VOICES THAT SHE DOES NOT NEED ANYTHING AT THIS TIME. CALL LIGHT IS WITHIN REACH OF THE PT.
[2024-06-17 11:12] LABS: Troponin I < 0.01 ng/ml (0.00-0.034)
[2024-06-17 11:42] LABS: Lipase 114 U/L (23-300)
--- NOTE | 2024-06-17 11:51 | PC.NURSE ---
Lactic collected on patient and sent to lab
--- NOTE | 2024-06-17 12:04 | PC.NURSE ---
Contacted [employer] for flight to , they checked weather conditions and declined due to weather. They are checking [employer] and will be returning our phone call.
[2024-06-17 12:05] LABS: Lactic Acid 1.1 mmol/L (0.7-2.1)
[2024-06-17 12:24] LABS: HIV Combo NEGATIVE (Negative)
[2024-06-17 12:25] LABS: Microscopic, Urine URINE MICROSCOPIC (MICROSCOPIC)
[2024-06-17 12:26] LABS: Hepatitis C Ab Qual. W/ RFX NEGATIVE (Negative)
[2024-06-17 12:28] LABS: Appearance,Urine SL CLOUDY (Clear); Blood, Urine 1+ (Negative); Color,Urine YELLOW (Yellow); Glucose,Urine (UA) Negative (Negative); Ketones,Urine TRACE (Negative); Leukocyte Esterase,Urine 1+ (Negative); Nitrate,Urine Negative (Negative); Protein,Urine Negative (Negative); Specific Gravity, Urine 1.025 (1.005-1.030); Urobilinogen,Urine 0.2 EU/dl (0.2)
[2024-06-17 12:35] LABS: Bilirubin,Urine 1+ (Negative)
[2024-06-17] MEDS: 0.9 % SODIUM CHLORIDE 50 ML VIAL IV (12:36)
[2024-06-17] MEDS: IOPAMIDOL-370 (76%);100ML BOTTLE 80 ML IV (12:36)
[2024-06-17] MEDS: SODIUM CHLORIDE 0.9% 10ML SYR (RAD ONLY) 10 ML IV (12:36)
[2024-06-17 12:42] LABS: Bacteria,Urine 3+ /lpf; RBC,Urine Occasional #/hpf (0-3); WBC,Urine Occasional #/hpf (0-3)
--- NOTE | 2024-06-17 13:14 | PC.NURSE ---
ROUNDED ON THE PT. THE PT VOICES THAT SHE DOES NOT NEED ANYTHING AT THIS TIME. CALL LIGHT IS WITHIN REACH OF THE PT.
--- NOTE | 2024-06-17 13:24 | ED_ITS ---
Discharge Plan Disposition Patient Disposition: Home, Self-Care Condition: Good Prescriptions Prescriptions: No Action fluticasone propionate 50 mcg/actuation spray,suspension 2 spray NS DAILY 30 Days Qty: 16 2RF cyclosporine [Restasis] 0.05 % dropperette 1 drp Eye-Both BID Prolia 60 mg/mL syringe 60 mg SQ [id number] Qty: 1 1RF buspirone 10 mg tablet 10 mg PO BID Qty: 60 6RF Rx Instructions: Initially take 1/2 tablet p.o. nightly x 5 to 7 days and then 1 tablet p.o. nightly x 5 to 7 days and then 1 tablet p.o. twice daily thereafter methotrexate sodium 2.5 mg tablet 7.5 mg PO QWEEK 84 Days Qty: 36 0RF esomeprazole magnesium 40 mg capsule,delayed release(DR/EC) 40 mg PO BID 90 Days Qty: 180 0RF methenamine hippurate 1 gram tablet See Rx Instructions .ROUTE .COMPLEX Qty: 90 1RF Dose Instruction: TAKE 1 TABLET 1 TIME EACH DAY Rx Instructions: TAKE 1 TABLET 1 TIME EACH DAY losartan-hydrochlorothiazide 100-25 mg tablet 1 tab PO DAILY 30 Days Qty: 30 2RF folic acid 1 mg tablet 1 mg PO DAILY 90 Days Qty: 90 0RF Rx Instructions: Take folic acid every day that methotrexate is not taken rosuvastatin 40 mg tablet 40 mg PO DAILY Qty: 90 2RF aspirin 81 MG tablet,delayed release (DR/EC) 81 mg PO DAILY cetirizine 10 MG tablet 10 mg PO DAILY PRN (Reason: allergies) Enbrel SureClick 50 mg/mL (1 mL) pen injector 50 mg SQ . Referrals Follow up/Referrals: Shad Mccain II, MD [Staff Physician] - See instructions Teo Goldman MD [Primary Care Provider] - See instructions Vini Cedillo MD [Staff Physician] - See instructions Activity Restrictions/Add. Instructions Additional Instructions/Restrictions: You were evaluated in the emergency department today. At this time, we offered admission given your continued symptoms, however since you are electing to go home, it is very important that you follow-up with GI as well as with cardiology for further workup. Continue taking your medications at home as prescribed. Return to the emergency department right away for new or worsening symptoms. Clinical Impressions Clinical Impression: Acute epigastric pain Instructions Patient Instructions: DI for Acute Abdominal Pain, DI for Epigastric Pain Print Language Print Language: Citizen Of [place] Discharge ED Provider: Alissa Leone General Adult HPI General Chief complaint: Abdominal Pain Stated complaint: abd/side pain Time Seen by Provider: 06/17/24 11:03 Mode of Arrival: Ambulatory Source of Information: Patient Limitations: No Limitations Description of Symptoms (Recalled from ER Triage Doc. by RN): Nausea and abdominal pain, no active vomiting. History of Present Illness HPI narrative: This patient is a 74-year-old female with a history of hypertension, hyperlipidemia, rheumatoid arthritis presenting to the emergency department with concern for nausea and epigastric abdominal pain. Symptoms have been intermittent for a couple of days, but worsened early this morning. She has nausea but no vomiting. She received a GI cocktail per nursing protocol prior to my evaluation and states that this resolved her symptoms that she was feeling a lot better on my assessment. She denies any significant chest pain, back pain, shortness of breath, changes in bowel movements, urinary symptoms, or other concerns. She does note that she has a history of mesenteric ischemia and was wondering if this could be the cause. She states that she has narrowing of the blood vessels going to her intestines. Related Data Home Medications ?Medication ?Instructions ?Recorded ?Confirmed aspirin 81 mg tablet,delayed 81 mg PO DAILY Heart Health 10/14/17 06/17/24 release cetirizine 10 mg tablet 10 mg PO DAILY PRN allergies 08/01/21 06/17/24 etanercept 50 mg/mL (1 mL) 50 mg SQ . 09/21/23 06/17/24 subcutaneous pen injector (Enbrel SureClick) cyclosporine 0.05 % eye drops in a 1 drp Eye-Both BID 04/05/24 06/17/24 dropperette (Restasis) Previous Rx's ?Medication ?Instructions ?Recorded denosumab 60 mg/mL subcutaneous 60 mg SQ [id number] osteoporosis #1 10/17/23 syringe (Prolia) mL fluticasone propionate 50 2 spray intranasal DAILY Allergies 11/26/23 mcg/actuation nasal 30 days #16 grams spray,suspension esomeprazole magnesium 40 mg 40 mg PO BID 90 days #180 caps 12/31/23 capsule,delayed release methotrexate sodium 2.5 mg tablet 7.5 mg (3 x 2.5 mg) PO QWEEK 12 12/31/23 weeks #36 tabs buspirone 10 mg tablet 10 mg PO BID #60 tabs 01/27/24 methenamine hippurate 1 gram tablet See Rx Instructions .Route 02/18/24 .COMPLEX #90 tabs losartan 100 1 tab PO DAILY 30 days #30 tabs 03/17/24 mg-hydrochlorothiazide 25 mg tablet folic acid 1 mg tablet 1 mg PO DAILY Supplement 90 days 04/26/24 #90 tabs rosuvastatin 40 mg tablet 40 mg PO DAILY #90 tabs 04/30/24 Allergies Allergy/AdvReac Type Severity Reaction Status Date / Time lisinopril (LISINOPRIL) Allergy Severe S-ANAPHYLAX Verified 06/17/24 10:39 IS ciprofloxacin (From Cipro) AdvReac Intermediate Joint Verified 06/17/24 10:39 Pain/muscle aches PFS PFS Disclaimer: The information contained in this section may have been updated after the patient was seen, as this information can be updated by other users. Medical History Parathyroid abnormality Left ear pain Sore throat Fatigue Elevated parathyroid hormone Functional dyspepsia Bloating Anxiety Kidney stone Hyperlipidemia Allergies Urinary tract infection History of gastroesophageal reflux (GERD) Rheumatoid arthritis Hypertension Surgical History History of ERCP History of hysterectomy History of cholecystectomy History of colonoscopy Family History Other Family history of diabetes mellitus Social History Smoking Status: Current every day smoker tobacco type: cigarettes packs per day: 1 alcohol intake: never substance use type: denies use current occupational status: retired Travel in the last 8 weeks: None household members: spouse housing: house caffeine: Yes Have you lived/traveled outside [place] in past 30 days?: No Contact w/someone who lives/traveled outside US past 30 days?: No Exposure to someone with infectious disease in past 14 days?: No Do you have a fever (greater than 100.4 F or 38 C)?: No Have you tested positive for COVID-19: No Exposed to someone with COVID-19 in past 14 days?: No Do you have a sore throat?: No Do you have a cough?: No Do you have any weakness?: No Do you have any diarrhea?: No Are you experiencing any unusual bleeding?: No Do you have any muscle aches/pain?: No Do you have any abdominal pain?: Yes Are you experiencing loss of taste or smell?: No Other Medical History Have you received the Flu Vaccine for this season: No Have you received the Pneumonia Vaccine: Yes ROS Obtained: Yes All systems reviewed & no additional complaints except as documented Physical Exam General General appearance: alert and in no apparent distress Head Head exam: atraumatic and normocephalic Eye Eye exam: Present normal appearance, PERRL and EOMI ENT ENT exam: Present normal exam, normal oropharynx, mucous membranes moist and normal external ear exam Neck Neck exam: Present normal inspection, full ROM and trachea midline; Absent tenderness Chest Chest inspection: Present normal inspection and symmetric chest wall rise; Absent tenderness Respiratory Respiratory exam: Present normal lung sounds bilaterally; Absent respiratory distress, wheezes, stridor or accessory muscle use Cardiovascular Cardiovascular exam: Present regular rate and normal rhythm Abdominal Exam Abdominal exam: Present soft; Absent distention, tenderness or guarding Extremities Exam Extremities exam: Present normal inspection, full ROM and normal capillary refill; Absent tenderness or edema Back Exam Back exam: Present normal inspection and full ROM; Absent tenderness Neurological Exam Neurological exam: Present alert, oriented X3, CN II-XII intact and normal gait; Absent motor sensory deficit Psychiatric Psychiatric exam: Present normal affect and normal mood Skin Skin exam: Present warm and dry Medical Decision Making Medical Records Medical records reviewed: Yes I reviewed the patient's medical records. Screening: Per USPSTF and CDC recommendations, given the prevalence of disease in our region, it is our hospital?s policy to screen for HIV and viral Hepatitis for all patients aged 18 and over and those with ongoing risk factors. [place] Inquiry Pt receiving controlled substance: No Vital Signs: 06/17/24 10:17 06/17/24 11:03 06/17/24 11:30 Temperature 98.4 F Temperature Source Tympanic Pulse Rate 73 66 Pulse Rate [Left Radial] 79 Respiratory Rate 22 13 15 Blood Pressure 156/79 H 141/76 H Blood Pressure [Right Arm] 158/72 H Blood Pressure Mean 95 Blood Pressure Mean [Right Arm] 100 Blood Pressure Source [Right Arm] Automatic Cuff Blood Pressure Position [Right Arm] Sitting 02 Sat by Pulse Oximetry 98 95 93 L Oxygen Delivery Method Room Air Room Air 06/17/24 12:00 06/17/24 13:00 06/17/24 13:30 Temperature Temperature Source Pulse Rate 74 73 72 Pulse Rate [Left Radial] Respiratory Rate 17 16 23 Blood Pressure 144/79 H 152/78 H 159/75 H Blood Pressure [Right Arm] Blood Pressure Mean 102 114 103 Blood Pressure Mean [Right Arm] Blood Pressure Source [Right Arm] Blood Pressure Position [Right Arm] 02 Sat by Pulse Oximetry 96 95 94 L Oxygen Delivery Method 06/17/24 14:00 06/17/24 14:43 Temperature 98.2 F Temperature Source Pulse Rate 65 65 Pulse Rate [Left Radial] Respiratory Rate 15 20 Blood Pressure 136/71 136/71 Blood Pressure [Right Arm] Blood Pressure Mean 96 Blood Pressure Mean [Right Arm] Blood Pressure Source [Right Arm] Blood Pressure Position [Right Arm] 02 Sat by Pulse Oximetry 95 Oxygen Delivery Method Room Air Lab Data Lab results reviewed: Yes I reviewed the patient's lab results. Lab Results 06/17/24 10:32: WBC 7.7, RBC 5.19, Hgb 15.9, Hct 47.1 H, MCV 90.8, MCH 30.6, MCHC 33.8, RDW 14.3, Plt Count 253, MPV 10.0, Neut % (Auto) 77.3, Lymph % (Auto) 17.4, [place] % (Auto) 4.3, Eos % (Auto) 0.3, Baso % (Auto) 0.3, Neut # (Auto) 6.0, Lymph # (Auto) 1.3, [place] # (Auto) 0.3, Eos # (Auto) 0.0, Baso # (Auto) 0.0, Sodium 141, Potassium 3.6, Chloride 103, Carbon Dioxide 29, Anion Gap 12.6, BUN 19 H, Creatinine 0.90, Estimated Creat Clear 48, Estimated GFR 61, Est GFR ( Amer) 74, Glucose 123 H, Calcium 10.5 H, Total Bilirubin 0.9, AST 27, ALT 21, Alkaline Phosphatase 74, Troponin I < 0.01, Total Protein 7.6, Albumin 4.6, Globulin 3.0, Albumin/Globulin Ratio 1.5, HCV Ab DARRON w/Rflx PCR Qn Negative, HIV Ag/Ab Combo Qual Negative 06/17/24 11:49: Lactate 1.1 06/17/24 12:20: Urine Color Yellow, Urine Appearance Sl cloudy, Urine pH 6.0, Ur Specific [place] 1.025, Urine Protein Negative, Urine Glucose (UA) Negative, Urine Ketones Trace, Urine Blood 1+ A, Urine Nitrate Negative, Urine Bilirubin 1+ A, Urine Urobilinogen 0.2, Ur Leukocyte Esterase 1+ A, Urine RBC Occasional, Urine WBC Occasional, Ur Squamous Epith Cells 10-20, Urine Bacteria 3+ 06/17/24 13:30: Troponin I < 0.01 06/17/24 : Lipase 114 06/17/24 10:32 06/17/24 10:32 Orders (Tests/Meds): ED MEDICATIONS Discontinued Medications Generic Name Dose Route Start Last Admin Trade Name Freq PRN Reason Stop Dose Admin Aspirin 324 mg 06/17/24 10:23 06/17/24 10:43 Aspirin 81mg Chewable Tablet PO 06/17/24 10:24 324 mg ONCE ONE Administration Belladonna Alkaloids 60 ml 06/17/24 10:46 06/17/24 10:48 Belladonna Alkaloids 60 Ml Ml PO 06/17/24 10:47 60 ml ONCE ONE Administration Iopamidol 80 ml 06/17/24 12:35 06/17/24 12:36 Iopamidol-370 (76%);100ml Bottle IV 06/17/24 12:36 80 ml ONCE ONE Administration Nitroglycerin 0.4 mg 06/17/24 10:23 Nitroglycerin 0.4mg Sl Tablet SL 06/18/24 10:23 Q5MINP PRN Chest Pain Ondansetron HCl 4 mg 06/17/24 10:46 06/17/24 10:48 Ondansetron 4mg/2ml Vial IV 06/17/24 10:47 4 mg ONCE ONE Administration Sodium Chloride 50 ml 06/17/24 12:35 06/17/24 12:36 0.9 % Sodium Chloride 50 Ml Vial IV 06/17/24 12:36 50 ml ONCE ONE Administration Sodium Chloride 10 ml 06/17/24 12:35 06/17/24 12:36 Sodium Chloride 0.9% 10ml Syr (Rad Only) IV 06/17/24 12:36 10 ml ONCE ONE Administration ORDERS Category Date Time Status CT angio abdomen pelvis Stat Cat Scan 06/17/24 11:[address] angio chest - dissection Stat Cat Scan 06/17/24 11:06 Completed Complete Blood Count Auto Diff Stat Lab 06/17/24 10:32 Completed Comprehensive Metabolic Panel Stat Lab 06/17/24 10:32 Completed HIV Combo Routine Lab 06/17/24 10:32 Completed Hepatitis C Ab Qual. W/ RFX Routine Lab 06/17/24 10:32 Completed Lactic Acid Stat Lab 06/17/24 11:49 Completed Lipase Stat Lab 06/17/24 Completed Troponin I Q3H Lab 06/17/24 13:30 Completed Troponin I Stat Lab 06/17/24 10:32 Completed UA [Urinalysis and Microscopic] Stat Lab 06/17/24 12:20 Completed Urine Culture Stat Micro 06/17/24 12:20 Received ECG Data Tracing #1: I reviewed this ECG and interpreted as documented below: Normal sinus rhythm with a ventricular of [address] changes concerning for ischemia. Normal intervals. ECG initial impression date: 06/17/24 ECG initial impression time: 10:34 HEART Score History (anamnesis): Slightly suspicious ECG: Normal Age: >65 years Risk factors: Atherosclerosis history Troponin: </= normal limit HEART Score: 4 Medical Decision Narrative: In summary, this patient is a 74-year-old female presenting to the Emergency Department for evaluation of epigastric abdominal pain. Differential diagnoses considered include but are not limited to ACS, mesenteric ischemia, gastroenteritis, colitis, pancreatitis. Ruling out the most morbid conditions drove assessment. It should be noted patient's history includes cardiovascular history, tobacco dependence which are not at goal therapy. This complicates all aspects of care by increasing patient's risk for morbidity. I reviewed patient's past medical records and noted previous PCP evaluations in the past. On exam, the patient is lying in bed in no acute distress with no symptoms at this time. Abdominal exam and cardiopulmonary exams are benign. Vitals reassuring on cardiac telemetry. workup included C, CMP, lipase, lactic acid, troponin, CTA chest, abdomen, pelvis.. Patient was given GI cocktail, aspirin, Zofran for symptomatic improvement. I independently interpreted CT scans prior to the radiologist read and noted no obvious pneumatosis, no sequelae of pancreatitis, no aortic pathology. Please see their read for final interpretation. Labs were obtained that demonstrated reassuring CBC with no significant leukocytosis, reassuring chemistry with negative troponins x 2, negative lactic acid. Urinalysis is contaminated with squamous cells but is not overtly concerning for infection. CT scans do not demonstrate any acute pathology, showing her chronic mesenteric arterial narrowing.. On reassessment, patient had continued improvement after administration of dimensions above and is asymptomatic. She states she feels fine and is ready to go home. It is possible this is just gastritis. She is already on a PPI at home. I advised that she is technically high risk for epigastric/chest pain and would benefit from admission for continued monitoring and possible cardiac consult with concern for her mesenteric ischemia related issues. She states that she would rather try going home. I did advise that she follow-up very closely with cardiology as well as primary care in that case. Strict return precautions were given and patient was discharged after all questions were answered.. Critical Care Critical Care Time Critical Care Time: No
--- NOTE | 2024-06-17 14:14 | PC.NURSE ---
2nd troponin was sent to lab.
[2024-06-17 14:33] LABS: Troponin I < 0.01 ng/ml (0.00-0.034)
== END 2024-06-17 14:50 | disposition home or self-care (01) ==
PROVIDERS: Emergency Provider Emergency Medicine; PCP Family Medicine
DX: R10.13 Epigastric pain (principal); R11.0 Nausea; F17.210 Nicotine dependence, cigarettes, uncomplicated
CPT/HCPCS: 71275; 74174; 80053; 81001; 83605; 83690; 84484; 85025; 86803; 87086; 87389; 93005; 96374; 99285; J2405; Q9967

== ENCOUNTER 2024-07-08 06:58 | Outpatient (CLI) | payer MEDICARE, SELFPAY ==
--- NOTE | 2024-07-08 | CA_ITS ---
APPROVED REPORT Exam: Pharmacologic Technologist: Carmen Shepherd Ht: 5 ft 3 in Wt: 138 lbs BSA: 1.65 m2 HR: 63 bpm BP: 157/65 mmHg Medical History Medical History: HTN, Hyperlipidemia, Smoking Medications: asa,buspirone,cetrizine,cyclosporine,omeprazole, magnesium,methotrexate,rosuvastatin,flonase, Allergies: lisinopril,cipro Cardiac Risk Factors: HTN, Hyperlipidemia, Smoking Stress Test Details HR Resting HR: 63 bpm Max Heart Rate (APMHR): 144.464183 bpm Max HR Achieved: 107 bpm Target HR (85% APMHR): 122.470187 bpm % of APMHR: 74.31 Recovery HR: 92 bpm BP Resting BP: 157.0/65.0 mmHg Max BP: 142.0/59.0 mmHg Recovery BP: 111.0/63.0 mmHg ECG Stress ECG Conclusion No chest pain. Abdominal pain and soa with lexiscan insuion. PVC's noted after infusion and recovery. Unremarkable due to lexiscan Electronically signed by : Berta Cedillo MD 07/08/2024 14:12:54
--- NOTE | 2024-07-08 06:59 | NM_ITS ---
APPROVED REPORT Exam: Nuclear Stress Test Indication: htn, hyperlipidemia, tob use, fm hx, c.p., sob, fatigue Patient Location: Outpatient Stress Tech: Carmen Shepherd [place] Tech:TYE Sevilla RT(R)(N) Ht: 5 ft 3 in Wt: 140 lbs Bra Size: 38c HR: 71 bpm BP: 157/65 mmHg BSA: 1.66 m2 TID: 1.59 BMI: 24.7 History: htn, hyperlipidemia, tob use, fm hx, c.p., sob, fatigue Procedure: Patient received 0.4 mg of intravenous Lexiscan, resting heart rate 71 bpm, resting blood pressure 157/65 mmHg, with Lexiscan maximum heart rate achieved was 108 bpm which is % of the maximum predicted heart rate and blood pressure was 124/63 mmHg. With Lexiscan, patient denied any complaint of chest pain. Cardiac Stress and Resting SPECT Images: Cardiac Stress and Resting SPECT images were obtained using technetium 99m Myoview 32.7 mCi stress and 10.98 mCi at rest. Raw images demonstrate significant soft tissue overlap with the cardiac borders. This may affect the diagnostic interpretation of the study findings. Resting and stress imaging in supine positions demonstrate a medium sized, mild, tapered fixed perfusion defect in the basal inferior LV wall. This is no longer visualized with prone stress imaging. Findings are suggestive of diaphragmatic attenuation. There is increase in transient ischemic dilatation ratio (TID 1.59), suggestive of possible multivessel disease or balanced ischemia. Gated imaging demonstrates normal global and regional LV systolic function. LVEF is calculated at 63%. Conclusion: Diaphragmatic attenuation is present. No focal fixed or reversible perfusion defects. There is increase in transient ischemic dilatation ratio (TID 1.59), suggestive of possible multivessel disease or balanced ischemia. Gated imaging demonstrates normal global and regional LV systolic function. LVEF is calculated at 63%. In the setting of TID on nuclear stress imaging with otherwise normal LV systolic function, further evaluation noninvasively with CCTA is suggested prior to proceeding with invasive coronary angiography, if clinically feasible and indicated. Electronically signed by : Berta Cedillo MD 07/12/2024 23:18:14
--- NOTE | 2024-07-08 06:59 | CA_ITS ---
APPROVED REPORT EXAM: Comprehensive 2D, Doppler, and color-flow Echocardiogram Sewer Line Repairer: Funmi Stone CRT Ht: 5 ft 3 in Wt: 138lbs BSA: 1.65 BP: 141/86 mmHg Indications: Abnormal ECG, Chest Pain, Shortness of Breath, Hyperlipidemia, Hypertension/HDD, Smoker, PAD 2D Dimensions LA Volume 23.00 mL LA Volume Index 13.94 mL/m2 (M/F) 16-34 M-Mode Dimensions RVDd 1.75 cm (0.9-2.6) LA Diam 2.96 cm (1.9-4.0) LVDd 4.07 cm (3.5-5.7) LVDs 2.22 cm (3.5-5.7) IVSd 1.35 cm (0.6-1.1) PWd 0.91 cm (0.6-1.1) EF (Teich) 77.20% FS 45.50% EDV (Teich) 72.90 mL TAPSE 1.73 (<1.7) ESV (Teich) 16.60 mL LV Diastology E Decel Time 280 (160-240 msec) E/A Ratio 0.72 MED A' 12.20 cm/s LAT A' 14.40 cm/s Aortic Valve AO Peak GR. 5.40 mmHg Mitral Valve MV A Velocity 74.0 (40-130 cm/s) E/A Ratio 0.72 Tricuspid Valve TR P. Velocity 295.00 cm/s RAP Estimate 10.00 mmHg RVSP 44.80 mmHg Left Ventricle The left ventricle is normal size. The left ventricular systolic function is normal. The left ventricular ejection fraction is within the normal range. There is increased LV wall thickness. There is normal LV segmental wall motion. Transmitral Doppler flow pattern suggests impaired LV relaxation. LVEF is 55%. Right Ventricle The right ventricle is normal size. The right ventricular systolic function is normal. Atria Left atrium is mildly dilated. Right atrium is mildly dilated. There is no Doppler evidence of interatrial shunt. Aortic Valve The aortic valve is mildly thickened. There is no aortic valvular stenosis. No aortic regurgitation is present. Mitral Valve The mitral valve is normal in structure. No evidence of mitral valve stenosis. Trace mitral regurgitation. Tricuspid Valve Tricuspid valve is grossly normal in structure and function. Trace tricuspid regurgitation. RVSP is 25-30 mmHg. Pulmonic Valve The pulmonary valve is normal in structure. Trace pulmonic regurgitation. Great Vessels The aortic root is normal in size. IVC is normal in size and collapses >50% with inspiration. Pericardium There is no pericardial effusion. Other Information Study Quality: Fair Conclusion Normal biventricular systolic function. Mild biatrial dilation. No significant valvular stenosis or regurgitation. Electronically signed by : Berta Cedillo MD 07/13/2024 00:51:42
[2024-07-08] MEDS: SODIUM CHLORIDE 0.9% 10ML SYR (RAD ONLY) 10 ML IV ×2 (09:41)
[2024-07-08] MEDS: ISOTOPE MYOVIEW (PER STUDY) 1 DOSE IV (09:41)
[2024-07-08] MEDS: REGADENOSON 0.4MG/5ML SYRINGE 0.4 MG IV (09:41)
== END 2024-07-08 23:59 | disposition home or self-care (01) ==
PROVIDERS: PCP Family Medicine; Visit Provider Nurse Practitioner Family
DX: I20.89 Other forms of angina pectoris (principal); R94.31 Abnormal electrocardiogram [ECG] [EKG]; I10 Essential (primary) hypertension; E78.5 Hyperlipidemia, unspecified
CPT/HCPCS: 78452; 93017; 93018; 93306; A9502; J2785

== ENCOUNTER 2024-07-15 11:51 | Outpatient (CLI) | payer MEDICARE, SELFPAY ==
--- NOTE | 2024-07-15 11:51 | CT_ITS ---
APPROVED REPORT Antique Finisher: CLINICAL INDICATION Chest Pain, TID on nuclear stress testing TECHNIQUE Image Acquisition: A 128 slice MDCT scanner ([employer] View) was used for data acquisition. A noncontrast coronary calcium scan was performed. A CT attenuation threshold of 130 Hounsfield units (HU) was used for the detection of calcium in contiguous voxels of 1 sq mm in area to be counted as individual lesions. Bolus tracking in the ascending aorta with a threshold of 180 HU was performed. Immediately afterwards, ECG synchronized cardiac CT was then performed from the cardiac base to apex using retrospective gating with ECG tube current modulation. A total of 85 mL of Isovue 370 mg/mL contrast medium was administered at 5 mL/sec followed by a saline flush using a biphasic injection protocol. A tube voltage of 120 KVp was used. The patient received the following medications prior to the cardiac CT. 75 mg of oral metoprolol 15 mg of oral ivabradine 0.8 mg of sublingual nitroglycerin The average heart rate at the time of acquisition was 51 bpm and regular. Image Reconstruction Transaxial images were reconstructed at 0.67 mm slide thickness. Data was reviewed interactively on an advanced workstation capable of 2 and 3-dimensional displays in all conventional reconstruction formats, including multiplanar reformations, maximum intensity projections, curved multiplanar reformations, and volume rendered reconstructions. When applicable, selected routine images describing the relevant coronary anatomy and pathology were saved and sent to PACS. Complications None Technical Quality Overall image quality was good. Coronary artery opacification was adequate. Total DLP (Dose-Length Product) is 1479.1 mGy-cm. The reported value represents the total of one or more individual components during the CT acquisition of this date and at this time, and as such, the same value may appear in more than one CT report depending on the interpreting/reporting physicians. COMPARISON None FINDINGS CT Coronary Calcium Scoring LMA (Left Main Artery) = 32 LAD (Left Anterior Descending) = 166 LCX (Left Coronary Circumflex) = 384 RCA (Right Coronary Artery) = 352 Total Calcium Score = 934 using the AJ-130 method. The observed calcium score of 934 is at 92nd percentile for subjects of the same age, sex, and race/ethnicity. The interpretation of the calcium heart score is based on the following continuum*: 0 = no calcified plaque detected (risk of coronary artery disease is very low ??? less than 5%) 1-10 = calcium detected in extremely minimal levels (risk of coronary diseases is still low ??? less than 10%) 11-100 = mild levels of plaque detected with certainty (mild or minimal narrowing of heart arteries is likely) 101-400 = definite,at least moderate levels of plaque detected (relatively high risk of a heart attack within 3-5 years) >401-999 = extensive levels of plaque detected (high risk of heart attack, high levels of vascular disease are present, high likelihood of at least one significant coronary narrowing) *The calcium heart score quantifies the burden of coronary calcification/plaque in the coronary arteries. The calcium heart score is not able to evaluate the presence or burden of non-calcified (i.e. soft) plaque. There is also calcification in the aortic valve, as well as the ascending, transverse, and descending thoracic aorta. Coronary CT Angiography The coronary arterial system is right dominant. Quantitative Stenosis Grading: Left Main (LM): The left main originates normally from the left sinus of Valsalva. The LM bifurcates into the left anterior descending artery and left circumflex artery. There is mixed calcified/noncalcified plaque in the proximal LAD segment with < 25% luminal stenosis. Left Anterior Descending (LAD) and Diagonal Branches: The LAD gives off 2 diagonal branch(es). There is mixed calcified/noncalcified plaque in the proximal and mid LAD segments, with up to 25-49% luminal stenosis. There is no evidence of LAD-myocardial bridge. Left Circumflex (LCX) and Obtuse Marginals (OM): The LCX gives off 2 Obtuse Marginal (OM) branch(es). There is mixed calcified/noncalcified plaque in the proximal and mid LCx segments with up to 50-70% luminal stenosis. Right Coronary Artery (RCA): The RCA originates normally from the right sinus of Valsalva. The RCA gives off a posterior descending artery (PDA) and posterolateral (PL) branches. There is mixed calcified/noncalcified plaque in the proximal and mid RCA segments with up to 50 to 70% luminal stenosis. Non-Coronary Cardiac Findings: Analysis of the left ventricular (LV) structure and function was performed after 3-D reconstruction of the LV from axial images, with user-corrected automatic contouring for assessment of LV volumes and user-defined reconstruction from oblique planes for measurement of 3-D cardiac structure and function. -The left ventricle systolic function is normal. -There is no left atrial appendage filling defect. Two right pulmonary veins and two left pulmonary veins drain normally into the left atrium. -No pericardial thickening or calcification. -Central and branch pulmonary arteries in the [id number] are unremarkable. -Thoracic aorta within the visualized thoracic aortic-branches in the [id number] is unremarkable. Extracardiac Structures No significant extra-cardiac findings. Note, however, that this study is focused on the cardiac findings. IMPRESSION -Presence of coronary calcification with an Agatston score = 934 using the AJ-130 method. -The observed calcium score of 934 is at 92nd percentile for subjects of the same age, sex, and race/ethnicity. -Multivessel atherosclerotic coronary disease with possible evidence of significant flow-limiting atherosclerosis of the LCx and RCA. -CAD-RADS 3. Management recommendations per ACC/AHA guidelines*, as clinically appropriate. -Calcification of the aortic valve, as well as the ascending, transverse, and descending thoracic aorta. *Recommendations: CAD RADS 0: Reassurance. Consider non-atherosclerotic causes of chest pain. CAD RADS 1: Consider non-atherosclerotic causes of chest pain. Consider preventive therapy and risk factor modification. CAD RADS 2: Consider non-atherosclerotic causes of chest pain. Consider preventive therapy and risk factor modification, particularly for patients with nonobstructive plaque in multiple segments. CAD RADS 3: Consider further functional testing. Consider symptom-guided anti-ischemic and preventive pharmacotherapy as well as risk factor modification per published guideline statements. CAD RADS 4A: Consider further functional testing or invasive coronary angiography with revascularization per published guideline statements. Consider symptom-guided anti-ischemic and preventive pharmacotherapy as well as risk factor modification per published guideline statements. CAD RADS 4B: Invasive coronary angiography recommended with revascularization per published guideline statements. Consider symptom-guided anti-ischemic and preventive pharmacotherapy as well as risk factor modification per published guideline statements. CAD RADS 5: Consider invasive angiography and/or viability assessment with revascularization per published guideline statements. Consider symptom-guided anti-ischemic and preventive pharmacotherapy as well as risk factor modification per published guideline statements. CRITICAL RESULT None COMMUNICATION Per this written report The coronary and cardiac findings of this CCTA were reviewed, reported, and signed by Vini Cedillo MD (Trust Mail Clerk) Conclusion Electronically signed by : Berta Cedillo MD 07/19/2024 14:06:58
[2024-07-15 11:58] VITALS: BMI 24.0
[2024-07-15 12:04] VITALS: BP 129/66; PULSE 79; RESP 16; TEMP 36.6; O2SAT 97
[2024-07-15] MEDS: METOPROLOL TARTRATE 50MG TABLET PO (12:12)
[2024-07-15] MEDS: IVABRADINE HCL 7.5MG TABLET PO (12:12)
[2024-07-15 12:15] LABS: Chloride 104 mmol/L (98-107); Potassium 3.5 mmoL/L (3.5-5.1); Sodium 139 mmol/L (136-145)
[2024-07-15 12:18] LABS: Blood Urea Nitrogen 21 mg/dl (7-17); Creatinine Clearance Estimated 47 mL/min (50-200); Estimated Glomerular Filt Rate 54 ml/min (>60); GFR (African American) 65 ML/MIN (>60)
[2024-07-15 12:19] LABS: Anion Gap 8.5 mEq/L (5-15); Calcium 10.4 mg/dl (8.4-10.2); Carbon Dioxide 30 mmol/L (22.0-30.0); Glucose 106 mg/dl (74-100)
[2024-07-15 12:55] VITALS: BP 147/71; PULSE 53; RESP 16; O2SAT 97
[2024-07-15] MEDS: NITROGLYCERIN 0.4MG SL TABLET SL (12:55)
[2024-07-15 12:58] VITALS: BP 133/72; PULSE 51; RESP 16; O2SAT 97
[2024-07-15 13:01] VITALS: BP 90/40; PULSE 55; RESP 16; O2SAT 98
[2024-07-15] MEDS: IOPAMIDOL-370 (76%);100ML BOTTLE 85 ML IV (13:10)
[2024-07-15] MEDS: 0.9 % SODIUM CHLORIDE 50 ML VIAL IV (13:10)
[2024-07-15] MEDS: SODIUM CHLORIDE 0.9% 10ML SYR (RAD ONLY) 10 ML IV (13:10)
[2024-07-15 13:11] VITALS: BP 101/68; PULSE 58; RESP 16; O2SAT 96
== END 2024-07-15 13:12 | disposition home or self-care (01) ==
PROVIDERS: PCP Family Medicine; Visit Provider Nurse Practitioner Family
DX: I20.89 Other forms of angina pectoris (principal); R94.39 Abnormal result of other cardiovascular function study; E78.2 Mixed hyperlipidemia; I10 Essential (primary) hypertension
CPT/HCPCS: 75574; 80048; Q9967

== ENCOUNTER 2024-08-02 09:27 | Day surgery (SDC) | payer MEDICARE, SELFPAY ==
[2024-08-02] VITALS (10 sets, daily range): BP systolic 96–143; BP diastolic 54–86; PULSE 55–71; RESP 16–20; O2SAT 90–96; BMI 24.3
--- NOTE | 2024-08-02 07:12 | IR_ITS ---
APPROVED REPORT Patient Location: Outpatient PROCEDURES Left heart catheterization Left ventriculogram Selective coronary angiogram INDICATION Angina pectoris, Abnormal CCTA Informed consent was obtained prior to the procedure. COMPLICATIONS NONE Estimated Blood Loss: LESS THAN 10 ML TECHNIQUE One percent lidocaine used to anesthetize the right anterior aspect of the wrist. The right radial artery was accessed via the Seldinger technique. A 6 [place] sheath was placed in the right radial artery. 2.5 mg of Verapamil, 800 mcg of nitroglycerin, 1mg Lidocaine and 5000 U Heparin were given through the arterial sheath. The papa catheter was also used to perform left heart catheterization, left ventriculogram and selective coronary angiogram. At the end of the procedure the sheath was removed good hemostasis was achieved using Traclet band, patient was transferred to the postop holding area in stable condition. ANGIOGRAPHIC RESULTS The left main artery Normal The left anterior descending artery Proximally normal with mid vessel hazy 30 to 40% smooth stenosis. The LAD is notably tortuous in the mid to distal segment The circumflex artery Is a nondominant yet still large vessel which has proximal 20% stenosis with 20 and 30% calcified stenoses in the large first obtuse marginal artery The right coronary artery Is dominant and has a proximal concentric calcified 50 to 60% stenosis in mid vessel smooth 50 to 60% stenosis and additional distal 40% stenosis with a 60% eccentric calcified stenosis in a 2.25 mm posterior descending artery. The entire right coronary artery is tortuous as is the PDA The [place] ventriculogram reveals Hyperdynamic 70 to 75% The left ventricular end-diastolic pressure Elevated at 20 to 25 mmHg IMPRESSION Patient has diffuse moderate calcific disease as described above which I believe is best managed medically Hyperdynamic ventricle with elevated LVEDP PLAN 1. Patient is on 1 antianginal medication and has a hyperdynamic ventricle with elevated LVEDP which is likely etiology for patient's angina 2. I strongly favor medical management at this time. If patient has recalcitrant angina on 2 antianginal medications and after her hyperdynamic ventricle and elevated LVEDP of been treated, we can then consider revascularizing the proximal mid and distal right coronary artery with stenting of the posterior descending artery. These can be performed I believe her symptoms stem mostly from elevated LVEDP 3. Risk factor modification Electronically signed by : Ziyad Loera MD 08/02/2024 12:04:03
[2024-08-02 10:05] LABS: Chloride 106 mmol/L (98-107); Potassium 3.3 mmoL/L (3.5-5.1); Sodium 141 mmol/L (136-145)
[2024-08-02 10:08] LABS: Anion Gap 12.3 mEq/L (5-15); Basophils % 0.5 % (0.1-2.0); Blood Urea Nitrogen 17 mg/dl (7-17); Carbon Dioxide 26 mmol/L (22.0-30.0); Creatinine Clearance Estimated 47 mL/min (50-200); Eosinophils # 0.1 K/mm3 (0.0-0.4); Eosinophils % 0.7 % (0.1-12.0); Estimated Glomerular Filt Rate 70 ml/min (>60); GFR (African American) 84 ML/MIN (>60); Hematocrit 45.3 % (37.0-47.0); Hemoglobin 15.1 g/dL (12.2-16.2); Lymphocytes # 1.3 K/mm3 (0.7-4.5); Lymphocytes % 16.6 % (10-50); Mean Corpuscular HGB Conc 33.3 g/dL (31.8-35.4); Mean Corpuscular Hemoglobin 30.6 pg (27.0-31.2); Mean Corpuscular Volume 91.7 fl (81-99); Mean Platelet Volume 10.1 fl (7.4-10.4); Monocytes # 0.5 K/mm3 (0.1-1.0); Monocytes % 6.1 % (1.7-9.3); Neutrophils # 5.8 K/mm3 (1.8-7.8); Neutrophils % 75.8 % (37.0-80.0); Platelet Count 256 K/mm3 (142-424); Red Blood Count 4.94 M/mm3 (4.20-5.40); Red Cell Distribution Width 14.4 % (11.5-17.5); White Blood Count 7.7 K/mm3 (4.8-10.8)
[2024-08-02 10:09] LABS: Calcium 10.4 mg/dl (8.4-10.2); Glucose 117 mg/dl (74-100)
[2024-08-02] MEDS: HEPARIN 1,000 UNITS/ML 10ML VIAL (CATH LAB) 10000 UNIT IV (11:29)
[2024-08-02] MEDS: HEPARIN 1,000 UNITS/500ML NS (CATH LAB) 3000 UNIT IV (11:29)
[2024-08-02] MEDS: diphenhydrAMINE 50MG/ML VIAL 50 MG IV (11:29)
[2024-08-02] MEDS: 0.9 % SODIUM CHLORIDE 500 ML 25 ML IV (11:29)
[2024-08-02] MEDS: LIDOCAINE 1% 10ML MDV 20 ML IJ (11:30)
[2024-08-02] MEDS: VERAPAMIL 2.5MG/ML 2ML VIAL 2.5 MG IV (11:30)
[2024-08-02] MEDS: MIDAZOLAM HCL 1MG/ML 5ML VIAL 1 MG IV (11:33)
[2024-08-02] MEDS: FENTANYL 100MCG/2ML VIAL 50 MCG IV (11:33)
[2024-08-02] MEDS: NITROGLYCERIN 800MCG/8ML SYR (CATH LAB) 800 MCG IA (11:34)
[2024-08-02] MEDS: IOPAMIDOL-370 (76%);100ML BOTTLE 75 ML IV (13:43)
--- NOTE | 2024-08-02 14:15 | SUR.PHASEII ---
Family remains at bedside
== END 2024-08-02 14:33 | disposition home or self-care (01) ==
PROVIDERS: PCP Family Medicine; Visit Provider Internal Medicine
DX: I20.89 Other forms of angina pectoris (principal); R93.1 Abnormal findings on diagnostic imaging of heart and coronary circulation; R94.39 Abnormal result of other cardiovascular function study; R94.31 Abnormal electrocardiogram [ECG] [EKG]; K55.1 Chronic vascular disorders of intestine; I70.1 Atherosclerosis of renal artery; E78.2 Mixed hyperlipidemia; M06.9 Rheumatoid arthritis, unspecified; I10 Essential (primary) hypertension; F17.210 Nicotine dependence, cigarettes, uncomplicated; I73.9 Peripheral vascular disease, unspecified; Z88.2 Allergy status to sulfonamides; Z88.8 Allergy status to other drugs, medicaments and biological substances; Z71.6 Tobacco abuse counseling; Z83.3 Family history of diabetes mellitus; Z79.82 Long term (current) use of aspirin; Z79.51 Long term (current) use of inhaled steroids; Z79.620 Long term (current) use of immunosuppressive biologic; Z90.49 Acquired absence of other specified parts of digestive tract
CPT/HCPCS: 80048; 85025; 93458; 99152; C1725; C1769; J1200; J1644; J3010; Q9967

== ENCOUNTER 2024-08-09 12:00 | Emergency (ER) | payer MEDICARE, SELFPAY ==
--- NOTE | 2024-08-09 11:58 | ECG_ITS ---
APPROVED REPORT Exam: Resting ECG HR:67 bpm ECG Measurements Heart Rate 67 AXES MI 139 P 63 QRSd 94 QRS 60 QT 382 T 75 QTc 398 Conclusion SINUS RHYTHM LOW QRS VOLTAGE IN PRECORDIAL LEADS [QRS DEFLECTION < 1.0 mV IN CHEST LEADS] No STEMI Electronically signed by : JONG WATKINS, 08/10/2024 06:53:26
[2024-08-09 12:02] VITALS: BP 145/88; PULSE 72; RESP 17; TEMP 36.8; O2SAT 97; BMI 24.3
--- NOTE | 2024-08-09 12:08 | XR_ITS ---
FINAL REPORT CLINICAL HISTORY: chest pain/ dizziness COMPARISON: 05/25/2018 FINDINGS: A single view of the chest was obtained. The heart is normal in size. The mediastinum is unremarkable. The lungs are clear. There is no pleural effusion. There is no pneumothorax. There is no acute osseous abnormality. IMPRESSION: No acute cardiopulmonary process. Reviewed, Interpreted and Dictated by Taz Patrick MD Transcribed by Dorita Danielle [facility]
[2024-08-09 12:11] LABS: Basophils % 0.2 % (0.1-2.0); Eosinophils % 0.2 % (0.1-12.0); Hematocrit 44.5 % (37.0-47.0); Lymphocytes # 1.6 K/mm3 (0.7-4.5); Lymphocytes % 18.3 % (10-50); Mean Corpuscular HGB Conc 33.7 g/dL (31.8-35.4); Mean Corpuscular Hemoglobin 30.9 pg (27.0-31.2); Mean Corpuscular Volume 91.8 fl (81-99); Mean Platelet Volume 10.6 fl (7.4-10.4); Monocytes # 0.4 K/mm3 (0.1-1.0); Monocytes % 4.7 % (1.7-9.3); Neutrophils # 6.5 K/mm3 (1.8-7.8); Neutrophils % 76.4 % (37.0-80.0); Platelet Count 240 K/mm3 (142-424); Red Blood Count 4.85 M/mm3 (4.20-5.40); Red Cell Distribution Width 14.3 % (11.5-17.5); White Blood Count 8.5 K/mm3 (4.8-10.8)
[2024-08-09 12:22] LABS: Alanine Aminotransferase 15 U/L (12-78); Albumin Level 4.3 g/dl (3.5-5.0); Albumin/Globulin Ratio 1.3 (1.1-1.8); Alkaline Phosphatase 93 U/L (38-126); Anion Gap 12.6 mEq/L (5-15); Aspartate Amino Transferase 27 U/L (14-36); Bilirubin,Total 1.3 mg/dl (0.2-1.3); Blood Urea Nitrogen 20 mg/dl (7-17); Calcium 10.6 mg/dl (8.4-10.2); Carbon Dioxide 24 mmol/L (22.0-30.0); Chloride 104 mmol/L (98-107); Creatinine Clearance Estimated 47 mL/min (50-200); Estimated Glomerular Filt Rate 54 ml/min (>60); GFR (African American) 65 ML/MIN (>60); Globulin 3.2 g/dL (1.3-3.2); Glucose 134 mg/dl (74-100); Magnesium 1.6 mg/dl (1.6-2.3); Potassium 3.6 mmoL/L (3.5-5.1); Sodium 137 mmol/L (136-145); Total Protein,Serum 7.5 g/dl (6.3-8.2)
[2024-08-09 12:34] LABS: Troponin I < 0.01 ng/ml (0.00-0.034)
[2024-08-09 12:38] LABS: T4 (Thyroxine) 10.8 ug/dl (5.53-11.0)
[2024-08-09 12:52] LABS: Thyroid Stimulating Hormone 0.99 uIU/mL (0.465-4.68)
[2024-08-09 13:04] LABS: D-Dimer 0.58 ug/mL (0.0-0.5)
--- NOTE | 2024-08-09 13:27 | PC.NURSE ---
cardiology notified of consult order
--- NOTE | 2024-08-09 13:36 | PC.NURSE ---
michelle with cardiology at bedside
--- NOTE | 2024-08-09 13:49 | EXP.CARD.CON ---
History of Present Illness History of Present Illness Consult date: 08/09/24 Requesting physician: Alissa Leone Consult reason: chest pain Chief complaint: Chest pain History of present illness: This is a 74-year-old white female with past medical history of coronary artery disease, hyperlipidemia, tobacco use, PAD, ISMAEL and mild mesenteric artery disease who presented to emergency department with complaints of epigastric/chest pain associated with nausea and headache since this morning. Of note patient underwent a left heart catheterization 08/02 which showed diffuse moderate calcific disease which is best managed medically and a hyperdynamic ventricle with an elevated LVEDP. Upon presentation to emergency department EKG is negative for STEMI. Labs are as follow: WBC 8.5, hemoglobin 15, D-dimer positive at 0.58, sodium 137, potassium 3.6, creatinine 1, troponin negative and TSH normal. Chest x-ray is negative for acute ischemic changes. Patient denies chest pain on exam reports is still mildly nauseated. [facility] Disclaimer: The information contained in this section may have been updated after the patient was seen, as this information can be updated by other users. Medical History Tobacco user Dyspnea Arteriosclerosis, mesenteric artery Abnormal electrocardiogram [ECG] [EKG] ISMAEL (renal artery stenosis) PAD (peripheral artery disease) Atypical angina Parathyroid abnormality Left ear pain Sore throat Fatigue Elevated parathyroid hormone Functional dyspepsia Bloating Anxiety Kidney stone Hyperlipidemia Allergies Urinary tract infection History of gastroesophageal reflux (GERD) Rheumatoid arthritis Hypertension Surgical History History of ERCP History of hysterectomy History of cholecystectomy History of colonoscopy Family History Other Family history of diabetes mellitus Social History Smoking Status: Current every day smoker tobacco type: cigarettes packs per day: 1 alcohol intake: never substance use type: denies use current occupational status: retired Travel in the last 8 weeks: None household members: spouse housing: house caffeine: Yes Review of Systems Review of Systems Review of systems:: pertinent systems reviewed and negative unless documented below Constitutional Constitutional: Reports system reviewed and no additional complaints, except as documented *Cardiovascular Cardiovascular: Reports system reviewed and no additional complaints, except as documented and Reports chest pain *Respiratory Respiratory: Reports system reviewed and no additional complaints, except as documented *Gastrointestinal Gastrointestinal: Reports system reviewed and no additional complaints, except as documented *Neurologic Neurologic: Reports system reviewed and no additional complaints, except as documented and Denies confusion Psychiatric Psychiatric: Reports system reviewed and no additional complaints, except as documented and Denies confusion Exam Data for Last 24 hours Vital signs and Labs for Last 24 Hours: Temp Pulse Resp BP Pulse Ox O2 Del Method 98.2 F 72 17 145/88 H 97 Room Air 08/09/24 12:02 08/09/24 12:02 08/09/24 12:02 08/09/24 12:08/09/24 12:08/09/24 12:02 Laboratory Results - last 24 hr 08/09/24 12:02: WBC 8.5, RBC 4.85, Hgb 15.0, Hct 44.5, MCV 91.8, MCH 30.9, MCHC 33.7, RDW 14.3, Plt Count 240, MPV 10.6 H, Neut % (Auto) 76.4, Lymph % (Auto) 18.3, [place] % (Auto) 4.7, Eos % (Auto) 0.2, Baso % (Auto) 0.2, Neut # (Auto) 6.5, Lymph # (Auto) 1.6, [place] # (Auto) 0.4, Eos # (Auto) 0.0, Baso # (Auto) 0.0, D-Dimer 0.58 H, Sodium 137, Potassium 3.6, Chloride 104, Carbon Dioxide 24, Anion Gap 12.6, BUN 20 H, Creatinine 1.00, Estimated Creat Clear 47, Estimated GFR 54 L, Est GFR ( Amer) 65, Glucose 134 H, Calcium 10.6 H, Magnesium 1.6, Total Bilirubin 1.3, AST 27, ALT 15, Alkaline Phosphatase 93, Troponin I < 0.01, Total Protein 7.5, Albumin 4.3, Globulin 3.2, Albumin/Globulin Ratio 1.3, TSH 0.99, Thyroxine (T4) 10.8 I & O for Last 24 hours: Intake & Output 08/06/24 08/07/24 08/08/24 08/09/24 23:59 23:59 23:59 23:59 Weight 137 lb Constitutional Constitutional: no acute distress *Routine Respiratory Exam Respiratory: Present CTA bilaterally and symmetric chest movement *Routine Cardiovascular Exam Cardiovascular: Present RRR, Normal S1 and Normal S2 *Routine Abdominal Exam Abdominal: Present soft and normoactive bowel sounds; Absent tenderness *Routine Extremities Exam Extremities: Present full ROM and normal capillary refill; Absent edema *Routine Skin Exam Skin: Present intact, dry and warm Detailed Neck Exam: Thyroids Thyroid: Absent bruit Meds Home Medications and Allergies Home Medications ?Medication ?Instructions ?Recorded ?Confirmed ?Type aspirin 81 mg tablet,delayed 81 mg PO DAILY Heart Health 10/14/17 07/27/24 History release cetirizine 10 mg tablet 10 mg PO DAILY PRN allergies 08/01/21 07/27/24 History etanercept 50 mg/mL (1 mL) 50 mg SQ . 09/21/23 07/27/24 History subcutaneous pen injector (Enbrel SureClick) denosumab 60 mg/mL subcutaneous 60 mg SQ [id number] osteoporosis #1 10/17/23 07/27/24 Rx syringe (Prolia) mL fluticasone propionate 50 2 spray intranasal DAILY Allergies 11/26/23 07/27/24 Rx mcg/actuation nasal 30 days #16 grams spray,suspension methotrexate sodium 2.5 mg tablet 7.5 mg (3 x 2.5 mg) PO QWEEK 12 12/31/23 07/27/24 Rx weeks #36 tabs methenamine hippurate 1 gram tablet See Rx Instructions .Route 02/18/24 07/27/24 Rx .COMPLEX #90 tabs cyclosporine 0.05 % eye drops in a 1 drp Eye-Both BID 04/05/24 07/27/24 History dropperette (Restasis) folic acid 1 mg tablet 1 mg PO DAILY Supplement 90 days 04/26/24 07/27/24 Rx #90 tabs rosuvastatin 40 mg tablet 40 mg PO DAILY #90 tabs 04/30/24 07/27/24 Rx losartan 100 1 tab PO DAILY 90 days #90 tabs 07/01/24 07/27/24 Rx mg-hydrochlorothiazide 25 mg tablet melatonin 5 mg capsule 5 mg PO HS PRN Sleep 07/13/24 07/27/24 History buspirone 10 mg tablet 10 mg PO DAILY #90 tabs 07/22/24 07/27/24 Rx polyethylene glycol 3350 17 17 g PO DAILY 07/22/24 07/27/24 History gram/dose oral powder (Miralax) psyllium husk 3.4 gram/5.4 gram 1 tbsp PO DAILY 07/22/24 07/27/24 History oral powder (Metamucil) metoprolol succinate 25 mg 25 mg PO DAILY #30 tabs 07/27/24 07/27/24 Rx tablet,extended release 24 hr (Toprol XL) pantoprazole 40 mg tablet,delayed 40 mg PO DAILY #30 tabs 08/09/24 Rx release (Protonix) ranolazine 500 mg tablet,extended 500 mg PO BID #60 tabs 08/09/24 Rx release,12 hr spironolactone 25 mg tablet 25 mg PO DAILY #30 tabs 08/09/24 Rx (Aldactone) New Prescriptions to Start Prescriptions: Allergies Allergy/AdvReac Type Severity Reaction Status Date / Time lisinopril (LISINOPRIL) Allergy Severe S-ANAPHYLAX Verified 07/27/24 09:40 IS ciprofloxacin (From Cipro) AdvReac Intermediate Joint Verified 07/27/24 09:40 Pain/muscle aches Assessment and Plan *Assessment and plan (1) CAD (coronary artery disease): Status: Acute Category: Medical Code(s): I25.10 - Atherosclerotic heart disease of [place] coronary artery without angina pectoris (2) Chest pain: Status: Acute Category: Medical Code(s): R07.9 - Chest pain, unspecified (3) Elevated left ventricular end-diastolic pressure (LVEDP): Status: Acute Category: Medical Code(s): R94.30 - Abnormal result of cardiovascular function study, unspecified (4) Elevated d-dimer: Status: Acute Category: Medical Code(s): R79.89 - Other specified abnormal findings of blood chemistry Plan History of coronary artery disease Chest pain Elevated LVEDP Hyperdynamic ventricle EKG negative for STEMI Troponin negative Left heart catheterization 08/02/2024: Diffuse moderate calcific disease which is best managed medically. Hyperdynamic ventricle with elevated LVEDP. Recommend treating the hyperdynamic ventricle and elevated LVEDP, as well as adding a second antianginal medications prior to consideration for revascularization. Continue aspirin and statin Continue beta-dana Add Aldactone 25 mg p.o. daily Add Ranexa 500 mg p.o. twice daily Of note D-dimer is elevated. Cannot rule out PE. Recommend CTA chest prior to discharge. Echo 07/2024 shows normal biventricular systolic function, mild biatrial dilation with no significant valvular stenosis or regurg CV summary 08/09/2024: Patient is CV stable for discharge home if CTA is negative. Please have patient start Aldactone 25 mg p.o. daily and Ranexa 500 mg p.o. twice daily in addition to her home medications. We will see her in our cardiology clinic on Friday at 10 AM for reevaluation. CV meds: Aspirin 81 mg p.o. daily Aldactone 25 mg p.o. daily Ranexa 500 mg p.o. twice daily Toprol 25 mg p.o. daily Losartan/hydrochlorothiazide 100-25 mg p.o. daily Crestor 40 mg p.o. daily
--- NOTE | 2024-08-09 13:53 | [facility].EDCP ---
Discharge Plan Disposition Patient Disposition: Home, Self-Care Condition: Good Prescriptions Prescriptions: No Action fluticasone propionate 50 mcg/actuation spray,suspension 2 spray NS DAILY 30 Days Qty: 16 2RF cyclosporine [Restasis] 0.05 % dropperette 1 drp Eye-Both BID Metamucil 3.4 gram/5.4 gram powder 1 tbsp PO DAILY Rx Instructions: mix into at least 8 oz of water or juice before administering polyethylene glycol 3350 [Miralax] 17 gram/dose powder 17 g PO DAILY buspirone 10 mg tablet 10 mg PO DAILY Qty: 90 3RF melatonin 5 mg capsule 5 mg PO HS PRN (Reason: Sleep) Prolia 60 mg/mL syringe 60 mg SQ [id number] Qty: 1 1RF methotrexate sodium 2.5 mg tablet 7.5 mg PO QWEEK 84 Days Qty: 36 0RF metoprolol succinate [Toprol XL] 25 mg tablet extended release 24 hr 25 mg PO DAILY Qty: 30 5RF methenamine hippurate 1 gram tablet See Rx Instructions .ROUTE .COMPLEX Qty: 90 1RF Dose Instruction: TAKE 1 TABLET 1 TIME EACH DAY Rx Instructions: TAKE 1 TABLET 1 TIME EACH DAY folic acid 1 mg tablet 1 mg PO DAILY 90 Days Qty: 90 0RF Rx Instructions: Take folic acid every day that methotrexate is not taken rosuvastatin 40 mg tablet 40 mg PO DAILY Qty: 90 2RF losartan-hydrochlorothiazide 100-25 mg tablet 1 tab PO DAILY 90 Days Qty: 90 0RF esomeprazole magnesium 40 mg capsule,delayed release(DR/EC) 40 mg PO BID 90 Days Qty: 180 0RF aspirin 81 MG tablet,delayed release (DR/EC) 81 mg PO DAILY cetirizine 10 MG tablet 10 mg PO DAILY PRN (Reason: allergies) Enbrel SureClick 50 mg/mL (1 mL) pen injector 50 mg SQ . Referrals Follow up/Referrals: Teo Goldman MD [Primary Care Provider] - See instructions Activity Restrictions/Add. Instructions Additional Instructions/Restrictions: You were evaluated in the emergency department today. Cardiology is making changes to your medications. Please follow-up with them closely as discussed. Return to the emergency department for new or worsening symptoms Clinical Impressions Clinical Impression: Chest pain, CAD (coronary artery disease) Instructions Patient Instructions: DI for Atypical Chest Pain, DI for Chest Pain Print Language Print Language: Maltese Discharge ED Provider: Alissa Leone HPI General Chief Complaint: Chest Pain Stated Complaint: CP Time Seen by Provider: 08/09/24 12:10 Mode of Arrival: Wheelchair Source of Information: Patient Description of Symptoms (Recalled from ER Triage Doc. by RN): pt to the ED with daughter complaining of nausea, dizziness and chest pain that started about 0600 when she woke up this morning. pt stated she has chronic angina and just had a heart cath last week without stenting. History of Present Illness HPI narrative: This patient is a 74-year-old female with a history of CAD, PAD, ISMAEL, tobacco dependence, hypertension, hyperlipidemia, rheumatoid arthritis presenting to the Emergency Department for evaluation concern for chest pains. Patient is been following with cardiology for intermittent chest pains, but this morning she notes that things got acutely worse. She was post have a cardiology appointment this afternoon but advises that she came to the ED given the worsening symptoms this morning. She states that she felt nauseated, lightheaded, and was having midsternal chest pain that radiated to her back. Related Data Home Medications ?Medication ?Instructions ?Recorded ?Confirmed aspirin 81 mg tablet,delayed 81 mg PO DAILY Heart Health 10/14/17 07/27/24 release cetirizine 10 mg tablet 10 mg PO DAILY PRN allergies 08/01/21 07/27/24 etanercept 50 mg/mL (1 mL) 50 mg SQ . 09/21/23 07/27/24 subcutaneous pen injector (Enbrel SureClick) cyclosporine 0.05 % eye drops in a 1 drp Eye-Both BID 04/05/24 07/27/24 dropperette (Restasis) melatonin 5 mg capsule 5 mg PO HS PRN Sleep 07/13/24 07/27/24 polyethylene glycol 3350 17 17 g PO DAILY 07/22/24 07/27/24 gram/dose oral powder (Miralax) psyllium husk 3.4 gram/5.4 gram 1 tbsp PO DAILY 07/22/24 07/27/24 oral powder (Metamucil) Previous Rx's ?Medication ?Instructions ?Recorded denosumab 60 mg/mL subcutaneous 60 mg SQ [id number] osteoporosis #1 10/17/23 syringe (Prolia) mL fluticasone propionate 50 2 spray intranasal DAILY Allergies 11/26/23 mcg/actuation nasal 30 days #16 grams spray,suspension methotrexate sodium 2.5 mg tablet 7.5 mg (3 x 2.5 mg) PO QWEEK 12 12/31/23 weeks #36 tabs methenamine hippurate 1 gram tablet See Rx Instructions .Route 02/18/24 .COMPLEX #90 tabs folic acid 1 mg tablet 1 mg PO DAILY Supplement 90 days 04/26/24 #90 tabs rosuvastatin 40 mg tablet 40 mg PO DAILY #90 tabs 04/30/24 losartan 100 1 tab PO DAILY 90 days #90 tabs 07/01/24 mg-hydrochlorothiazide 25 mg tablet buspirone 10 mg tablet 10 mg PO DAILY #90 tabs 07/22/24 metoprolol succinate 25 mg 25 mg PO DAILY #30 tabs 07/27/24 tablet,extended release 24 hr (Toprol XL) pantoprazole 40 mg tablet,delayed 40 mg PO DAILY #30 tabs 08/09/24 release (Protonix) ranolazine 500 mg tablet,extended 500 mg PO BID #60 tabs 08/09/24 release,12 hr spironolactone 25 mg tablet 25 mg PO DAILY #30 tabs 08/09/24 (Aldactone) Allergies Allergy/AdvReac Type Severity Reaction Status Date / Time lisinopril (LISINOPRIL) Allergy Severe S-ANAPHYLAX Verified 07/27/24 09:40 IS ciprofloxacin (From Cipro) AdvReac Intermediate Joint Verified 07/27/24 09:40 Pain/muscle aches PFSH PFS Disclaimer: The information contained in this section may have been updated after the patient was seen, as this information can be updated by other users. Medical History Tobacco user Dyspnea Arteriosclerosis, mesenteric artery Abnormal electrocardiogram [ECG] [EKG] ISMAEL (renal artery stenosis) PAD (peripheral artery disease) Atypical angina Parathyroid abnormality Left ear pain Sore throat Fatigue Elevated parathyroid hormone Functional dyspepsia Bloating Anxiety Kidney stone Hyperlipidemia Allergies Urinary tract infection History of gastroesophageal reflux (GERD) Rheumatoid arthritis Hypertension Surgical History History of ERCP History of hysterectomy History of cholecystectomy History of colonoscopy Family History Other Family history of diabetes mellitus Social History Smoking Status: Current every day smoker tobacco type: cigarettes packs per day: 1 alcohol intake: never substance use type: denies use current occupational status: retired Travel in the last 8 weeks: None household members: spouse housing: house caffeine: Yes Other Medical History Have you received the Flu Vaccine for this season: No Have you received the Pneumonia Vaccine: Yes ROS Obtained: Yes All systems reviewed & no additional complaints except as documented Physical Exam General General appearance: alert and in no apparent distress Head Head exam: atraumatic and normocephalic Eye Eye exam: Present normal appearance, PERRL and EOMI ENT ENT exam: Present normal exam, normal oropharynx, mucous membranes moist and normal external ear exam Neck Neck exam: Present normal inspection, full ROM and trachea midline; Absent tenderness Chest Chest inspection: Present normal inspection and symmetric chest wall rise; Absent tenderness Respiratory Respiratory exam: Present normal lung sounds bilaterally; Absent respiratory distress, wheezes, stridor or accessory muscle use Cardiovascular Cardiovascular exam: Present regular rate and normal rhythm Abdominal Exam Abdominal exam: Present soft; Absent distention, tenderness or guarding Extremities Exam Extremities exam: Present normal inspection, full ROM and normal capillary refill; Absent tenderness or edema Back Exam Back exam: Present normal inspection and full ROM; Absent tenderness Neurological Exam Neurological exam: Present alert, oriented X3, CN II-XII intact and normal gait; Absent motor sensory deficit Psychiatric Psychiatric exam: Present normal affect and normal mood Skin Skin exam: Present warm and dry HEART Score HEART Score HEART Score assessment performed?: Yes History (anamnesis): Moderately suspicious ECG: Normal Age: >65 years Risk factors: Atherosclerosis history Troponin: </= normal limit HEART Score: 5 Critical Care Critical Care Time Critical Care Time: No Medical Decision Making Guevara Inquiry Pt receiving controlled substance: No Vital Signs Vital Signs: 08/09/24 12:02 Temperature 98.2 F Temperature Source Oral Pulse Rate [Left Radial] 72 Respiratory Rate 17 Blood Pressure [Right Arm] 145/88 H Blood Pressure Mean [Right Arm] 107 Blood Pressure Source [Right Arm] Automatic Cuff Blood Pressure Position [Right Arm] Sitting 02 Sat by Pulse Oximetry 97 Oxygen Delivery Method Room Air Lab Data Labs: Lab Results 08/09/24 12:02: WBC 8.5, RBC 4.85, Hgb 15.0, Hct 44.5, MCV 91.8, MCH 30.9, MCHC 33.7, RDW 14.3, Plt Count 240, MPV 10.6 H, Neut % (Auto) 76.4, Lymph % (Auto) 18.3, [place] % (Auto) 4.7, Eos % (Auto) 0.2, Baso % (Auto) 0.2, Neut # (Auto) 6.5, Lymph # (Auto) 1.6, [place] # (Auto) 0.4, Eos # (Auto) 0.0, Baso # (Auto) 0.0, D-Dimer 0.58 H, Sodium 137, Potassium 3.6, Chloride 104, Carbon Dioxide 24, Anion Gap 12.6, BUN 20 H, Creatinine 1.00, Estimated Creat Clear 47, Estimated GFR 54 L, Est GFR ( Amer) 65, Glucose 134 H, Calcium 10.6 H, Magnesium 1.6, Total Bilirubin 1.3, AST 27, ALT 15, Alkaline Phosphatase 93, Troponin I < 0.01, Total Protein 7.5, Albumin 4.3, Globulin 3.2, Albumin/Globulin Ratio 1.3, TSH 0.99, Thyroxine (T4) 10.8 08/09/24 12:02 08/09/24 12:02 Response Orders (Tests/Meds): ED MEDICATIONS Discontinued Medications Generic Name Dose Route Start Last Admin Trade Name Freq PRN Reason Stop Dose Admin Ranolazine 500 mg 08/09/24 13:48 Ranolazine 500mg Er Tablet PO 08/09/24 13:49 ONCE ONE ORDERS Category Date Time Status Cardiology Consult [Consult to Cardiology] [CONS] Cons 08/09/24 13:17 Active Routine XR chest portable Stat Exams 08/09/24 12:08 Completed Complete Blood Count Auto Diff Stat Lab 08/09/24 12:02 Completed Comprehensive Metabolic Panel Stat Lab 08/09/24 12:02 Completed D-Dimer Stat Lab 08/09/24 12:02 Completed Magnesium Stat Lab 08/09/24 12:02 Completed T4 (Thyroxine) Stat Lab 08/09/24 12:02 Completed Thyroid Stimulating Hormone Stat Lab 08/09/24 12:02 Completed Troponin I Q3H Lab 08/09/24 15:15 Ordered Troponin I Q3H Lab 08/09/24 18:15 Ordered Troponin I Stat Lab 08/09/24 12:02 Completed ECG Data Tracing #1: Attestation: I reviewed this ECG and interpreted as documented below: ECG Narrative: Normal sinus rhythm ventricular rate of [address] changes concerning for STEMI. Normal axis and intervals. ECG initial impression date: 08/09/24 ECG initial impression time: 12:00 [facility] Narrative Medical Decision Narrative: In summary, this patient is a 74-year-old female presenting to the Emergency Department for evaluation of chest pain, lightheadedness, nausea. Differential diagnoses considered include but are not limited to ACS, dysrhythmia, PE, aortic dissection, GERD, costochondritis, unstable angina. Ruling out the most morbid conditions drove assessment. It should be noted patient's history includes nonocclusive CAD, PAD, ISMAEL, hypertension, hyperlipidemia, tobacco dependence which likely are not at goal therapy. This complicates all aspects of care by increasing patient's risk for morbidity. I reviewed patient's past medical records and noted recent cardiac catheterization with nonocclusive CAD not requiring any stenting, medical management recommended. On exam, the patient is lying in bed in no acute distress. Vitals are reassuring on cardiac telemetry. EKG obtained is reassuring. She is not hypertensive, nontachycardic, pulses are symmetric and she has no adventitious heart or lung sounds noted. Cannot use PERC criteria to exclude PE given age. Workup included CBC, CMP, troponin, D-dimer, chest x-ray, EKG. I independently interpreted chest x-ray prior to the radiologist read and noted no large focal consolidation concerning for pneumonia, no pneumothorax. Please see their read for final interpretation. Labs were obtained that demonstrated reassuring CBC with no significant leukocytosis or anemia, reassuring chemistry with negative troponin, D-dimer that is negative per years criteria. Doubt aortic pathology given reassuring exam, x-ray, history, vitals, and negative D-dimer Given patient had recent heart cath and follows closely with cardiology, I did call cardiology for consultation. Cardiology recommends Ranexa and they are adjusting her home medications. They arrange follow-up for her on Friday. They feel patient is appropriate for discharge at this time, so strict return precautions were given as well as instruction for supportive management and outpatient follow-up. Patient was discharged after all questions were answered.
[2024-08-09] MEDS: RANOLAZINE 500MG ER TABLET 500 MG PO (13:54)
[2024-08-09 13:58] VITALS: BP 120/57; PULSE 58; RESP 16; TEMP 36.7; O2SAT 95
--- OUTSIDE RECORDS SUMMARY | 2024-08-12 20:25 | XMS_ITS | Data Portability ---
Author Organization [facility] SHOBHA Nichole [place] CLOSED Address [address] [place] [address] Care Team Providers Care Forensic Document Examiner Name Role Phone CASS BACA Cancer Registry Coordinator SAMANTHA SEWELL Cancer Registry Coordinator MOHINDER AGEE Primary Care Provider Assessment Encounter Date Assessment Date Assessment LastModified by Organization Details LastModified Time 06/28/2021 06/28/2021 We reviewed the diagnosis of recurrent urinary infections and preventative options including adequate hydration, timed and double voids, constipation prevention, treatment of atrophic vaginitis. We discussed suppressive medications including cranberry tablets, d-mannose, methenamine, daily suppressive antibiotic, etc. We discussed anatomic evaluation including cystoscopy and radiographic imaging. For now she would like to increase hydration with timed and double voids and continue topical vaginal estrogen cream use for treatment of atrophic vaginitis. [email or web address] Not available 07/01/2021 14:13:28 08/30/2021 08/30/2021 Urine for culture and sensitivity. Methenamine for medical management of UTI prevention. We discussed need for adequate hydration. She will be changed to vaginal suppository instead of topical cream to see if benefit can be achieved without bothersome side effects. [email or web address] Not available 09/02/2021 21:26:44 Plan of Treatment Reminders Order Date Submit Date Provider Last Modified By Organization Details Last Modified Time Details Appointments None recorded. Lab urinalysis panel, auto 2021 022 [email or web address] 14 [facility] [place] [facility] With [facility], [address] [place] [address] [address], [place], [address], 07:54:32 culture, urine 2021 [facility], [address] [place], [address], 10:48:54 Referral None recorded. Procedures None recorded. Surgeries None recorded. Imaging None recorded. Medication Orders Vagifem 10 mcg vaginal tablet 2021 [facility], [address] [place], [address], 08:14:12 methenamine hippurate 1 gram tablet 2021 [facility], [address] [place], [address], 08:14:14 Patient TargetsNo targets recorded. Patient Instructions Encounter Date Encounter Id Patient Instructions Last Modified By Organization Details Last Modified Time 08/25/2017 [id number] eustachian tube problems: care instructions [email or web address] Not available 08/25/2017 10:14:52 hearing loss: care instructions [email or web address] Not available 08/25/2017 10:14:52 06/28/2021 [id number] learning about healthy weight [email or web address] Not available 07/01/2021 14:13:29 08/30/2021 [id number] learning about healthy weight [email or web address] Not available 08/31/2021 08:13:29 Reason for Referral None Reported. Results Created Date Observation Date Name Description Value Unit Range Abnormal Flag Note LastModifiedBy Organization Detail LastModifiedTime 08/05/19 18 08/04/2017 CMP, serum or plasm a glucose 96 mg/dL 74-100 normal Not Available [facility] [address] [place], [address], 08/04/2017 21:20:48 08/05/19 18 08/04/2017 CMP, serum or plasm a blood urea nitrogen 10 mg/dL 6-20 normal Not Available [facility] [address] [place] [address], [address], 08/04/2017 21:20:48 08/05/19 18 08/04/2017 CMP, serum or plasm a creatinine 0.82 mg/dL 0.50-0 .95 normal Not Available [facility] [address] [place] [address], [address], 08/04/2017 21:20:48 08/05/19 18 08/04/2017 CMP, serum or plasm a BUN/creatini ne ratio 12 (calc ) 10-20 normal Not Available [facility] [address] [place] [address], [address], 08/04/2017 21:20:48 08/05/19 18 08/04/2017 CMP, serum or plasm a sodium 141 mmol/ L 136-14 5 normal Not Available [facility] [address] [place] [address], [address], 08/04/2017 21:20:48 08/05/19 18 08/04/2017 CMP, serum or plasm a potassium 4.5 mmol/ L 3.4-5. 0 normal Not Available [facility] [address] [place] [address], [address], 08/04/2017 21:20:48 08/05/19 18 08/04/2017 CMP, serum or plasm a chloride 100 mmol/ L 98-107 normal Not Available [facility] [address] [place] [address], [address], 08/04/2017 21:20:48 08/05/19 18 08/04/2017 CMP, serum or plasm a carbon dioxide 27 mmol/ L 20-32 normal Not Available [facility] [address] [place] [address], [address], 08/04/2017 21:20:48 08/05/19 18 08/04/2017 CMP, serum or plasm a anion gap 14 (calc ) 7-25 normal Not Available [facility] [address] [place] [address], [address], 08/04/2017 21:20:48 08/05/19 18 08/04/2017 CMP, serum or plasm a calcium 9.6 mg/dL 8.6-10 .2 normal Not Available [facility] [address] [place] [address], [address], 08/04/2017 21:20:48 08/05/19 18 08/04/2017 CMP, serum or plasm a total protein 7.4 g/dL 6.4-8. 3 normal Not Available [facility] [address] [place] [address], [address], 08/04/2017 21:20:48 08/05/19 18 08/04/2017 CMP, serum or plasm a albumin 4.2 g/dL 3.5-5. 2 normal Not Available [facility] [address] [place] [address], [address], 08/04/2017 21:20:48 08/05/19 18 08/04/2017 CMP, serum or plasm a globulin 3.2 g/dL_ (calc ) 1.5-4. 5 normal Not Available [facility] [address] [place] [address], [address], 08/04/2017 21:20:48 08/05/19 18 08/04/2017 CMP, serum or plasm a albumin/glob ulin ratio 1.3 (calc ) 1.1-2. 5 normal Not Available [facility] [address] [place] [address], [address], 08/04/2017 21:20:48 08/05/19 18 08/04/2017 CMP, serum or plasm a bilirubin, total 0.5 mg/dL 0.1-1. 2 normal Not Available [facility] [address] [place] [address], [address], 08/04/2017 21:20:48 08/05/19 18 08/04/2017 CMP, serum or plasm a alkaline phosphatase 80 U/L 35-105 normal Not Available [facility] [address] [place], [address], 08/04/2017 21:20:48 08/05/19 18 08/04/2017 CMP, serum or plasm a AST 13 U/L 0-32 normal Not Available [facility] [address] [place] [address], [address], 08/04/2017 21:20:48 08/05/19 18 08/04/2017 CMP, serum or plasm a ALT 6 U/L 0-33 normal Not Available [facility] [address] [place] [address], [address], 08/04/2017 21:20:48 08/05/19 18 08/04/2017 CMP, serum or plasm a GFR 84 >= 60 normal Not Available [facility] [address] [place] [address], [phone], 08/04/2017 21:20:48 08/05/19 18 08/04/2017 CMP, serum or plasm a GFR non- 73 >= 60 normal NOT E Calcu latio n for GFR is based on the Natio nal Kidne y Found ation CKD-E PI equat ion and allow s for repor ting GFR value s great er than 60 mL/mi n/1.7 3 m2. This calcu latio n has not been valid ated for patie nts less than 18 yrs., pregn ant women and Hispa nics. Chron ic kidne y disea se is defin ed as kidne y damag e or GFR less than 60 mL/mi n/1.7 3 m2 for 3 month s or longe r. . Not Available [facility] [address] [place], [address], 08/04/2017 21:20:48 08/05/19 18 08/04/2017 ESR (eryt hrocy te sedim entat ion rate) , blood ESR, automated 49 mm/HR 0-29 high Not Available [facility] [address] [place], [address], 08/04/2017 21:46:14 08/05/19 18 08/05/2017 RPR (rapi d plasm a reagi n), serum RPR NON-RE ACTIVE nonrea ctive normal Not Available [facility] [address] [place], [address], 08/05/2017 11:33:40 08/05/19 18 08/06/2017 lyme disea se igg+i gm, serum , refle x weste rn blot lyme Ab screen <0.90 index normal Index Inter preta tion ----- ----- ----- ---- < 0.90 Negat kelsi 0.90- 1.09 Equiv ocal > 1.09 Posit kelsi As recom adrianna d by the Food and Drug Admin istra tion (FDA) , all sampl es with posit kelsi or equiv ocal resul ts in a Borre иван burgd orfer i antib jaden scree n will be teste d using a blot metho d. Posit kelsi or equiv ocal scree tejas test resul ts shoul d not be inter prete d as truly posit kelsi until verif ied as such using a suppl ement al assay (e.g. , B. burgd orfer i blot) . The scree tejas test and/o r blot for B. burgd orfer i antib odies may be false ly negat kelsi in early stage s of Lyme disea se, inclu ding the perio d when eryth amandeep migra ns is appar ent. TEST PERFO RMED AT: [facility] DARIN OLIVAREZ [address] [place] [address] TWIN Godfrey MD Not Available [facility] [address] [place], [address], 08/06/2017 13:40:54 08/05/19 18 08/06/2017 CHELO (anti nucle ar antib odies ) scree n, serum CHELO screen NEGATI VE negati ve normal CHELO IFA is a first line scree n for detec ting the prese nce of up to appro ximat maninder 150 autoa ntibo dies in vario us autoi mmune disea ses. A negat kelsi CHELO IFA resul t sugge sts CHELO-a ssoci ated autoi mmune disea ses are not prese nt at this time. Visit Physi carmine FAQs for inter preta tion of all antib odies in the [place], preva lence , and assoc iatio n with disea ses at http: //[facility] cat[facility] n.Que stDia gnost ics.c om/ faq/F AQ177 TEST PERFO RMED AT: [facility] [place] [address] [place] [address] TWIN Godfrey MD Not Available [facility] [address] [place], [address], 08/06/2017 16:41:09 08/31/19 22 08/30/2021 URINE CULTU RE results Sourc e: CCUR Colle cted: 08/30 14:33 Site: Recei sugar : 08/30 19:21 URINE CULTU RE FINAL 09/01 09:34 09/01 COLON Y COUNT : > 100,0 00 CFU/M L Three or more isola clyde; mixed skin reji . Not Available [facility] [address] [place] [address], [address], 09/01/2021 09:34:24 08/31/19 22 08/30/2021 urina lysis panel , auto Unknown Analyte Clean Catch Not Available Count includes the [facility] [place] [facility] With [address], [place], [address], 08/30/2021 14:31:08 08/31/19 22 08/30/2021 urina lysis panel , auto Unknown Analyte Yellow Not Available [facility] [place] [facility] With [address], [place], [address], 08/30/2021 14:31:08 08/31/19 22 08/30/2021 urina lysis panel , auto Unknown Analyte Clear Not Available [facility] Extended Services With [address], [place], [address], 08/30/2021 14:31:08 08/31/19 22 08/30/2021 urina lysis panel , auto Unknown Analyte 1.010 Not Available [facility] Extended Services With [address], [place], [address], 08/30/2021 14:31:08 08/31/19 22 08/30/2021 urina lysis panel , auto Unknown Analyte 1.003- 1.035 Not Available [facility] Extended Services With [address], [address], 08/30/2021 14:31:08 08/31/19 22 08/30/2021 urina lysis panel , auto Unknown Analyte 6.0 Not Available [facility] Extended Services With [address], [place], [address], 08/30/2021 14:31:08 08/31/19 22 08/30/2021 urina lysis panel , auto Unknown Analyte 5.0-8. 0 Not Available [facility] Extended Services With [address], [place], [address], 08/30/2021 14:31:08 08/31/19 22 08/30/2021 urina lysis panel , auto Unknown Analyte 75 Randall/ul (+) Not Available [facility] Extended Services With [address] [place], [address], 08/30/2021 14:31:08 08/31/19 22 08/30/2021 urina lysis panel , auto Unknown Analyte Negati ve Not Available [facility] [place] [facility] [address] [place], [address], 08/30/2021 14:31:08 08/31/19 22 08/30/2021 urina lysis panel , auto Unknown Analyte POSITI VE (Abnor mal) Not Available [facility] Extended Services With [address] [place], [address], 08/30/2021 14:31:08 08/31/19 22 08/30/2021 urina lysis panel , auto Unknown Analyte Negati ve Not Available [facility] Extended Services With [address] [place], [address], 08/30/2021 14:31:08 08/31/19 22 08/30/2021 urina lysis panel , auto Unknown Analyte Negati ve Not Available [facility] Extended Services With [address] [place], [address], 08/30/2021 14:31:08 08/31/19 22 08/30/2021 urina lysis panel , auto Unknown Analyte Negati ve Not Available [facility] Extended Services With [address] [place], [address], 08/30/2021 14:31:08 08/31/19 22 08/30/2021 urina lysis panel , auto Unknown Analyte Normal Not Available [facility] Extended Services With [address] [place], [address], 08/30/2021 14:31:08 08/31/19 22 08/30/2021 urina lysis panel , auto Unknown Analyte Normal Not Available [facility] Extended Services With [address] [place], [address], 08/30/2021 14:31:08 08/31/19 22 08/30/2021 urina lysis panel , auto Unknown Analyte Negati ve Not Available Count includes the [facility] [place] [facility] With [address], [place], [address], 08/30/2021 14:31:08 08/31/19 22 08/30/2021 urina lysis panel , auto Unknown Analyte Negati ve Not Available Count includes the [facility] [place] [facility] With [address] [place], [address], 08/30/2021 14:31:08 08/31/19 22 08/30/2021 urina lysis panel , auto Unknown Analyte 1 mg/dl Not Available [facility] Extended Services With [address] [place], [address], 08/30/2021 14:31:08 08/31/19 22 08/30/2021 urina lysis panel , auto Unknown Analyte Normal 1 mg/dl Not Available [facility] Extended Services With [address] [place], [address], 08/30/2021 14:31:08 08/31/19 22 08/30/2021 urina lysis panel , auto Unknown Analyte Negati ve Not Available [facility] Extended Services With [address] [place], [address], 08/30/2021 14:31:08 08/31/19 22 08/30/2021 urina lysis panel , auto Unknown Analyte Negati ve Not Available Count [facility] [address] [place], [address], 08/30/2021 14:31:08 08/31/19 22 08/30/2021 urina lysis panel , auto Unknown Analyte Negati ve Not Available Count includes the [facility] [place] [facility] With [address], [place], [address], 08/30/2021 14:31:08 08/31/19 22 08/30/2021 urina lysis panel , auto Unknown Analyte Negati ve Not Available Count includes the [facility] [place] [facility] With [address], [place], [address], 08/30/2021 14:31:08 08/06/19 18 02/11/2017 US, duple x, carot id arter y No observ ation record ed. BARCODE Not Available 2017 10:15:14 08/06/19 18 01/21/2017 MRI, brain , w/wo contr ast No observ ation record ed. [email or web address] Not Available 2017 12:47:37 Result Notes None recorded. Problems No Known Problems Procedures Surgical History Date Name Laterality Status Provider Name and Address Organization Details Recorded Time 08/26/19 18 Tympanogram completed NICHELLE STACY AUD [address] [place], [address], [facility] 08/25/2017 10:14:03 08/26/19 18 Audiogram completed NICHELLE STACY AUD [address] [place], [address], [facility] 08/25/2017 10:14:02 07/22/19 18 Tympanogram completed ERIC BAUTISTA AUD [address] [place], [address], [facility] 07/21/2017 11:37:12 07/22/19 18 Audiogram completed ERIC BAUTISTA AUD [address] [place], [address], [facility] 07/21/2017 11:37:11 07/22/19 18 Audiogram completed Aarti Hein [facility] 07/21/2017 11:43:47 [facility] 11:12:44 Hyste[facility]revise vagina [facility] 11:12:52 Imaging Results Imaging Date Name Status LastModified by Organiz ation Details LastModified Time 02/11/2017 US, duplex, carotid artery completed BAR[facility] Information not available 08/05/2017 10:15:14 01/21/2017 MRI, brain, w/wo contrast completed [email or web address] Information not available 08/05/2017 12:47:37 Procedure Notes None recorded. Medical Equipment None Reported. Allergies Allergen ID Allergen Name Allergen Category Reaction Reaction Severity Criticality Documentation Date Start Date Code Code System Note Provider Name and Address Organization Details Recorded Time 079924 lisinopri l medicatio n anaphylax is severe Not available 07/21/2017 73622 RxNorm Shaina Curiel [facility] 8 11:06:04 Medications Name Sig Start Date Stop Date Status Note LastModified by Organization Details LastModified Time nystatin 100,000 unit/mL oral suspension 07/21 completed Not Available Not Available Not Available cefuroxime axetil 250 mg tablet TAKE 1 TABLET BY MOUTH EVERY 12 HOURS FOR 10 DAYS 06/29 completed Not Available Not Available Not Available nicotine 14 mg/24 hr daily transdermal patch apply 1 PATCH topically EVERY DAY 06/29 completed Not Available Not Available Not Available sucralfate 1 gram tablet 07/21 completed Not Available Not Available Not Available prednisone 20 mg tablet TAKE 1 TABLET BY MOUTH ONCE DAILY 06/29 completed Not Available Not Available Not Available fluorouraci l 5 % topical cream 06/29 completed Not Available Not Available Not Available prednisone 5 mg tablet 06/29 completed Not Available Not Available Not Available acetazolami de 250 mg tablet 07/21 completed Not Available Not Available Not Available Nexium 40 mg capsule,del ayed release Take 1 capsule every day by oral route. active Not Available Not Available No t Available metronidazo le 500 mg tablet TAKE 1 TABLET BY MOUTH THREE TIMES DAILY 06/29 completed Not Available Not Available Not Available ciprofloxac in 500 mg tablet 07/21 completed Not Available Not Available Not Available sulfamethox azole 800 mg-trimetho prim 160 mg tablet TAKE 1 TABLET BY MOUTH EVERY 12 HOURS FOR 7 DAYS active Not Available Not Available No t Available losartan 100 mg-hydrochl orothiazide 25 mg tablet TAKE 1 TABLET BY MOUTH ONCE DAILY active Not Available Not Available No t Available methenamine hippurate 1 gram tablet Take 1 tablet twice a day by oral route for 90 days. 2021 active Not Available Not Available Not Avai lable amoxicillin 875 mg tablet 07/21 completed Not Available Not Available Not Available methotrexat e sodium 2.5 mg tablet active Not Available Not Available Not Available diazepam 2 mg tablet 07/21 completed Not Available Not Available Not Available ranitidine 150 mg tablet 07/21 completed Not Available Not Available Not Available folic acid 1 mg tablet active Not Available Not Available Not Available montelukast 10 mg tablet TAKE 1 TABLET BY MOUTH EVERY EVENING active Not Available Not Available No t Available hydrochloro thiazide 25 mg tablet active Not Available Not Available No t Available levofloxaci n 500 mg tablet 07/21 completed Not Available Not Available Not Available estradiol 0.01% (0.1 mg/gram) vaginal cream USE DIRECTED 3 TIMES PER WEEK active Not Available Not Available No t Available levofloxaci n 750 mg tablet TAKE 1 TABLET BY MOUTH ONCE DAILY 06/29 completed Not Available Not Available Not Available ondansetron 4 mg disintegrat ing tablet 07/21 completed Not Available Not Available Not Available cefdinir 300 mg capsule TAKE ONE CAPSULE BY MOUTH EVERY TWELVE HOURS FOR 10 DAYS -- FINISH ALL MEDICINE -- 06/29 completed Not Available Not Available Not Available losartan 100 mg tablet active Not Available Not Available Not Available fluticasone propionate 50 mcg/actuati on nasal spray,suspe nsion active Not Available Not Available Not Available doxycycline hyclate 100 mg tablet 06/29 completed Not Available Not Available Not Available amoxicillin 875 mg-potassiu m clavulanate 125 mg tablet TAKE 1 TABLET BY MOUTH EVERY 12 HOURS FOR 10 DAYS 06/29 completed Not Available Not Available Not Available Crestor 20 mg tablet Take 1 tablet every day by oral route. active Not Available Not Available No t Available nitrofurant oin monohydrate /macrocryst als 100 mg capsule TAKE ONE CAPSULE BY MOUTH TWICE DAILY FOR 10 DAYS -- FINISH ALL MEDICINE -- 06/29 completed Not Available Not Available Not Available aspirin active Not Available Not Avail able Not Available Calcium 600 active Not Available Not A vailable Not Available Metamucil active Not Available Not Adri ilable Not Available domperidone 06/29 completed Not Available Not Available Not Available Enbrel SureClick 50 mg/mL (1 mL) subcutaneou s pen injector active Not Available Not Available Not Available diclofenac 1 % topical gel APPLY 2 GRAMS TOPICALLY TO THE AFFECTED AREA(S) FOUR TIMES DAILY 06/29 completed Not Available Not Available Not Available Align (B.infantis ) active Not Available Not Available Not Available Vitamin D 2,000 unit capsule Take by oral route. active Not Available Not Available No t Available Vagifem 10 mcg vaginal tablet Insert 1 tablet every day by vaginal route for 30 days. 2021 active Not Available Not Available Not Avai lable Prolia 60 mg/mL subcutaneou s syringe active Not Available Not Available No t Available Suprep Bowel Prep Kit 17.5 gram-3.13 gram-1.6 gram oral solution 07/21 completed Not Available Not Available Not Available Vitals Date Recorded Body height Body mass index (BMI) Body weight Body temperature Heart rate Systolic blood pressure Diastolic blood pressure Provider Name and Address Organization Details Last Updated DateTime 8 160.02 cm 25 kg/m2 06234.9 2 g 99.2 [degF] 77 /min 127 mm[Hg] 73 mm[Hg] Shaina Curiel [facility] 8 09:38:01 Date Recorded Body height Body mass index (BMI) Body weight Provider Name and Address Organization Details Last Updated DateTime 06/28/2021 160.02 cm 24.1 kg/m2 15431.56 g Holly Man [facility] 06/29/2021 08:00:48 Date Recorded Body height Body mass index (BMI) Body weight Provider Name and Address Organization Details Last Updated DateTime 08/30/2021 160.02 cm 24.1 kg/m2 69820.56 g Holly Man [facility] 08/30/2021 14:30:12 Social History Question Answer Notes LastModified by Organizat ion Details LastModified Time Tobacco Smoking Status Current Every Day Smoker Shaina Curiel [facility] 07/21/2017 11:11:32 What Is Your Level Of Alcohol Consumption? None Information not available 07/21/2017 What Was The Date Of Your Most Recent Tobacco Screening? 08/30/2021 Information not available 08/30/2021 What Is Your Relationship Status? Information not available 06/29/2021 How Much Tobacco Do You Smoke? 0.5 PPD [email or web address] Information not available 07/21/2017 How Many Years Have You Smoked Tobacco? 8 [email or web address] Information not available 07/21/2017 Sex: Unknown Functional Status None recorded. Mental Status None recorded. Family History Relationship Description Onset Age of this Age Resolved Age Notes LastModified by Organization Details LastModified Time Mother Family history of malignant neoplasm skin [email or web address] Not available 07/21 11:10:57 Mother History of hypertension [email or web address] Not available 11:11:11 Father Family history of stroke [email or web address] Not available 07/21 11:11:23 Father Kidney stone Not availab le 06/29/2021 08:06:51 Medical History Condition Response Allergies/Hayfever Y Diabetes N Bleeding Disorder N Arthritis Y Kidney Stones Y High Cholesterol Y Anesthesia Complications N Acid Reflux (GERD) Y Cancer Y Hypertension Y Gynecological HistoryNo gynecological history recorded. Obstetrics History GPAL:G 0 P 0 0 0 0 Past Encounters Encounter ID Performer Location Encounter Start Date Encounter Closed Date Diagnosis/Indication Diagnosis SNOMED-CT Code Diagnosis ICD10 Code Diagnosis Note [id number] JANIYA DEVRIES MD [place] [facility] [address] [place] [address] 07/21/2017 10:47:11 07/21/2017 13:41:32 Bilateral tinnitus 6859520942 102 H93.13 L>R secondary to bilateral asymmetric sensorineu ral hearing loss most pronounced in the left ear Dysfunctio n of eustachian tube 52289145 H69.93 Asymmetric al sensorineural hearing loss 683361493 H90.5 Left ear =85 dB profound sensorineu ral hearing loss with poor discrimina tion of 24% Right ear = 40 dB sensorineu ral hearing loss with excellent discrimina tion 96% Sudden hearing loss 7947 1008 H91.22 -onset 2016 - Given round of oral steroids by Dr. Sewell 2 to 3 weeks after the initial onset of the hearing loss -MRI brain, lab tests 2017 Dr. Jacey Baca - ?? results Hypertroph y of nasal turbinates 87835863 J34.3 [id number] MÓNICA DE SANTIAGO [place] [facility] [employer] [place] [address] 07/21/2017 11:36:34 07/23/2017 10:18:14 Bilateral tinnitus 5101621638 102 H93.13 Sensorineu ral hearing loss of bilateral ears 329593893 H90.3 R: moderate SNHL; L: severe to profound SNHL Dysfunctio n of eustachian tube 15162884 H69.93 [id number] JANIYA DEVRIES MD [facility] [address] [place] [address] 08/04/2017 13:12:49 08/04/2017 14:17:35 Bilateral tinnitus 5289156797 102 H93.13 L>R secondary to bilateral asymmetric sensorineu ral hearing loss most pronounced in the left ear Asymmetric al sensorineural hearing loss 048463640 H90.5 Left ear = 85 dB profound sensorineu ral hearing loss with poor discrimina tion of 24% Right ear = 40 dB sensorineu ral hearing loss with excellent discrimina tion 96% Sudden hearing loss 7947 1008 H91.22 -onset 2016 - Given round of oral steroids by Dr. Sewell 2 to 3 weeks after the initial onset of the hearing loss -MRI brain, lab tests 2016 Dr. Jacey Baca - normal results Dysfunctio n of eustachian tube 40167030 H69.93 Hypertroph y of nasal turbinates 14053354 J34.3 [id number] JANIYA DEVRIES MD [facility] [address] [place] [address] 08/25/2017 09:07:50 08/25/2017 11:24:01 Asymmetrical sensorineural hearing loss 744791707 H90.5 Left ear = 85 dB profound sensorineu ral hearing loss with poor discrimina tion of 24% Right ear = 40 dB sensorineu ral hearing loss with excellent discrimina tion 96% -lyme, RPR, and CMP labs 08/04/17= normal -ESR labs 08/04/17= high (49) Sudden hearing loss 7947 1008 H91.22 -onset 2016 - Given round of oral steroids by Dr. Sewell 2 to 3 weeks after the initial onset of the hearing loss -MRI brain, lab tests 2017 Dr. Jacey Baca - normal results -lyme, RPR, and CMP labs 08/04/17= normal -ESR labs 08/04/17= high (49) Bilateral tinnitus 63200 08767 102 H93.13 L>R secondary to bilateral asymmetric sensorineu ral hearing loss most pronounced in the left ear Dysfunctio n of eustachian tube 10046469 H69.93 Hypertroph y of nasal turbinates 30614737 J34.3 Sensorineu ral hearing loss of bilateral ears 066118274 H90.3 [id number] MÓNICA CASTELLANO E[facility] [address] [place] [address] 08/25/2017 09:45:27 08/25/2017 17:15:33 Asymmetrical sensorineural hearing loss 696044253 H90.5 Dysfunctio n of eustachian tube 14489296 H69.93 Bilateral tinnitus 36174 62860 102 H93.13 [id number] MÓNICA CASTELLANO [facility] [address] [place] [address] 08/25/2017 10:54:48 08/25/2017 17:20:11 [id number] MÓNICA CASTELLANO [facility]NT [address] [place] [address] 09/02/2017 13:13:21 09/02/2017 16:24:45 [id number] MÓNICA CASTELLANO [facility] [address] [place] [address] 10/20/2017 10:48:11 10/20/2017 11:42:15 [id number] GREG ANN MD [facility] [address] [place] [address] ,[place] [address] 06/28/2021 15:59:18 06/28/2021 16:59:28 Recurrent urinary tract infection 134312445 N39.0 Urinary tr act infectious disease 79533609 N39.0 Atrophic vaginitis 55040 000 N95.2 [id number] GREG ANN MD [facility] [address] [address] 08/30/2021 14:22:42 09/04/2021 14:19:36 Urinary tract infectious disease 61019639 N39.0 Atrophic vaginitis 95519 000 N95.2 Recurrent urinary tract infection 463552556 N39.0 Health Concerns Section Related Observation LastModified by Organization Detai ls LastModified Time None Recorded Concern Status LastModified by Organization Details LastModified Time None Recorded Advance Directives Directive None Recorded Payers Encounter Date Sequence Insurance Name Policy Number Policy Villegas Covered Member ID Villegas Member ID Guarantor Name 08/25/2017 1 [employer] (MEDICARE REPLACEMENT/ ADVANTAGE - PPO) Danuta Pandya [id number] Danuta Pandya 09/02/2017 1 [employer] (MEDICARE REPLACEMENT/ ADVANTAGE - PPO) Danuta Pandya [id number] Danuta Pandya 10/20/2017 1 [employer] (MEDICARE REPLACEMENT/ ADVANTAGE - PPO) Danuta Pandya [id number] Danuta Pandya 06/28/2021 1 [employer] (MEDICARE REPLACEMENT/ ADVANTAGE - PPO) Danuta Pandya [id number] Danuta Pandya 08/30/2021 1 [employer] (MEDICARE REPLACEMENT/ ADVANTAGE - PPO) Danuta Pandya [id number] Danuta Pandya Notes Date Note Type Note Provider Name and Address Organization Details Recorded Time 08/25/2017 text/html Danuta returns for re-evaluation of progressive asymmetric hearing loss and sudden left hearing loss that occurred 10/2015. She had a VNG and an MRI of the brain that Dr. Baca ordered 01/2017 that were both normal. She had lyme, RPR, and CMP labs drawn 08/04/17 that were normal. He ESR labs drawn 08/04/17 that were high (49). She continues to complain of bilateral tinnitus L>R and does not feel her hearing has decreased since the last visit. She has difficulty hearing and understanding people when in a crowd. JANIYA DEVRIES MD [address] [place] [address], [phone], [facility] 08/25/2017 10:57:36 06/28/2021 text/html 71-year-old ame lepe in the office for my initial evaluation and for discussion of recurrent urinary infections. She reports recurrent UTIs for several years. She is a previous patient of Dr. Squires. She has rheumatoid arthritis treated with immunosuppression injections and methotrexate. She does take cranberry tablets for UTI suppression. She has recently initiated topical vaginal estrogen creams. She voids hourly. She denies daytime frequency. She denies hematuria or dysuria. She takes Pyridium as needed. Urine culture from June 16, 2021 showed Enterobacter, June 01, 2021 showed E. coli and Klebsiella, May 09, 2021 showed E. coli, April 2021 showed Klebsiella pneumoniae. GREG ANN MD [facility] [place], [address], [facility] 07/01/2021 14:13:55 08/30/2021 text/html 71-year-old ame lepe in the office for follow-up evaluation of recurrent urinary infections. No current hematuria or dysuria. She has suprapubic cramping though. She is immunosuppressed due to methotrexate. She follows with rheumatology. She has intolerance to topical vaginal estrogen cream with estradiol. GREG ANN MD [facility] [place], [address], [facility] 09/02/2021 21:27:10 OBGyn Episode No OBEpisode recorded.
== END 2024-08-09 13:58 | disposition home or self-care (01) ==
PROVIDERS: Emergency Provider Emergency Medicine; PCP Family Medicine
DX: I25.10 Atherosclerotic heart disease of native coronary artery without angina pectoris (principal); R79.89 Other specified abnormal findings of blood chemistry; R94.30 Abnormal result of cardiovascular function study, unspecified; R07.9 Chest pain, unspecified; R11.0 Nausea; R42 Dizziness and giddiness; F17.210 Nicotine dependence, cigarettes, uncomplicated; I73.9 Peripheral vascular disease, unspecified; I70.1 Atherosclerosis of renal artery; I10 Essential (primary) hypertension; E78.5 Hyperlipidemia, unspecified; M06.9 Rheumatoid arthritis, unspecified
CPT/HCPCS: 71045; 80053; 83735; 84436; 84443; 84484; 85025; 85378; 93005; 99285

== ENCOUNTER 2024-08-11 12:54 | Outpatient (CLI) | payer MEDICARE, SELFPAY ==
[2024-08-11] MEDS: SODIUM CHLORIDE 0.9% 10ML SYR (RAD ONLY) 10 ML IV (13:31)
[2024-08-11] MEDS: 0.9 % SODIUM CHLORIDE 50 ML VIAL IV (13:31)
[2024-08-11] MEDS: IOPAMIDOL-370 (76%);100ML BOTTLE 85 ML IV (13:32)
--- NOTE | 2024-08-11 15:00 | CT_ITS ---
FINAL REPORT TECHNIQUE: Thin section axial CT with contrast with multiplanar reconstruction This study was performed with techniques to keep radiation doses as low as reasonably achievable, (ALARA). Individualized dose reduction techniques using automated exposure control or adjustment of mA and/or kV according to the patient''s size were employed. CLINICAL HISTORY: elevated D-dimer, chest pain COMPARISON: 06/17/2024 FINDINGS: Pulmonary vessels enhance in normal fashion without evidence of embolism. Thoracic aorta shows no dissection or aneurysm. No pulmonary mass or infiltrate is present. There is mild left lower lobe scarring. There is no significant pleural effusion. There is no significant pericardial effusion. No mediastinal or hilar adenopathy is present. IMPRESSION: No acute findings. Reviewed, Interpreted and Dictated by Humble Dee MD Transcribed by Janett Cook Authenticated and [facility]
== END 2024-08-11 23:59 | disposition home or self-care (01) ==
LOC: RAD 12:55
PROVIDERS: PCP Family Medicine; Visit Provider Nurse Practitioner Family
DX: R79.89 Other specified abnormal findings of blood chemistry (principal); R94.30 Abnormal result of cardiovascular function study, unspecified; I25.10 Atherosclerotic heart disease of native coronary artery without angina pectoris
CPT/HCPCS: 71275; Q9967

== ENCOUNTER 2024-08-29 16:03 | Emergency (ER) | payer MEDICARE, SELFPAY ==
[2024-08-29] VITALS (10 sets, daily range): BP systolic 104–158; BP diastolic 63–89; PULSE 61–88; RESP 14–24; TEMP 36.6–37.2; O2SAT 91–97; BMI 23.8
--- NOTE | 2024-08-29 16:10 | ECG_ITS ---
APPROVED REPORT Exam: Resting ECG HR:78 bpm ECG Measurements Heart Rate 78 AXES OH 139 P 59 QRSd 92 QRS 44 QT 358 T 61 QTc 392 Conclusion SINUS RHYTHM NORMAL ECG Electronically signed by : JACKIE WORTHY, 08/29/2024 23:13:32
--- OUTSIDE RECORDS SUMMARY | 2024-08-29 16:11 | XMS_ITS ---
Laboratory report Created on: August 27, 2024 PHONG SMITH : 1950 Sex: Female Author Name KARINE CADENA Organization Unknown PROBLEMS Problems List Code Description I25.708 I25.10 RESULTS Laboratory Orders Date Order Code Test 2024-08-23 [id number] LIPOPROTEIN (A) Laboratory Results Date LOINC Test Value Unit Reference Range [facility] tation 2024-08-23 16288-5 LIPOPROTEIN (A) 359.4 NMOL/L <75.0 H
--- OUTSIDE RECORDS SUMMARY | 2024-08-29 16:11 | XMS_ITS | Data Portability ---
Author Organization [facility] SHOBHA Nichole ARLINGTON CLOSED Address [address] [place] [address] Care Team Providers Care Cda Teacher Name Role Phone CASS BACA Manager Sterile Processing SAMANTHA SEWELL Manager Sterile Processing [phone] MOHINDER AGEE Primary Care Provider Assessment Encounter [...] cream use for treatment of atrophic vaginitis. [email or web address] Not available 07/01/2021 14:13:28 08/30/2021 08/30/2021 Urine for culture and sensitivity. Methenamine for medical management of UTI prevention. We discussed need for adequate hydration. She will be changed to vaginal suppository instead of topical cream to see if benefit can be achieved without bothersome side effects. Not available 09/02/2021 21:26:44 Plan of Treatment Reminders Order Date Submit Date Provider Last Modified By Organization Details Last Modified Time Details Appointments None recorded. Lab urinalysis panel, auto 2021 022 [email or web address] [facility] [place] [facility], [address] [place] [address] [address] Tom, [place], [address], 07:54:32 culture, urine 2021 [facility], [address] [place], [address], 10:48:54 Referral None recorded. Procedures None recorded. Surgeries None recorded. Imaging None recorded. Medication Orders Vagifem 10 mcg vaginal tablet 2021 [facility], [address] [place], [address], 08:14:12 methenamine hippurate 1 gram tablet 2021 [facility], [address] [place], [address], 08:14:14 Patient TargetsNo targets recorded. Patient Instructions Encounter Date Encounter Id Patient Instructions Last Modified By Organization Details Last Modified Time 08/25/2017 [id number] eustachian tube problems: care instructions Not available 08/25/2017 10:14:52 hearing loss: care instructions [email or web address] Not available 08/25/2017 10:14:52 06/28/2021 [id number] learning about healthy weight [email or web address] Not available 07/01/2021 14:13:29 08/30/2021 [id number] learning about healthy weight [email or web address] Not available 08/31/2021 08:13:29 Reason for Referral None Reported. Results Created Date Observation Date Name Description Value Unit Range Abnormal Flag Note LastModifiedBy Organization Detail LastModifiedTime 08/05/19 18 08/04/2017 CMP, serum or plasm a glucose 96 mg/dL 74-100 normal Not Available [facility] [address] [place], [address], 08/04/2017 21:20:48 08/05/19 18 08/04/2017 CMP, serum or plasm a blood urea nitrogen 10 mg/dL 6-20 normal Not Available [facility] [address] [place] [address], [address], 08/04/2017 21:20:48 08/05/19 18 08/04/2017 CMP, serum or plasm a creatinine 0.82 mg/dL 0.50-0 .95 normal Not Available [facility] [address] [place] [address], [address], 08/04/2017 21:20:48 08/05/19 18 08/04/2017 CMP, serum or plasm a BUN/creatini ne ratio 12 (calc ) 10-20 normal Not Available [facility] [address] [place] [address], [address], 08/04/2017 21:20:48 08/05/19 18 08/04/2017 CMP, serum or plasm a sodium 141 mmol/ L 136-14 5 normal Not Available [facility] [address] [place] [address], [address], 08/04/2017 21:20:48 08/05/19 18 08/04/2017 CMP, serum or plasm a potassium 4.5 mmol/ L 3.4-5. 0 normal Not Available [facility] [address] [place] [address], [address], 08/04/2017 21:20:48 08/05/19 18 08/04/2017 CMP, serum or plasm a chloride 100 mmol/ L 98-107 normal Not Available [facility] [address] [place] [address], [address], 08/04/2017 21:20:48 08/05/19 18 08/04/2017 CMP, serum or plasm a carbon dioxide 27 mmol/ L 20-32 normal Not Available [facility] [address] [place] [address], [address], 08/04/2017 21:20:48 08/05/19 18 08/04/2017 CMP, serum or plasm a anion gap 14 (calc ) 7-25 normal Not Available [facility] [address] [place] [address], [address], 08/04/2017 21:20:48 08/05/19 18 08/04/2017 CMP, serum or plasm a calcium 9.6 mg/dL 8.6-10 .2 normal Not Available [facility] [address] [place] [address], [address], 08/04/2017 21:20:48 08/05/19 18 08/04/2017 CMP, serum or plasm a total protein 7.4 g/dL 6.4-8. 3 normal Not Available [facility] [address] [place] [address], [address], 08/04/2017 21:20:48 08/05/19 18 08/04/2017 CMP, serum or plasm a albumin 4.2 g/dL 3.5-5. 2 normal Not Available [facility] [address] [place] [address], [address], 08/04/2017 21:20:48 08/05/19 18 08/04/2017 CMP, serum or plasm a globulin 3.2 g/dL_ (calc ) 1.5-4. 5 normal Not Available [facility] [address] [place] [address], [address], 08/04/2017 21:20:48 08/05/19 18 08/04/2017 CMP, serum or plasm a albumin/glob ulin ratio 1.3 (calc ) 1.1-2. 5 normal Not Available [facility] [address] [place] [address], [address], 08/04/2017 21:20:48 08/05/19 18 08/04/2017 CMP, serum or plasm a bilirubin, total 0.5 mg/dL 0.1-1. 2 normal Not Available [facility] [address] [place] [address], [address], 08/04/2017 21:20:48 08/05/19 18 08/04/2017 CMP, serum or plasm a alkaline phosphatase 80 U/L 35-105 normal Not Available [facility] [address] [place], [address], 08/04/2017 21:20:48 08/05/19 18 08/04/2017 CMP, serum or plasm a AST 13 U/L 0-32 normal Not Available [facility] [address] [place] [address], [address], 08/04/2017 21:20:48 08/05/19 18 08/04/2017 CMP, serum or plasm a ALT 6 U/L 0-33 normal Not Available [facility] [address] [place] [address], [address], 08/04/2017 21:20:48 08/05/19 18 08/04/2017 CMP, serum or plasm a GFR 84 >= 60 normal Not Available [facility] [address] [place] [address], [address], 08/04/2017 21:20:48 08/05/19 18 08/04/2017 CMP, serum [...] s or longe r. . Not Available [facility] [address] [place], [address], 08/04/2017 21:20:48 08/05/19 18 08/04/2017 ESR (eryt hrocy te sedim entat ion rate) , blood ESR, automated 49 mm/HR 0-29 high Not Available [facility] [address] [place], [address], 08/04/2017 21:46:14 08/05/19 18 08/05/2017 RPR (rapi d plasm a reagi n), serum RPR NON-RE ACTIVE nonrea ctive normal Not Available [facility] [address] [place], [address], 08/05/2017 11:33:40 08/05/19 18 08/06/2017 lyme disea [...] S DARIN OLIVAREZ [address] [place] [address] TWIN Godfrey MD Not Available [facility] [address] [place], [address], 08/06/2017 13:40:54 08/05/19 18 08/06/2017 CHELO (anti [...] iatio n with disea ses at http: //[facility] catio n.Que stDia gnost ics.c om/ faq/F AQ177 TEST PERFO RMED AT: [facility] [address] [place] [address] TWIN Godfrey MD Not Available [facility] [address] [place], [address], 08/06/2017 16:41:09 08/31/19 22 08/30/2021 URINE CULTU RE results Sourc e: CCUR Colle cted: 08/30 14:33 Site: Recei sugar : 08/30 19:21 URINE CULTU RE FINAL 09/01 09:34 09/01 COLON Y COUNT : > 100,0 00 CFU/M L Three or more isola clyde; mixed skin reji . Not Available [facility] [address] [place] [address], [address], 09/01/2021 09:34:24 08/31/19 22 08/30/2021 urina lysis panel , auto Unknown Analyte Clean Catch Not Available [facility] [place] [facility] With [address], [place], [address], 08/30/2021 14:31:08 08/31/19 22 08/30/2021 urina lysis panel , auto Unknown Analyte Yellow Not Available [facility] [place] [facility] With [address], [place], [address], 08/30/2021 14:31:08 08/31/19 22 08/30/2021 urina lysis panel , auto Unknown Analyte Clear Not Available [facility] Services With [address], [place], [address], 08/30/2021 14:31:08 08/31/19 22 08/30/2021 urina lysis panel , auto Unknown Analyte 1.010 Not Available [facility] With [address], [place], [address], 08/30/2021 14:31:08 08/31/19 22 08/30/2021 urina lysis panel , auto Unknown Analyte 1.003- 1.035 Not Available [facility] With [address] [place], [address], 08/30/2021 14:31:08 08/31/19 22 08/30/2021 urina lysis panel , auto Unknown Analyte 6.0 Not Available [facility] With [address], [place], [address], 08/30/2021 14:31:08 08/31/19 22 08/30/2021 urina lysis panel , auto Unknown Analyte 5.0-8. 0 Not Available [facility] With [address], [place], [address], 08/30/2021 14:31:08 08/31/19 22 08/30/2021 urina lysis panel , auto Unknown Analyte 75 Randall/ul (+) Not Available [facility] With [address] [place], [address], 08/30/2021 14:31:08 08/31/19 22 08/30/2021 urina lysis panel , auto Unknown Analyte Negati ve Not Available [facility] [place] [facility] With [address] [place], [address], 08/30/2021 14:31:08 08/31/19 22 08/30/2021 urina lysis panel , auto Unknown Analyte POSITI VE (Abnor mal) Not Available [facility] With [address] [place], [address], 08/30/2021 14:31:08 08/31/19 22 08/30/2021 urina lysis panel , auto Unknown Analyte Negati ve Not Available [facility] With [address] [place], [address], 08/30/2021 14:31:08 08/31/19 22 08/30/2021 urina lysis panel , auto Unknown Analyte Negati ve Not Available [facility] With [address] [place], [address], 08/30/2021 14:31:08 08/31/19 22 08/30/2021 urina lysis panel , auto Unknown Analyte Negati ve Not Available [facility] With [address] [place], [address], 08/30/2021 14:31:08 08/31/19 22 08/30/2021 urina lysis panel , auto Unknown Analyte Normal Not Available [facility] Services With [address] [place], [address], 08/30/2021 14:31:08 08/31/19 22 08/30/2021 urina lysis panel , auto Unknown Analyte Normal Not Available [facility] With [address] [place], [address], 08/30/2021 14:31:08 08/31/19 22 08/30/2021 urina lysis panel , auto Unknown Analyte Negati ve Not Available [facility] [place] [facility] With [address], [place], [address], 08/30/2021 14:31:08 08/31/19 22 08/30/2021 urina lysis panel , auto Unknown Analyte Negati ve Not Available [facility] [place] [facility] With [address] [place], [address], 08/30/2021 14:31:08 08/31/19 22 08/30/2021 urina lysis panel , auto Unknown Analyte 1 mg/dl Not Available [facility] With [address] [place], [address], 08/30/2021 14:31:08 08/31/19 22 08/30/2021 urina lysis panel , auto Unknown Analyte Normal 1 mg/dl Not Available [facility] With [address] [place], [address], 08/30/2021 14:31:08 08/31/19 22 08/30/2021 urina lysis panel , auto Unknown Analyte Negati ve Not Available [facility] With [address] [place], [address], 08/30/2021 14:31:08 08/31/19 22 08/30/2021 urina lysis panel , auto Unknown Analyte Negati ve Not Available [facility] [address] [place], [address], 08/30/2021 14:31:08 08/31/19 22 08/30/2021 urina lysis panel , auto Unknown Analyte Negati ve Not Available [facility] [place] [facility] With [address], [place], [address], 08/30/2021 14:31:08 08/31/19 22 08/30/2021 urina lysis panel , auto Unknown Analyte Negati ve Not Available [facility] [place] [facility] With [address], [place], [address], 08/30/2021 14:31:08 08/06/19 18 02/11/2017 US, duple x, carot id arter y No observ ation record ed. BARCODE Not Available 2017 10:15:14 08/06/19 18 01/21/2017 MRI, brain , w/wo contr ast No observ ation record ed. [email or web address] Not Available 2017 12:47:37 Result Notes None recorded. Problems No Known Problems Procedures Surgical History Date Name Laterality Status Provider Name and Address Organization Details Recorded Time 08/26/19 18 Tympanogram completed NICHELLE STACY AUD [address] [place], [address], [facility] 08/25/2017 10:14:03 08/26/19 18 Audiogram completed NICHELLE STACY AUD [address] [place], [address], [facility] 08/25/2017 10:14:02 07/22/19 18 Tympanogram completed ERIC BAUTISTA AUD [address] [place], [address], [facility] 07/21/2017 11:37:12 07/22/19 18 Audiogram completed ERIC BAUTISTA AUD [address] [place] [place], [address], [facility] 07/21/2017 11:37:11 07/22/19 18 Audiogram completed Aarti Hein [facility] 07/21/2017 11:43:47 [facility] 11:12:44 [facility]ste[facility]revise vagina [facility] 11:12:52 Imaging Results Imaging Date Name Status LastModified by Organiz ation Details LastModified Time 02/11/2017 US, duplex, carotid artery completed BARCODE Information not available 08/05/2017 10:15:14 01/21/2017 MRI, brain, w/wo contrast completed [email or web address] Information not available 08/05/2017 12:47:37 Procedure Notes None recorded. Medical Equipment None Reported. Allergies Allergen ID Allergen Name Allergen Category Reaction Reaction Severity Criticality Documentation Date Start Date Code Code System Note Provider Name and Address Organization Details Recorded Time 377173 lisinopri l medicatio n anaphylax is severe Not available 07/21/2017 65281 RxNorm Shaina Curiel [facility] 8 11:06:04 Medications Name Sig Start Date [...] Updated DateTime 8 160.02 cm 25 kg/m2 65800.9 2 g 99.2 [degF] 77 /min 127 mm[Hg] 73 mm[Hg] Shaina Curiel [facility] 8 09:38:01 Date Recorded Body height Body mass index (BMI) Body weight Provider Name and Address Organization Details Last Updated DateTime 06/28/2021 160.02 cm 24.1 kg/m2 04670.56 g Holly Man [facility] 06/29/2021 08:00:48 Date Recorded Body height Body mass index (BMI) Body weight Provider Name and Address Organization Details Last Updated DateTime 08/30/2021 160.02 cm 24.1 kg/m2 59241.56 g Holly Man [facility] 08/30/2021 14:30:12 Social History Question Answer Notes LastModified by Organizat ion Details LastModified Time Tobacco Smoking Status Current Every Day Smoker Shaina Curiel [facility] 07/21/2017 11:11:32 What Is Your Level Of Alcohol Consumption? None [email or web address] Information not available 07/21/2017 What Was The Date Of Your Most Recent Tobacco Screening? 08/30/2021 Information not available 08/30/2021 What Is Your Relationship Status? Information not available 06/29/2021 How Much Tobacco Do You Smoke? 0.5 PPD [email or web address] Information not available 07/21/2017 How Many Years Have You Smoked Tobacco? 8 [email or web address] Information not available 07/21/2017 Sex: Unknown Functional Status None recorded. Mental Status None recorded. Family History Relationship Description Onset Age of this Age Resolved Age Notes LastModified by Organization Details LastModified Time Mother Family history of malignant neoplasm skin [email or web address] Not available 07/21 11:10:57 Mother History of hypertension [email or web address] Not available 11:11:11 Father Family history of stroke [email or web address] Not available 07/21 11:11:23 Father Kidney stone Not availab le 06/29/2021 08:06:51 Medical History Condition Response Kidney Stones Y Arthritis Y Acid Reflux (GERD) Y Cancer Y Bleeding Disorder N Anesthesia Complications N High Cholesterol Y Allergies/Hayfever Y Diabetes N Hypertension Y Gynecological HistoryNo gynecological history recorded. Obstetrics History GPAL:G 0 P 0 0 0 0 Past Encounters Encounter ID Performer Location Encounter Start Date Encounter Closed Date Diagnosis/Indication Diagnosis SNOMED-CT Code Diagnosis ICD10 Code Diagnosis Note [id number] JANIYA DEVRIES MD [place] [facility] [address] [place] [address] 07/21/2017 10:47:11 07/21/2017 13:41:32 Bilateral tinnitus 9195568978 102 H93.13 L>R secondary to bilateral asymmetric sensorineu ral hearing loss most pronounced in the left ear Dysfunctio n of eustachian tube 67213051 H69.93 Asymmetric al sensorineural hearing loss 035801269 H90.5 Left ear =85 dB profound sensorineu [...] ?? results Hypertroph y of nasal turbinates 17440386 J34.3 [id number] MÓNICA DE SANTIAGO [place] [facility] [address] [place] [address] 07/21/2017 11:36:34 07/23/2017 10:18:14 Bilateral tinnitus 5308347600 102 H93.13 Sensorineu ral hearing loss of bilateral ears 287633833 H90.3 R: moderate SNHL; L: severe to profound SNHL Dysfunctio n of eustachian tube 11892132 H69.93 [id number] JANIYA DEVRIES MD [facility] [address] [place] [address] 08/04/2017 13:12:49 08/04/2017 14:17:35 Bilateral tinnitus 5385320575 102 H93.13 L>R secondary to bilateral asymmetric sensorineu ral hearing loss most pronounced in the left ear Asymmetric al sensorineural hearing loss 364337760 H90.5 Left ear = 85 dB profound [...] normal results Dysfunctio n of eustachian tube 64697659 H69.93 Hypertroph y of nasal turbinates 34431085 J34.3 [id number] JANIYA DEVRIES MD [facility] [address] [place] [address] 08/25/2017 09:07:50 08/25/2017 11:24:01 Asymmetrical sensorineural hearing loss 154067176 H90.5 Left ear = 85 dB profound [...] -ESR labs 08/04/17= high (49) Bilateral tinnitus 96597 77138 102 H93.13 L>R secondary to bilateral asymmetric sensorineu ral hearing loss most pronounced in the left ear Dysfunctio n of eustachian tube 15670973 H69.93 Hypertroph y of nasal turbinates 12149813 J34.3 Sensorineu ral hearing loss of bilateral ears 875163292 H90.3 [id number] MÓNICA CASTELLANO ENT [address] [place] [address] 08/25/2017 09:45:27 08/25/2017 17:15:33 Asymmetrical sensorineural hearing loss 115128650 H90.5 Dysfunctio n of eustachian tube 11596306 H69.93 Bilateral tinnitus 97967 02536 102 H93.13 [id number] MÓNICA CASTELLANO ENT [address] [place] [address] 08/25/2017 10:54:48 08/25/2017 17:20:11 [id number] MÓNICA CASTELLANO [address]NT [address] [place] [address] 09/02/2017 13:13:21 09/02/2017 16:24:45 [id number] MÓNICA CASTELLANO [address]NT [address] [place] [address] 10/20/2017 10:48:11 10/20/2017 11:42:15 [id number] GREG ANN MD [facility] [address] [place] [address] ,[place] [address] 06/28/2021 15:59:18 06/28/2021 16:59:28 Recurrent urinary tract infection 216383002 N39.0 Urinary tr act infectious disease 40355533 N39.0 Atrophic vaginitis 66934 000 N95.2 [id number] GREG ANN MD [facility] [address] [address] 08/30/2021 14:22:42 09/04/2021 14:19:36 Urinary tract infectious disease 26958108 N39.0 Atrophic vaginitis 71999 000 N95.2 Recurrent urinary tract infection 670865476 N39.0 Health Concerns Section Related Observation LastModified by Organization Detai ls LastModified Time None Recorded Concern Status LastModified by Organization Details LastModified Time None Recorded Advance Directives Directive None Recorded Payers Encounter Date Sequence Insurance Name Policy Number Policy Villegas Covered Member ID Villegas Member ID Guarantor Name 08/25/2017 1 [employer] (MEDICARE REPLACEMENT/ ADVANTAGE - PPO) Danuta Pandya [id number] Danuta Pandya 09/02/2017 1 [employer] (MEDICARE REPLACEMENT/ ADVANTAGE - PPO) Danuta Pandya [id number] Danuta Pandya 10/20/2017 1 [employer] (MEDICARE REPLACEMENT/ ADVANTAGE - PPO) Danuta Pandya [id number] Danuta Pandya 06/28/2021 1 [employer] (MEDICARE REPLACEMENT/ ADVANTAGE - PPO) Danuta Pandya [id number] Danuta Pandya 08/30/2021 1 [employer] (MEDICARE REPLACEMENT/ ADVANTAGE - PPO) Danuta Pandya [id number] Danuta Pandya Notes Date Note Type Note Provider Name and Address Organization Details Recorded Time 08/25/2017 text/html aDnuta returns for re-evaluation of progressive asymmetric hearing [...] when in a crowd. JANIYA DEVRIES MD [address] [place] [address], [address], [facility] 08/25/2017 10:57:36 06/28/2021 text/html 71-year-old ame [...] 2021 showed Klebsiella pneumoniae. GREG ANN MD [facility] [place], [address], [facility] 07/01/2021 14:13:55 08/30/2021 text/html 71-year-old ame lepe in the office for follow-up evaluation of recurrent urinary infections. No current hematuria or dysuria. She has suprapubic cramping though. She is immunosuppressed due to methotrexate. She follows with rheumatology. She has intolerance to topical vaginal estrogen cream with estradiol. GREG ANN MD [facility] [place], [address], [facility] 09/02/2021 21:27:10 OBGyn Episode No OBEpisode recorded.
--- NOTE | 2024-08-29 16:18 | HMH.EDGENADL ---
Discharge Plan Disposition Patient Disposition: Home, Self-Care Condition: Good Prescriptions Prescriptions: New metoprolol tartrate 25 mg tablet 12.5 mg PO BID 14 Days Qty: 14 0RF Discontinued metoprolol succinate [Toprol XL] 25 mg tablet extended release 24 hr 25 mg PO DAILY Qty: 30 5RF No Action fluticasone propionate 50 mcg/actuation spray,suspension 2 spray NS DAILY 30 Days Qty: 16 2RF cyclosporine [Restasis] 0.05 % dropperette 1 drp Eye-Both BID Metamucil 3.4 gram/5.4 gram powder 1 tbsp PO DAILY Rx Instructions: mix into at least 8 oz of water or juice before administering polyethylene glycol 3350 [Miralax] 17 gram/dose powder 17 g PO DAILY buspirone 10 mg tablet 10 mg PO DAILY Qty: 90 3RF melatonin 5 mg capsule 5 mg PO HS PRN (Reason: Sleep) alprazolam 0.25 mg tablet 0.25 mg PO HS PRN (Reason: sleep) Qty: 30 0RF folic acid 1 mg tablet 1 mg PO DAILY 90 Days Qty: 90 0RF Rx Instructions: Take folic acid every day that methotrexate is not taken Prolia 60 mg/mL syringe 60 mg SQ [id number] Qty: 1 1RF methotrexate sodium 2.5 mg tablet 7.5 mg PO QWEEK 84 Days Qty: 36 0RF Jardiance 10 mg tablet 10 mg PO DAILY Qty: 90 3RF ranolazine 1,000 mg tablet extended release 12 hr 1,000 mg PO BID Qty: 60 2RF ezetimibe 10 mg tablet 10 mg PO DAILY Patient Comments: TAKE 1 TABLET 1 TIME EACH DAY losartan-hydrochlorothiazide 50-12.5 mg tablet 1 tab PO DAILY Rx Instructions: Pt to take 1/2 tablet daily methenamine hippurate 1 gram tablet See Rx Instructions .ROUTE .COMPLEX Qty: 90 1RF Dose Instruction: TAKE 1 TABLET 1 TIME EACH DAY Rx Instructions: TAKE 1 TABLET 1 TIME EACH DAY rosuvastatin 40 mg tablet 40 mg PO DAILY Qty: 90 2RF spironolactone [Aldactone] 25 mg tablet 25 mg PO DAILY Qty: 30 2RF pantoprazole [Protonix] 40 mg tablet,delayed release (DR/EC) 40 mg PO DAILY Qty: 30 2RF aspirin 81 MG tablet,delayed release (DR/EC) 81 mg PO DAILY cetirizine 10 MG tablet 10 mg PO DAILY PRN (Reason: allergies) Enbrel SureClick 50 mg/mL (1 mL) pen injector 50 mg SQ . Referrals Follow up/Referrals: Teo Goldman MD [Primary Care Provider] - See instructions Activity Restrictions/Add. Instructions Additional Instructions/Restrictions: As we discussed, your labs including heart enzymes levels which indicate any ongoing damage to your heart, are within normal limits. Based off your history and physical exam, my concern is that your lower blood pressures at home may be causing some of your symptoms. My recommendation is to discontinue the long-acting metoprolol which you are previously prescribed. That medication is 25 mg and an extended release tablet that last 24 hours. I changed the prescription to 12.5 mg which is 1/2 tablet to be used twice daily. I would use this only if your blood pressure is greater than 130 systolic which is the top number. If it is not, I would not take the medication as your other blood pressure medications are likely effective for you. As we discussed, this is to help control your symptoms until you are able to follow-up with a primary care doctor or a night clerk auditor who can look over your medications more and determine next best steps. Please return with any new or worsening symptoms. Clinical Impressions Clinical Impression: Symptomatic hypotension, Acute chest pain Print Language Print Language: Nigerian Discharge ED Provider: Butch Tenorio Adult HPI General Chief complaint: Chest Pain Stated complaint: Pressure chest,SOA,VASQUES Time Seen by Provider: 08/29/24 16:18 History of Present Illness HPI narrative: Patient presents for evaluation of shortness of breath, gradual in onset, starting approximately 4 days ago. She also describes associated intermittent chest pressure that is substernal and nonradiating nonpleuritic. No previous therapies. She did have recent change in blood pressure medications and recent initiation of Zetia. No fevers or chills. She has been measuring her blood pressure at home which has been reading on average 100-1 20s systolic. She is unsure of what her blood pressure normally runs outside of the last 4 days of measurements. Please note that above description of symptoms, in this electronic medical record under categorization of recalled from ER triage doctor by RN are reflective of an initial nursing assessment, however, is not reflective of my full history and physical exam that was personally taken and clarified. Consequentially, this preceding description of symptoms, which may include the patient's categorized chief complaint in the EMR, do not reflect my personal clinical impression, and the ultimate description of history of present illness and patient stated complaints should be deferred to this section of the note. Unless stated otherwise or congruent with this section of the note, additional signs, symptoms, or incongruence should be interpreted as inaccurate with my clinical impression. Related Data Home Medications ?Medication ?Instructions ?Recorded ?Confirmed aspirin 81 mg tablet,delayed 81 mg PO DAILY Heart Health 10/14/17 08/31/24 release cetirizine 10 mg tablet 10 mg PO DAILY PRN allergies 08/01/21 08/31/24 etanercept 50 mg/mL (1 mL) 50 mg SQ . 09/21/23 08/31/24 subcutaneous pen injector (Enbrel SureClick) cyclosporine 0.05 % eye drops in a 1 drp Eye-Both BID 04/05/24 08/31/24 dropperette (Restasis) melatonin 5 mg capsule 5 mg PO HS PRN Sleep 07/13/24 08/31/24 polyethylene glycol 3350 17 17 g PO DAILY 07/22/24 08/31/24 gram/dose oral powder (Miralax) psyllium husk 3.4 gram/5.4 gram 1 tbsp PO DAILY 07/22/24 08/31/24 oral powder (Metamucil) ezetimibe 10 mg tablet 10 mg PO DAILY 08/31/24 08/31/24 losartan 50 mg-hydrochlorothiazide 1 tab PO DAILY 08/31/24 12.5 mg tablet Previous Rx's ?Medication ?Instructions ?Recorded denosumab 60 mg/mL subcutaneous 60 mg SQ [id number] osteoporosis #1 10/17/23 syringe (Prolia) mL fluticasone propionate 50 2 spray intranasal DAILY Allergies 11/26/23 mcg/actuation nasal 30 days #16 grams spray,suspension methotrexate sodium 2.5 mg tablet 7.5 mg (3 x 2.5 mg) PO QWEEK 12 12/31/23 weeks #36 tabs methenamine hippurate 1 gram tablet See Rx Instructions .Route 02/18/24 .COMPLEX #90 tabs rosuvastatin 40 mg tablet 40 mg PO DAILY #90 tabs 04/30/24 buspirone 10 mg tablet 10 mg PO DAILY #90 tabs 07/22/24 pantoprazole 40 mg tablet,delayed 40 mg PO DAILY #30 tabs 08/09/24 release (Protonix) spironolactone 25 mg tablet 25 mg PO DAILY #30 tabs 08/09/24 (Aldactone) empagliflozin 10 mg tablet 10 mg PO DAILY #90 tabs 08/11/24 (Jardiance) ranolazine 1,000 mg 1,000 mg PO BID #60 tabs 08/17/24 tablet,extended release,12 hr alprazolam 0.25 mg tablet 0.25 mg PO HS PRN sleep #30 tabs 08/18/24 metoprolol tartrate 25 mg tablet 12.5 mg (1/2 x 25 mg) PO BID 14 08/29/24 days #14 tabs folic acid 1 mg tablet 1 mg PO DAILY Supplement 90 days 08/30/24 #90 tabs Allergies Allergy/AdvReac Type Severity Reaction Status Date / Time lisinopril (LISINOPRIL) Allergy Severe S-ANAPHYLAX Verified 08/31/24 09:59 IS ciprofloxacin (From Cipro) AdvReac Intermediate Joint Verified 08/31/24 09:59 Pain/muscle aches PFSH PFSH Disclaimer: The information contained in this section may have been updated after the patient was seen, as this information can be updated by other users. Medical History Hypercalcemia SOB (shortness of breath) Dizziness Diabetes mellitus Elevated d-dimer Elevated left ventricular end-diastolic pressure (LVEDP) CAD (coronary artery disease) Tobacco user Dyspnea Arteriosclerosis, mesenteric artery Abnormal electrocardiogram [ECG] [EKG] ISMAEL (renal artery stenosis) PAD (peripheral artery disease) Atypical angina Parathyroid abnormality Left ear pain Sore throat Fatigue Elevated parathyroid hormone Functional dyspepsia Bloating Anxiety Kidney stone Hyperlipidemia Allergies Urinary tract infection History of gastroesophageal reflux (GERD) Rheumatoid arthritis Hypertension Surgical History History of ERCP History of hysterectomy History of cholecystectomy History of colonoscopy Family History Other Family history of diabetes mellitus Social History Smoking Status: Current every day smoker tobacco type: cigarettes packs per day: 1 alcohol intake: never substance use type: denies use current occupational status: retired Travel in the last 8 weeks?: None household members: spouse housing: house caffeine: Yes Have you lived/traveled outside [place] in past 30 days?: No Contact w/someone who lives/traveled outside [place] past 30 days?: No Exposure to someone with infectious disease in past 14 days?: No Do you have a fever (greater than 100.4 F or 38 C)?: No Have you tested positive for COVID-19?: No Exposed to someone with COVID-19 in past 14 days?: No Do you have a sore throat?: No Do you have a cough?: No Do you have shortness of breath?: No Do you have a headache?: No Do you have any weakness?: No Are you experiencing any nausea/vomitting?: No Do you have any diarrhea?: No Are you experiencing any unusual bleeding?: No Do you have any muscle aches/pain?: No Do you have any abdominal pain?: No Are you experiencing loss of taste or smell?: No Other Medical History Have you received the Flu Vaccine for this season: No Have you received the Pneumonia Vaccine: No ROS Obtained: Yes other As per HPI Physical Exam General General appearance: alert and in no apparent distress Head Head exam: atraumatic and normocephalic Eye Eye exam: Present normal appearance Neck Neck exam: Present normal inspection Chest Chest inspection: Present normal inspection and symmetric chest wall rise Respiratory Respiratory exam: Present normal lung sounds bilaterally; Absent respiratory distress Cardiovascular Cardiovascular exam: Present regular rate and normal rhythm Abdominal Exam Abdominal exam: Present soft Neurological Exam Neurological exam: Present alert and oriented X3 Psychiatric Psychiatric exam: Present normal affect and normal mood Skin Skin exam: Present warm and dry Medical Decision Making Medical Records Medical records reviewed: Yes I reviewed the patient's medical records. Screening: Per USPSTF and CDC recommendations, given the prevalence of disease in our region, it is our hospital?s policy to screen for HIV and viral Hepatitis for all patients aged 18 and over and those with ongoing risk factors. Guevara Inquiry Pt receiving controlled substance: No Vital Signs: 08/29/24 16:10 08/29/24 16:16 08/29/24 16:16 Temperature 97.8 F Temperature Source Oral Pulse Rate 78 63 Pulse Rate [Left Radial] 88 Respiratory Rate 23 22 24 Blood Pressure 158/89 H 150/77 H Blood Pressure [Right Arm] 158/89 H Blood Pressure Mean [Right Arm] 112 Blood Pressure Source Automatic Cuff Automatic Cuff Blood Pressure Source [Right Arm] Automatic Cuff Blood Pressure Position Blood Pressure Position [Right Arm] Supine 02 Sat by Pulse Oximetry 97 96 97 Oxygen Delivery Method Room Air Room Air Room Air 08/29/24 16:30 08/29/24 17:00 08/29/24 17:30 Temperature Temperature Source Pulse Rate 71 78 72 Pulse Rate [Left Radial] Respiratory Rate 21 14 23 Blood Pressure 152/80 H 125/68 146/72 H Blood Pressure [Right Arm] Blood Pressure Mean [Right Arm] Blood Pressure Source Blood Pressure Source [Right Arm] Blood Pressure Position Blood Pressure Position [Right Arm] 02 Sat by Pulse Oximetry 96 96 95 Oxygen Delivery Method Room Air Room Air Room Air 08/29/24 18:00 08/29/24 18:03 08/29/24 18:06 Temperature Temperature Source Pulse Rate 67 69 84 Pulse Rate [Left Radial] Respiratory Rate 19 15 22 Blood Pressure 135/78 145/75 H 104/63 L Blood Pressure [Right Arm] Blood Pressure Mean [Right Arm] Blood Pressure Source Blood Pressure Source [Right Arm] Blood Pressure Position Blood Pressure Position [Right Arm] 02 Sat by Pulse Oximetry 94 L 96 91 L Oxygen Delivery Method Room Air Room Air Room Air 08/29/24 18:30 08/29/24 20:17 Temperature 98.9 F Temperature Source Pulse Rate 69 61 Pulse Rate [Left Radial] Respiratory Rate 15 17 Blood Pressure 117/69 134/71 Blood Pressure [Right Arm] Blood Pressure Mean [Right Arm] Blood Pressure Source Blood Pressure Source [Right Arm] Blood Pressure Position Sitting Blood Pressure Position [Right Arm] 02 Sat by Pulse Oximetry 96 Oxygen Delivery Method Room Air Room Air Lab Data Lab Results 08/29/24 16:12: WBC 8.1, RBC 5.04, Hgb 15.7, Hct 45.5, MCV 90.3, MCH 31.2, MCHC 34.5, RDW 14.4, Plt Count 272, MPV 10.2, Neut % (Auto) 69.4, Lymph % (Auto) 23.6, Castro % (Auto) 6.0, Eos % (Auto) 0.5, Baso % (Auto) 0.4, Neut # (Auto) 5.6, Lymph # (Auto) 1.9, Castro # (Auto) 0.5, Eos # (Auto) 0.0, Baso # (Auto) 0.0, Sodium 140, Potassium 3.9, Chloride 107, Carbon Dioxide 26, Anion Gap 10.9, BUN 15, Creatinine 1.10 H, Estimated Creat Clear 41, Estimated GFR 48 L, Est GFR ( Amer) 58 L, Glucose 130 H, Calcium 10.5 H, Magnesium 1.7, Total Bilirubin 0.6, AST 22, ALT 14, Alkaline Phosphatase 108, Total Creatine Kinase 41, Troponin I < 0.01, NT-Pro-B Natriuret Pep 152, Total Protein 7.5, Albumin 4.6, Globulin 2.9, Albumin/Globulin Ratio 1.6, Lipase 155 08/29/24 19:08: Troponin I < 0.01 08/29/24 16:12 08/29/24 16:12 Orders (Tests/Meds): ED MEDICATIONS Discontinued Medications Generic Name Dose Route Start Last Admin Trade Name Freq PRN Reason Stop Dose Admin Nitroglycerin 0.4 mg 08/29/24 17:15 08/29/24 18:03 Nitroglycerin 0.4mg Sl Tablet SL 09/28/24 17:14 0.4 mg Q5MINP PRN Administration Chest Pain ORDERS Category Date Time Status XR chest 2V Stat Exams 08/29/24 16:34 Completed BNP [NT Pro Brain Natriuretic Pep.] Stat Lab 08/29/24 16:12 Completed CBC w/Auto Diff [Complete Blood Count Auto Diff] Stat Lab 08/29/24 16:12 Completed CK [Creatine Kinase] Stat Lab 08/29/24 16:12 Completed CMP [Comprehensive Metabolic Panel] Stat Lab 08/29/24 16:12 Completed Lipase Stat Lab 08/29/24 16:12 Completed MAG [Magnesium] Stat Lab 08/29/24 16:12 Completed Troponin I Q3H Lab 08/29/24 16:12 Completed Troponin I Q3H Lab 08/29/24 19:08 Completed HEART Score History (anamnesis): Slightly suspicious ECG: Non-specific disturbance Age: >65 years Risk factors: Atherosclerosis history Troponin: </= normal limit HEART Score: 5 Medical Decision Narrative: Patient with history and exam per above presenting for evaluation of multiple complaints including fatigue, chest pain Diagnoses considered include symptomatic hypotension, ACS, among others ED workup and treatment included: ED MEDICATIONS Discontinued Medications Generic Name Dose Route Start Last Admin Trade Name Freq PRN Reason Stop Dose Admin Nitroglycerin 0.4 mg 08/29/24 17:15 08/29/24 18:03 Nitroglycerin 0.4mg Sl Tablet SL 09/28/24 17:14 0.4 mg Q5MINP PRN Administration Chest Pain ORDERS Category Date Time Status XR chest 2V Stat Exams 08/29/24 16:34 Completed BNP [NT Pro Brain Natriuretic Pep.] Stat Lab 08/29/24 16:12 Completed CBC w/Auto Diff [Complete Blood Count Auto Diff] Stat Lab 08/29/24 16:12 Completed CK [Creatine Kinase] Stat Lab 08/29/24 16:12 Completed CMP [Comprehensive Metabolic Panel] Stat Lab 08/29/24 16:12 Completed Lipase Stat Lab 08/29/24 16:12 Completed MAG [Magnesium] Stat Lab 08/29/24 16:12 Completed Troponin I Q3H Lab 08/29/24 16:12 Completed Troponin I Q3H Lab 08/29/24 19:08 Completed Labs were independently interpreted by me, significant for no acute findings Imaging was independently visualized and interpreted by me, significant for no acute findings Please refer to radiology report for full details. My clinical impression at this time is most consistent with likely symptomatic hypotension, and low clinical index of suspicion for ACS or CHF exacerbation. Patient will follow-up with primary care physician. Metoprolol dosing was switched to short acting and as needed for systolic greater than 140 I discussed my clinical impression with patient and answered all questions. At this time, the evidence for any other entities in the differential is insufficient to warrant any further testing or ED observation. This was explained to the patient. The patient was advised that persistent or worsening symptoms require further evaluation. Critical Care Critical Care Time Critical Care Time: No
--- NOTE | 2024-08-29 16:34 | XR_ITS ---
PROCEDURE INFORMATION: Exam: XR Chest Exam date and time: 08/29/2024 4:30 PM Age: 74 years old Clinical indication: Shortness of breath; Additional info: SOA, crackles in lung bases TECHNIQUE: Imaging protocol: Radiologic exam of the chest. Views: 2 views. Total images: 2 COMPARISON: CT ANGIO CHEST PE PROTOCOL 08/11/2024 1:03 PM FINDINGS: Lungs: Bilateral hyperinflation is present. No focal pneumonia. Atelectatic changes noted within both lung bases. Pleural spaces: Unremarkable. No pleural effusion. No pneumothorax. Heart/Mediastinum: The heart is not enlarged. Vasculature: Mild atherosclerotic disease. Bones/joints: Rightward curvature of the thoracic spine with mild degenerative changes. IMPRESSION: 1. Bilateral hyperinflation is present. 2. No focal pneumonia. 3. Atelectatic changes noted within both lung bases.
[2024-08-29 16:45] LABS: Basophils % 0.4 % (0.1-2.0); Eosinophils % 0.5 % (0.1-12.0); Hematocrit 45.5 % (37.0-47.0); Hemoglobin 15.7 g/dL (12.2-16.2); Lymphocytes # 1.9 K/mm3 (0.7-4.5); Lymphocytes % 23.6 % (10-50); Mean Corpuscular HGB Conc 34.5 g/dL (31.8-35.4); Mean Corpuscular Hemoglobin 31.2 pg (27.0-31.2); Mean Corpuscular Volume 90.3 fl (81-99); Mean Platelet Volume 10.2 fl (7.4-10.4); Monocytes # 0.5 K/mm3 (0.1-1.0); Neutrophils # 5.6 K/mm3 (1.8-7.8); Neutrophils % 69.4 % (37.0-80.0); Nucleated Red Blood Cells # 0 10^3/uL; Nucleated Red Blood Cells % 0 %; Platelet Count 272 K/mm3 (142-424); Red Blood Count 5.04 M/mm3 (4.20-5.40); Red Cell Distribution Width 14.4 % (11.5-17.5); Red Cell Distribution Width-SD 47.3 fL; White Blood Count 8.1 K/mm3 (4.8-10.8)
[2024-08-29 16:48] LABS: Albumin Level 4.6 g/dl (3.5-5.0); Chloride 107 mmol/L (98-107); Potassium 3.9 mmoL/L (3.5-5.1); Sodium 140 mmol/L (136-145)
[2024-08-29 16:50] LABS: Alanine Aminotransferase 14 U/L (12-78); Aspartate Amino Transferase 22 U/L (14-36); Blood Urea Nitrogen 15 mg/dl (7-17); Creatinine Clearance Estimated 41 mL/min (50-200); Estimated Glomerular Filt Rate 48 ml/min (>60); GFR (African American) 58 ML/MIN (>60)
[2024-08-29 16:51] LABS: Albumin/Globulin Ratio 1.6 (1.1-1.8); Alkaline Phosphatase 108 U/L (38-126); Anion Gap 10.9 mEq/L (5-15); Bilirubin,Total 0.6 mg/dl (0.2-1.3); Calcium 10.5 mg/dl (8.4-10.2); Carbon Dioxide 26 mmol/L (22.0-30.0); Creatine Kinase 41 U/L (30-135); Globulin 2.9 g/dL (1.3-3.2); Glucose 130 mg/dl (74-100); Lipase 155 U/L (23-300); Magnesium 1.7 mg/dl (1.6-2.3); Total Protein,Serum 7.5 g/dl (6.3-8.2)
[2024-08-29 17:01] LABS: NT Pro Brain Natriuretic Pep. 152 pg/mL (0-450)
[2024-08-29 17:04] LABS: Troponin I < 0.01 ng/ml (0.00-0.034)
[2024-08-29] MEDS: NITROGLYCERIN 0.4MG SL TABLET 0.4 MG SL (18:03)
[2024-08-29 19:39] LABS: Troponin I < 0.01 ng/ml (0.00-0.034)
== END 2024-08-29 20:18 | disposition home or self-care (01) ==
PROVIDERS: Emergency Provider Emergency Medicine; PCP Family Medicine
DX: R07.89 Other chest pain (principal); I95.89 Other hypotension
CPT/HCPCS: 71046; 80053; 82550; 83690; 83735; 83880; 84484; 85025; 93005; 99285

== ENCOUNTER 2024-10-21 08:20 | Outpatient (CLI) | payer MEDICARE, SELFPAY ==
[2024-10-21 16:46] LABS: Basophils % 0.4 % (0.1-2.0); Eosinophils # 0.1 Kmm3 (0.0-0.4); Hematocrit 48.3 % (37.0-47.0); Hemoglobin 15.3 g/dL (12.2-16.2); Immature Granulocytes # 0.01 10^3uL; Immature Granulocytes % 0.1 %; Lymphocytes # 1.3 K/mm3 (0.7-4.5); Lymphocytes % 19.1 % (10-50); Mean Corpuscular HGB Conc 31.7 g/dL (31.8-35.4); Mean Corpuscular Volume 94.7 fl (81-99); Mean Platelet Volume 10.7 fl (7.4-10.4); Monocytes # 0.4 K/mm3 (0.1-1.0); Monocytes % 6.4 % (1.7-9.3); Nucleated Red Blood Cells # 0 10^3/uL; Nucleated Red Blood Cells % 0 %; Platelet Count 246 K/mm3 (142-424); Red Cell Distribution Width-SD 51.6 fL; White Blood Count 6.9 K/mm3 (4.8-10.8)
[2024-10-21 17:12] LABS: Anion Gap 10.6 mEq/L (5-15); Blood Urea Nitrogen 21 mg/dl (7-17); Carbon Dioxide 27 mmol/L (22.0-30.0); Chloride 106 mmol/L (98-107); Estimated Glomerular Filt Rate 48 ml/min (>60); Potassium 4.6 mmoL/L (3.5-5.1); Sodium 139 mmol/L (136-145)
[2024-10-21 17:13] LABS: Alanine Aminotransferase 10 U/L (12-78); Albumin Level 4.4 g/dl (3.5-5.0); Albumin/Globulin Ratio 1.6 (1.1-1.8); Alkaline Phosphatase 124 U/L (38-126); Aspartate Amino Transferase 22 U/L (14-36); Bilirubin,Total 1.2 mg/dl (0.2-1.3); Calcium 11.3 mg/dl (8.4-10.2); Chol/HDL Ratio 3.8 (1-3.5); Cholesterol 177 mg/dl (140-200); GFR (African American) 58 ML/MIN (>60); Globulin 2.7 g/dL (1.3-3.2); Glucose 98 mg/dl (74-100); HDL Cholesterol 47 mg/dl (40-60); Total Protein,Serum 7.1 g/dl (6.3-8.2); Triglycerides 207 mg/dl (30-150); VLDL Cholesterol 41 mg/dL (0-40)
[2024-10-21 17:24] LABS: Direct LDL Cholesterol 81.69 mg/dL (100-129)
[2024-10-21 17:38] LABS: Hemoglobin A1C 6.1 % (4.0-6.0)
--- OUTSIDE RECORDS SUMMARY | 2024-10-22 14:02 | XMS_ITS | Data Portability ---
Author Organization [facility] SHOBHA Nichole [place] Address [address] [place] [address] Care Team Providers Care Senior Lead Project Manager Name Role Phone CASS BACA Keycase Assembler SAMANTHA SEWELL Keycase Assembler MOHINDER AGEE Primary Care Provider Assessment Encounter [...] cream use for treatment of atrophic vaginitis. [email or web address] Not available 07/01/2021 14:13:28 08/30/2021 08/30/2021 Urine for culture and sensitivity. Methenamine for medical management of UTI prevention. We discussed need for adequate hydration. She will be changed to vaginal suppository instead of topical cream to see if benefit can be achieved without bothersome side effects. [email or web address] Not available 09/02/2021 21:26:44 Plan of Treatment Reminders Order Date Submit Date Provider Last Modified By Organization Details Last Modified Time Details Appointments None recorded. Lab urinalysis panel, auto 2021 022 [email or web address] [facility] [place] [facility] With [facility], [address] [place] [address] [address] Tom, [place], [address], 07:54:32 culture, urine 2021 [facility], [address] [place], [address], 10:48:54 Referral None recorded. Procedures None recorded. Surgeries None recorded. Imaging None recorded. Medication Orders Vagifem 10 mcg vaginal tablet 2021 [facility], [address] [place], [address], 08:14:12 methenamine hippurate 1 gram tablet 2021 [facility], [address] [place], [address], 08:14:14 Patient TargetsNo targets recorded. Patient Instructions Encounter Date Encounter Id Patient Instructions Last Modified By Organization Details Last Modified Time 08/25/2017 [id number] eustachian tube problems: care instructions [email or web address] Not available 08/25/2017 10:14:52 hearing loss: care instructions [email or web address] Not available 08/25/2017 10:14:52 06/28/2021 [id number] learning about healthy weight [email or web address] Not available 07/01/2021 14:13:29 08/30/2021 [id number] learning about healthy weight [email or web address] Not available 08/31/2021 08:13:29 Reason for Referral None Reported. Results Created Date Observation Date Name Description Value Unit Range Abnormal Flag Note LastModifiedBy Organization Detail LastModifiedTime 08/05/19 18 08/04/2017 CMP, serum or plasm a glucose 96 mg/dL 74-100 normal Not Available [facility] [address] [place], [address], 08/04/2017 21:20:48 08/05/19 18 08/04/2017 CMP, serum or plasm a blood urea nitrogen 10 mg/dL 6-20 normal Not Available [facility] [address] [place] [address], [address], 08/04/2017 21:20:48 08/05/19 18 08/04/2017 CMP, serum or plasm a creatinine 0.82 mg/dL 0.50-0 .95 normal Not Available [facility] [address] [place] [address], [address], 08/04/2017 21:20:48 08/05/19 18 08/04/2017 CMP, serum or plasm a BUN/creatini ne ratio 12 (calc ) 10-20 normal Not Available [facility] [address] [place] [address], [address], 08/04/2017 21:20:48 08/05/19 18 08/04/2017 CMP, serum or plasm a sodium 141 mmol/ L 136-14 5 normal Not Available [facility] [address] [place] [address], [address], 08/04/2017 21:20:48 08/05/19 18 08/04/2017 CMP, serum or plasm a potassium 4.5 mmol/ L 3.4-5. 0 normal Not Available [facility] [address] [place] [address], [address], 08/04/2017 21:20:48 08/05/19 18 08/04/2017 CMP, serum or plasm a chloride 100 mmol/ L 98-107 normal Not Available [facility] [address] [place] [address], [address], 08/04/2017 21:20:48 08/05/19 18 08/04/2017 CMP, serum or plasm a carbon dioxide 27 mmol/ L 20-32 normal Not Available [facility] [address] [place] [address], [address], 08/04/2017 21:20:48 08/05/19 18 08/04/2017 CMP, serum or plasm a anion gap 14 (calc ) 7-25 normal Not Available [facility] [address] [place] [address], [address], 08/04/2017 21:20:48 08/05/19 18 08/04/2017 CMP, serum or plasm a calcium 9.6 mg/dL 8.6-10 .2 normal Not Available [facility] [address] [place] [address], [address], 08/04/2017 21:20:48 08/05/19 18 08/04/2017 CMP, serum or plasm a total protein 7.4 g/dL 6.4-8. 3 normal Not Available [facility] [address] [place] [address], [address], 08/04/2017 21:20:48 08/05/19 18 08/04/2017 CMP, serum or plasm a albumin 4.2 g/dL 3.5-5. 2 normal Not Available [facility] [address] [place] [address], [address], 08/04/2017 21:20:48 08/05/19 18 08/04/2017 CMP, serum or plasm a globulin 3.2 g/dL_ (calc ) 1.5-4. 5 normal Not Available [facility] [address] [place] [address], [address], 08/04/2017 21:20:48 08/05/19 18 08/04/2017 CMP, serum or plasm a albumin/glob ulin ratio 1.3 (calc ) 1.1-2. 5 normal Not Available [facility] [address] [place] [address], [address], 08/04/2017 21:20:48 08/05/19 18 08/04/2017 CMP, serum or plasm a bilirubin, total 0.5 mg/dL 0.1-1. 2 normal Not Available [facility] [address] [place] [address], [address], 08/04/2017 21:20:48 08/05/19 18 08/04/2017 CMP, serum or plasm a alkaline phosphatase 80 U/L 35-105 normal Not Available [facility] [address] [place], [address], 08/04/2017 21:20:48 08/05/19 18 08/04/2017 CMP, serum or plasm a AST 13 U/L 0-32 normal Not Available [facility] [address] [place] [address], [address], 08/04/2017 21:20:48 08/05/19 18 08/04/2017 CMP, serum or plasm a ALT 6 U/L 0-33 normal Not Available [facility] [address] [place] [address], [address], 08/04/2017 21:20:48 08/05/19 18 08/04/2017 CMP, serum or plasm a GFR 84 >= 60 normal Not Available [facility] [address] [place] [address], [address], 08/04/2017 21:20:48 08/05/19 18 08/04/2017 CMP, serum [...] s or longe r. . Not Available [facility] [address] [place], [address], 08/04/2017 21:20:48 08/05/19 18 08/04/2017 ESR (eryt hrocy te sedim entat ion rate) , blood ESR, automated 49 mm/HR 0-29 high Not Available [facility] [address] [place], [address], 08/04/2017 21:46:14 08/05/19 18 08/05/2017 RPR (rapi d plasm a reagi n), serum RPR NON-RE ACTIVE nonrea ctive normal Not Available [facility] [address] [place], [address], 08/05/2017 11:33:40 08/05/19 18 08/06/2017 lyme disea [...] S DARIN OLIVAREZ [address] [place] [address] TWIN Godfrey MD Not Available [facility] [address] [place], [address], 08/06/2017 13:40:54 08/05/19 18 08/06/2017 CHELO (anti [...] iatio n with disea ses at http: //[facility] catio n.Que stDia gnost ics.c om/ faq/F AQ177 TEST PERFO RMED AT: [facility] [address] [place] [address] TWIN Godfrey MD Not Available [facility] [address] [place], [address], 08/06/2017 16:41:09 08/31/19 22 08/30/2021 URINE CULTU RE results Sourc e: CCUR Colle cted: 08/30 14:33 Site: Recei sugar : 08/30 19:21 URINE CULTU RE FINAL 09/01 09:34 09/01 COLON Y COUNT : > 100,0 00 CFU/M L Three or more isola clyde; mixed skin reji . Not Available [facility] [address] [place] [address], [address], 09/01/2021 09:34:24 08/31/19 22 08/30/2021 urina lysis panel , auto Unknown Analyte Clean Catch Not Available [facility] [place] [facility] With [address] Tom, [place], [address], 08/30/2021 14:31:08 08/31/19 22 08/30/2021 urina lysis panel , auto Unknown Analyte Yellow Not Available [facility] [place] [facility] With [address], [place], [address], 08/30/2021 14:31:08 08/31/19 22 08/30/2021 urina lysis panel , auto Unknown Analyte Clear Not Available [facility] Services With [address], [place], [address], 08/30/2021 14:31:08 08/31/19 22 08/30/2021 urina lysis panel , auto Unknown Analyte 1.010 Not Available [facility] Extended Services With [address], [place], [address], 08/30/2021 14:31:08 08/31/19 22 08/30/2021 urina lysis panel , auto Unknown Analyte 1.003- 1.035 Not Available [facility] Services With [address] [place], [address], 08/30/2021 14:31:08 08/31/19 22 08/30/2021 urina lysis panel , auto Unknown Analyte 6.0 Not Available [facility] Extended Services With [address], [place], [address], 08/30/2021 14:31:08 08/31/19 22 08/30/2021 urina lysis panel , auto Unknown Analyte 5.0-8. 0 Not Available [facility] Services With [address], [place], [address], 08/30/2021 14:31:08 08/31/19 22 08/30/2021 urina lysis panel , auto Unknown Analyte 75 [address]/ul (+) Not Available [facility] Extended Services With [address] [place], [address], 08/30/2021 14:31:08 08/31/19 22 08/30/2021 urina lysis panel , auto Unknown Analyte Negati ve Not Available [facility] [place] [facility] With [address] [place], [address], 08/30/2021 14:31:08 08/31/19 22 08/30/2021 urina lysis panel , auto Unknown Analyte POSITI VE (Abnor mal) Not Available [facility] Extended Services With [address] [place], [address], 08/30/2021 14:31:08 08/31/19 22 08/30/2021 urina lysis panel , auto Unknown Analyte Negati ve Not Available [facility] Services With [address] [place], [address], 08/30/2021 14:31:08 08/31/19 22 08/30/2021 urina lysis panel , auto Unknown Analyte Negati ve Not Available [facility] Extended Services With [address] [place], [address], 08/30/2021 14:31:08 08/31/19 22 08/30/2021 urina lysis panel , auto Unknown Analyte Negati ve Not Available [facility] Services With [address] [place], [address], 08/30/2021 14:31:08 08/31/19 22 08/30/2021 urina lysis panel , auto Unknown Analyte Normal Not Available [facility] Extended Services With [address] [place], [address], 08/30/2021 14:31:08 08/31/19 22 08/30/2021 urina lysis panel , auto Unknown Analyte Normal Not Available [facility] Extended Services With [address] [place], [address], 08/30/2021 14:31:08 08/31/19 22 08/30/2021 urina lysis panel , auto Unknown Analyte Negati ve Not Available [facility] [place] [facility] With [address], [place], [address], 08/30/2021 14:31:08 08/31/19 22 08/30/2021 urina lysis panel , auto Unknown Analyte Negati ve Not Available [facility] [place] [facility] With [address] [place], [address], 08/30/2021 14:31:08 08/31/19 22 08/30/2021 urina lysis panel , auto Unknown Analyte 1 mg/dl Not Available [facility] Extended Services With [address] [place], [address], 08/30/2021 14:31:08 08/31/19 22 08/30/2021 urina lysis panel , auto Unknown Analyte Normal 1 mg/dl Not Available [facility] Extended Services With [address] [place], [address], 08/30/2021 14:31:08 08/31/19 22 08/30/2021 urina lysis panel , auto Unknown Analyte Negati ve Not Available [facility] Extended Services With [address] [place], [address], 08/30/2021 14:31:08 08/31/19 22 08/30/2021 urina lysis panel , auto Unknown Analyte Negati ve Not Available [facility] With [address] [place], [address], 08/30/2021 14:31:08 08/31/19 22 08/30/2021 urina lysis panel , auto Unknown Analyte Negati ve Not Available [facility] [place] [facility] With [address], [place], [address], 08/30/2021 14:31:08 08/31/19 22 08/30/2021 urina lysis panel , auto Unknown Analyte Negati ve Not Available [facility] [place] [facility] With [address], [place], [address], 08/30/2021 14:31:08 08/06/19 18 02/11/2017 US, duple x, carot id arter y No observ ation record ed. BARCODE Not Available 2017 10:15:14 08/06/19 18 01/21/2017 MRI, brain , w/wo contr ast No observ ation record ed. [email or web address] Not Available 2017 12:47:37 Result Notes None recorded. Problems No Known Problems Procedures Surgical History Date Name Laterality Status Provider Name and Address Organization Details Recorded Time 08/26/19 18 Tympanogram completed NICHELLE STACY AUD [address] [place], [address], [facility] 08/25/2017 10:14:03 08/26/19 18 Audiogram completed NICHELLE STACY AUD [address] [place], [address], [facility] 08/25/2017 10:14:02 07/22/19 18 Tympanogram completed ERIC BAUTISTA AUD [address] [place], [address], [facility] 07/21/2017 11:37:12 07/22/19 18 Audiogram completed ERIC BAUTISTA AUD [address] [place], [address], [facility] 07/21/2017 11:37:11 07/22/19 18 Audiogram completed Aarti Hein [facility] 07/21/2017 11:43:47 [facility] 11:12:44 [facility]ste[facility]revise vagina [facility] 11:12:52 Imaging Results None recorded. Procedure Notes None recorded. Medical Equipment None Reported. Allergies Allergen ID Allergen Name Allergen Category Reaction Reaction Severity Criticality Documentation Date Start Date Code Code System Note Provider Name and Address Organization Details Recorded Time 720707 lisinopri l medicatio n anaphylax is severe Not available 07/21/2017 69867 RxNorm Shaina Curiel [facility] 8 11:06:04 Medications Name Sig Start [...] TO THE AFFECTED AREA(S) FOUR TIMES DAILY 02/25 /2022 completed Not Available Not Available Not Available [...] Updated DateTime 06/28/2021 160.02 cm 24.1 kg/m2 13442.56 g Holly Man [facility] 06/29/2021 08:00:48 Date Recorded Body height Body mass index (BMI) Body weight Body temperature Heart rate Systolic blood pressure Diastolic blood pressure Provider Name and Address Organization Details Last Updated DateTime 8 160.02 cm 25 kg/m2 43213.9 2 g 99.2 [degF] 77 /min 127 mm[Hg] 73 mm[Hg] Shaina Curiel [facility] 8 09:38:01 Date Recorded Body height Body mass index (BMI) Body weight Provider Name and Address Organization Details Last Updated DateTime 08/30/2021 160.02 cm 24.1 kg/m2 55479.56 g Holly Man [facility] 08/30/2021 14:30:12 Social History Question Answer Notes LastModified by Organizat ion Details LastModified Time Tobacco Smoking Status Current Every Day Smoker Shaina Curiel [facility] 07/21/2017 11:11:32 What Was The Date Of Your Most Recent Tobacco Screening? 08/30/2021 Information not available 08/30/2021 What Is Your Relationship Status? Information not available 06/29/2021 How Much Tobacco Do You Smoke? 0.5 PPD [email or web address] Information not available 07/21/2017 How Many Years Have You Smoked Tobacco? 8 [email or web address] Information not available 07/21/2017 Sex: Unknown Functional Status Question Answer Note LastModified by Organization D etails LastModified Time What is your level of alcohol consumption? None [email or web address] Information not available 07/21/2017 Mental Status None recorded. Family History Relationship Description Onset Age of this Age Resolved Age Notes LastModified by Organization Details LastModified Time Mother Family history of malignant neoplasm skin [email or web address] Not available 07/21 11:10:57 Mother History of hypertension [email or web address] Not available 11:11:11 Father Family history of stroke [email or web address] Not available 07/21 11:11:23 Father Kidney stone [...] SNOMED-CT Code Diagnosis ICD10 Code Diagnosis Note [id number] JANIYA DEVRIES MD [facility] [address] [place] [address] 07/21/2017 10:47:11 07/21/2017 13:41:32 Bilateral tinnitus 2261045954 102 H93.13 L>R secondary to bilateral asymmetric sensorineu ral hearing loss most pronounced in the left ear Dysfunctio n of eustachian tube 50112810 H69.93 Asymmetric al sensorineural hearing loss 253746880 H90.5 Left ear =85 dB profound sensorineu [...] ?? results Hypertroph y of nasal turbinates 74839333 J34.3 [id number] MÓNICA DE SANTIAGO [place] [facility] [address] [place] [address] 07/21/2017 11:36:34 07/23/2017 10:18:14 Bilateral tinnitus 7572450612 102 H93.13 Sensorineu ral hearing loss of bilateral ears 761819887 H90.3 R: moderate SNHL; L: severe to profound SNHL Dysfunctio n of eustachian tube 43923191 H69.93 [id number] JANIYA DEVRIES MD [facility] [address] [place] [address] 08/04/2017 13:12:49 08/04/2017 14:17:35 Bilateral tinnitus 4944852032 102 H93.13 L>R secondary to bilateral asymmetric sensorineu ral hearing loss most pronounced in the left ear Asymmetric al sensorineural hearing loss 694579983 H90.5 Left ear = 85 dB profound [...] normal results Dysfunctio n of eustachian tube 81513645 H69.93 Hypertroph y of nasal turbinates 34575762 J34.3 [id number] JANIYA DEVRIES MD [facility] [address] [place] [address] 08/25/2017 09:07:50 08/25/2017 11:24:01 Asymmetrical sensorineural hearing loss 871220984 H90.5 Left ear = 85 dB profound [...] -MRI brain, lab tests 2017 Dr. Jacey Cecilia - normal results -lyme, RPR, and CMP labs 08/04/17= normal -ESR labs 08/04/17= high (49) Bilateral tinnitus 21943 97236 102 H93.13 L>R secondary to bilateral asymmetric sensorineu ral hearing loss most pronounced in the left ear Dysfunctio n of eustachian tube 56303006 H69.93 Hypertroph y of nasal turbinates 36984944 J34.3 Sensorineu ral hearing loss of bilateral ears 455959310 H90.3 [id number] MÓNICA [address]STELLANO [address] [place] [address] 08/25/2017 09:45:27 08/25/2017 17:15:33 Asymmetrical sensorineural hearing loss 279349615 H90.5 Dysfunctio n of eustachian tube 23385212 H69.93 Bilateral tinnitus 54516 81999 102 H93.13 [id number] MÓNICA CASTELLANO [address]NT [address] [place] [address] 08/25/2017 10:54:48 08/25/2017 17:20:11 [id number] MÓNICA [address]STELLANO [address] [place] [address] 09/02/2017 13:13:21 09/02/2017 16:24:45 [id number] MÓNICA [address]STELLANO [address] [place] [address] 10/20/2017 10:48:11 10/20/2017 11:42:15 [id number] [facility] [address] [address] 06/28/2021 15:59:18 06/28/2021 16:59:28 Recurrent urinary tract infection 273908096 N39.0 Urinary tr act infectious disease 51871877 N39.0 Atrophic vaginitis 47868 000 N95.2 [id number] GREG ANN MD [facility] [address],[place] [address] 08/30/2021 14:22:42 09/04/2021 14:19:36 Urinary tract infectious disease 21910307 N39.0 Atrophic vaginitis 49230 000 N95.2 Recurrent urinary tract infection 139706632 N39.0 Health Concerns Section Related Observation LastModified by Organization Detai ls LastModified Time None Recorded Concern Status LastModified by Organization Details LastModified Time None Recorded Advance Directives Directive None Recorded Payers Insurance Date Sequence Insurance Name Policy Number Policy Villegas Covered Member ID Villegas Member ID Guarantor Name 09/04/2021 1 [employer] (MEDICARE REPLACEMENT/ ADVANTAGE - PPO) Danuta Pandya [id number] Danuta Pandya Notes Date Note Type Note [...] when in a crowd. JANIYA DEVRIES MD [address] [place] [address], [address], [facility] 08/25/2017 10:57:36 06/28/2021 text/html 71-year-old fema le in the office for my initial evaluation [...] 2021 showed Klebsiella pneumoniae. GREG ANN MD [address] [place] [address], [address], [facility] 07/01/2021 14:13:55 08/30/2021 text/html 71-year-old fema le in the office for follow-up evaluation of recurrent urinary infections. No current hematuria or dysuria. She has suprapubic cramping though. She is immunosuppressed due to methotrexate. She follows with rheumatology. She has intolerance to topical vaginal estrogen cream with estradiol. GREG ANN MD [address] [place] [address], [place], [address], [facility] 09/02/2021 21:27:10 OBGyn Episode No OBEpisode recorded.
== END 2024-10-21 23:59 | disposition home or self-care (01) ==
LOC: LAB.DROPOF 10-22 13:57
PROVIDERS: PCP Nurse Practitioner Family; Visit Provider Nurse Practitioner Family
DX: I25.10 Atherosclerotic heart disease of native coronary artery without angina pectoris (principal); E11.9 Type 2 diabetes mellitus without complications; E78.5 Hyperlipidemia, unspecified
CPT/HCPCS: 80053; 80061; 83036; 85025

== ENCOUNTER 2024-11-09 17:34 | Outpatient (CLI) | payer MEDICARE, SELFPAY ==
[2024-11-09 19:12] LABS: Anion Gap 18.7 mEq/L (5-15); Blood Urea Nitrogen 24 mg/dl (7-17); Calcium 10.8 mg/dl (8.4-10.2); Carbon Dioxide 28 mmol/L (22.0-30.0); Chloride 97 mmol/L (98-107); Creatinine,Serum 1.20 mg/dl (0.52-1.04); Estimated Glomerular Filt Rate 44 ml/min (>60); GFR (African American) 53 ML/MIN (>60); Glucose 128 mg/dl (74-100); Magnesium 1.8 mg/dl (1.6-2.3); Potassium 4.7 mmoL/L (3.5-5.1); Sodium 139 mmol/L (136-145)
== END 2024-11-09 23:59 | disposition home or self-care (01) ==
LOC: LAB.DROPOF 17:37
PROVIDERS: Visit Provider Nurse Practitioner Family
DX: I25.118 Atherosclerotic heart disease of native coronary artery with other forms of angina pectoris (principal); I10 Essential (primary) hypertension
CPT/HCPCS: 80048; 83735

== ENCOUNTER 2024-12-23 09:33 | Outpatient (CLI) | payer MEDICARE, SELFPAY ==
--- NOTE | 2024-12-23 09:41 | XR_ITS ---
FINAL REPORT CLINICAL HISTORY: Low back pain with left hip pain COMPARISON: None FINDINGS: LEFT HIP: Two views of the left hip demonstrate no acute fracture or dislocation. The joint spaces appear normal. The visualized bony structures are well aligned. No soft tissue abnormality is seen. IMPRESSION: No acute bony abnormality. Reviewed, Interpreted and Dictated by Taz Patrick MD Transcribed by Ginger Galvan Authenticated and [facility]
--- NOTE | 2024-12-23 09:41 | XR_ITS ---
FINAL REPORT CLINICAL HISTORY: right hip pain COMPARISON: None FINDINGS: RIGHT HIP Two views of the right hip demonstrate no acute fracture or dislocation. The joint spaces appear normal. The visualized bony structures are well aligned. Mild vascular calcifications are noted. No soft tissue abnormality is seen. IMPRESSION: No acute bony abnormality. Reviewed, Interpreted and Dictated by Taz Patrick MD Transcribed by Ginger Galvan Authenticated and . [facility]
--- NOTE | 2024-12-23 09:41 | XR_ITS ---
FINAL REPORT CLINICAL HISTORY: low back pain COMPARISON: None FINDINGS: 3 views of the lumbar spine were obtained. There is no evidence of fracture. The vertebrae are normal in height. There is minimal spondylolisthesis of L3 on L4 and moderate spondylolisthesis of L5 on S1. There is advanced disc space narrowing of L4-5 and moderate disc space narrowing of L5-S1. There is moderate facet sclerosis in the lower lumbar spine. No paraspinous soft tissue abnormalities identified. IMPRESSION: Degenerative changes without acute process. Reviewed, Interpreted and Dictated by Taz Patrick MD Transcribed by Ginger Galvan Authenticated and [facility]
--- OUTSIDE RECORDS SUMMARY | 2024-12-23 09:45 | XMS_ITS | Encounter Summary ---
[facility] Address [address] [place] [address] Care Team Providers Care Before And After School Daycare Worker Name Role Phone Teo Goldman MD Primary Care Provider +1- [phone] Encounter Details Date Type Department Care Team (Late st Contact Info) Description 12/14/2024 Telephone [facility] RHEUMATOLOGY [address] [address] Carmen Skaggs, Conservation Agent Social History Tobacco Use Types Packs/Day Years Used Date Smoking Tobacco: Every Day Cigarettes 0.5 20.6 Started: 2004 Smokeless Tobacco: Never Alcohol Use Standard Drinks/Week Comments Not Currently 0 (1 standard drink = 0.6 oz pur e alcohol) Comments Unknown Sex and Gender Information Value Date Recorded Sex Assigned at Not on file Legal Sex Female 11:48 AM EDT Gender Identity Not on file Sexual Orientation Not on file documented as of this encounter Miscellaneous Notes * Telephone Encounter - Carmen Skaggs Conservation Agent - 12/14/2024 10:23 AM EDT Spoke with patients son, he is going over to his moms later and is going to have her give us a call. Our number is showing scam likely on their end and he thinks that is why she wont answer, even though we have left voicemails. documented in this encounter Plan of Treatment Upcoming Encounters Date Type Department Care Team (Late st Contact Info) Description 02/09/2025 1:15 PM EDT Office Visit [facility] RHEUMATOLOGY [address] [place] [address] Mesfin Lniares APRN [address] [facility] [address] [place] [address] documented as of this encounter Goals Goal Patient Goal Type Associated Problems Recent Progress Patient-Stated? Author Specialty Pharmacy General Goal General On track( 025 3:41 PM EDT) No Steff Argueta, AngelesD Note: Reduce number of flares and pain score. 3.20.25: Patient reports medication works great, less pain and flares 8.12.25: No change from previous assessment. Adherence not correct due to several doses on hand from samples. documented as of this encounter Visit Diagnoses Not on filedocumented in this encounter Care Teams Before And After School Daycare Worker Relationship Specialty Start Date End Date Teo Goldman MD [address] [place] [address] PCP - General Family Medicine 02/16/24 documented as of this encounter
--- OUTSIDE RECORDS SUMMARY | 2024-12-23 09:45 | XMS_ITS | Encounter Summary ---
[facility] Address [address] [place] [address] Care Team Providers Care Awning Hanger Supervisor Name Role Phone Teo Goldman MD Primary Care Provider +1- [phone] Encounter Details Date Type Department Care Team (Late st Contact Info) Description 12/07/2024 Telephone [facility] RHEUMATOLOGY [address] [address] Megan Rausch, Build Technician Social History Tobacco Use Types Packs/Day Years [...] encounter Miscellaneous Notes * Telephone Encounter - Aleksey Gilbert RegSched Rep - 12/07/2024 4:40 PM EDT PT'S LAST APPT WAS FEB 2024 WITH DOT, PT SCHEDULED 02/09/25 WITH DOT. -ZC * Telephone Encounter - Megan Rausch, Build Technician - 12/07/2024 12:14 PM EDT Pt needs an appointment before we can send her anymore refills documented in this encounter Plan of Treatment Upcoming Encounters Date Type Department Care Team (Late st Contact Info) Description 02/09/2025 1:15 PM EDT Office Visit [facility] RHEUMATOLOGY [address] [facility] [place] [phone] Mesfin Linares APRN 330 [facility] [address] [place] [address] documented as of this encounter Goals Goal [...] on filedocumented in this encounter Care Teams Awning Hanger Supervisor Relationship Specialty Start Date End Date Teo Goldman MD [address] [place] [address] PCP - General Family Medicine 02/16/24 documented as of this encounter
--- OUTSIDE RECORDS SUMMARY | 2024-12-23 09:45 | XMS_ITS | Encounter Summary ---
Author Organization [facility] Address [address] [place] [address] Care Team Providers Care Medical Assisting Program Director Name Role Phone Teo Goldman MD Primary Care Provider +1- [phone] Encounter Details Date Type Department Care Team (Late st Contact Info) Description 08/24/2024 Results Follow-Up [facility] [place] [address] [place] [address] Lonnie Bettencourt MD [address] [facility] [address] [place] [address] Social History Tobacco Use Types Packs/Day Years [...] on file documented as of this encounter Progress Notes * Lonnie Bettencourt MD - 08/24/2024 10:07 AM EDT Cholesterol not under ideal control. Would suggest adding zetia 10 mg. Cmp, lipid panel, hscrp in 2months. documented in this encounter Plan of Treatment Upcoming Encounters Date Type Department Care Team (Late st Contact Info) Description 02/09/2025 1:15 PM EDT Office Visit [facility] RHEUMATOLOGY [address] [place] [address] Mesfin Linares APRN [address] [place] [address] documented as of this encounter Goals Goal [...] on filedocumented in this encounter Care Teams Medical Assisting Program Director Relationship Specialty Start Date End Date Teo Goldman MD [address] [place] [address] PCP - General Family Medicine 02/16/24 documented as of this encounter
--- OUTSIDE RECORDS SUMMARY | 2024-12-23 09:45 | XMS_ITS ---
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
--- OUTSIDE RECORDS SUMMARY | 2024-12-23 09:45 | XMS_ITS | Encounter Summary ---
[facility] [address] [place] [address] Care Team Providers Care Mechanical Development Engineer Name Role Phone Teo Goldman MD Primary Care Provider +1- [phone] Encounter Details Date Type Department Care Team (Late st Contact Info) Description 12/14/2024 Telephone [facility] RHEUMATOLOGY [address] [address] Carmen Skaggs, Kicking Machine Operator Social History Tobacco Use Types Packs/Day Years [...] on file documented as of this encounter Plan of Treatment Upcoming Encounters Date Type Department Care Team (Late st Contact Info) Description 02/09/2025 1:15 PM EDT Office Visit [facility] RHEUMATOLOGY [address] [address] Mesfin Linares APRN [address] [id number] documented as of this encounter Goals Goal Patient Goal Type Associated Problems Recent Progress Patient-Stated? Author Specialty Pharmacy General Goal General On track( 025 3:41 PM EDT) No Argueta, Steff, PharmD Note: Reduce number of flares and pain score. 3.20.25: Patient reports medication works great, less pain and flares 8.12.25: No change from previous assessment. Adherence not correct due to several doses on hand from samples. documented as of this encounter Visit Diagnoses Not on filedocumented in this encounter Care Teams Mechanical Development Engineer Relationship Specialty Start Date End Date Teo Goldman MD [address] [place] [address] PCP - General Family Medicine 02/16/24 documented as of this encounter
--- OUTSIDE RECORDS SUMMARY | 2024-12-23 09:45 | XMS_ITS | Encounter Summary ---
[facility] Address [address] [place] [address] Care Team Providers Care Cement Production Plant Operator Name Role Phone Teo Goldman MD Primary Care Provider +1- [phone] Encounter Details Date Type Department Care Team (Late st Contact Info) Description 10/29/2024 Telephone [facility] RHEUMATOLOGY [address] [place] [address] Carmen Skaggs Bank Boss Social History Tobacco Use Types Packs/Day Years [...] Notes * Telephone Encounter - Carmen Skaggs Bank Boss - 10/29/2024 12:42 PM EDT Patient is not ready for a refill, she requested a call back next week. I have sent the patient newrefill questions on 10/29. documented in this encounter Plan of Treatment Upcoming Encounters Date Type Department Care Team (Late st Contact Info) Description 02/09/2025 1:15 PM EDT Office Visit [facility] RHEUMATOLOGY [address] [place] [phone] Mesfin Linares, AUTOCAD DRAFTSMAN [address] [facility] [address] [place] [address] documented as of this encounter Goals Goal Patient Goal Type Associated Problems Recent Progress Patient-Stated? Author Specialty Pharmacy General Goal General On track( 025 3:41 PM EDT) No Steff Argueta, PharmD Note: Reduce number of flares and pain score. 3.20.25: Patient reports medication works great, less pain and flares 8.12.25: No change from previous assessment. Adherence not correct due to several doses on hand from samples. documented as of this encounter Visit Diagnoses Not on filedocumented in this encounter Care Teams Cement Production Plant Operator Relationship Specialty Start Date End Date Teo Goldman MD [address] [place] [address] PCP - General Family Medicine 02/16/24 documented as of this encounter
--- OUTSIDE RECORDS SUMMARY | 2024-12-23 09:45 | XMS_ITS | Clinical Summary ---
[facility] Address [address] [place] [address] Care Team Providers Care Fruit Ii Farmworker Name Role Phone Teo Goldman MD Primary Care Provider +1- [phone] Allergies Active Allergy Reactions Criticality Noted Date Comments Ciprofloxacin Myalgia 10/01/2023 Lisinopril Unknown - High Severity 10/01/2023 Ezetimibe Shortness Of Breath High 09/09/2024 SOB, racing heart rate, dizziness Medications rosuvastatin (CRESTOR) 20 MG tablet Take 2 tablets by mouth Daily. Active montelukast (SINGULAIR) 10 MG tablet Take 1 tablet by mouth Every Morning. Active Psyllium (METAMUCIL PO) Take 0.4 g by mouth Daily. Active aspirin 81 MG EC tablet Take 1 tablet by mouth Daily. Active polyethylene glycol (MiraLax) 17 g packet Take 17 g by mouth Daily. mixed with 8 oz. water, juice, soda, coffee or tea Active losartan-hydro chlorothiazide (HYZAAR) 100-25 MG per tablet Take 1 tablet by mouth Daily. Takes 1/2 tablet daily Active denosumab (Prolia) 60 MG/ML solution prefilled syringe syringe Inject 1 mL under the skin into the appropriate area as directed Every 6 (Six) Months. Active folic acid (FOLVITE) 1 MG tablet Take 1 tablet by mouth See Admin Instructions. take 1 tablet by oral route every day except the day of methotrexate. Active methotrexate 2.5 MG tablet Take 3 tablets by mouth 1 (One) Time Per Week. Active busPIRone (BUSPAR) 10 MG tablet Take 1 tablet by mouth Daily. Active fluticasone (FLONASE) 50 MCG/ACT nasal spray Administer 2 sprays into the nostril(s) as directed by provider Daily. Active methenamine (Hiprex) 1 g tablet Take 1 tablet by mouth Daily. Active cetirizine (zyrTEC) 10 MG tablet Take 1 tablet by mouth Every Morning. Active Misc Natural Products (Iberogast) capsule Take 1 dose by mouth Daily. Active ranolazine (RANEXA) 500 MG 12 hr tablet 2 tablets 2 (Two) Times a Day. 5 Active melatonin 5 MG tablet tablet Take 1 tablet by mouth Every Night. Active metoprolol succinate XL (TOPROL-XL) 25 MG 24 hr tablet 1 tablet Daily. 5 Active pantoprazole (PROTONIX) 40 MG EC tablet 1 tablet Daily. 5 Active cycloSPORINE (RESTASIS) 0.05 % ophthalmic emulsion Administer 1 drop to both eyes 2 (Two) Times a Day. Active Jardiance 10 MG tablet tablet 1 tablet Daily. Medicine on hold 5 Active spironolactone (ALDACTONE) 25 MG tablet 1 tablet Daily. 5 Active ALPRAZolam (XANAX) 0.25 MG tablet 1 tablet At Night As Needed. 5 Active Etanercept (Enbrel SureClick) 50 MG/ML solution auto-injector Inject 1 mL under the skin into the appropriate area as directed Every 7 (Seven) Days. 4 mL 2 12/14/2024 12:38 PM EDT 5 Active Etanercept (Enbrel SureClick) 50 MG/ML solution auto-injector Inject 1 mL under the skin into the appropriate area as directed Every 7 (Seven) Days. 4 mL 2 11/02/2024 11:10 AM EDT 4 12/09/19 25 Discontin ued(Reord er) Active Problems Problem Noted Date Diagnosed Date Rheumatoid arthritis involvi ng multiple sites with positive rheumatoid factor 09/30/2023 Assessment & Plan (02/16/2024 12:04 PM EDT): Treatment: mtx and Enbrel Tender joint count is 0, swollen joint count is 0 ,Physician global is 1 , visual analog pain scale is 0.5, pt global is 0.5 CDAI is 7- low disease activity. Prognosis is good. Continue Enbrel and MTX She has held Enbrel and methotrexate due to taking antibiotics Plan is q 4-6 week labs and q 3 month followup Immunosuppression due to drug therapy 09/30/2023 Assessment & Plan (02/12/2024 12:25 PM EDT): Enbrel No infections in interim High risk medication use 09/30/2023 Assessment & Plan (02/12/2024 12:25 PM EDT): MTX-q 4-6 week lab. Well tolerated Osteopenia of multiple sites 09/30/2023 Assessment & Plan (02/16/2024 12:07 PM EDT): Started Fosamax 2015-stopped after 2 months due to gastritis. Prolia 07/2015 Better on 04/23 scan. Continue prolia per PCP DEXA ordered and done in 11/2023. We will request from [facility]. Neck pain 09/30/2023 Assessment & Plan (02/16/2024 12:07 PM EDT): Better Risks of steroid use were discussed including but not limited to thinning of bones, thinning of skin, elevated blood sugar, GI upset, insomnia, and the remote risk of loss of blood supply to the hip that could lead to total hip replacement. DJD (degenerative joint disease) 09/30/2023 Assessment & Plan (02/12/2024 12:27 PM EDT): Feet and fingers Feet are better with orthotics. Fingers are stable Gastroesophageal reflux disease 09/30/2023 Assessment & Plan (02/12/2024 12:27 PM EDT): Has history of severe gastritis. Off NSAIDs and switched off fosamax to prolia Vitamin D deficiency 09/30/2023 Assessment & Plan (02/12/2024 12:27 PM EDT): Compliant with treatment Diverticulitis 09/30/2023 Assessment & Plan (02/12/2024 12:27 PM EDT): Dr. Annabelle DEXTER in [facility] Had abscess fall 2022 that has resolved. We will need to avoid actemra and EDYTA inhibitors in future Sciatica of left side 09/30/2023 Assessment & Plan (02/16/2024 12:05 PM EDT): Doing well. She did not do PT and pain resolved. Encounters Date Type Department Care Team Description 12/14/2024 [facility] RHEUMATOLOGY [address] [address] Carmen Skaggs, Four Corner Stayer Machine Operator 12/14/2024 [facility] RHEUMATOLOGY [address] [address] Carmen Skaggs, Four Corner Stayer Machine Operator 12/07/2024 Telephone [facility] RHEUMATOLOGY [address] [address] Megan Rausch Four Corner Stayer Machine Operator 12/02/2024 [facility] RHEUMATOLOGY [address] [address] Carmen Skaggs, Four Corner Stayer Machine Operator 10/29/2024 [facility] RHEUMATOLOGY [address] [address] Carmen Skaggs, Four [place] Stayer Machine Operator 10/06/2024 [facility] RHEUMATOLOGY [address] [address] Carmen Skaggs, Four Corner Stayer Machine Operator from Last 3 Months Immunizations Immunization Administration Dates Next Due COVID-19 (MODERNA) 12YRS+ (SPIKEVAX) 07/27/2020, 06/29/2020 Fluad Quad 65+ 02/19/2019 Fluzone High-Dose 65+YRS 02/04/2018,02/05/2017 Fluzone Quad >6mos (Multi-dose) 01/11/2016 Family History Medical History Relation Name Comments Stroke Father Arthritis Other Relation Name Status Comments Father Mother Other Social History Tobacco Use Types Packs/Day Years [...] on file Sexual Orientation Not on file Last Filed Vital Signs Vital Sign Reading Time Taken Comments Blood Pressure 124/70 08/23/2024 9:32 AM EDT Pulse 70 08/23/2024 9:32 AM EDT Temperature 37.1 C (98.7 F) 02/16/2024 11:43 AM EDT Respiratory Rate - - Oxygen Saturation 97% 08/23/2024 9:32 AM EDT Inhaled Oxygen Concentration - - Weight 60.3 kg (133 lb) 08/23/2024 9:32 AM EDT Height 160 cm (5' 3 ) 08/23/2024 9:32 AM EDT Body Mass Index 23.56 08/23/2024 9:32 AM EDT Plan of Treatment Upcoming Encounters Date Type Department Care Team (Late st Contact Info) Description 02/09/2025 1:15 PM EDT Office Visit [facility] RHEUMATOLOGY [address] [phone] Mesfin Linaers APRN [address] [address] Health Maintenance Due Date Last Done Comments TDAP/TD VACCINES (1 - Tdap) 01/27/1967 ZOSTER VACCINE (1 of 2) 01/27/1967 COLOGUARD 01/27/1993 COLON CANCER SCREENING 5 YEA R SIGMOIDOSCOPY 01/27/1993 COLONOSCOPY 01/27/1993 COLORECTAL CANCER SCREENING 01/27/1993 CT COLONOGRAPHY 01/27/1993 FECAL OCCULT BLOOD TEST 01/27/1993 FIT Testing (1 year) 01/27/1993 ANNUAL WELLNESS VISIT 02/05/2017 HEPATITIS C SCREENING 02/05/2017 COVID-19 Vaccine (3 - Modern a risk series) 05/08/2021 04/10/2021, 07/27/2020, 06/29/2020 RSV Vaccine - Adults (1 - 1- dose 75+ series) 01/27/2023 INFLUENZA VACCINE 02/02/2025 03/18/2023, , 01/04/2020, Additional history exists DXA SCAN 11/09/2025 11/10/2023, 10/01/2023 Pneumococcal Vaccine 50+ Completed 03/24/2018, 02/04 Goals Goal Patient Goal Type Associated Problems Recent Progress Patient-Stated? Author Specialty Pharmacy General Goal General On track( 025 3:41 PM EDT) No Steff Argueta, PharmD Note: Reduce number of flares and pain score. 3.20.25: Patient reports medication works great, less pain and flares 8.12.25: No change from previous assessment. Adherence not correct due to several doses on hand from samples. Procedures Procedure Name Priority Date/Time Associated Diagnosis Comments SCANNED - DEXA 11/10/2023 from Last 3 Months or Most Recently Relevant to Health Maintenance Results * DEXA Scan (11/10/2023) Anatomical Region Laterality Modality Other Donato Suero MD CHART REVIEW TABS Final Res ult from Last 3 Months or Most Recently Relevant to Health Maintenance [place] [address] Medicare [employer] PPO Care Teams Fruit Ii Farmworker Relationship Specialty Start Date End Date Teo Goldman MD [address] [place] [address] PCP - General Family Medicine 02/16/24
--- OUTSIDE RECORDS SUMMARY | 2024-12-23 09:45 | XMS_ITS | Encounter Summary ---
[facility] Address [address] [place] [address] Care Team Providers Care Bed Spring Maker Name Role Phone Teo Goldman MD Primary Care Provider +1- [phone] Encounter Details Date Type Department Care Team (Late st Contact Info) Description 12/02/2024 Telephone [facility] RHEUMATOLOGY [address] [address] Carmen Skaggs, Warehouse Distribution Associate Social History Tobacco Use Types Packs/Day Years [...] Notes * Telephone Encounter - Carmen Skaggs Warehouse Distribution Associate - 12/02/2024 12:38 PM EDT No appt scheduled as of 12/02 documented in this encounter Plan of Treatment Upcoming Encounters Date Type Department Care Team (Late st Contact Info) Description 02/09/2025 1:15 PM EDT Office Visit [facility] RHEUMATOLOGY [address] [address] Mesfin Linares APRN [address] [facility] [address] [place] [address] documented as of this encounter Goals Goal [...] on filedocumented in this encounter Care Teams Bed Spring Maker Relationship Specialty Start Date End Date Teo Goldman MD [address] [place] [address] PCP - General Family Medicine 02/16/24 documented as of this encounter
== END 2024-12-23 23:59 | disposition home or self-care (01) ==
LOC: RAD 09:33
PROVIDERS: PCP Family Medicine; Visit Provider Family Medicine
DX: M47.816 Spondylosis without myelopathy or radiculopathy, lumbar region (principal); M25.551 Pain in right hip; M25.552 Pain in left hip
CPT/HCPCS: 72100; 73502

== ENCOUNTER 2025-01-23 13:31 | Emergency (ER) | payer MEDICARE, SELFPAY ==
[2025-01-23] VITALS (12 sets, daily range): BP systolic 113–152; BP diastolic 59–86; PULSE 60–78; RESP 16; TEMP 36.6–36.8; O2SAT 91–97; BMI 24.4
--- OUTSIDE RECORDS SUMMARY | 2025-01-23 13:41 | XMS_ITS | Encounter Summary ---
[facility] Address [address] [place] [address] Care Team Providers Care Certified Neurodiagnostic Technologist Name Role Phone Teo Goldman MD Primary Care Provider +1- [phone] Encounter Details Date Type Department Care Team (Late st Contact Info) Description 12/14/2024 Telephone [facility] RHEUMATOLOGY [address] [address] Carmen Skaggs, Supply Officer Social History Tobacco Use Types Packs/Day Years Used Date Smoking Tobacco: Every Day Cigarettes 0.5 20.7 Started: 2004 Smokeless Tobacco: Never Alcohol Use [...] Notes * Telephone Encounter - Carmen Skaggs Supply Officer - 12/14/2024 10:23 AM EDT Spoke with [...] Description 02/09/2025 1:15 PM EDT Office Visit [facility] RHEUMATOLOGY [address] [place] [address] Mesfin Linares APRN [address] [facility] [address] [place] [address] documented as of this encounter Goals Goal [...] on filedocumented in this encounter Care Teams Certified Neurodiagnostic Technologist Relationship Specialty Start Date End Date Teo Goldman MD [address] [place] [address] PCP - General Family Medicine 02/16/24 documented as of this encounter
--- OUTSIDE RECORDS SUMMARY | 2025-01-23 13:41 | XMS_ITS | Encounter Summary ---
Author Organization [facility]ste Address [address] [place] [address] Care Team Providers Care Accounts Receivable Coordinator Name Role Phone Teo Goldman MD Primary Care Provider +1- [phone] Encounter Details Date Type Department Care Team (Late st Contact Info) Description 08/24/2024 Results Follow-Up [facility] [place] [address] [place] [address] Lonnie Bettencourt MD [address] [facility] [address] [place] [address] Social History Tobacco Use Types Packs/Day Years [...] Description 02/09/2025 1:15 PM EDT Office Visit [facility] RHEUMATOLOGY [address] [place] [address] Mesfin Linares APRN [address] [place] [address] documented as of this encounter Goals Goal [...] on filedocumented in this encounter Care Teams Accounts Receivable Coordinator Relationship Specialty Start Date End Date Teo Goldman MD [address] [place] [address] PCP - General Family Medicine 02/16/24 documented as of this encounter
--- NOTE | 2025-01-23 13:42 | ECG_ITS ---
APPROVED REPORT Exam: Resting ECG HR:69 bpm ECG Measurements Heart Rate 69 AXES WY 135 P 47 QRSd 94 QRS 20 QT 393 T 35 QTc 412 Conclusion SINUS RHYTHM LOW QRS VOLTAGE IN PRECORDIAL LEADS [QRS DEFLECTION < 1.0 mV IN CHEST LEADS] No STEMI Electronically signed by : JONG WATKINS, 01/24/2025 03:39:59
--- OUTSIDE RECORDS SUMMARY | 2025-01-23 13:42 | XMS_ITS | Clinical Summary ---
[facility] Address [address] [place] [address] Care Team Providers Care Chief Controller Center Name Role Phone Teo Goldman MD Primary Care Provider +1- [phone] Allergies Active Allergy Reactions Criticality Noted Date [...] water, juice, soda, coffee or tea Active losartan-hydroc hlorothiazide (HYZAAR) 100-25 MG per tablet Take 1 [...] 2 12/14/2024 12:38 PM EDT 5 Active Active Problems Problem Noted Date Diagnosed Date [...] done in 11/2023. We will request from [facility]. Neck pain 09/30/2023 Assessment & [...] 12:27 PM EDT): Dr. Annabelle DEXTER in [facility] Had abscess fall 2022 that has resolved. We will need to avoid actemra and EDYTA inhibitors in future Sciatica of left side 09/30/2023 Assessment & Plan (02/16/2024 12:05 PM EDT): Doing well. She did not do PT and pain resolved. Encounters Date Type Department Care Team Description 12/14/2024 Telephone [facility] [address] [address] Carmen Skaggs, Slot Floor Person 12/14/2024 [facility] [address] [address] Carmen Skaggs, Slot Floor Person 12/07/2024 [facility] [address] [address] Megan Rausch, Slot Floor Person 12/02/2024 [facility] [address] [phone] Carmen Skaggs, Slot Floor Person 10/29/2024 [facility] [address] [phone] Carmen Skaggs, Slot Floor Person from Last 3 Months Immunizations Immunization Administration [...] Description 02/09/2025 1:15 PM EDT Office Visit [facility] [address] [place] [address] Mesfin Linares APRN 330 [facility] [address] [place] [address] Health Maintenance Due Date Last Done Comments [...] 1- dose 75+ series) 01/27/2023 INFLUENZA VACCINE 12/03/2024 03/18/2023, , 01/04/2020, Additional history exists DXA SCAN 11/09/2025 11/10/2023, 10/01/2023 Pneumococcal Vaccine 50+ Completed 03/24/2018, 02/04 Goals Goal Patient Goal Type Associated Problems Recent Progress Patient-Stated? Author Specialty Pharmacy General Goal General On track( 025 3:41 PM EDT) No Steff Argueta, Natasha Note: Reduce number of flares and pain [...] Scan (11/10/2023) Anatomical Region Laterality Modality Other us Donato Suero MD CHART REVIEW TABS Final Res ult from Last 3 Months or Most Recently Relevant to Health Maintenance Insurance [employer] PPO Care Teams Chief Controller Center Relationship Specialty Start Date End Date Teo Goldman MD [address] [place] [address] PCP - General Family Medicine 02/16/24
--- OUTSIDE RECORDS SUMMARY | 2025-01-23 13:42 | XMS_ITS | Encounter Summary ---
[facility] [address] [place] [address] Care Team Providers Care Control Panel Assembler Name Role Phone Teo Goldman MD Primary Care Provider +1- [phone] Encounter Details Date Type Department Care Team (Late st Contact Info) Description 12/02/2024 Telephone [facility]UM[facility] [address] [address] Carmen Skaggs, Packaging Clerk Social History Tobacco Use Types Packs/Day Years [...] Notes * Telephone Encounter - Carmen Skaggs Packaging Clerk - 12/02/2024 12:38 PM EDT No appt scheduled as of 12/02 documented in this encounter Plan of Treatment Upcoming Encounters Date Type Department Care Team (Late st Contact Info) Description 02/09/2025 1:15 PM EDT Office Visit [facility] [address] [address] Mesfin Linares APRN [address] [facility] [address] [place] [address] documented as of this encounter Goals Goal [...] on filedocumented in this encounter Care Teams Control Panel Assembler Relationship Specialty Start Date End Date Teo Goldman MD [address] [place] [address] [place] [address] PCP - General Family Medicine 02/16/24 documented as of this encounter
--- OUTSIDE RECORDS SUMMARY | 2025-01-23 13:42 | XMS_ITS | Encounter Summary ---
[facility] [address] [place] [address] Care Team Providers Care Real Estate Job Titles Name Role Phone Teo Goldman MD Primary Care Provider +1- [phone] Encounter Details Date Type Department Care Team (Late st Contact Info) Description 12/14/[address] [facility]HEUM[facility]OLOG[facility] [address] [address] Carmen Skaggs, Armhole Sewer Social History Tobacco Use Types Packs/Day Years [...] Description 02/09/2025 1:15 PM EDT Office Visit [facility] [address] [address] Mesfin Linares APRN [address] [id number] documented as of this encounter Goals Goal [...] on filedocumented in this encounter Care Teams Real Estate Job Titles Relationship Specialty Start Date End Date Teo Goldman MD [address] [place] [address] [place] [address] PCP - General Family Medicine 02/16/24 documented as of this encounter
--- OUTSIDE RECORDS SUMMARY | 2025-01-23 13:42 | XMS_ITS ---
Author Organization [facility] Address [address] [place] [address] Care Team Providers Care Cardiology Specialist Name Role Phone Teo Goldman MD Primary Care Provider +1- [phone] Rheumatology Status:Enrolled (Active) Start date:02/02/2024 Enrollment date:02/02/2024 Enrollment reason:New start at Current support & services provided:Clinical Assessment, Refill Coordination , Benefits Investigation, [facility] Dispensing Linked medications:Etanercept (Active) Linked problems:Rheumatoid arthritis involving multiple sites with positive rheumatoid factor (Active) Continued Care and Services Coordination
--- OUTSIDE RECORDS SUMMARY | 2025-01-23 13:42 | XMS_ITS | Encounter Summary ---
[facility] Address [address] [place] [address] Care Team Providers Care Electrochemist Name Role Phone Teo Goldman MD Primary Care Provider +1- [phone] Encounter Details Date Type Department Care Team (Late st Contact Info) Description 12/07/2024 Telephone [facility]HEUM[facility]OLOG[facility] [address] [phone] Megan Rausch, Regional Marketing Manager Social History Tobacco Use Types Packs/Day Years [...] -ZC * Telephone Encounter - Megan Rausch, Regional Marketing Manager - 12/07/2024 12:14 PM EDT Pt needs an appointment before we can send her anymore refills documented in this encounter Plan of Treatment Upcoming Encounters Date Type Department Care Team (Late st Contact Info) Description 02/09/2025 1:15 PM EDT Office Visit [facility]UMATOLOGY [address] [facility] [address] [place] [phone] Mesfin Linares APRN 330 [facility] [address] [place] [address] documented as of this encounter Goals Goal [...] on filedocumented in this encounter Care Teams Electrochemist Relationship Specialty Start Date End Date Teo Goldman MD [address] [place] [address] PCP - General Family Medicine 02/16/24 documented as of this encounter
--- NOTE | 2025-01-23 13:54 | CT_ITS ---
PROCEDURE INFORMATION: Exam: CTA Abdomen and Pelvis With Contrast Exam date and time: 01/23/2025 2:13 PM Age: 74 years old Clinical indication: Abdominal pain; Other: Int rlq pain; Additional info: Diffuse abd pain worse with po, int rlq pain TECHNIQUE: Imaging protocol: Computed tomographic angiography of the abdomen and pelvis with contrast. Exam focused on the arteries. 3D rendering (Not supervised by radiologist): MIP and/or 3D reconstructed images were created by the technologist. Radiation optimization: All CT scans at this facility use at least one of these dose optimization techniques: automated exposure control; mA and/or kV adjustment per patient size (includes targeted exams where dose is matched to clinical indication); or iterative reconstruction. Contrast material: ISOVUE; Contrast volume: 80 ml; Contrast route: INTRAVENOUS (IV); COMPARISON: CT ANGIO ABDOMEN PELVIS 06/17/2024 12:27 PM FINDINGS: Lungs: There is minimal atelectasis in the lingula and both lower lobes or scarring similar to previous. Aorta: Moderate atherosclerosis of the aorta unchanged. No aneurysm. No dissection. Celiac and mesenteric arteries: The celiac is patent. 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 No occlusion. Renal arteries: The renal arteries have mild stenosis at the origins unchanged. Right iliac arteries: There is mild stenosis of the right common iliac artery unchanged. The proximal right internal iliac artery has moderate stenosis unchanged. The right external iliac artery is patent. Left iliac arteries: The left common iliac artery has mild stenosis unchanged. The left internal iliac artery has mild scattered stenoses unchanged. The left external iliac artery is patent. Liver: Small enhancing lesion dome of the right lobe of the liver measuring 4 mm too small to characterize likely a hemangioma. There is also faint focus of enhancement in the inferior right lobe on series 5, image 38 measuring 8 mm likely also hemangioma unchanged. Gallbladder and biliary ducts: The gallbladder is unremarkable. No biliary ductal dilatation. Pancreas: The pancreas is unremarkable. Spleen: Cyst in the inferior spleen measuring 1.3 cm unchanged. Adrenal glands: Right adrenal gland mass measuring 2.5 cm unchanged again statistically most likely an adenoma. Left adrenal unremarkable. Kidneys and ureters: Right renal cysts largest lower pole measures 4.1 cm unchanged. No hydronephrosis. Stomach and bowel: Thickened or decompressed appearance of the stomach. Correlate for possible gastritis. There diverticuli in the colon greatest in the sigmoid where there is underdistention versus wall thickening. No bowel obstruction. Appendix: The appendix is normal as seen on the coronal image 65. Intraperitoneal space: No free air. No significant ascites. Retroperitoneal space: Visualized retroperitoneal structures grossly negative with no obvious hematoma identified. Lymph nodes: No pathologic lymphadenopathy identified. Urinary bladder: The bladder is unremarkable as visualized. Reproductive: Status post hysterectomy. Bones/joints: Degenerative bony changes. Soft tissues: There is a small fat containing umbilical hernia. The soft tissue structures are otherwise unremarkable. Small region of probable fat necrosis in the left pelvis unchanged. Other findings: The visualized femoral arteries are patent bilaterally. IMPRESSION: 1. No acute vascular findings. Stable atherosclerotic changes. 2. The sigmoid colon contains diverticuli with underdistention versus wall thickening. Correlate for possible mild acute diverticulitis clinically. 3. Possible gastritis.
--- NOTE | 2025-01-23 13:57 | ED_ITS ---
Discharge Plan Disposition Patient Disposition: Home, Self-Care Condition: Good Prescriptions Prescriptions: No Action fluticasone propionate 50 mcg/actuation spray,suspension 2 spray NS DAILY 30 Days Qty: 16 2RF cyclosporine [Restasis] 0.05 % dropperette 1 drp Eye-Both BID Metamucil 3.4 gram/5.4 gram powder 1 tbsp PO DAILY Rx Instructions: mix into at least 8 oz of water or juice before administering polyethylene glycol 3350 [Miralax] 17 gram/dose powder 17 g PO DAILY buspirone 10 mg tablet 10 mg PO DAILY Qty: 90 3RF melatonin 5 mg capsule 5 mg PO HS PRN (Reason: Sleep) folic acid 1 mg tablet 1 mg PO DAILY 90 Days Qty: 90 0RF Rx Instructions: Take folic acid every day that methotrexate is not taken pantoprazole [Protonix] 40 mg tablet,delayed release (DR/EC) 40 mg PO DAILY Qty: 30 2RF ondansetron 4 mg tablet,disintegrating 4 - 8 mg PO BID PRN (Reason: nausea and vomiting) Qty: 20 2RF dicyclomine 10 mg capsule 10 mg PO TID PRN (Reason: abdominal cramps) Qty: 20 1RF rosuvastatin 40 mg tablet 40 mg PO DAILY Qty: 90 2RF methenamine hippurate 1 gram tablet See Rx Instructions .ROUTE .COMPLEX Qty: 90 1RF Dose Instruction: TAKE 1 TABLET 1 TIME EACH DAY Rx Instructions: TAKE 1 TABLET 1 TIME EACH DAY methotrexate sodium 2.5 mg tablet 7.5 mg PO QWEEK 84 Days Qty: 36 0RF ranolazine 500 mg tablet extended release 12 hr 500 mg PO BID 30 Days Qty: 60 5RF alprazolam 0.25 mg tablet 0.25 mg PO HS PRN (Reason: sleep) Qty: 30 0RF metoprolol tartrate 25 mg tablet 12.5 mg PO BID 30 Days Qty: 30 2RF Prolia 60 mg/mL syringe 60 mg SQ [id number] Qty: 1 2RF furosemide 20 mg tablet See Rx Instructions .ROUTE .COMPLEX Qty: 30 2RF Dose Instruction: TAKE 1 TABLET 1 TIME EACH DAY FOR FLUID RETENTION Rx Instructions: TAKE 1 TABLET 1 TIME EACH DAY FOR FLUID RETENTION spironolactone 25 mg tablet See Rx Instructions .ROUTE .COMPLEX Qty: 90 3RF Dose Instruction: TAKE 1 TABLET 1 TIME EACH DAY Rx Instructions: TAKE 1 TABLET 1 TIME EACH DAY cyclosporine [Restasis] 0.05 % dropperette 1 drp ophthalmic (eye) Q12H 30 Days Qty: 60 2RF aspirin 81 MG tablet,delayed release (DR/EC) 81 mg PO DAILY cetirizine 10 MG tablet 10 mg PO DAILY PRN (Reason: allergies) Enbrel SureClick 50 mg/mL (1 mL) pen injector 50 mg SQ . Referrals Follow up/Referrals: Teo Goldman MD [Primary Care Provider, Internal Medicine] - See instructions Activity Restrictions/Add. Instructions Additional Instructions/Restrictions: Eat a bland diet over the next few days. Return to the ER for any acute or worsening symptoms. Clinical Impressions Clinical Impression: Abdominal pain, Headache Instructions Patient Instructions: DI for Acute Abdominal Pain Print Language Print Language: Greenlandic Discharge ED Provider: Dov Jimenez General Adult HPI <Dov Jimenez MD - Last Filed: 01/23/25 15:03> General Chief complaint: Abdominal Pain Stated complaint: Nausea; Abdominal pain below the sternum; Time Seen by Provider: 01/23/25 13:34 Mode of Arrival: Ambulatory Source of Information: Patient and Relative Description of Symptoms (Recalled from ER Triage Doc. by RN): Patient presents to ED for epigastric pain since Friday that radiates through to her back. Patient also reports nausea and headache. History of Present Illness HPI narrative: Patient is a 74-year-old female past medical history of SMA stenosis who presents emergency department for evaluation of epigastric pain. Onset was acute since Friday radiates through to her back. She has a history of abdominal problems seen by Dr. Mccain when she has associated abdominal symptoms she has a frontal headache that is consistent with what happens at baseline. She has had intermittent right lower quadrant abdominal pain no vomiting, the epigastric pain radiates through to her back, is worse with p.o. intake. She has a history of diverticulosis as well. Abdominal surgical history includes hysterectomy and cholecystectomy. No other acute complaints at this time. Patient has had loose stool since Friday and takes Metamucil and MiraLAX at baseline but normally does not have loose stools. Nonbloody. Please note that above description of symptoms, in this electronic medical record under categorization of recalled from ER triage doctor by RN are reflective of an initial nursing assessment, however, is not reflective of my full history and physical exam that was personally taken and clarified. Consequentially, this preceding description of symptoms, which may include the patient's categorized chief complaint in the EMR, do not reflect my personal clinical impression, and the ultimate description of history of present illness and patient stated complaints should be deferred to this section of the note. Unless stated otherwise or congruent with this section of the note, additional signs, symptoms, or incongruence should be interpreted as inaccurate with my clinical impression. Related Data Home Medications ?Medication ?Instructions ?Recorded ?Confirmed aspirin 81 mg tablet,delayed 81 mg PO DAILY [facility] 10/14/17 12/22/24 release cetirizine 10 mg tablet 10 mg PO DAILY PRN allergies 08/01/21 12/22/24 etanercept 50 mg/mL (1 mL) 50 mg SQ . 09/21/23 5 subcutaneous pen injector (Enbrel SureClick) cyclosporine 0.05 % eye drops in a 1 drp Eye-Both BID 04/05/24 12/22/24 dropperette (Restasis) melatonin 5 mg capsule 5 mg PO HS PRN Sleep 5 12/22/24 polyethylene glycol 3350 17 17 g PO DAILY 07/22/24 gram/dose oral powder (Miralax) psyllium husk 3.4 gram/5.4 gram 1 tbsp PO DAILY 12/22/24 oral powder (Metamucil) Previous Rx's ?Medication ?Instructions ?Recorded fluticasone propionate 50 2 spray intranasal DAILY All ergies 11/26/23 mcg/actuation nasal 30 days #16 grams spray,suspension rosuvastatin 40 mg tablet 40 mg PO DAILY #90 tabs 04/05 11/25 buspirone 10 mg tablet 10 mg PO DAILY #90 tabs 07/04 folic acid 1 mg tablet 1 mg PO DAILY Supplement 90 days 08/30/24 #90 tabs methenamine hippurate 1 gram tablet See Rx Instruction s .Route 10/05/24 .COMPLEX #90 tabs methotrexate sodium 2.5 mg tablet 7.5 mg (3 x 2.5 mg) PO QWEEK 12 10/11/24 weeks #36 tabs pantoprazole 40 mg tablet,delayed 40 mg PO DAILY #30 t abs 11/09/24 release (Protonix) ranolazine 500 mg tablet,extended 500 mg PO BID 30 day s #60 tabs 11/11/24 release,12 hr alprazolam 0.25 mg tablet 0.25 mg PO HS PRN sleep #30 tabs 11/16/24 metoprolol tartrate 25 mg tablet 12.5 mg (1/2 x 25 mg) PO BID 30 11/25/24 days #30 tabs denosumab 60 mg/mL subcutaneous 60 mg SQ [id number] oste oporosis #1 11/30/24 syringe (Prolia) mL dicyclomine 10 mg capsule 10 mg PO TID PRN abdominal c ramps 12/22/24 #20 caps ondansetron 4 mg disintegrating 4 - 8 mg (1 - 2 x 4 mg ) PO BID PRN 12/22/24 tablet nausea and vomiting #20 tabs furosemide 20 mg tablet See Rx Instructions .Route 0 01/10/25 .COMPLEX #30 tabs spironolactone 25 mg tablet See Rx Instructions .Route 01/10/25 .COMPLEX #90 tabs cyclosporine 0.05 % eye drops in a 1 drp ophthalmic (e ye) Q12H 30 01/19/25 dropperette (Restasis) days #60 ea Allergies Allergy/AdvReac Type Severity Reaction Status Date / Time lisinopril (LISINOPRIL) Allergy Severe S-ANAPHYLAX Verified 12/22/24 10:28 IS ciprofloxacin (From Cipro) AdvReac Intermediate Joint Verified 12/22/24 10:28 Pain/muscle aches PFS <Dov Jimenez MD - Last Filed: 01/23/25 15:03> [facility] Disclaimer: The information contained in this section may have been updated after the patient was seen, as this information can be updated by other users. Medical History Osteoporosis (HFpEF) heart failure with preserved ejection fraction Hypercalcemia SOB (shortness of breath) Dizziness Diabetes mellitus Elevated d-dimer Elevated left ventricular end-diastolic pressure (LVEDP) CAD (coronary artery disease) Tobacco user Dyspnea Arteriosclerosis, mesenteric artery Abnormal electrocardiogram [ECG] [EKG] ISMAEL (renal artery stenosis) PAD (peripheral artery disease) Atypical angina Parathyroid abnormality Left ear pain Sore throat Fatigue Elevated parathyroid hormone Functional dyspepsia Bloating Anxiety Kidney stone Hyperlipidemia Allergies Urinary tract infection History of gastroesophageal reflux (GERD) Rheumatoid arthritis Hypertension Surgical History History of ERCP History of hysterectomy History of cholecystectomy History of colonoscopy Family History Other Family history of diabetes mellitus Social History Smoking Status: Current every day smoker tobacco type: cigarettes packs per day: 1 alcohol intake: never substance use type: denies use current occupational status: retired Travel in the last 8 weeks?: None household members: spouse housing: house caffeine: Yes Have you lived/traveled outside [place] in past 30 days?: No Contact w/someone who lives/traveled outside US past 30 days?: No Exposure to someone with infectious disease in past 14 days?: No Do you have a fever (greater than 100.4 F or 38 C)?: No Have you tested positive for COVID-19?: No Exposed to someone with COVID-19 in past 14 days?: No Do you have a sore throat?: No Do you have a cough?: No Do you have any weakness?: No Do you have any diarrhea?: No Are you experiencing any unusual bleeding?: No Do you have any muscle aches/pain?: No Do you have any abdominal pain?: No Are you experiencing loss of taste or smell?: No Other Medical History Have you received the Flu Vaccine for this season: No Have you received the Pneumonia Vaccine: No <Dov Jimenez MD - Last Filed: 01/23/25 15:03> ROS Obtained: Yes Systems reviewed as appropriate & no additional complaints except as documented Physical Exam <Dov Jimenez MD - Last Filed: 01/23/25 15:03> General General appearance: alert Comment: Appearing uncomfortable in bed Head Head exam: atraumatic and normocephalic Eye Eye exam: Present PERRL and EOMI ENT ENT exam: Present mucous membranes moist Neck Neck exam: Present normal inspection Chest Chest inspection: Present normal inspection and symmetric chest wall rise Respiratory Respiratory exam: Present normal lung sounds bilaterally; Absent respiratory distress Cardiovascular Cardiovascular exam: Present regular rate and normal rhythm Abdominal Exam Abdominal exam: Present soft; Absent tenderness, guarding or rebound Extremities Exam Extremities exam: Present normal inspection Neurological Exam Neurological exam: Present alert and CN II-XII intact; Absent motor sensory deficit Psychiatric Psychiatric exam: Present normal affect Skin Skin exam: Present warm and dry Medical Decision Making <Dov Jimenez MD - Last Filed: 01/23/25 15:03> Medical Records Screening: Per USPSTF and CDC recommendations, given the prevalence of disease in our region, it is our hospital?s policy to screen for HIV and viral Hepatitis for all patients aged 18 and over and those with ongoing risk factors. [place]a Inquiry Pt receiving controlled substance: No Vital Signs: 01/23/25 13:39 01/23/25 13:43 01/23/25 13:43 Temperature 97.8 F 97.8 F Temperature Source Oral Pulse Rate 71 78 Pulse Rate [Right] 78 Respiratory Rate 16 16 Blood Pressure 141/86 H 141/86 H Blood Pressure [Right Arm] 141/86 H Blood Pressure Mean [Right Arm] 104 02 Sat by Pulse Oximetry 95 95 95 01/23/25 14:00 01/23/25 14:30 01/23/25 15:00 Temperature Temperature Source Pulse Rate 67 64 60 Pulse Rate [Right] Respiratory Rate Blood Pressure 138/78 113/59 L 134/64 Blood Pressure [Right Arm] Blood Pressure Mean [Right Arm] 02 Sat by Pulse Oximetry 95 91 L 94 L 01/23/25 15:30 01/23/25 16:00 01/23/25 16:30 Temperature Temperature Source Pulse Rate 63 65 77 Pulse Rate [Right] Respiratory Rate Blood Pressure 132/72 137/71 152/73 H Blood Pressure [Right Arm] Blood Pressure Mean [Right Arm] 02 Sat by Pulse Oximetry 95 96 97 01/23/25 17:00 01/23/25 17:30 Temperature Temperature Source Pulse Rate 62 60 Pulse Rate [Right] Respiratory Rate Blood Pressure 131/72 139/69 Blood Pressure [Right Arm] Blood Pressure Mean [Right Arm] 02 Sat by Pulse Oximetry 95 96 Lab Data Lab Results 01/23/25 14:00: WBC 8.5, RBC 5.21, Hgb 16.3 H, Hct 47.9 H, MCV 91.9, MCH 31.3 H, MCHC 34.0, RDW 14.6, Plt Count 273, MPV 10.0, Neut % (Auto) 69.1, Lymph % (Auto) 24.6, [place] % (Auto) 5.1, Eos % (Auto) 0.6, Baso % (Auto) 0.4, Neut # (Auto) 5.9, Lymph # (Auto) 2.1, [place] # (Auto) 0.4, Eos # (Auto) 0.1, Baso # (Auto) 0.0, VBG pH 7.42 H, VBG pCO2 41.7, VBG pO2 50.8 H, VBG HCO3 26.2, VBG Total CO2 27.5 H, V BG O2 Saturation 88.7 H, VBG Base Excess 1.7, VBG Lactic Acid 1.5, Sodium 138, Potassium 4.5, Chloride 102, Carbon Dioxide 26, Anion Gap 14.5, BUN 23 H, C reatinine 1.10 H, Estimated Creat Clear 43, Estimated GFR 48 L, Est GFR ( Amer) 58 L, Glucose 114 H, Calcium 9.6, Magnesium 2.2, Total Bilirubin 1.2, AST 22, ALT 11 L, Alkaline Phosphatase 116, Troponin I < 0.01, Total Protein 8.0, Albumin 4.7, Globulin 3.3 H, Albumin/Globulin Ratio 1.4, Lipase 132 01/23/25 15:49: Urine Color Yellow, Urine Appearance Clear, Urine pH 7.0, Ur Specific [place] <= 1.005, Urine Protein Negative, Urine Glucose (UA) Negative, Urine Ketones Negative, Urine Blood Trace-i, Urine Nitrate Negative, Urine Bilirubin Negative, Urine Urobilinogen 0.2, Ur Leukocyte Esterase Negative, Urine RBC Occasional, Urine WBC Occasional, Ur Squamous Epith Cells Occasional, Urine Bacteria None 01/23/25 17:16: Troponin I < 0.01 01/23/25 14:00 01/23/25 14:00 Orders (Tests/Meds): ED MEDICATIONS Discontinued Medications Generic Name Dose Route Start Last Admin Trade Name Freq PRN Reason Stop Dose Admin Acetaminophen 1,000 mg 01/23/25 13:58 01/23/25 14:20 Acetaminophen 1,000mg/100ml Vial IV 01/23/25 13:59 1,000 mg ONCE ONE Administration Lactated Ringer's 500 mls @ 250 mls/hr 01/23/25 13:59 01/23/25 16:38 Lactated Ringer's 500ml IV 01/23/25 15:58 Infused .Q2H ONE Infusion Iopamidol 80 ml 01/23/25 14:09 01/23/25 14:11 Iopamidol-370 (76%);100ml Bottle IV 01/23/25 14:10 80 ml ONCE ONE Administration Ketorolac Tromethamine 30 mg 01/23/25 13:54 01/23/25 14:19 Ketorolac 30mg/Ml Vial IV 01/23/25 13:55 30 mg ONCE ONE Administration Sodium Chloride 10 ml 01/23/25 14:09 01/23/25 14:11 Sodium Chloride 0.9% 10ml Syr (Rad Only) IV 01/23/25 14:10 10 ml ONCE ONE Administration Sodium Chloride 50 ml 01/23/25 14:09 01/23/25 14:11 0.9 % Sodium Chloride 50 Ml Vial IV 01/23/25 14:10 50 ml ONCE ONE Administration ORDERS Category Date Time Status CT angio abdomen pelvis Stat Cat Scan 01/23/25 13:[address] head/brain wo con Stat Cat Scan 01/23/25 13:58 Completed CBC w/Auto Diff [Complete Blood Count Auto Diff] Stat Lab 01/23/25 14:00 Completed CMP [Comprehensive Metabolic Panel] Stat Lab 01/23/25 14:00 Completed Lipase Stat Lab 01/23/25 14:00 Completed MG [Magnesium] Stat Lab 01/23/25 14:00 Completed Trop I [Troponin I] Stat Lab 01/23/25 14:00 Completed Troponin I Q3H Lab 01/23/25 17:16 Completed Troponin I Q3H Lab 01/23/25 20:00 Ordered UA [Urinalysis and Microscopic] Stat Lab 01/23/25 15:49 Completed VBG [Venous Blood Gas] Stat RT 01/23/25 14:00 Completed ECG Data Tracing #1: Independently inter by me rate 69, rhythm is regular, axis is normal, no ST elevation in anatomical contiguous leads, QTc 412. Medical Decision Narrative: In summary patient is 74-year-old female past medical history described above presents emergency department for evaluation of abdominal pain and headache. Patient is hemodynamically stable nontoxic-appearing upon arrival, afebrile. Suspect her abdominal pain differential includes worsening SMA stenosis, SMA thrombosis, diverticulitis, urinary tract infection, ureterolithiasis, pancreatitis, among others. With respect to her headache I suspect it is a benign headache that is associated with her abdominal pain which is known to her however given her age noncontrasted CT scan of the head will be obtained. Initial inventions include Toradol, Tylenol, gentle crystalloid resuscitation given her history of diuretic use although she has decreased p.o. intake and urine output as of late will be repleted gently. Patient has taken Zofran prior to arrival. Recent gastroenterology note is reviewed by me, patient has had previous pancreatitis, previous diverticulitis, has nonerosive GERD with moderate esophageal dysmotility and a small sliding hiatal hernia. Initial hematologic labs reviewed by me no significant leukocytosis no transfusable anemia unconcerning VBG, no PAMELA or critical electrolyte abnormality, lipase normal. Noncontrasted CT scan informally visualized by me no acute large intra- axial hemorrhage or midline shift. CT is conducted and pending as well as urinalysis at transition of care to the oncoming physician, Dr. Ayala. <Magali Ayala, DO - Last Filed: 01/23/25 18:15> Vital Signs: 01/23/25 13:39 01/23/25 13:43 01/23/25 13:43 Temperature 97.8 F 97.8 F Temperature Source Oral Pulse Rate 71 78 Pulse Rate [Right] 78 Respiratory Rate 16 16 Blood Pressure 141/86 H 141/86 H Blood Pressure [Right Arm] 141/86 H Blood Pressure Mean [Right Arm] 104 02 Sat by Pulse Oximetry 95 95 95 01/23/25 14:00 01/23/25 14:30 01/23/25 15:00 Temperature Temperature Source Pulse Rate 67 64 60 Pulse Rate [Right] Respiratory Rate Blood Pressure 138/78 113/59 L 134/64 Blood Pressure [Right Arm] Blood Pressure Mean [Right Arm] 02 Sat by Pulse Oximetry 95 91 L 94 L 01/23/25 15:30 01/23/25 16:00 01/23/25 16:30 Temperature Temperature Source Pulse Rate 63 65 77 Pulse Rate [Right] Respiratory Rate Blood Pressure 132/72 137/71 152/73 H Blood Pressure [Right Arm] Blood Pressure Mean [Right Arm] 02 Sat by Pulse Oximetry 95 96 97 01/23/25 17:00 01/23/25 17:30 Temperature Temperature Source Pulse Rate 62 60 Pulse Rate [Right] Respiratory Rate Blood Pressure 131/72 139/69 Blood Pressure [Right Arm] Blood Pressure Mean [Right Arm] 02 Sat by Pulse Oximetry 95 96 Lab Data Lab results reviewed: Yes I reviewed the patient's lab results. Lab Results 01/23/25 14:00: WBC 8.5, RBC 5.21, Hgb 16.3 H, Hct 47.9 H, MCV 91.9, MCH 31.3 H, MCHC 34.0, RDW 14.6, Plt Count 273, MPV 10.0, Neut % (Auto) 69.1, Lymph % (Auto) 24.6, [place] % (Auto) 5.1, Eos % (Auto) 0.6, Baso % (Auto) 0.4, Neut # (Auto) 5.9, Lymph # (Auto) 2.1, [place] # (Auto) 0.4, Eos # (Auto) 0.1, Baso # (Auto) 0.0, VBG pH 7.42 H, VBG pCO2 41.7, VBG pO2 50.8 H, VBG HCO3 26.2, VBG Total CO2 27.5 H, V BG O2 Saturation 88.7 H, VBG Base Excess 1.7, VBG Lactic Acid 1.5, Sodium 138, Potassium 4.5, Chloride 102, Carbon Dioxide 26, Anion Gap 14.5, BUN 23 H, C reatinine 1.10 H, Estimated Creat Clear 43, Estimated GFR 48 L, Est GFR ( Amer) 58 L, Glucose 114 H, Calcium 9.6, Magnesium 2.2, Total Bilirubin 1.2, AST 22, ALT 11 L, Alkaline Phosphatase 116, Troponin I < 0.01, Total Protein 8.0, Albumin 4.7, Globulin 3.3 H, Albumin/Globulin Ratio 1.4, Lipase 132 01/23/25 15:49: Urine Color Yellow, Urine Appearance Clear, Urine pH 7.0, Ur Specific [place] <= 1.005, Urine Protein Negative, Urine Glucose (UA) Negative, Urine Ketones Negative, Urine Blood Trace-i, Urine Nitrate Negative, Urine Bilirubin Negative, Urine Urobilinogen 0.2, Ur Leukocyte Esterase Negative, Urine RBC Occasional, Urine WBC Occasional, Ur Squamous Epith Cells Occasional, Urine Bacteria None 01/23/25 17:16: Troponin I < 0.01 Orders (Tests/Meds): ED MEDICATIONS Discontinued Medications Generic Name Dose Route Start Last Admin Trade Name Dustin PRN Reason Stop Dose Admin Acetaminophen 1,000 mg 01/23/25 13:58 01/23/25 14:20 Acetaminophen 1,000mg/100ml Vial IV 01/23/25 13:59 1,000 mg ONCE ONE Administration Lactated Ringer's 500 mls @ 250 mls/hr 01/23/25 13:59 01/23/25 16:38 Lactated Ringer's 500ml IV 01/23/25 15:58 Infused .Q2H ONE Infusion Iopamidol 80 ml 01/23/25 14:09 01/23/25 14:11 Iopamidol-370 (76%);100ml Bottle IV 01/23/25 14:10 80 ml ONCE ONE Administration Ketorolac Tromethamine 30 mg 01/23/25 13:54 01/23/25 14:19 Ketorolac 30mg/Ml Vial IV 01/23/25 13:55 30 mg ONCE ONE Administration Sodium Chloride 10 ml 01/23/25 14:09 01/23/25 14:11 Sodium Chloride 0.9% 10ml Syr (Rad Only) IV 01/23/25 14:10 10 ml ONCE ONE Administration Sodium Chloride 50 ml 01/23/25 14:09 01/23/25 14:11 0.9 % Sodium Chloride 50 Ml Vial IV 01/23/25 14:10 50 ml ONCE ONE Administration ORDERS Category Date Time Status CT angio abdomen pelvis Stat Cat Scan 01/23/25 13:[address] head/brain wo con Stat Cat Scan 01/23/25 13:58 Completed CBC w/Auto Diff [Complete Blood Count Auto Diff] Stat Lab 01/23/25 14:00 Completed CMP [Comprehensive Metabolic Panel] Stat Lab 01/23/25 14:00 Completed Lipase Stat Lab 01/23/25 14:00 Completed MG [Magnesium] Stat Lab 01/23/25 14:00 Completed Trop I [Troponin I] Stat Lab 01/23/25 14:00 Completed Troponin I Q3H Lab 01/23/25 17:16 Completed Troponin I Q3H Lab 01/23/25 20:00 Ordered UA [Urinalysis and Microscopic] Stat Lab 01/23/25 15:49 Completed VBG [Venous Blood Gas] Stat RT 01/23/25 14:00 Completed Medical Decision Narrative: In summary patient is 74-year-old female past medical history described above presents emergency department for evaluation of abdominal pain and headache. Patient is hemodynamically stable nontoxic-appearing upon arrival, afebrile. Suspect her abdominal pain differential includes worsening SMA stenosis, SMA thrombosis, diverticulitis, urinary tract infection, ureterolithiasis, pancreatitis, among others. With respect to her headache I suspect it is a benign headache that is associated with her abdominal pain which is known to her however given her age noncontrasted CT scan of the head will be obtained. Initial inventions include Toradol, Tylenol, gentle crystalloid resuscitation given her history of diuretic use although she has decreased p.o. intake and urine output as of late will be repleted gently. Patient has taken Zofran prior to arrival. Recent gastroenterology note is reviewed by me, patient has had previous pancreatitis, previous diverticulitis, has nonerosive GERD with moderate esophageal dysmotility and a small sliding hiatal hernia. Initial hematologic labs reviewed by me no significant leukocytosis no transfusable anemia unconcerning VBG, no PAMELA or critical electrolyte abnormality, lipase normal. Noncontrasted CT scan informally visualized by me no acute large intra- axial hemorrhage or midline shift. CT is conducted and pending as well as urinalysis at transition of care to the oncoming physician, Dr. Ayala. Magali Ayala, DO I assumed care of the patient at 1500. Patient CT head showed no acute pathology. CT abdomen pelvis showed no acute pathology. 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 Patient has known lesions of her liver that have also been unchanged. Patient was recommended to eat and drink a bland diet over the next few days. Patient was otherwise recommended to return to the emergency department for any acute or worsening symptoms. Patient was otherwise discharged home in stable condition. Critical Care <Dov Jimenez MD - Last Filed: 01/23/25 15:03> Critical Care Time Critical Care Time: No
--- NOTE | 2025-01-23 13:58 | CT_ITS ---
PROCEDURE INFORMATION: Exam: CT Head Without Contrast Exam date and time: 01/23/2025 2:11 PM Age: 74 years old Clinical indication: Pain; Headache; Additional info: Frontal headache TECHNIQUE: Imaging protocol: Computed tomography of the head without contrast. Radiation optimization: All CT scans at this facility use at least one of these dose optimization techniques: automated exposure control; mA and/or kV adjustment per patient size (includes targeted exams where dose is matched to clinical indication); or iterative reconstruction. COMPARISON: CR XR MANDIBLE MIN 4V 05/29/2023 10:23 AM FINDINGS: Brain: Saunders-white matter differentiation is well-maintained. No CT evidence of a large territorial infarct. Mild decreased density is present within the subcortical deep white matter within the right and left frontal lobe. These changes are nonspecific and more in keeping with areas of chronic microvascular ischemic change. This does not extend to the cortical margin. No intraparenchymal hemorrhage. No subdural or epidural hematoma or fluid collection. No large mass or mass effect. Small old lacunar infarct or prominent perivascular space along the undersurface of the right basal ganglia. Cerebral ventricles: Ventricular and sulcal pattern is within normal limits. Ventricles are midline in position. No mass effect or midline shift. Paranasal sinuses: Paranasal sinuses are clear. Mastoid air cells: Mastoid air cells are clear. Bones: The calvarium is intact. No depressed or displaced skull fracture. Soft tissues: Unremarkable. Vasculature: No hyperdense MCA sign. Dense atherosclerotic plaque within the intracranial segment of the right and left internal carotid artery. IMPRESSION: No acute findings within the brain. No definitive evidence of a territorial infarct. No intraparenchymal hemorrhage. No subdural or epidural hematoma or fluid collection. No large mass or mass effect. Normal ventricular and sulcal pattern.
[2025-01-23 14:05] LABS: Lactate Venous 1.5 mmol/L (0.4-2.0); VBG HCO3 26.2 mmol/L (23-30); VBG PCO2 41.7 mmol/L (35-51); VBG PH 7.42 mmol/L (7.31-7.41); VBG PO2 50.8 mmol/L (28-40)
[2025-01-23] MEDS: 0.9 % SODIUM CHLORIDE 50 ML VIAL IV (14:11)
[2025-01-23] MEDS: SODIUM CHLORIDE 0.9% 10ML SYR (RAD ONLY) 10 ML IV (14:11)
[2025-01-23] MEDS: IOPAMIDOL-370 (76%);100ML BOTTLE 80 ML IV (14:11)
[2025-01-23 14:14] LABS: Albumin Level 4.7 g/dl (3.5-5.0); Chloride 102 mmol/L (98-107); Potassium 4.5 mmoL/L (3.5-5.1); Sodium 138 mmol/L (136-145)
[2025-01-23 14:16] LABS: Alanine Aminotransferase 11 U/L (12-78); Aspartate Amino Transferase 22 U/L (14-36); Blood Urea Nitrogen 23 mg/dl (7-17); Creatinine Clearance Estimated 43 mL/min (50-200); Creatinine,Serum 1.10 mg/dl (0.52-1.04); Estimated Glomerular Filt Rate 48 ml/min (>60); GFR (African American) 58 ML/MIN (>60)
[2025-01-23 14:17] LABS: Albumin/Globulin Ratio 1.4 (1.1-1.8); Alkaline Phosphatase 116 U/L (38-126); Anion Gap 14.5 mEq/L (5-15); Bilirubin,Total 1.2 mg/dl (0.2-1.3); Calcium 9.6 mg/dl (8.4-10.2); Carbon Dioxide 26 mmol/L (22.0-30.0); Globulin 3.3 g/dL (1.3-3.2); Glucose 114 mg/dl (74-100); Lipase 132 U/L (23-300); Magnesium 2.2 mg/dl (1.6-2.3); Total Protein,Serum 8.0 g/dl (6.3-8.2)
[2025-01-23] MEDS: KETOROLAC 30MG/ML VIAL 30 MG IV (14:19)
[2025-01-23] MEDS: RINGERS SOLUTION,LACTATED 500 ML 250 ML IV (14:19)
[2025-01-23] MEDS: ACETAMINOPHEN 1,000MG/100ML VIAL 1000 MG IV (14:20)
[2025-01-23 14:23] LABS: Hematocrit 47.9 % (37.0-47.0); Hemoglobin 16.3 g/dL (12.2-16.2); Immature Granulocytes % 0.2 %; Mean Corpuscular HGB Conc 34.0 g/dL (31.8-35.4); Mean Corpuscular Hemoglobin 31.3 pg (27.0-31.2); Mean Corpuscular Volume 91.9 fl (81-99); Nucleated Red Blood Cells % 0 %; Platelet Count 273 K/mm3 (142-424); Red Blood Count 5.21 M/mm3 (4.20-5.40); Red Cell Distribution Width-SD 48.9 fL; White Blood Count 8.5 K/mm3 (4.8-10.8)
[2025-01-23 14:42] LABS: Troponin I < 0.01 ng/ml (0.00-0.034)
[2025-01-23 15:53] LABS: Microscopic, Urine URINE MICROSCOPIC (MICROSCOPIC)
[2025-01-23 15:55] LABS: Bilirubin,Urine Negative (Negative); Color,Urine YELLOW (Yellow); Glucose,Urine (UA) Negative (Negative); Ketones,Urine Negative (Negative); Leukocyte Esterase,Urine Negative (Negative); PH,Urine 7.0 (5.0-8.5); Protein,Urine Negative (Negative); Specific Gravity, Urine <= 1.005 (1.005-1.030); Urobilinogen,Urine 0.2 EU/dl (0.2)
[2025-01-23 16:29] LABS: RBC,Urine Occasional #/hpf (0-3); Squamous Epithelial Cell,Urine Occasional #/hpf (0-5); WBC,Urine Occasional #/hpf (0-3)
[2025-01-23 17:54] LABS: Troponin I < 0.01 ng/ml (0.00-0.034)
== END 2025-01-23 18:26 | disposition home or self-care (01) ==
PROVIDERS: Emergency Provider Emergency Medicine; PCP Family Medicine
DX: R10.13 Epigastric pain (principal); I70.1 Atherosclerosis of renal artery; R51.9 Headache, unspecified; R11.0 Nausea; F17.210 Nicotine dependence, cigarettes, uncomplicated; I10 Essential (primary) hypertension
CPT/HCPCS: 70450; 74174; 80053; 81001; 82803; 83690; 83735; 84484; 85025; 93005; 96361; 96374; 96375; 99285; J0131; J1885; J7120; Q9967

== ENCOUNTER 2025-02-03 23:28 | Outpatient (CLI) | payer MEDICARE, SELFPAY ==
--- OUTSIDE RECORDS SUMMARY | 2025-02-03 23:33 | XMS_ITS | Encounter Summary ---
[facility] Address [address] [place] [address] Care Team Providers Care Transportation Department Head Name Role Phone Teo Goldman MD Primary Care Provider [phone] Encounter Details Date Type Department Care Team (Late st Contact Info) Description 12/14/2024 Telephone [facility] [address] [id number] Carmen Skaggs, Restaurant Host Social History Tobacco Use Types Packs/Day Years Used Date Smoking Tobacco: Every Day Cigarettes 0.5 20.8 Started: 2004 Smokeless Tobacco: Never Alcohol Use [...] Office Visit [facility] [address] [phone] Mesfin Linares APRN [address] [id number] documented as of this encounter Goals Goal [...] on filedocumented in this encounter Care Teams Transportation Department Head Relationship Specialty Start Date End Date Teo Goldman MD [address] [place] [id number] PCP - General Family Medicine 02/16/24 documented as of this encounter
--- OUTSIDE RECORDS SUMMARY | 2025-02-03 23:33 | XMS_ITS | Data Portability ---
Author Organization [facility] JUSTIN BrisenoS DEXTER CLOSED Address [address] [facility] [address] [place] [address] Care Team Providers Care Lumber Tripper Name Role Phone CASS BACA Nursing Project Coordinator SAMANTHA SEWELL Nursing Project Coordinator MOHINDER AGEE Primary Care Provider Assessment [...] cream use for treatment of atrophic vaginitis. [email or web address] Not available 07/01/2021 14:13:28 08/30/2021 08/30/2021 Urine for culture and sensitivity. Methenamine for medical management of UTI prevention. We discussed need for adequate hydration. She will be changed to vaginal suppository instead of topical cream to see if benefit can be achieved without bothersome side effects. [email or web address] Not available 09/02/2021 21:26:44 Plan of Treatment Reminders Order Date Submit Date Provider Last Modified By Organization Details Last Modified Time Details Appointments None recorded. Lab urinalysis panel, auto 2021 022 [email or web address] 14 [facility], [address], [place], [address], 07:54:32 culture, urine 2021 [facility], [address] [place], [address], 10:48:54 Referral None recorded. Procedures None recorded. Surgeries None recorded. Imaging None recorded. Medication Orders Vagifem 10 mcg vaginal tablet 2021 [place] [facility], [facility], [address], 08:14:12 methenamine hippurate 1 gram tablet 2021 [facility], [address] [place], [address], 08:14:14 Patient TargetsNo targets recorded. Patient Instructions Encounter Date Encounter Id Patient Instructions Last Modified By Organization Details Last Modified Time 08/25/2017 [id number] eustachian tube problems: care instructions [email or web address] Not available 08/25/2017 10:14:52 hearing loss: care instructions [email or web address] Not available 08/25/2017 10:14:52 06/28/2021 [id number] learning about healthy weight [email or web address] Not available 07/01/2021 14:13:29 08/30/2021 [id number] learning about healthy weight Not available 08/31/2021 08:13:29 Reason for Referral None Reported. Results Created Date Observation Date Name Description Value Unit Range Abnormal Flag Note LastModifiedBy Organization Detail LastModifiedTime 08/05/19 18 08/04/2017 CMP, serum or plasm a glucose 96 mg/dL 74-100 normal Not Available [facility] [address] [place], [address], 08/04/2017 21:20:48 08/05/19 18 08/04/2017 CMP, serum or plasm a blood urea nitrogen 10 mg/dL 6-20 normal Not Available [facility] [address] [place] [address], [address], 08/04/2017 21:20:48 08/05/19 18 08/04/2017 CMP, serum or plasm a creatinine 0.82 mg/dL 0.50-0 .95 normal Not Available [facility] [address] [place] [address], [address], 08/04/2017 21:20:48 08/05/19 18 08/04/2017 CMP, serum or plasm a BUN/creatini ne ratio 12 (calc ) 10-20 normal Not Available [facility] [address] [place] [address], [address], 08/04/2017 21:20:48 08/05/19 18 08/04/2017 CMP, serum or plasm a sodium 141 mmol/ L 136-14 5 normal Not Available [facility] [address] [place] [address], [address], 08/04/2017 21:20:48 08/05/19 18 08/04/2017 CMP, serum or plasm a potassium 4.5 mmol/ L 3.4-5. 0 normal Not Available [facility] [address] [place] [address], [address], 08/04/2017 21:20:48 08/05/19 18 08/04/2017 CMP, serum or plasm a chloride 100 mmol/ L 98-107 normal Not Available [facility] [address] [place] [address], [address], 08/04/2017 21:20:48 08/05/19 18 08/04/2017 CMP, serum or plasm a carbon dioxide 27 mmol/ L 20-32 normal Not Available [facility] [address] [place] [address], [address], 08/04/2017 21:20:48 08/05/19 18 08/04/2017 CMP, serum or plasm a anion gap 14 (calc ) 7-25 normal Not Available [facility] [address] [place] [address], [address], 08/04/2017 21:20:48 08/05/19 18 08/04/2017 CMP, serum or plasm a calcium 9.6 mg/dL 8.6-10 .2 normal Not Available [facility] [address] [place] [address], [address], 08/04/2017 21:20:48 08/05/19 18 08/04/2017 CMP, serum or plasm a total protein 7.4 g/dL 6.4-8. 3 normal Not Available [facility] [address] [place] [address], [address], 08/04/2017 21:20:48 08/05/19 18 08/04/2017 CMP, serum or plasm a albumin 4.2 g/dL 3.5-5. 2 normal Not Available [facility] [address] [place] [address], [address], 08/04/2017 21:20:48 08/05/19 18 08/04/2017 CMP, serum or plasm a globulin 3.2 g/dL_ (calc ) 1.5-4. 5 normal Not Available [facility] [address] [place] [address], [address], 08/04/2017 21:20:48 08/05/19 18 08/04/2017 CMP, serum or plasm a albumin/glob ulin ratio 1.3 (calc ) 1.1-2. 5 normal Not Available [facility] [address] [place] [address], [address], 08/04/2017 21:20:48 08/05/19 18 08/04/2017 CMP, serum or plasm a bilirubin, total 0.5 mg/dL 0.1-1. 2 normal Not Available [facility] [address] [place] [address], [address], 08/04/2017 21:20:48 08/05/19 18 08/04/2017 CMP, serum or plasm a alkaline phosphatase 80 U/L 35-105 normal Not Available [facility] [address] [place] [address], [address], 08/04/2017 21:20:48 08/05/19 18 08/04/2017 CMP, serum or plasm a AST 13 U/L 0-32 normal Not Available [facility] [address] [place] [address], [address], 08/04/2017 21:20:48 08/05/19 18 08/04/2017 CMP, serum or plasm a ALT 6 U/L 0-33 normal Not Available [facility] [address] [place] [address], [address], 08/04/2017 21:20:48 08/05/19 18 08/04/2017 CMP, serum or plasm a GFR 84 >= 60 normal Not Available [facility] [address] [place] [address], [address], 08/04/2017 21:20:48 08/05/19 18 08/04/2017 CMP, serum [...] s or longe r. . Not Available [facility] [address] [place] [address], [address], 08/04/2017 21:20:48 08/05/19 18 08/04/2017 ESR (eryt hrocy te sedim entat ion rate) , blood ESR, automated 49 mm/HR 0-29 high Not Available [facility] [address] [place], [address], 08/04/2017 21:46:14 08/05/19 18 08/05/2017 RPR (rapi d plasm a reagi n), serum RPR NON-RE ACTIVE nonrea ctive normal Not Available [facility] [address] [place], [address], 08/05/2017 11:33:40 08/05/19 18 08/06/2017 lyme disea [...] PERFO RMED AT: [facility] [address] [place] [address] TWIN Godfrey MD Not Available [facility] [address] [place], [address], 08/06/2017 13:40:54 08/05/19 18 08/06/2017 CHELO (anti [...] n with disea ses at http: //[facility] catio n.Que stDia gnost ics.c om/ faq/F AQ177 TEST PERFO RMED AT: [facility] [place] [address] [facility] [place] [address] TWIN Godfrey MD Not Available [facility] [address] [place], [address], 08/06/2017 16:41:09 08/31/19 22 08/30/2021 URINE CULTU RE results Sour e: CCUR Colle cted: 08/30 14:33 Site: Recei sugar : 08/30 19:21 URINE CULTU RE FINAL 09/01 09:34 09/01 COLON Y COUNT : > 100,0 00 CFU/M L Three or more isola clyde; mixed skin reji . Not Available [facility] [address] [place], [address], 09/01/2021 09:34:24 08/31/19 22 08/30/2021 urina lysis panel , auto Unknown Analyte Clean Catch Not Available [facility] [address], [place], [address], 08/30/2021 14:31:08 08/31/19 22 08/30/2021 urina lysis panel , auto Unknown Analyte Yellow Not Available [facility] [address], [place], [address], 08/30/2021 14:31:08 08/31/19 22 08/30/2021 urina lysis panel , auto Unknown Analyte Clear Not Available [facility] [address], [place], [address], 08/30/2021 14:31:08 08/31/19 22 08/30/2021 urina lysis panel , auto Unknown Analyte 1.010 Not Available [facility] [address], [place], [address], 08/30/2021 14:31:08 08/31/19 22 08/30/2021 urina lysis panel , auto Unknown Analyte 1.003- 1.035 Not Available [facility] [address], [place], [address], 08/30/2021 14:31:08 08/31/19 22 08/30/2021 urina lysis panel , auto Unknown Analyte 6.0 Not Available [facility] [address], [place], [address], 08/30/2021 14:31:08 08/31/19 22 08/30/2021 urina lysis panel , auto Unknown Analyte 5.0-8. 0 Not Available [facility] With [address], [place], [address], 08/30/2021 14:31:08 08/31/19 22 08/30/2021 urina lysis panel , auto Unknown Analyte [address] (+) Not Available [address], [place], [address], 08/30/2021 14:31:08 08/31/19 22 08/30/2021 urina lysis panel , auto Unknown Analyte Negati ve Not Available [address], [place], [address], 08/30/2021 14:31:08 08/31/19 22 08/30/2021 urina lysis panel , auto Unknown Analyte POSITI VE (Abnor mal) Not Available [facility] With [address], [place], [address], 08/30/2021 14:31:08 08/31/19 22 08/30/2021 urina lysis panel , auto Unknown Analyte Negati ve Not Available [facility] With [address], [place], [address], 08/30/2021 14:31:08 08/31/19 22 08/30/2021 urina lysis panel , auto Unknown Analyte Negati ve Not Available [facility] With [address], [place], [address], 08/30/2021 14:31:08 08/31/19 22 08/30/2021 urina lysis panel , auto Unknown Analyte Negati ve Not Available [facility] With [address], [place], [address], 08/30/2021 14:31:08 08/31/19 22 08/30/2021 urina lysis panel , auto Unknown Analyte Normal Not Available [facility] [address], [place], [address], 08/30/2021 14:31:08 08/31/19 22 08/30/2021 urina lysis panel , auto Unknown Analyte Normal Not Available [facility] [address], [place], [address], 08/30/2021 14:31:08 08/31/19 22 08/30/2021 urina lysis panel , auto Unknown Analyte Negati ve Not Available [facility] With [address], [place], [address], 08/30/2021 14:31:08 08/31/19 22 08/30/2021 urina lysis panel , auto Unknown Analyte Negati ve Not Available [facility] With [address], [place], [address], 08/30/2021 14:31:08 08/31/19 22 08/30/2021 urina lysis panel , auto Unknown Analyte 1 mg/dl Not Available [facility] With [address], [place], [address], 08/30/2021 14:31:08 08/31/19 22 08/30/2021 urina lysis panel , auto Unknown Analyte Normal 1 mg/dl Not Available [facility] [address], [place], [address], 08/30/2021 14:31:08 08/31/19 22 08/30/2021 urina lysis panel , auto Unknown Analyte Negati ve Not Available [facility] [address] [place], [place], [address], 08/30/2021 14:31:08 08/31/19 22 08/30/2021 urina lysis panel , auto Unknown Analyte Negati ve Not Available [facility] [address], [place], [address], 08/30/2021 14:31:08 08/31/19 22 08/30/2021 urina lysis panel , auto Unknown Analyte Negati ve Not Available [facility] With [address], [place], [address], 08/30/2021 14:31:08 04/08/30/2021 urina lysis panel , auto Unknown Analyte Negati ve Not Available [facility] [address], [place], [address], 08/30/2021 14:31:08 08/06/19 18 02/11/2017 US, duple x, carot id arter y No observ ation record ed. BARCODE Not Available 2017 10:15:14 08/06/19 18 01/21/2017 MRI, brain , w/wo contr ast No observ ation record ed. Not Available 2017 12:47:37 Result Notes None recorded. Problems No Known Problems Procedures Surgical History Date Name Laterality Status Provider Name and Address Organization Details Recorded Time 08/26/19 18 Tympanogram completed MÓNICA CASTELLANO [address] [place], [address], [facility] 08/25/2017 10:14:03 08/26/19 18 Audiogram completed MÓNICA [place], [address], [facility] 08/25/2017 10:14:02 07/22/19 18 Tympanogram completed MÓNICA DE SANTIAGO [address] [place], [address], [facility] 07/21/2017 11:37:12 07/22/19 18 Audiogram completed ERIC BAUTISTA AUD [address] [place], [address], [facility] 07/21/2017 11:37:11 07/22/19 18 Audiogram completed Aarti Hein [facility] 07/21/2017 11:43:47 [facility] 07/21/2017 11:12:44 [facility] 11:12:52 Imaging Results None recorded. Procedure Notes None recorded. Medical Equipment None Reported. Allergies Allergen ID Allergen Name Allergen Category Reaction Reaction Severity Criticality Documentation Date Start Date Code Code System Note Provider Name and Address Organization Details Recorded Time 347202 lisinopri l medicatio n anaphylax is severe Not available 07/21/2017 94119 RxNorm Shaina Curiel [facility] 8 11:06:04 Medications Name Sig Start Date [...] Updated DateTime 06/28/2021 160.02 cm 24.1 kg/m2 59924.56 g Holly Wheatt [facility] 06/29/2021 08:00:48 Date Recorded Body height Body mass index (BMI) Body weight Body temperature Heart rate Systolic And Diastolic Provider Name and Address Organization Details Last Updated DateTime 8 160.02 cm 25 kg/m2 06091.9 2 g 99.2 [degF] 77 /min 127/73 mm[Hg] Shaina Curiel [facility] 8 09:38:01 Date Recorded Body height Body mass index (BMI) Body weight Provider Name and Address Organization Details Last Updated DateTime 08/30/2021 160.02 cm 24.1 kg/m2 76503.56 g Holly Wheatt [facility] 08/30/2021 14:30:12 Social History Question Answer Notes LastModified by Organizat ion Details LastModified Time Tobacco Smoking Status Current Every Day Smoker Shaina Curiel [facility] 07/21/2017 11:11:32 What Was The Date Of Your Most Recent Tobacco Screening? 08/30/2021 Information not available 08/30/2021 What Is Your Relationship Status? Information not available 06/29/2021 How Much Tobacco Do You Smoke? 0.5 PPD Information not available 07/21/2017 How Many Years Have You Smoked Tobacco? 8 [email or web address] Information not available 07/21/2017 Sex: Unknown Functional Status Question Answer Note LastModified by Organization D etails LastModified Time What is your level of alcohol consumption? None [email or web address] Information not available 07/21/2017 Mental Status None recorded. Family History Relationship Description Onset Age of this Age Resolved Age Notes LastModified by Organization Details LastModified Time Mother Family history of malignant neoplasm skin Not available 07/21 11:10:57 Mother History of hypertension [email or web address] Not available 11:11:11 Father Family history of stroke [email or web address] Not available 07/21 11:11:23 Father Kidney stone Not availab le 06/29/2021 08:06:51 Medical History Condition Response Diabetes N Allergies/Hayfever Y Bleeding Disorder N Arthritis Y Kidney Stones Y High Cholesterol Y Anesthesia Complications N Acid Reflux (GERD) Y Cancer Y Hypertension Y Gynecological HistoryNo gynecological history recorded. Obstetrics History GPAL:G 0 P 0 0 0 0 Past Encounters Encounter ID Performer Location Encounter Start Date Encounter Closed Date Diagnosis/Indication Diagnosis SNOMED-CT Code Diagnosis ICD10 Code Diagnosis IMO Codes Diagnosis Note [id number] JANIYA DEVRIES MD [place] [facility] [address] [place] [address] 07/21/2017 10:47:11 07/21/2017 13:41:32 Bilateral tinnitus 9130304908 102 H93.13 L>R secondary to bilateral asymmetric sensorineu ral hearing loss most pronounced in the left ear Dysfunctio n of eustachian tube 53181212 H69.93 Asymmetric al sensorineural hearing loss 984762986 H90.5 Left ear =85 dB profound sensorineu [...] ?? results Hypertroph y of nasal turbinates 20986079 J34.3 [id number] MÓNICA DE SANTIAGO [place] [facility] [address] [place] [address] 07/21/2017 11:36:34 07/23/2017 10:18:14 Bilateral tinnitus 4083610451 102 H93.13 Sensorineu ral hearing loss of bilateral ears 751208525 H90.3 R: moderate SNHL; L: severe to profound SNHL Dysfunctio n of eustachian tube 98252868 H69.93 [id number] JANIYA DEVRIES MD [facility] [address] [place] [address] 08/04/2017 13:12:49 08/04/2017 14:17:35 Bilateral tinnitus 0259313516 102 H93.13 L>R secondary to bilateral asymmetric sensorineu ral hearing loss most pronounced in the left ear Asymmetric al sensorineural hearing loss 438193386 H90.5 Left ear = 85 dB profound [...] normal results Dysfunctio n of eustachian tube 07128468 H69.93 Hypertroph y of nasal turbinates 89016178 J34.3 [id number] JANIYA DEVRIES MD [facility] [address] [place] [address] 08/25/2017 09:07:50 08/25/2017 11:24:01 Asymmetrical sensorineural hearing loss 470515047 H90.5 Left ear = 85 dB profound [...] -ESR labs 08/04/17= high (49) Bilateral tinnitus 36460 66275 102 H93.13 L>R secondary to bilateral asymmetric sensorineu ral hearing loss most pronounced in the left ear Dysfunctio n of eustachian tube 16618165 H69.93 Hypertroph y of nasal turbinates 86260187 J34.3 Sensorineu ral hearing loss of bilateral ears 827094501 H90.3 [id number] MÓNICA CASTELLANO [address]NT [address] [place] [address] 08/25/2017 09:45:27 08/25/2017 17:15:33 Asymmetrical sensorineural hearing loss 360614387 H90.5 Dysfunctio n of eustachian tube 51465306 H69.93 Bilateral tinnitus 76145 54168 102 H93.13 [id number] MÓNICA CASTELLANO [address]NT [address] 7 08/25/2017 10:54:48 08/25/2017 17:20:11 [id number] MÓNICA CASTELLANO ENT [address] 7 09/02/2017 13:13:21 09/02/2017 16:24:45 [id number] MÓNICA CASTELLANO [address]NT [address] [place] [address] 10/20/2017 10:48:11 10/20/2017 11:42:15 [id number] GREG ANN MD [facility] [address] [address] 06/28/2021 15:59:18 06/28/2021 16:59:28 Recurrent urinary tract infection 489675395 N39.0 Urinary tr act infectious disease 60506859 N39.0 Atrophic vaginitis 03639 000 N95.2 [id number] GREG ANN MD [facility] [address],[facility] [place] [address] 08/30/2021 14:22:42 09/04/2021 14:19:36 Urinary tract infectious disease 44114460 N39.0 Atrophic vaginitis 36432 000 N95.2 Recurrent urinary tract infection 752304043 N39.0 Health Concerns Section Related Observation LastModified by Organization Detai ls LastModified Time None Recorded Concern Status LastModified by Organization Details LastModified Time None Recorded Advance Directives Directive None Recorded Payers Insurance Date Sequence Insurance Name Policy Number Policy Villegas Covered Member ID Villegas Member ID Guarantor Name 09/04/2021 1 [employer] (MEDICARE REPLACEMENT/ ADVANTAGE - PPO) Danuta Pandya [id number] Danuta Rubi Pandya Notes Date Note Type Note Provider [...] when in a crowd. JANIYA DEVRIES MD [address] [place] [address] [place], [address], [facility] 08/25/2017 10:57:36 06/28/2021 text/html 71-year-old female in the office for my initial evaluation [...] 2021 showed Klebsiella pneumoniae. GREG ANN MD [address] [place] [address] [place], [address], [facility] 07/01/2021 14:13:55 08/30/2021 text/html 71-year-old female in the office for follow-up evaluation of recurrent urinary infections. No current hematuria or dysuria. She has suprapubic cramping though. She is immunosuppressed due to methotrexate. She follows with rheumatology. She has intolerance to topical vaginal estrogen cream with estradiol. GREG ANN MD [address] [place], [address], [facility] 09/02/2021 21:27:10 OBGyn Episode No OBEpisode recorded.
--- OUTSIDE RECORDS SUMMARY | 2025-02-03 23:33 | XMS_ITS | Clinical Summary ---
[facility] Organization [facility] Address [address] [place] [address] Care Team Providers Care [employer] Planning Name Role Phone Teo Goldman MD Primary Care Provider [phone] Allergies Active Allergy Reactions Criticality Noted Date [...] done in 11/2023. We will request from [facility]. Neck pain 09/30/2023 Assessment & Plan (02/16/2024 [...] 12:27 PM EDT): Dr. Annabelle DEXTER in [facility] Had abscess fall 2022 that has resolved. We will need to avoid actemra and EDYTA inhibitors in future Sciatica of left side 09/30/2023 Assessment & Plan (02/16/2024 12:05 PM EDT): Doing well. She did not do PT and pain resolved. Encounters Date Type Department Care Team Description 12/14/2024 Telephone [facility] [address] [address] Carmen Skaggs, Cornice Maker 12/14/2024 Telephone [facility] [address] [address] Carmen Skaggs, Cornice Maker 12/07/2024 Telephone [facility] [address] [address] Megan Rausch, Cornice Maker 12/02/2024 Telephone [facility] [address] [address] Carmen Skaggs, Cornice Maker from Last 3 Months Immunizations Immunization Administration [...] Description 02/09/2025 1:15 PM EDT Office Visit [facility] 330 [facility] [address] [place] [address] Mesfin Linares APRN [address] [address] Health Maintenance Due Date Last Done [...] Most Recently Relevant to Health Maintenance Insurance [facility] Medicare Advant[employer] PPO Care Teams Wind Science [employer] Planning Relationship Specialty Start Date End Date Teo Goldman MD [facility] [place] [address] PCP - General Family Medicine 02/16/24
--- OUTSIDE RECORDS SUMMARY | 2025-02-03 23:33 | XMS_ITS | Encounter Summary ---
[facility] Address [address] [place] [address] Care Team Providers Care Electrical Apprentice Name Role Phone Teo Goldman MD Primary Care Provider +1- [phone] Encounter Details Date Type Department Care Team (Late st Contact Info) Description 12/07/2024 Telephone [facility] R[facility]OLOG[facility] [address] [address] Megan Rausch, White [employer] Pan Tank Operator Social History Tobacco Use Types Packs/Day [...] -ZC * Telephone Encounter - Megan Rausch, White Sugar Pan Tank Operator - 12/07/2024 12:14 PM EDT Pt needs an appointment before we can send her anymore refills documented in this encounter Plan of Treatment Upcoming Encounters Date Type Department Care Team (Late st Contact Info) Description 02/09/2025 1:15 PM EDT Office Visit [facility] RHEUMATOLOGY [address] [place] [id number] Mesfin Linares APRN 330 [facility] [address] [place] [address] documented as of this encounter Goals Goal [...] on filedocumented in this encounter Care Teams Electrical Apprentice Relationship Specialty Start Date End Date Teo Goldman MD [address] [place] [address] [place] [address] PCP - General Family Medicine 02/16/24 documented as of this encounter
--- OUTSIDE RECORDS SUMMARY | 2025-02-03 23:33 | XMS_ITS ---
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
--- OUTSIDE RECORDS SUMMARY | 2025-02-03 23:33 | XMS_ITS | Encounter Summary ---
[facility] [address] [place] [address] Care Team Providers Care Medical Educator Name Role Phone Teo Goldman MD Primary Care Provider +1- [phone] Encounter Details Date Type Department Care Team (Late st Contact Info) Description 12/14/2024 Telephone [facility] RHEUMATOLOGY [address] [address] Carmen Skaggs, Fudger Social History Tobacco Use Types Packs/Day Years [...] Notes * Telephone Encounter - Carmen Skaggs Fudger - 12/14/2024 10:23 AM EDT Spoke with [...] Description 02/09/2025 1:15 PM EDT Office Visit [facility] RHEUMATOLOGY [address] [place] [address] Mesfin Linares APRN [address] [facility] [facility] [address] [place] [address] documented as of this encounter Goals Goal [...] filedocumented in this encounter Care Teams Medical Educator Relationship Specialty Start Date End Date Teo Goldman MD [address] [place] [address] PCP - General Family Medicine 02/16/24 documented as of this encounter
--- OUTSIDE RECORDS SUMMARY | 2025-02-03 23:33 | XMS_ITS | Encounter Summary ---
Author Organization [facility] yste Address [address] [place] [address] Care Team Providers Care Project Financial Analyst Name Role Phone Teo Goldman MD Primary Care Provider +1- [phone] Encounter Details Date Type Department Care Team (Late st Contact Info) Description 08/24/2024 Results Follow-Up [facility] [place] [address] [place] [address] Lonnie Bettencourt MD [address] [facility] [address] [place] [address] Social History Tobacco Use Types Packs/Day Years [...] Description 02/09/2025 1:15 PM EDT Office Visit [facility] RHEUMATOLOGY [address] [place] [address] Mesfin Linares APRN [address] [place] [address] documented as of this encounter Goals Goal [...] on filedocumented in this encounter Care Teams Project Financial Analyst Relationship Specialty Start Date End Date Toe Goldman MD [address] [place] [address] [place] [address] PCP - General Family Medicine 02/16/24 documented as of this encounter
== END 2025-02-03 23:59 | disposition home or self-care (01) ==
LOC: LAB 23:30
PROVIDERS: PCP Family Medicine; Visit Provider Family Medicine
DX: E11.9 Type 2 diabetes mellitus without complications (principal)
CPT/HCPCS: 82043; 82570